=== PATIENT | female | born 1960 | race Caucasian/White ===

== ENCOUNTER 2016-06-02 07:51 | Inpatient (IN) | payer OTHER ==
[2016-06-02] MEDS ORDERED: Albuterol/Ipratropium NEB.SOL* Albuterol 2.5 MG/Ipratropium 0.5 MG 3 ML INH ONE ×3 (08:19→11:50)
[2016-06-02] MEDS ORDERED: methylPREDNISolone SOD SUCC* 125 MG 2 ML VIAL IV ONE (08:19)
[2016-06-02 08:53] LABS: Albumin 3.4 g/dL (3.2-5.2); Calcium 8.8 mg/dL (8.6-10.3); EGFR African American 177.6 (>60); EGFR Non-African American 138.1 (>60); Globulin 3.7 g/dL (2-4); Potassium 4.4 mmol/L (3.5-5.0); Total Bilirubin 0.4 mg/dL (0.2-1.0); Total Protein 7.1 g/dL (6.4-8.9); Troponin I 0.02 ng/mL (<0.04)
--- NOTE | 2016-06-02 09:03 | RAD ---
HISTORY: Shortness of breath COMPARISONS: November 23, 2015 VIEWS:1: Single frontal portable view of the chest at 8:50 AM FINDINGS: LINES AND TUBES: None. CARDIOMEDIASTINAL SILHOUETTE: The cardiomediastinal silhouette is normal for portable technique. PLEURA: The costophrenic angles are sharp. No pleural abnormalities are noted. LUNG PARENCHYMA: There is hyperinflation. ABDOMEN: The upper abdomen is clear. There is no subphrenic gas. BONES AND SOFT TISSUES: The patient is status post anterior cervical fusion. IMPRESSION: COPD. NO ACTIVE CARDIOPULMONARY DISEASE.
[2016-06-02 09:17] LABS: Hematocrit 46 % (35-47); Mean Corpuscular HGB Conc 33 g/dl (31-36); Mean Corpuscular Hemoglobin 32 pg (27-31); Mean Corpuscular Volume 97 fL (80-97); Mean Platelet Volume 9 um3 (7.4-10.4); Red Blood Count 4.75 10^6/ul (4.0-5.4); Red Cell Distribution Width 14 % (10.5-15); White Blood Count 5.9 10^3/ul (3.5-10.8)
[2016-06-02] MEDS ORDERED: Levofloxacin 750 MG IVPREMIX(* 750 MG/150 ML BAG IVPB ONE ×2 (11:55→15:00)
[2016-06-02] MEDS ORDERED: Albuterol HFA INHALER* 8 gm MDI INH PRN (12:49)
[2016-06-02] MEDS ORDERED: Acetaminophen TAB* 325 MG PO PRN (12:49)
[2016-06-02] MEDS ORDERED: oxyCODONE TAB* 5 MG TAB PO PRN (12:49)
[2016-06-02] MEDS: Enoxaparin(*) 40 MG/0.4 ML SYR SUBCUT SCH (14:48)
[2016-06-02] MEDS: Mometasone/Formoter 100/5 MDI INH SCH (19:58)
[2016-06-02] MEDS: methylPREDNISolone SOD SUCC* 40 MG/ML VIAL IV SCH (20:05)
--- NOTE | 2016-06-02 23:51 | HP ---
HISTORY AND PHYSICAL: DATE OF ADMISSION: 06/02/16 TIME OF EVALUATION: 12:30 p.m. PRIMARY CARE PROVIDER: Miladys Aguilar MD CHIEF COMPLAINT: Shortness of breath. HISTORY OF PRESENT ILLNESS: Mrs. High is a 56-year-old lady with a past medical history of allergic rhinitis, COPD, and tobacco abuse that presented to the emergency room with complaints of shortness of breath. She states that over the past couple of weeks she has felt like she was coming down with respiratory symptoms with rhinorrhea, watery eyes, and sore throat. This persisted and this week, she started to have some dry cough. She used her medications at home, her inhalers initially with symptomatic relief, but she states that for the past 2 days, the shortness of breath has gotten progressively worse with productive cough, now associated with wheezing and today it became worse to the point that she needed to come to the emergency room. She was described as being in respiratory distress on arrival with an oxygen saturation of 77% on room air and when she was placed on 4 L, her oxygen saturation went up to 100% after 5 minutes. She received 3 breathing treatments while in the emergency room and although she had some improvement, she was still symptomatic and her oxygen saturation still dropped with exertion, so the hospitalist service was called for evaluation. PAST MEDICAL HISTORY: 1. Allergic rhinitis. 2. COPD. 3. Status post anterior cervical diskectomy C5-6, C6-7. MEDICATION LIST: 1. Acetaminophen 650 mg p.o. q.4 hours p.r.n. pain or fever. 2. Albuterol HFA 1 puff inhaled b.i.d. as needed for shortness of breath. 3. Oxycodone 10 mg p.o. q.12 hours p.r.n. pain. MDD 20 mg. ALLERGIES: No known drug allergies. FAMILY HISTORY: Her mother at age 62 of lung cancer and father of a brain tumor. SOCIAL HISTORY: The patient was a long-time smoker, 1 pack per day, and she quit in January 2015. She denies alcohol or drug use. Surrogate decision maker is her , Jaswinder High, phone # [phone]. 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 REVIEW OF SYSTEMS: A 14-point review of systems was performed and all the pertinent negatives and positives are as in the HPI. PHYSICAL EXAMINATION GENERAL: The patient is a middle-aged lady, sitting up in the ED stretcher, in no acute distress, watching TV. VITAL SIGNS: Temperature 98.7, heart rate is 93, respiratory rate is 22, oxygen saturation 95% 4 L nasal cannula, and blood pressure is 107/63. HEENT: Pupils are equal, reactive to light. Moist mucous membranes. CHEST: Breath sounds present bilaterally with scattered rhonchi. CVS: Normal S1, S2. Regular rate and rhythm. ABDOMEN: Soft. Bowel sounds are present. EXTREMITIES: No edema. NEURO: She is alert, awake, and oriented x3. Able to move all 4 extremities. DIAGNOSTIC STUDIES/LAB DATA: The patient had a CBC that showed WBC of 5.9, hemoglobin of 15, hematocrit of 46, and platelets of 116 with 71% neutrophils. Chemistry showed a sodium of 131, potassium of 4.4, chloride of 90, bicarb of 39 , BUN of 8, creatinine 0.47, glucose of 145, lactic acid is 1.7, and calcium 8.8. LFTs are normal. EKG done June 02 at 8:03 a.m. shows sinus rhythm at 99 beats per minute with no ST-T changes, only PVCs. When compared to her prior EKG from March 2015, there is change in the sense that she had low voltage at that time. Chest x-ray showed COPD, but no active cardiopulmonary disease. ASSESSMENT AND PLAN: Mrs. High is an 56-year-old lady with the past medical history of allergic rhinitis, chronic obstructive pulmonary disease, and prior history of tobacco abuse, who presents to the emergency room with complaints of shortness of breath, found to be hypoxic secondary to chronic obstructive pulmonary disease exacerbation. 1. Acute hypoxemic respiratory failure: Cause is chronic obstructive pulmonary disease. The patient will receive oxygen as needed to keep respirations around 89% to 90%. 2. Chronic obstructive pulmonary disease exacerbation secondary to bronchitis: The patient will be admitted as observation to the medical floor. She will be started empirically on levofloxacin. We are going to continue bronchodilators, IV steroids, and I am going to add inhaled steroid too. She does not appear to have pneumonia at this time. The source appears to be bronchitis. 3. Deep vein thrombosis prophylaxis: The patient has a score of 2 on the DVT Prophylaxis Risk Assessment Guide and she will be started on Lovenox. 4. Mild thrombocytopenia: The patient has no signs of bleeding at this time. This appears to be an incidental finding and may represent only clumping. We are going to monitor her platelet count. 5. Code status: Full. TIME SPENT: Approximately 50 minutes was spent with the patient and family interview, medical records review, physical examination to complete the admission, and more than half this time was spent [id number] with the patient and coordination of care. CC: Miladys Aguilar MD* [id number]/[facility] #: [id number]
[2016-06-03] MEDS: Albuterol 2.5 MG/3 ML NEB.SOL* (0.083%) INH PRN ×2 (03:34→14:26)
[2016-06-03] MEDS: Omeprazole CAP* 20 MG PO SCH (05:37)
[2016-06-03 06:29] LABS: Hematocrit 43 % (35-47); Mean Corpuscular HGB Conc 33 g/dl (31-36); Mean Corpuscular Hemoglobin 32 pg (27-31); Mean Corpuscular Volume 97 fL (80-97); Mean Platelet Volume 9 um3 (7.4-10.4); Red Blood Count 4.39 10^6/ul (4.0-5.4); Red Cell Distribution Width 15 % (10.5-15); White Blood Count 7.8 10^3/ul (3.5-10.8)
[2016-06-03 06:41] LABS: BUN/Creatinine Ratio 18.2 (8-20); Calcium 8.7 mg/dL (8.6-10.3); EGFR African American 148.1 (>60); EGFR Non-African American 115.2 (>60); Potassium 4.5 mmol/L (3.5-5.0)
[2016-06-03] MEDS: Tiotropium CAP.INH* CAP.INH/18 MCG INH SCH ×2 (08:01→10:43)
[2016-06-03] MEDS: Mometasone/Formoter 100/5 MDI INH SCH ×3 (08:01→23:55)
[2016-06-03] MEDS: methylPREDNISolone SOD SUCC* 40 MG/ML VIAL IV SCH ×2 (08:30→20:59)
[2016-06-03] MEDS ORDERED: Spiriva Inhaler DEVICE* 1 EACH DEVICE INH ONE (09:00)
[2016-06-03] MEDS: Enoxaparin(*) 40 MG/0.4 ML SYR SUBCUT SCH (14:40)
[2016-06-03] MEDS ORDERED: Levofloxacin 500 MG IVPREMIX(* 500 MG/100 ML BAG IVPB SCH (15:00)
--- NOTE | 2016-06-03 19:29 | PN ---
Subjective Date of Service: 06/03/16 Interval History: Pt is feeling ok. Still frustrated by the fact that she is getting very SOB with minimal exertion. She has been coughing up some estrada sputum. Objective Active Medications: Acetaminophen (Tylenol Tab*) 650 mg PO Q4H PRN PRN Reason: pain-mild Albuterol (Ventolin Hfa Inhaler*) 2 puff INH Q6H PRN PRN Reason: SHORTNESS OF BREATH Albuterol (Ventolin 2.5 Mg/3 Ml Neb.Anaid*) 2.5 mg INH Q4H PRN PRN Reason: SOB/WHEEZING Last Admin: 06/03/16 14:26 Dose: 2.5 mg Enoxaparin Sodium (Lovenox(*)) 40 mg SUBCUT Q24H [facility] Last Admin: 06/03/16 14:40 Dose: 40 mg Levofloxacin/Dextrose (Levaquin 500 Mg Ivpremix(*)) 500 mg in 100 mls @ 100 mls /hr IVPB Q24H [facility] Last Admin: 06/03/16 14:40 Dose: 100 mls/hr Methylprednisolone Sodium Succinate (Solu-Medrol*) 40 mg IV Q12H [facility] Last Admin: 06/03/16 08:30 Dose: 40 mg Mometasone Furoate/Formoterol Fumar (Dulera 100/5 Mdi*) 2 puff INH BID [facility] Last Admin: 06/03/16 10:42 Dose: 2 puff Omeprazole (Prilosec Cap*) 20 mg PO DAILY@0600 [facility] Last Admin: 06/03/16 05:37 Dose: 20 mg Oxycodone HCl (Roxycodone Tab*) 10 mg PO Q12H PRN PRN Reason: PAIN Tiotropium [place] (Spiriva Cap.Inh*) 1 cap INH DAILY [facility] Last Admin: 06/03/16 10:43 Dose: 1 cap.inh Vital Signs 06/02/16 06/02/16 06/03/16 20:00 23:22 00:00 Temperature 97.6 F Pulse Rate 85 85 Respiratory 16 16 Rate Blood Pressure 105/61 (mmHg) O2 Sat by Pulse 97 97 97 Oximetry 06/03/16 06/03/16 06/03/16 03:34 03:55 07:21 Temperature 98.0 F 97.7 F Pulse Rate 68 80 77 Respiratory 20 16 15 Rate Blood Pressure 102/62 95/60 (mmHg) O2 Sat by Pulse 97 99 90 Oximetry 06/03/16 06/03/16 06/03/16 08:00 10:45 10:48 Temperature Pulse Rate 76 Respiratory 16 17 Rate Blood Pressure (mmHg) O2 Sat by Pulse 98 98 Oximetry 06/03/16 06/03/16 06/03/16 10:49 11:46 14:26 Temperature 97.3 F Pulse Rate 76 73 76 Respiratory 18 16 16 Rate Blood Pressure 104/62 (mmHg) O2 Sat by Pulse 98 94 99 Oximetry 06/03/16 06/03/16 15:32 17:19 Temperature 97.6 F Pulse Rate 97 Respiratory 20 Rate Blood Pressure 101/63 (mmHg) O2 Sat by Pulse 93 93 Oximetry Oxygen Devices in Use Now: None Appearance: Middle aged cachectic female sitting up in bed, NAD Eyes: No Scleral Icterus Ears/Nose/Mouth/Throat: Mucous Membranes Moist Respiratory: Symmetrical Chest Expansion and Respiratory Effort, - - diminshed breath sounds throughout with diffusely scattered wheezes Cardiovascular: NL Sounds; No Murmurs; No JVD, RRR, No Edema Abdominal: NL Sounds; No Tenderness; No Distention Extremities: No Clubbing, Cyanosis Skin: No Rash or Ulcers, No Nodules or Sclerosis Neurological: Alert and Oriented x 3 Result Diagrams: 06/03/16 06:10 06/03/16 06:10 Assess/Plan/Problems-Billing Ms lorenzana is a 56 yo F with a h/o COPD who presented to the ER with c/o progressive SOB. - Patient Problems (1) COPD exacerbation Current Visit: Yes Status: Acute Code(s): J44.1 - CHRONIC OBSTRUCTIVE PULMONARY DISEASE W (ACUTE) EXACERBATION SNOMED Code(s): 776061354 Comment: The patient continues to have diffuse wheezes. Continue spiriva, dulera and change to standing albuterol nebs. Will change from levaquin to azithromycin. She is currently needing supplemental O2. I think she still needs another day or 2 in the hospital. (2) DVT prophylaxis Current Visit: Yes Status: Acute Code(s): PLU4469 - SNOMED Code(s): 806524609 Comment: levaquin (3) Full code status Current Visit: Yes Status: Acute Code(s): Z78.9 - OTHER SPECIFIED HEALTH STATUS SNOMED Code(s): 089696120
[2016-06-03] MEDS ORDERED: Azithromycin TAB* 250 MG PO SCH (19:33)
[2016-06-03] MEDS: Albuterol 2.5 MG/3 ML NEB.SOL* (0.083%) INH SCH (23:54)
[2016-06-04] MEDS: Albuterol 2.5 MG/3 ML NEB.SOL* (0.083%) INH SCH ×4 (03:51→11:19)
[2016-06-04] MEDS: Omeprazole CAP* 20 MG PO SCH (05:50)
[2016-06-04] MEDS: Mometasone/Formoter 100/5 MDI INH SCH (07:57)
[2016-06-04] MEDS: Tiotropium CAP.INH* CAP.INH/18 MCG INH SCH (08:15)
[2016-06-04] MEDS: methylPREDNISolone SOD SUCC* 40 MG/ML VIAL IV SCH (08:58)
[2016-06-04] MEDS ORDERED: Azithromycin TAB* 250 MG PO SCH (09:00)
--- NOTE | 2016-06-04 11:36 | PN ---
Subjective Date of Service: 06/04/16 Interval History: Pt is feeling much better. Her SOB is improved even with exertion. She feels like she will be able to manage at home. She does not have a nebulizer machine. Objective Active Medications: Acetaminophen (Tylenol Tab*) 650 mg PO Q4H PRN PRN Reason: pain-mild Albuterol (Ventolin Hfa Inhaler*) 2 puff INH Q6H PRN PRN Reason: SHORTNESS OF BREATH Albuterol (Ventolin 2.5 Mg/3 Ml Neb.Anaid*) 2.5 mg INH [id number] AWAKE [facility] Last Admin: 06/04/16 11:19 Dose: 2.5 mg Azithromycin (Zithromax Tab*) 500 mg PO DAILY [facility] Last Admin: 06/04/16 08:58 Dose: 500 mg Enoxaparin Sodium (Lovenox(*)) 40 mg SUBCUT Q24H [facility] Last Admin: 06/03/16 14:40 Dose: 40 mg Methylprednisolone Sodium Succinate (Solu-Medrol*) 40 mg IV Q12H [facility] Last Admin: 06/04/16 08:58 Dose: 40 mg Mometasone Furoate/Formoterol Fumar (Dulera 100/5 Mdi*) 2 puff INH BID [facility] Last Admin: 06/04/16 07:57 Dose: 2 puff Omeprazole (Prilosec Cap*) 20 mg PO DAILY@0600 [facility] Last Admin: 06/04/16 05:50 Dose: 20 mg Oxycodone HCl (Roxycodone Tab*) 10 mg PO Q12H PRN PRN Reason: PAIN Tiotropium [place] (Spiriva Cap.Inh*) 1 cap INH DAILY [facility] Last Admin: 06/04/16 08:15 Dose: 1 cap.inh Vital Signs 06/03/16 06/03/16 06/03/16 11:46 14:26 15:32 Temperature 97.3 F 97.6 F Pulse Rate 73 76 97 Respiratory 16 16 20 Rate Blood Pressure 104/62 101/63 (mmHg) O2 Sat by Pulse 94 99 93 Oximetry 06/03/16 06/03/16 06/03/16 17:19 19:35 20:09 Temperature 97.6 F Pulse Rate 93 95 Respiratory 16 Rate Blood Pressure 100/68 (mmHg) O2 Sat by Pulse 93 89 97 Oximetry 06/03/16 06/04/16 06/04/16 23:51 04:17 08:00 Temperature 98.3 F Pulse Rate 75 84 88 Respiratory 18 16 16 Rate Blood Pressure 101/66 (mmHg) O2 Sat by Pulse 94 95 99 Oximetry Oxygen Devices in Use Now: None Appearance: Middle aged female sitting up in bed, getting nebulizer, NAD Eyes: No Scleral Icterus Ears/Nose/Mouth/Throat: Mucous Membranes Moist Respiratory: Symmetrical Chest Expansion and Respiratory Effort, - - still diminshed breath sounds in all lung obrien but much less wheezing today Cardiovascular: NL Sounds; No Murmurs; No JVD, RRR, No Edema Abdominal: NL Sounds; No Tenderness; No Distention Extremities: No Clubbing, Cyanosis Skin: No Rash or Ulcers, No Nodules or Sclerosis Neurological: Alert and Oriented x 3 Result Diagrams: 06/03/16 06:10 06/03/16 06:10 Microbiology and Other Data: Microbiology 06/04/16 05:50 Nasal Screen MRSA (PCR)(LISA) - Final Nasal Mrsa Positive Assess/Plan/Problems-Billing Ms lorenzana is a 56 yo F with a h/o COPD who presented to the ER with c/o progressive SOB. - Patient Problems (1) COPD exacerbation Current Visit: Yes Status: Acute Code(s): J44.1 - CHRONIC OBSTRUCTIVE PULMONARY DISEASE W (ACUTE) EXACERBATION SNOMED Code(s): 117319492 Comment: Improved further today. She has been able to do some walking around without significant SOB. She feels ready for d/c home. Will set her up with a nebulizer so she can continue to have routine nebs for the next few days then use as needed. Complete course of azithromycin and predinsone. (2) DVT prophylaxis Current Visit: Yes Status: Acute Code(s): [id number] - SNOMED Code(s): 693352134 Comment: lovenox (3) Full code status Current Visit: Yes Status: Acute Code(s): Z78.9 - OTHER SPECIFIED HEALTH STATUS SNOMED Code(s): 742263029 Status and Disposition: d/c home
[2016-06-04 11:51] VITALS: BP 99/55
--- NOTE | 2016-06-04 13:55 | ED ---
Arsenio Asher Adam, scribed for Remy Latham MD on 06/02/16 at 0821 . Shortness of Breath - HPI Summary HPI Summary: Pt is a 56 year old female presenting with SOB. She has a Hx of COPD and she states that she has been having SOB intermittently; she states that she has "good days and bad days." She came to the ED because she states that today's SOB is worse than usual. She has an albuterol inhaler which alleviates the SOB. She is not on o2 at home but the o2 administered by EMS alleviated the SOB as well. Pt also c/o a cough which produces yellow sputum. She believes she has had a low-grade fever. Positive tobacco hx; pt quit smoking last year. - History of Current Complaint Chief Complaint: EDShortnessOfBreath Time Seen by Provider: 06/02/16 08:12 Hx Obtained From: Patient Onset/Duration: Gradual Onset, Lasting Weeks, Still Present Timing: Intermittent Episodes Lasting: - Hours Current Severity: Moderate Dyspnea At: Rest Aggrevating Factors: Nothing Alleviating Factors: Bronchodilators - Albuterol inhaler, Oxygen Associated Signs & Symptoms: Cough (Productive), Fever - Self-reported - Allergy/Home Medications Allergies/Adverse Reactions: Allergies Allergy/AdvReac Type Severity Reaction Status Date / Time No Known Allergies Allergy Verified 04/12/15 07:00 PMH/Surg Hx/FS Hx/Imm Hx Endocrine/Hematology History: Denies: Hx Diabetes Cardiovascular History: Denies: Hx Hypertension, Hx Pacemaker/ICD Respiratory History: Reports: Hx Chronic Obstructive Pulmonary Disease (COPD) GI History: Reports: Hx Hiatal Hernia Musculoskeletal History: Reports: Hx Arthritis, Hx Tendonitis - HX OF Denies: Hx Rheumatoid Arthritis Sensory History: Reports: Hx Contacts or Glasses - GLASSES Denies: Hx Hearing Aid Opthamlomology History: Reports: Hx Contacts or Glasses - GLASSES Psychiatric History: Reports: Hx Anxiety Denies: Hx Panic Disorder - Surgical History Surgery Procedure, Year, and Place: 1988 ORIF LEFT PATELLA. TUBAL LIGATION Hx Anesthesia Reactions: No - Immunization History Date of Tetanus Vaccine: pt states unsure Date of Influenza Vaccine: none Infectious Disease History: Denies: Traveled Outside the [place] in Last 30 Days - Family History Known Family History: Positive: Diabetes, Other - Brain CA to father. Lung CA to mother Negative: Hypertension - Social History Occupation: Employed Full-time Lives: With Family - Alcohol Use: Rare Hx Substance Use: No Substance Use Type: Reports: None Hx Tobacco Use: Yes Smoking Status (MU): Current Every Day Smoker Type: Cigarettes Review of Systems Positive: Fever - Self-reported Positive: Shortness Of Breath, Cough All Other Systems Reviewed And Are Negative: Yes Physical Exam Triage Information Reviewed: Yes Vital Signs On Initial Exam: Initial Vitals Temp Pulse Resp BP Pulse Ox 97.4 F 113 20 148/69 66 06/02/16 07:52 06/02/16 07:52 06/02/16 07:52 06/02/16 07:52 06/02/16 07:52 Vital Signs Reviewed: Yes Appearance: Positive: Well-Appearing, No Pain Distress Skin: Positive: Warm, Skin Color Reflects Adequate Perfusion, Dry Head/Face: Positive: Normal Head/Face Inspection Eyes: Positive: Normal ENT: Positive: Normal ENT inspection Neck: Positive: Supple, Nontender Respiratory/Lung Sounds: Positive: Decreased Breath Sounds, Other - Uses accessory muscles. Wet-sounding cough. When she coughs, she wheezes. Increased AP diameter. Cardiovascular: Positive: Tachycardia Abdomen Description: Positive: Nontender, Soft Bowel Sounds: Positive: Present Musculoskeletal: Positive: Normal Neurological: Positive: Normal Psychiatric: Positive: Affect/Mood Appropriate Diagnostics - Vital Signs Vital Signs Temp Pulse Resp BP Pulse Ox 06/02/16 07:52 97.4 F 113 20 148/69 66 - Laboratory Lab Results: Lab Results 06/02/16 06/02/16 06/02/16 Range/Units 08:27 08:27 08:27 WBC 5.9 (3.5-10.8) 10^3/ul RBC 4.75 (4.0-5.4) 10^6/ul Hgb 15.0 (12.0-16.0) g/dl Hct 46 (35-47) % MCV 97 (80-97) fL MCH 32 H (27-31) pg MCHC 33 (31-36) g/dl RDW 14 (10.5-15) % Plt Count 116 L (150-450) 10^3/ul MPV 9 (7.4-10.4) um3 Neut % (Auto) 71.8 (38-83) % Lymph % (Auto) 13.0 L (25-47) % [place] % (Auto) 14.3 H (1-9) % Eos % (Auto) 0.1 (0-6) % Baso % (Auto) 0.8 (0-2) % Absolute Neuts (auto) 4.2 (1.5-7.7) 10^3/ul Absolute Lymphs (auto) 0.8 L (1.0-4.8) 10^3/ul Absolute Monos (auto) 0.8 (0-0.8) 10^3/ul Absolute Eos (auto) 0 (0-0.6) 10^3/ul Absolute Basos (auto) 0 (0-0.2) 10^3/ul Absolute Nucleated RBC 0.01 10^3/ul Nucleated RBC % 0.2 Sodium 131 L (133-145) mmol/L Potassium 4.4 (3.5-5.0) mmol/L Chloride 90 L (101-111) mmol/L Carbon Dioxide 39 H (22-32) mmol/L Anion Gap 2 (2-11) mmol/L BUN 8 (6-24) mg/dL Creatinine 0.47 L (0.51-0.95) mg/dL Est GFR ( Amer) 177.6 (>60) Est GFR (Non-Af Amer) 138.1 (>60) BUN/Creatinine Ratio 17.0 (8-20) Glucose 145 H (70-100) mg/dL Lactic Acid 1.7 (0.5-2.0) mmol/L Calcium 8.8 (8.6-10.3) mg/dL Total Bilirubin 0.40 (0.2-1.0) mg/dL AST 28 (13-39) U/L ALT 21 (7-52) U/L Alkaline Phosphatase 98 (34-104) U/L Troponin I 0.02 (<0.04) ng/mL Total Protein 7.1 (6.4-8.9) g/dL Albumin 3.4 (3.2-5.2) g/dL Globulin 3.7 (2-4) g/dL Albumin/Globulin Ratio 0.9 L (1-3) 06/03/16 06/03/16 Range/Units 06:10 06:10 WBC 7.8 (3.5-10.8) 10^3/ul RBC 4.39 (4.0-5.4) 10^6/ul Hgb 14.0 (12.0-16.0) g/dl Hct 43 (35-47) % MCV 97 (80-97) fL MCH 32 H (27-31) pg MCHC 33 (31-36) g/dl RDW 15 (10.5-15) % Plt Count 137 L (150-450) 10^3/ul MPV 9 (7.4-10.4) um3 Neut % (Auto) 81.6 (38-83) % Lymph % (Auto) 8.3 L (25-47) % [place] % (Auto) 10.0 H (1-9) % Eos % (Auto) 0 (0-6) % Baso % (Auto) 0.1 (0-2) % Absolute Neuts (auto) 6.4 (1.5-7.7) 10^3/ul Absolute Lymphs (auto) 0.6 L (1.0-4.8) 10^3/ul Absolute Monos (auto) 0.8 (0-0.8) 10^3/ul Absolute Eos (auto) 0 (0-0.6) 10^3/ul Absolute Basos (auto) 0 (0-0.2) 10^3/ul Absolute Nucleated RBC 0 10^3/ul Nucleated RBC % 0 Sodium 133 (133-145) mmol/L Potassium 4.5 (3.5-5.0) mmol/L Chloride 92 L (101-111) mmol/L Carbon Dioxide 39 H (22-32) mmol/L Anion Gap 2 (2-11) mmol/L BUN 10 (6-24) mg/dL Creatinine 0.55 (0.51-0.95) mg/dL Est GFR ( Amer) 148.1 (>60) Est GFR (Non-Af Amer) 115.2 (>60) BUN/Creatinine Ratio 18.2 (8-20) Glucose 147 H (70-100) mg/dL Lactic Acid (0.5-2.0) mmol/L Calcium 8.7 (8.6-10.3) mg/dL Total Bilirubin (0.2-1.0) mg/dL AST (13-39) U/L ALT (7-52) U/L Alkaline Phosphatase (34-104) U/L Troponin I (<0.04) ng/mL Total Protein (6.4-8.9) g/dL Albumin (3.2-5.2) g/dL Globulin (2-4) g/dL Albumin/Globulin Ratio (1-3) Result Diagrams: 06/03/16 06:10 06/03/16 06:10 Lab Statement: Any lab studies that have been ordered have been reviewed, and results considered in the medical decision making process. - Radiology CXR Radiology Interpretation Completed By: Radiologist - IMPRESSION: COPD. NO ACTIVE CARDIOPULMONARY DISEASE. - EKG 08:03 Cardiac Rate: Tachycardia - 99 BPM EKG Rhythm: Sinus Tachycardia Ectopy: PVCs - Additional Comments Diagnostic Additional Comments: Troponin I - 0.02 Course/Dx - Course Course Of Treatment: Ms. High improeved some here in the ED sith nebs and steroids but still dropped her SPO2 with ambulation so the hospitalists were called to consult. - Diagnoses Provider Diagnoses: COPD EXACERBATION - Critical Care Time Critical Care Time: 30-74 min Discharge - Discharge Plan Condition: Stable Disposition: ADMITTED TO [facility] documentation as recorded by the Arsenio aleman Adam accurately reflects the service I personally performed and the decisions made by me, Remy Latham MD.
[2016-06-04] MEDS: Enoxaparin(*) 40 MG/0.4 ML SYR SUBCUT SCH (16:20)
--- NOTE | 2016-06-05 02:18 | DS ---
DISCHARGE SUMMARY: DATE OF ADMISSION: 06/02/16 DATE OF DISCHARGE: 06/04/16 PRIMARY CARE PROVIDER: Miladys Aguilar MD PRINCIPAL DIAGNOSIS: Chronic obstructive pulmonary disease exacerbation. DISCHARGE MEDICATIONS: 1. Albuterol 2 puffs inhaled q.4 hours p.r.n. shortness of breath. 2. Tylenol 650 mg p.o. q.4 hours p.r.n. pain. 3. Oxycodone 10 mg p.o. q.12 hours. 4. Prednisone 20 mg p.o. daily x5 days. 5. Spiriva 1 puff inhaled daily (new). 6. Dulera 100/5 mcg 2 puffs inhaled twice daily (new). 7. Azithromycin 500 mg p.o. daily x4 days. 8. Albuterol neb 1 neb inhaled q.4 hours while awake, standing for the next 2 days and every 4 hours as needed for shortness of breath. HOSPITAL COURSE: Ms. High is a 56-year-old female who has a known history of COPD and was admitted in November 2015 with COPD exacerbation, presents to the emergency room with complaints of progressive shortness of breath. The patient was noted to be markedly wheezy with diminished breath sounds in all lung obrien. The patient was admitted, started on initially levofloxacin and Solu-Medrol. The patient felt somewhat improved; however, still very winded with minimal activity. The decision was made to keep the patient again overnight for further treatment with standing nebulizers and IV steroids. The patient on the day of discharge is feeling improved. She has been up and ambulating some without significant shortness of breath. Her O2 saturations are somewhat marginal on room air though this will be confirmed prior to discharge. Her O2 saturations are less than 88% on room air at rest or with ambulation should be set up for oxygen. The patient has also been started on Spiriva and Dulera for maintenance therapy. The patient at this point is wishing to be discharge to home and I feel that she is safe to go home. The patient will be kept out of work until 06/09/16 at which time she can return. FOLLOWUP CONCERNS: The patient is being discharged to home today, 06/04/16. ACTIVITY LEVEL: As tolerated. DIET: Regular. CONDITION ON DISCHARGE: Stable. FOLLOWUP: The patient is to follow up with Dr. Aguilar in the next 4 to 7 days. TIME SPENT: Thirty-five minutes was spent discharging this patient. [id number]/[facility] #: [id number] JOAO
== END 2016-06-04 17:10 | disposition home or self-care (01) | DRG 140 ==
LOC: ED 07:51 → MED 11:56 → OBSVTOIN 06-03 09:30
PROVIDERS: ADMIT Internal Medicine; ATTEND Hospitalist
DX: J44.1 Chronic obstructive pulmonary disease with (acute) exacerbation (principal); J96.01 Acute respiratory failure with hypoxia; K44.9 Diaphragmatic hernia without obstruction or gangrene; M19.90 Unspecified osteoarthritis, unspecified site; F41.9 Anxiety disorder, unspecified; J40 Bronchitis, not specified as acute or chronic; D69.6 Thrombocytopenia, unspecified; Z87.891 Personal history of nicotine dependence; Z98.51 Tubal ligation status; Z83.3 Family history of diabetes mellitus; Z80.8 Family history of malignant neoplasm of other organs or systems; Z80.1 Family history of malignant neoplasm of trachea, bronchus and lung
CPT/HCPCS: 36415; 71010; 80048; 80053; 83605; 84484; 85025; 87641; 93005; 94640; 94760; A9270-GY; G0378; J1650; J1956; J2920; J2930

== ENCOUNTER 2016-07-11 07:11 | Inpatient (IN) | payer OTHER ==
[2016-07-11] MEDS ORDERED: NS 0.9% 1000 ML* 1,000 ML IV ONE (07:23)
[2016-07-11] MEDS ORDERED: methylPREDNISolone 125 MG* 2 ML VIAL IV ONE (07:23)
[2016-07-11 08:26] LABS: Hematocrit 42 % (35-47); Hemoglobin 13.6 g/dl (12.0-16.0); Mean Corpuscular HGB Conc 33 g/dl (31-36); Mean Corpuscular Hemoglobin 31 pg (27-31); Mean Corpuscular Volume 95 fL (80-97); Mean Platelet Volume 9 um3 (7.4-10.4); Red Blood Count 4.38 10^6/ul (4.0-5.4); Red Cell Distribution Width 14 % (10.5-15); White Blood Count 7.4 10^3/ul (3.5-10.8)
[2016-07-11] MEDS: Albuterol/Ipratropium NEB.SOL* Albuterol 2.5 MG/Ipratropium 0.5 MG 3 ML INH SCH (08:31)
--- NOTE | 2016-07-11 08:32 | RAD ---
INDICATION: COPD. COMPARISON: Comparison is made with a prior chest x-ray study from TECHNIQUE: Dual-energy PA and lateral views of the chest were obtained. FINDINGS: The heart is within normal limits in size. Mediastinal and hilar contours appear within normal limits. The lungs are markedly hyperinflated and clear. No pleural effusion is seen. Post surgical changes are partially visualized in the lower cervical spine. IMPRESSION: FINDINGS CONSISTENT WITH COPD, NO EVIDENCE FOR ACUTE FINDING.
[2016-07-11 08:42] LABS: Albumin 3.3 g/dL (3.2-5.2); Calcium 8.6 mg/dL (8.6-10.3); EGFR African American 213.9 (>60); EGFR Non-African American 166.3 (>60); Globulin 3.9 g/dL (2-4); Potassium 3.4 mmol/L (3.5-5.0); Total Bilirubin 0.2 mg/dL (0.2-1.0); Total Protein 7.2 g/dL (6.4-8.9)
[2016-07-11 08:45] LABS: Troponin I 0.01 ng/mL (<0.04)
[2016-07-11] MEDS ORDERED: Potassium Chlor TAB* 20 MEQ TAB.ER PO ONE (08:51)
[2016-07-11] MEDS ORDERED: Albuterol/Ipratropium NEB.SOL* Albuterol 2.5 MG/Ipratropium 0.5 MG 3 ML INH ONE (09:26)
[2016-07-11] MEDS ORDERED: Albuterol/Ipratropium NEB.SOL* Albuterol 2.5 MG/Ipratropium 0.5 MG 3 ML ONE (10:19)
[2016-07-11 10:22] LABS: FIO2 2
[2016-07-11 10:25] LABS: PCO2 Arterial 67 mmHg (35-45)
[2016-07-11 10:39] LABS: C Reactive Protein 4.55 mg/L (< 5.00)
[2016-07-11] MEDS ORDERED: Acetaminophen TAB* 325 MG PO PRN (11:41)
[2016-07-11] MEDS ORDERED: Albuterol HFA INHALER* 8 gm MDI INH PRN (11:41)
[2016-07-11] MEDS ORDERED: Cetirizine* 10 MG TAB PO PRN (11:41)
[2016-07-11] MEDS ORDERED: Benzonatate CAP* 100 MG PO PRN (11:49)
[2016-07-11] MEDS ORDERED: Spiriva Inhaler DEVICE* 1 EACH DEVICE ONE (12:00)
[2016-07-11] MEDS: Heparin VIAL(*) 5000 UNITS/ML VIAL (FIVE THOUSAND) SUBCUT SCH ×2 (13:20→22:41)
[2016-07-11] MEDS: oxyCODONE TAB* 5 MG TAB PO PRN (13:21)
[2016-07-11] MEDS ORDERED: Azithromycin TAB* 250 MG PO ONE (13:29)
[2016-07-11] MEDS: Albuterol 2.5 MG/3 ML NEB.SOL* (0.083%) INH SCH ×3 (15:55→23:48)
--- NOTE | 2016-07-11 16:33 | HP ---
HISTORY AND PHYSICAL: DATE OF ADMISSION: 07/11/16 PRIMARY CARE PROVIDER: Dr. David Moss ATTENDING PHYSICIAN: Alcon Montalvo MD *(dictated by Rosalio Garcia NP) CHIEF COMPLAINT: Shortness of breath. HISTORY OF PRESENT ILLNESS: Ms. High is a 56-year-old female with past medical history significant for chronic obstructive pulmonary disease and seasonal allergies, who presented to the emergency room today with complaints of shortness of breath starting yesterday. The patient related this to being exacerbated by her seasonal allergies. She states that she checked her oxygen saturation on her way to work and noted that it was 60% room air. She has also noted some thick white sputum with her cough. The patient denies any recent fever, chills, and chest pain. She states her shortness of breath is worse with exertion. She denies any nausea, vomiting, or urinary symptoms. The patient has noted intermittent dizziness over the past week. She feels this is associated with the BuSpar that she has recently started taking. The patient reports that she does take Zyrtec for her allergies as needed. The patient also uses 1 to 2 liters of oxygen at night. The patient presented to the emergency room for further evaluation of her symptoms. While in the emergency room the patient had DuoNeb, Solu-Medrol, and felt that her shortness of breath had improved. She also received some normal saline and potassium replacement. She was found to be slightly hypokalemic with a potassium of 3.4. The patient had a troponin of 0.01. She had an influenza swab that was negative for influenza A and B. She also had a sputum sent to the lab that is pending. She had a chest x-ray showing findings consistent with COPD and no acute findings. She had an EKG showing sinus rhythm and a rate of 92 and no acute signs of ischemia. The patient was noted to have an oxygen saturation of 59% upon arrival to the emergency room. This did improve with 2 liters of oxygen. Her saturations increased to 91% to 100%. Hospitalists were asked to evaluate the patient for admission. PAST MEDICAL HISTORY: 1. Chronic obstructive pulmonary disease. 2. Hiatal hernia. 3. Arthritis. 4. Seasonal allergies. 5. Chronic pain. 6. Anxiety. PAST SURGICAL HISTORY: 1. Status post an ORIF of her left patella in 1988. 2. Status post tubal ligation. 3. Status post an anterior cervical diskectomy of C5-C6 and C6-C7 in 2016. HOME MEDICATIONS: Include: 1. Zyrtec 10 mg oral daily as needed for allergy symptoms. 2. Bupropion HCl 7.5 mg oral twice daily. 3. Oxycodone 10 mg oral every 12 hours as needed for pain, the patient takes daily at bedtime. 4. Spiriva Respimat 2 puffs inhalation daily. 5. Dulera 100/5 two puffs inhalation twice daily. 6. Albuterol HFA inhaler 2 puffs inhalation every 4 hours as needed for shortness of breath or wheeze. 7. Albuterol 2.5 mg/3 mL nebulizer, 2.5 mg inhalation every 4 hours as needed for shortness of breath or wheeze. 8. Acetaminophen 650 mg oral every 4 hours as needed for pain. ALLERGIES: No known drug allergies. FAMILY HISTORY: The patient denies any family history of coronary artery disease. The patient's paternal grandmother had a history of diabetes mellitus. The patient's mother passed from lung cancer. The patient's father had history of brain cancer. SOCIAL HISTORY: The patient is a former smoker. She quit smoking 3 months ago. Prior to that, she was 1 to 1-1/2 pack a day smoker for approximately 40 years. The patient denies alcohol or recreational drug use. The patient works part-time. She lives with her , Jaswinder High, who will be her surrogate decision maker in the event she is unable to make decisions for herself. REVIEW OF SYSTEMS: I performed a 14-point review of systems. All the pertinent positive and negatives are mentioned in the history of present illness. The remaining review of systems are negative. PHYSICAL EXAMINATION GENERAL APPEARANCE: The patient is alert, pleasant, and appears to be in no acute distress. VITAL SIGNS: Temperature 97.1, heart rate 87, respiratory rate 19, O2 saturation 100% on 2 liters via nasal cannula, blood pressure 97/67. HEENT: Normocephalic, atraumatic. Pupils are equal and reactive to light. Extraocular movements are intact. NECK: Supple. RESPIRATORY: There is no accessory muscle use and the lungs are clear to auscultation bilateral. CARDIOVASCULAR: Regular rate and rhythm. S1, S2 present. There are no murmurs , rubs, or gallops heard. ABDOMEN: Soft, nontender, nondistended. Bowel sounds positive x4. EXTREMITIES: There is no lower extremity edema. DP and PT pulses are 2+ and symmetric. MUSCULOSKELETAL: There is no clubbing or cyanosis noted. The patient exhibits good strength in all extremities. NEUROLOGICAL: The patient is alert and oriented x4. Cranial nerves II through XII are grossly intact. PSYCHOLOGICAL: The patient is calm and cooperative. SKIN: There are no rashes or abnormalities seen. DIAGNOSTIC STUDIES/LABORATORY DATA: Sodium 140, potassium 3.4, chloride 99, CO2 37, BUN 6, creatinine 0.40, and glucose 129. Troponin 0.01. White blood cell count 7.4, hemoglobin 13.6, hematocrit 42, and platelet count 183. Influenza A and B negative. Sputum culture is pending. EKG shows a sinus rhythm with a rate of 92. There are no acute signs of ischemia in this EKG. This EKG is similar to previous EKG from 06/02/16. Chest x-ray from today. Radiologist's impression - Findings consistent with COPD, no evidence for acute findings. IMPRESSION: Ms. High is a 56-year-old female with past medical history significant for chronic obstructive pulmonary disease, seasonal allergies, and chronic pain, who presents to the emergency room with complaints of shortness of breath. She will be admitted as an inpatient for COPD exacerbation. ASSESSMENT AND PLAN: 1. Chronic obstructive pulmonary disease exacerbation. The patient will be placed on albuterol nebulizers q.4 hours around the clock while awake. She will also be continued on IV Solu-Medrol. We will continue on her home Dulera and Spiriva. We will give her Tessalon Perles as needed for cough. There are no signs of pneumonia on chest x-ray. We will give the patient monotherapy of azithromycin. The patient will have oxygen as needed to maintain oxygen saturations 89% to 90%. 2. Acute hypoxic respiratory failure. I suspect this is caused by the patient' s COPD exacerbation. We will give her oxygen as needed to keep her saturations 89% to 90%. 3. Hypokalemia. The patient received potassium replacement in the emergency room and we will recheck her labs in the morning. 4. Anxiety. The patient will be continued on her home buspirone. 5. Seasonal allergies. The patient will be continued on as needed Zyrtec. 6. Chronic pain. The patient will be continued on her home oxycodone as needed and have acetaminophen as needed. 7. Fluids, electrolytes, and nutrition. The patient will be on a regular diet. 8. Code status: Full code. 9. DVT prophylaxis. The patient is at moderate risk and we will have subcu heparin. 10. Disposition: Inpatient for COPD exacerbation. TIME SPENT: Time for this admission was 60 minutes and greater than half of that was spent with the patient and discussing medications, past medical history, and the events leading up to her arrival today and performing a physical examination. The case has been reviewed with the attending Dr. Montalvo, who agrees with the plan of care. Reviewed by ROSALIO GARCIA, MONICA-C 07/12/16 1707 CC: Dr. David Moss* [id number]/[facility] #: [id number] JOAO
[2016-07-11 19:30] LABS: Urine Bilirubin Negative (Negative); Urine Glucose 3+(>=500 mg/dL) (Negative); Urine Nitrite Negative (Negative)
[2016-07-11] MEDS: busPIRone TAB* 15 MG PO SCH (19:55)
[2016-07-11] MEDS: Mometasone/Formoter 100/5 MDI INH SCH (20:07)
--- NOTE | 2016-07-11 21:14 | ED ---
Jaskaran Asher Billy, scribed for Daryl Mcgarry MD on 07/11/16 at 0722 . Shortness of Breath - HPI Summary HPI Summary: Patient is a 56 year-old female with a history of COPD coming to [facility] for evaluation of shortness of breath since yesterday. She states that the shortness of breath is exacerbated with her seasonal allergies. She was on her way to work this morning when she measured her O2 saturation at work at approximately 60%. Denies chest pain. She has some sputum with cough. Former smoker, last cigarette 3 months ago. - History of Current Complaint Chief Complaint: EDShortnessOfBreath Time Seen by Provider: 07/11/16 07:19 Hx Obtained From: Patient Onset/Duration: Gradual Onset, Lasting Days Timing: Constant Current Severity: Moderate Dyspnea At: Rest Alleviating Factors: Oxygen Associated Signs & Symptoms: Cough (Productive) - Allergy/Home Medications Allergies/Adverse Reactions: Allergies Allergy/AdvReac Type Severity Reaction Status Date / Time No Known Allergies Allergy Verified 04/12/15 07:00 Home Medications: Home Medications Buspirone HCl 7.5 mg PO BID 07/11/16 [History Confirmed 07/11/16] Cetirizine* [ZyrTEC 10 MG TAB*] 10 mg PO DAILY PRN 07/11/16 [History Confirmed 07/11/16] PMH/Surg Hx/FS Hx/Imm Hx Endocrine/Hematology History: Denies: Hx Diabetes Cardiovascular History: Denies: Hx Hypertension, Hx Pacemaker/ICD Respiratory History: Reports: Hx Chronic Obstructive Pulmonary Disease (COPD) GI History: Reports: Hx Hiatal Hernia Musculoskeletal History: Reports: Hx Arthritis, Hx Tendonitis - HX OF Denies: Hx Rheumatoid Arthritis Sensory History: Reports: Hx Contacts or Glasses - GLASSES Denies: Hx Hearing Aid Opthamlomology History: Reports: Hx Contacts or Glasses - GLASSES EENT History: Reports: Hx Seasonal Allergies Psychiatric History: Reports: Hx Anxiety Denies: Hx Panic Disorder - Surgical History Surgery Procedure, Year, and Place: 1988 ORIF LEFT PATELLA. TUBAL LIGATION Hx Anesthesia Reactions: No - Immunization History Date of Tetanus Vaccine: pt states unsure Date of Influenza Vaccine: none Infectious Disease History: No Infectious Disease History: Denies: Traveled Outside the [place] in Last 30 Days - Family History Known Family History: Positive: Diabetes, Other - Brain CA to father. Lung CA to mother Negative: Hypertension - Social History Alcohol Use: Rare Hx Substance Use: No Substance Use Type: Reports: None Hx Tobacco Use: Yes Smoking Status (MU): Current Every Day Smoker Type: Cigarettes Length of Time of Smoking/Using Tobacco: 30 years Have You Smoked in the Last Year: Yes Review of Systems Negative: Chest Pain Positive: Shortness Of Breath, Cough All Other Systems Reviewed And Are Negative: Yes Physical Exam - Summary Physical Exam Summary: VITAL SIGNS: Reviewed. GENERAL: Patient is a thin female with some distress secondary to the shortness of breath. However, --- is able to speak in full sentences. HEAD AND FACE: Normocephalic and atraumatic. EYES: PERRLA, EOMI x 2, No injected conjunctiva. EARS: Hearing grossly intact. Ear canals and tympanic membranes WNL MOUTH: Dry oral mucosa. NECK: Supple, trachea is midline, no adenopathy, no JVD, no carotid bruit. CHEST: Symmetric, No intercostal or abdominal retraction, LUNGS: Diffuse bilateral wheezing and decreased breath sounds.No crackles. CVS: RRR,, S1 and S2 present, no murmurs or gallops appreciated. ABDOMEN: Soft, non-tender. No signs of distention. Positive BS. No rebound, no guarding, and no masses palpated. EXTREMITIES: FROM in all major joints, no edema, no cyanosis or clubbing. NEURO: Alert and oriented x 3. No acute neurological deficits. Speech is normal and follows commands. SKIN: Dry and warm Triage Information Reviewed: Yes Vital Signs On Initial Exam: Initial Vitals Temp Pulse Resp BP Pulse Ox 97.1 F 109 16 136/63 59 07/11/16 07:11 07/11/16 07:11 07/11/16 07:11 07/11/16 07:11 07/11/16 07:11 Vital Signs Reviewed: Yes Diagnostics - Vital Signs Vital Signs Temp Pulse Resp BP Pulse Ox 07/11/16 07:14 97.1 F 96 16 136/63 100 07/11/16 07:11 97.1 F 109 16 136/63 59 - Laboratory Result Diagrams: 07/11/16 08:10 07/11/16 08:10 Lab Statement: Any lab studies that have been ordered have been reviewed, and results considered in the medical decision making process. - Radiology CXR Radiology Interpretation Completed By: Radiologist - FINDINGS CONSISTENT WITH COPD, NO ACUTE FINDINGS. - EKG 1041 EKG Interpretation: NSR 92 bpm, no STEMI Re-Evaluation - Re-Evaluation First Eval Re-Evaluation Time: 09:25 Change: Improved Comment: She is feeling a little better but the lungs are still tight. Second Eval Re-Evaluation Time: 10:58 Change: Improved Comment: Plan for admission discussed, patient agrees. Course/Dx - Course Assessment/Plan: Patient is a 56 year-old female with a history of COPD coming to [facility] for evaluation of shortness of breath since yesterday. She states that the shortness of breath is exacerbated with her seasonal allergies. She was on her way to work this morning when she measured her O2 saturation at work at approximately 60%. Denies chest pain. She has some sputum with cough. Former smoker, last cigarette 3 months ago. Test results WNL except for potassium of 3.5, chloride 99, CO2 of 37, glucose 129. Influenza A and B are negative. ABG pH 7.35, pCO2 67, pO2 59, and O2 sat 94.1%. In the ED course, the patient was given IV fluids, solu-medrol, and multiple duonebs for her COPD exacerbation. The CXR showed no pneumonia, therefore I did not use any antibiotics. On multiple re-examinations of the lungs, she continues to have wheezing and decreased breath sounds. Therefore, I discussed my physical exam findings with Dr. Montalvo who accepted the patient for admission. I do no suspect pulmonary embolus since the patients heart rate is in the 90s and the O2 sat is 95-96% on 2L O2. The patient is hemodynamically stable, A&Ox3. - Diagnoses Differential Diagnosis/HQI/PQRI: Positive: Bronchitis, CHF, COPD Exacerbation, Pneumonia Provider Diagnoses: COPD exacerbation, hypercarbia - Physician Notifications Discussed Care of Patient With: Dr. Montalvo (hospitalist) at 1034: accepts admission. Discharge - Discharge Plan Condition: Stable Disposition: ADMITTED TO [facility] documentation as recorded by the Jaskaran aleman Billy accurately reflects the service I personally performed and the decisions made by me, Daryl Mcgarry MD.
[2016-07-12] MEDS: oxyCODONE TAB* 5 MG TAB PO PRN ×2 (01:56→13:51)
[2016-07-12] MEDS: Albuterol 2.5 MG/3 ML NEB.SOL* (0.083%) INH SCH ×6 (03:21→23:15)
[2016-07-12] MEDS: Heparin VIAL(*) 5000 UNITS/ML VIAL (FIVE THOUSAND) SUBCUT SCH ×3 (05:47→20:53)
[2016-07-12] MEDS: Mometasone/Formoter 100/5 MDI INH SCH ×2 (07:23→19:37)
[2016-07-12] MEDS: Tiotropium CAP.INH* CAP.INH/18 MCG INH SCH ×2 (07:26→15:04)
[2016-07-12 08:24] LABS: Hematocrit 37 % (35-47); Hemoglobin 12.2 g/dl (12.0-16.0); Mean Corpuscular HGB Conc 33 g/dl (31-36); Mean Corpuscular Hemoglobin 31 pg (27-31); Mean Corpuscular Volume 95 fL (80-97); Mean Platelet Volume 8 um3 (7.4-10.4); Red Cell Distribution Width 14 % (10.5-15); White Blood Count 6.4 10^3/ul (3.5-10.8)
[2016-07-12 08:38] LABS: Calcium 8.7 mg/dL (8.6-10.3); EGFR African American 213.9 (>60); EGFR Non-African American 166.3 (>60); Potassium 3.7 mmol/L (3.5-5.0)
[2016-07-12] MEDS: busPIRone TAB* 15 MG PO SCH ×2 (08:54→20:53)
[2016-07-12] MEDS: Azithromycin TAB* 250 MG PO SCH (08:54)
[2016-07-12] MEDS: methylPREDNISolone SOD 40 MG* 1 ML VIAL IV SCH ×2 (08:55→16:28)
--- NOTE | 2016-07-12 14:53 | PN ---
Subjective Date of Service: 07/12/16 Interval History: . Interviewed and examined patient at bedside; Discussed case with MUSIC AGENT Cynthia Garcia; Reviewed previous notes and radiology results; Patient still very SOB and tired. + productive cough. + chest pain - pleuritic + very tired; feels unsafe to go home; still with oxygen requirement that is not normal for her. . Family History: Unchanged from Admission Social History: Unchanged from Admission Past Medical History: Unchanged from Admission Objective Active Medications: . Acetaminophen (Tylenol Tab*) 650 mg PO Q4H PRN PRN Reason: pain-mild Albuterol (Ventolin 2.5 Mg/3 Ml Neb.Anaid*) 2.5 mg INH RT.[id number] AWAKE [facility] Last Admin: 07/12/16 11:10 Dose: 2.5 mg Albuterol (Ventolin Hfa Inhaler*) 2 puff INH Q4HR PRN PRN Reason: SHORTNESS OF BREATH Azithromycin (Zithromax Tab*) 250 mg PO DAILY [facility] Last Admin: 07/12/16 08:54 Dose: 250 mg Benzonatate (Tessalon Cap*) 100 mg PO BID PRN PRN Reason: COUGH Buspirone HCl (Buspar Tab *) 7.5 mg PO BID [facility] Last Admin: 07/12/16 08:54 Dose: 7.5 mg Cetirizine HCl (Zyrtec*) 10 mg PO DAILY PRN; Protocol PRN Reason: Allergy Symptoms Heparin Sodium (Porcine) (Heparin Vial(*)) 5,000 units SUBCUT Q8HR [facility] Last Admin: 07/12/16 13:54 Dose: 5,000 units Methylprednisolone Sodium Succinate (Solu-Medrol 40 Mg) 40 mg IV Q8H [facility] Last Admin: 07/12/16 08:55 Dose: 40 mg Mometasone Furoate/Formoterol Fumar (Dulera 100/5 Mdi*) 2 puff INH BID [facility] Last Admin: 07/12/16 07:23 Dose: 2 puff Oxycodone HCl (Roxycodone Tab*) 10 mg PO Q12HR PRN PRN Reason: PAIN Last Admin: 07/12/16 13:51 Dose: 10 mg Tiotropium [place] (Spiriva Cap.Inh*) 1 cap INH DAILY [facility] Last Admin: 07/12/16 07:26 Dose: Not Given . Vital Signs 07/11/16 07/11/16 07/11/16 15:21 15:57 15:59 Temperature 98.0 F Pulse Rate 88 78 Respiratory 20 20 16 Rate Blood Pressure 96/56 (mmHg) O2 Sat by Pulse 97 97 Oximetry 07/11/16 07/11/16 07/11/16 19:22 20:00 20:09 Temperature 97.5 F Pulse Rate 87 83 Respiratory 20 20 20 Rate Blood Pressure 102/66 (mmHg) O2 Sat by Pulse 100 98 Oximetry Result Diagrams: 07/12/16 07:53 07/12/16 07:53 Microbiology and Other Data: Microbiology 07/11/16 12:30 Nasal Screen MRSA (PCR)(LISA) - Final Nasal Mrsa Positive Assess/Plan/Problems-Billing . Assessment: 56 yo woman with COPD exacerbation secondary to upper respiratory infection with oxygen requirement and extreme lethargy and shortness of breath. Current Medications: - Acetaminophen (Tylenol Tab) 650 mg PO Q4H PRN pain-mild - Albuterol (Ventolin 2.5 Mg/3 Ml Neb.Anaid) 2.5 mg INH [id number] AWAKE MARGO - Albuterol (Ventolin Hfa Inhaler) 2 puff INH Q4HR PRN SHORTNESS OF BREATH - Azithromycin (Zithromax Tab) 250 mg PO DAILY - Benzonatate (Tessalon Cap) 100 mg PO BID PRN COUGH - Buspirone HCl (Buspar Tab) 7.5 mg PO BID - Cetirizine HCl (Zyrtec) 10 mg PO DAILY PRN Allergy Symptoms - Heparin 5,000 units SUBCUT Q8HR - Methylprednisolone 40 mg IV Q8H - Mometasone Furoate/Formoterol Fumar (Dulera 100/5 Mdi) 2 puff INH BID - Oxycodone HCl (Roxycodone Tab) 10 mg PO Q12HR PRN PAIN - Tiotropium [place] (Spiriva Cap.Inh) 1 cap INH DAILY . - Patient Problems (1) COPD exacerbation Current Visit: No Status: Acute Code(s): J44.1 - CHRONIC OBSTRUCTIVE PULMONARY DISEASE W (ACUTE) EXACERBATION Comment: Improved , but still not at baseline. Not able to do some walking around without significant SOB. Denies feeling ready for d/c home. Continue azithromycin and IV steroids; home with prednisone taper (2) DVT prophylaxis Current Visit: No Status: Acute Code(s): QIG1129 - Comment: - SQ Heparin (3) Full code status Current Visit: No Status: Acute Priority: High Code(s): Z78.9 - OTHER SPECIFIED HEALTH STATUS
[2016-07-12] MEDS ORDERED: Potassium Chlor TAB* 10 MEQ TAB.ER PO ONE (14:55)
[2016-07-13] MEDS: oxyCODONE TAB* 5 MG TAB PO PRN ×2 (01:46→13:56)
[2016-07-13] MEDS: methylPREDNISolone SOD 40 MG* 1 ML VIAL IV SCH ×2 (01:47→07:52)
[2016-07-13] MEDS: Albuterol 2.5 MG/3 ML NEB.SOL* (0.083%) INH SCH ×4 (03:12→16:12)
[2016-07-13] MEDS: Heparin VIAL(*) 5000 UNITS/ML VIAL (FIVE THOUSAND) SUBCUT SCH ×2 (05:34→14:07)
[2016-07-13 06:36] LABS: Hematocrit 39 % (35-47); Hemoglobin 12.7 g/dl (12.0-16.0); Mean Corpuscular HGB Conc 32 g/dl (31-36); Mean Corpuscular Hemoglobin 31 pg (27-31); Mean Corpuscular Volume 96 fL (80-97); Mean Platelet Volume 9 um3 (7.4-10.4); Red Blood Count 4.09 10^6/ul (4.0-5.4); Red Cell Distribution Width 14 % (10.5-15)
[2016-07-13 06:55] LABS: BUN/Creatinine Ratio 34.2 (8-20); EGFR Non-African American 176.5 (>60); Potassium 4.4 mmol/L (3.5-5.0)
[2016-07-13] MEDS: Tiotropium CAP.INH* CAP.INH/18 MCG INH SCH (07:39)
[2016-07-13] MEDS: Mometasone/Formoter 100/5 MDI INH SCH (07:40)
[2016-07-13] MEDS: busPIRone TAB* 15 MG PO SCH (07:52)
[2016-07-13] MEDS: Azithromycin TAB* 250 MG PO SCH (07:52)
[2016-07-13 16:10] VITALS: BP 109/62
--- NOTE | 2016-07-13 16:43 | PN ---
Hospitalist Progress Note . HOSPITALIST DISCHARGE NOTE: See dc instructions and summary by me. Patient stable for dc dc instructions reviewed with the patient at the bedside. DC patient home today.
--- NOTE | 2016-07-13 22:13 | DS ---
DISCHARGE SUMMARY: DATE OF ADMISSION: 07/11/16 DATE OF DISCHARGE: 07/13/16 STATUS DURING HOSPITALIZATION: Inpatient. PRIMARY CARE PROVIDER: Dr. David Moss, [facility] Internal Medicine. PRINCIPAL DISCHARGE DIAGNOSIS: Chronic obstructive pulmonary disease exacerbation secondary to acute bronchitis with hypoxia - resolving. SECONDARY DIAGNOSES: 1. Chronic obstructive pulmonary disease - baseline. 2. Hiatal hernia. 3. Arthritis. 4. Seasonal allergies. 5. Chronic pain. 6. Anxiety. DISCHARGE MEDICATIONS: New: 1. Prednisone taper - 30, separate 10 mg tabs starting at 50 mg and decreasing by 10 mg every two days and stopping after ten days. 2. Azithromycin 500 mg by mouth daily x5 days. Represcribed: 1. Spiriva 2.5 mg strength, two inhalations once daily. 2. Dulera 100/5 strength, two puffs inhaled twice daily. Continue: 1. Oxycodone 10 mg by mouth every 12 hours as needed for pain - daily at bedtime. 2. Bupropion 7.5 mg by mouth twice daily. 3. Albuterol HFA inhaler 2 puffs every 4 hours as needed for shortness of breath or wheezing. 4. Albuterol 2.5 mg nebulizer, 1 nebulizer every 4 hours as needed for shortness of breath or wheezing. 5. Acetaminophen 650 mg by mouth every 4 hours as needed for pain/fever. HISTORY OF PRESENT ILLNESS AND HOSPITAL COURSE: Please see the H and P on 07/11, by Dr. Alcon Montalvo and Cynthia Mixon NP. In brief, Ms. High is a 56-year-old female with known COPD and seasonal allergies, who came to the emergency room with shortness of breath that began to accelerate the day before admission. The patient has been suffering from allergies with thick white sputum and coughing. There has been no fever. She started experiencing intermittent dizziness. She recently started BuSpar and was also trying Zyrtec. The patient was using 1 to 2 L of oxygen at night and she could not catch her breath and came to the emergency room for further evaluation of her symptoms. She was found to be wheezing. She was hypokalemic. Her troponin was unremarkable. She was negative for influenza A and B, and EKG showed no acute ischemia. The patient was admitted with a diagnosis of COPD exacerbation secondary to acute bronchitis. The patient was given steroids for wheezing and poor air movement. She was continued on her Dulera and Spiriva, and Tessalon Perles were added for cough. She was also started on azithromycin and her oxygen saturations were consistently above 90% on 2 to 3 L of oxygen. The patient's potassium was repleted, she was feeling poorly on 07/12/16 - hospital day 1. She was admitted to the hospital at that time, as she was initially placed on observation status. She did not feel safe to go home at that point. She had ongoing higher than normal oxygen requirement and very rhonchorous breath sounds and I evaluated her and she had poor air movement bilaterally. On 07/13/16, she felt better. She was ambulating in the hallway. Her accompanied her and they felt she was safe to go home and she is being discharged now with prednisone taper as well as 5-day course of azithromycin and instructions to see Dr. Moss sometime this week - week of 07/14/16. TIME SPENT: Total time taken to discharge Ms. High was 40 minutes, greater than half that time spent going over the discharge instructions, explaining the prednisone taper to the patient, the role of antibiotics in this situation. I wrote an [id number] until 07/20/16 - this was at the request of the patient. Prescriptions were called into [facility]. Return to ED instructions were given for worsening shortness of breath, lightheadedness, loss of consciousness, chest pain or any other worrisome symptoms and the patient said she will comply. CONDITION ON DISCHARGE: Stable. CC: Dr. David Moss, [facility] Internal Medicine* [id number]/[facility] #: [id number] [facility]
== END 2016-07-13 17:28 | disposition home or self-care (01) | DRG 140 ==
LOC: ED 07:11 → MED 10:39
PROVIDERS: ADMIT Hospitalist; ATTEND Internal Medicine
DX: J44.1 Chronic obstructive pulmonary disease with (acute) exacerbation (principal); J96.01 Acute respiratory failure with hypoxia; J20.8 Acute bronchitis due to other specified organisms; J44.0 Chronic obstructive pulmonary disease with (acute) lower respiratory infection; K44.9 Diaphragmatic hernia without obstruction or gangrene; M19.90 Unspecified osteoarthritis, unspecified site; J30.2 Other seasonal allergic rhinitis; G89.29 Other chronic pain; F41.9 Anxiety disorder, unspecified; E87.6 Hypokalemia; Z79.1 Long term (current) use of non-steroidal anti-inflammatories (NSAID); Z79.891 Long term (current) use of opiate analgesic; Z79.899 Other long term (current) drug therapy; Z83.3 Family history of diabetes mellitus; Z80.1 Family history of malignant neoplasm of trachea, bronchus and lung; Z80.8 Family history of malignant neoplasm of other organs or systems; Z87.891 Personal history of nicotine dependence
CPT/HCPCS: 36415; 36600; 71020; 80048; 80053; 81003; 82553; 82803; 83605; 83880; 84484; 85025; 86140; 87040; 87070; 87077; 87186; 87205; 87502; 87641; 93005; 94640; 94760; 99406; A9270-GY; J1644; J2920; J2930

== ENCOUNTER 2018-06-16 14:55 | Inpatient (IN) | payer OTHER ==
[2018-06-16] MEDS ORDERED: Albuterol/Ipratropium NEB.SOL* Albuterol 2.5 MG/Ipratropium 0.5 MG 3 ML INH ONE (15:05)
--- NOTE | 2018-06-16 15:06 | ED ---
Shortness of Breath - HPI Summary HPI Summary: A 58 y/o female brought in by ambulance presents to [facility] with a chief complaint of SOB over the last few days. Bilateral edema is noted. Per EMS, the patient was given a breathing treatment and Decadron en route. The patient is a former smoker with a Hx of COPD. She denies drug or EtOH use. 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, EMS Onset/Duration: Sudden Onset, Lasting Days, Still Present Timing: Constant Current Severity: Severe Dyspnea At: Rest Aggrevating Factors: Nothing Alleviating Factors: Nothing Associated Signs & Symptoms: Negative - fever - Allergy/Home Medications Allergies/Adverse Reactions: Allergies Allergy/AdvReac Type Severity Reaction Status Date / Time No Known Allergies Allergy Verified 04/12/15 07:00 Home Medications: Home Medications ALPRAZolam TAB* [Xanax TAB*] 0.125 mg PO BID PRN 06/16/18 [History Confirmed ] Acetaminop/Codeine 30 MG TAB* [Tylenol/Codeine 30 MG TAB*] 1 tab PO BEDTIME PRN MDD 1 tab 06/16/18 [History Confirmed 06/16/18] Cholecalciferol (Vitamin D3) [Vitamin D3] 5,000 unit PO DAILY 06/16/18 [History Confirmed 06/16/18] Sertraline* [Zoloft*] 25 mg PO DAILY 06/16/18 [History Confirmed 06/16/18] Umeclidin/Vilant 62.5 MDI(NF) [ANORO 62.5/25 Ellipta DEVICE (NF)] 1 puff INH DAILY 06/16/18 [History Confirmed 06/16/18] predniSONE TAB* [Deltasone 10 MG TAB*] 15 mg PO DAILY 06/16/18 [History Confirmed 06/16/18] PMH/Surg Hx/FS Hx/Imm Hx Endocrine/Hematology History: Denies: Hx Diabetes Cardiovascular History: Denies: Hx Hypertension, Hx Pacemaker/ICD Respiratory History: Reports: Hx Chronic Obstructive Pulmonary Disease (COPD) GI History: Reports: Hx Hiatal Hernia History: Denies: Hx Renal Disease Musculoskeletal History: Reports: Hx Arthritis, Hx Tendonitis - HX OF Denies: Hx Rheumatoid Arthritis Sensory History: Reports: Hx Contacts or Glasses - GLASSES Denies: Hx Hearing Aid Opthamlomology History: Reports: Hx Contacts or Glasses - GLASSES Psychiatric History: Reports: Hx Anxiety Denies: Hx Panic Disorder - Cancer History Hx Chemotherapy: No Hx Radiation Therapy: No - Surgical History Surgery Procedure, Year, and Place: 1988 ORIF LEFT PATELLA. TUBAL LIGATION. CERVICAL FUSION Hx Anesthesia Reactions: No - Immunization History Date of Tetanus Vaccine: pt states unsure Date of Influenza Vaccine: none Infectious Disease History: No Infectious Disease History: Denies: Traveled Outside the [place] in Last 30 Days - Family History Known Family History: Positive: Diabetes, Other - Brain CA to father. Lung CA to mother Negative: Hypertension - Social History Alcohol Use: Rare Hx Substance Use: No Substance Use Type: Reports: None Hx Tobacco Use: Yes Smoking Status (MU): Current Every Day Smoker Type: Cigarettes Length of Time of Smoking/Using Tobacco: 30 years Have You Smoked in the Last Year: Yes Review of Systems Negative: Fever Positive: Shortness Of Breath Positive: Edema All Other Systems Reviewed And Are Negative: Yes Physical Exam - Summary Physical Exam Summary: Appearance: lethargic and distress Skin: warm, dry, reflects adequate perfusion Head/face: normal Eyes: EOMI, IHSAN ENT: normal Neck: supple, non-tender Respiratory: Bilateral wheezing, poor air entry, Cardiovascular: tachycardic, pulses symmetrical Abdomen: non-tender, soft Musculoskeletal: bilateral pitting edema, strength/ROM intact Neuro: lethargic/confused Triage Information Reviewed: Yes Vital Signs On Initial Exam: Initial Vitals Temp Pulse Resp BP Pulse Ox 97.7 F 107 18 168/105 99 06/16/18 15:01 06/16/18 15:01 06/16/18 15:01 06/16/18 15:01 06/16/18 15:01 Vital Signs Reviewed: Yes Procedures - Intubation Time of Intubation: 15:40 Intubation Method: orotracheal Tube Size (cm): 7.5 Medications: Succinylcholine Breath Sounds after Intubation: equal Intubation Complications: no complications Post Intubation Xray: Yes Diagnostics - Vital Signs Vital Signs Temp Pulse Resp BP Pulse Ox 06/16/18 15:01 97.7 F 107 18 168/105 99 - Laboratory Result Diagrams: 06/16/18 15:15 06/16/18 15:15 Lab Statement: Any lab studies that have been ordered have been reviewed, and results considered in the medical decision making process. - Radiology CXR Radiology Interpretation Completed By: Radiologist Summary of Radiographic Findings: Stigmata of advanced obstructive lung disease and bronchiectasis. No acute pulmonary or. cardiac process evident. ED physician has reviewed this imaging report. - EKG 15:15 Cardiac Rate: Tachycardia - 106 bpm EKG Rhythm: Sinus Tachycardia Summary of EKG Findings: Sinus tachycardia at 106 bpm, no acute changes. Re-Evaluation - Re-Evaluation First Eval Re-Evaluation Time: 15:39 Change: Unchanged Comment: intubation procedure Course/Dx - Course Course Of Treatment: A 58 y/o female brought in by ambulance presents to [facility] with a chief complaint of SOB over the last few days. The physical exam revealed bilateral wheezing, poor air entry, tachycardia, and bilateral pitting edema. EKG showed Sinus tachycardia at 106 bpm, no acute changes. In the ED course the patient was given Duoneb and Propofol. An intubation procedure was done with no complications. Bloodwork and chemistries obtained. CXR impression: Stigmata of advanced obstructive lung disease and bronchiectasis. No acute pulmonary or. cardiac process evident. Case discussed with Dr. Trejo, chro, who accpeted the patient for admission. - Diagnoses Differential Diagnosis/HQI/PQRI: Positive: Asthma, Bronchitis, CHF, COPD Exacerbation, Pneumonia, Pulmonary Edema, Other - resp failure Provider Diagnoses: Respiratory failure, COPD exacerbation, Hypoxia - Physician Notifications Discussed Care of Patient With: Surinder Trejo Time Discussed With Above Provider: 16:08 Instructed by Provider To: Admit As Inpatient - Critical Care Time Critical Care Time: 75-104 min Discharge - Sign-Out/Discharge Documenting (check all that apply): Patient Departure - admit Patient Received Moderate/Deep Sedation with Procedure: No - Discharge Plan Condition: Fair Disposition: ADMITTED TO [facility] - Billing Disposition and Condition Condition: FAIR Disposition: Admitted to [facility] - Attestation Statements Document Initiated by Scribe: Yes Documenting Scribe: Surinder Centeno Provider For Whom Diane is Documenting (Include Credential): Seb Silverio MD Scribe Attestation: Surinder Asher scribed for Seb Silverio MD on 06/16/18 at 1745. Scribe Documentation Reviewed: Yes Provider Attestation: The documentation as recorded by the Surinder aleman accurately reflects the service I personally performed and the decisions made by me, Seb Silverio MD Status of Scribe Document: Viewed
[2018-06-16] MEDS ORDERED: Propofol* 0 ML ONE (15:37)
[2018-06-16 15:38] LABS: ABS Basophils 0.1 10^3/ul (0-0.2); ABS Eosinophils 0.3 10^3/ul (0-0.6); ABS Lymphocytes 2.6 10^3/ul (1.0-4.8); ABS Neutrophils 7.3 10^3/ul (1.5-7.7); ABS Nucleated RBC 0 10^3/ul; Eosinophil % 2.9 %; Hematocrit 45 % (33-41); Hemoglobin 14.4 g/dL (12.0-16.0); Mean Corpuscular HGB Conc 32 g/dL (31-36); Mean Corpuscular Hemoglobin 32 pg (27-31); Mean Corpuscular Volume 102 fL (80-97); Mean Platelet Volume 7.9 fL (7.4-10.4); Nucleated Red Blood Cells % 0; Platelet Count 249 10^3/uL (150-450); Red Blood Count 4.46 10^6 /uL (3.70-4.87); Red Cell Distribution Width 14 % (10.5-15); White Blood Count 11.4 10^3/uL (3.5-10.8)
[2018-06-16] MEDS ORDERED: Etomidate* 2 MG/ML 20 ML VIAL (40 MG) ONE (15:43)
[2018-06-16] MEDS ORDERED: Succinylcholine* 20 MG/ML 10 ML VIAL ONE (15:44)
[2018-06-16 15:47] LABS: Activated Partial Thrombo Time 31.2 seconds (26.0-36.3); INR 1.16 (0.82-1.09)
[2018-06-16] MEDS ORDERED: Midazolam* 1 MG/ML 5 ML VIAL (5 MG) ONE (15:52)
[2018-06-16 15:53] LABS: Troponin I 0.03 ng/mL (<0.04)
[2018-06-16] MEDS ORDERED: Rocuronium* 10 MG/ML VIAL ONE (15:57)
[2018-06-16] MEDS ORDERED: Midazolam* 1 MG/ML 2 ML VIAL (2 MG) IV SLOW PU ONE ×2 (16:01→16:53)
[2018-06-16] MEDS ORDERED: Albuterol 2.5 MG/3 ML NEB.SOL* (0.083%) INH ONE (16:11)
[2018-06-16 16:15] LABS: ALT 25 U/L (7-52); AST 32 U/L (13-39); Albumin 3.4 g/dL (3.2-5.2); Alkaline Phosphatase 85 U/L (34-104); BUN/Creatinine Ratio 19.1 (8-20); Blood Urea Nitrogen 9 mg/dL (6-24); Calcium 8.6 mg/dL (8.6-10.3); Chloride 91 mmol/L (101-111); EGFR African American 165.9 (>60); EGFR Non-African American 137.1 (>60); Globulin 3.3 g/dL (2-4); Glucose 181 mg/dL (70-100); Potassium 4.1 mmol/L (3.5-5.0); Sodium 141 mmol/L (135-145); Total Protein 6.7 g/dL (6.4-8.9)
[2018-06-16 16:43] LABS: CO2 Carbon Dioxide 46 mmol/L (22-32)
[2018-06-16] MEDS: Propofol* 100 ML IV SCH ×2 (17:10→18:03)
[2018-06-16] MEDS ORDERED: Levofloxacin 500 MG IVPREMIX(* 500 MG/100 ML BAG IVPB SCH (18:00)
[2018-06-16] MEDS: Lactated Ringers 1000 ML Bag* 1,000 ML IV SCH ×2 (18:03→23:47)
[2018-06-16] MEDS: methylPREDNISolone SOD 40 MG* 1 ML VIAL IV SCH (19:04)
[2018-06-16] MEDS: Chlorhexidine MOUTHWASH 0.12%* 15 ML UDC TOPICAL SCH ×2 (19:53→23:09)
--- NOTE | 2018-06-16 20:48 | HP ---
ADMISSION HISTORY AND PHYSICAL: DATE OF ADMISSION: 06/16/18 REASON FOR ADMISSION: Acute respiratory failure secondary to end-stage obstructive lung disease. HISTORY OF PRESENT ILLNESS: The patient is a 56-year-old white female with a history of COPD and admissions here in the past for exacerbations and hypoxemic respiratory failure. The patient is on home oxygen and was brought in to the emergency room today by her because of increasing shortness of breath and a largely nonproductive cough. In the emergency department, the patient was noted to be in extremis with pCO2 greater than 125 and was intubated. PCO2 decreased from greater than 125 to 74 after the intubation. Chest x-ray revealed no pulmonary infiltrates. The patient was subsequently brought to the intensive care unit for further management. OUTPATIENT MEDICATIONS: 1. Xanax 0.125 b.i.d. 2. Prednisone 15 mg daily. 3. Zoloft 25 mg daily. 4. Umeclidinium/vilanterol 1 puff daily. 5. Zyrtec 10 mg p.o. daily p.r.n. ALLERGIES: No known drug allergies. SOCIAL HISTORY: The patient lives with her of 40 something years and quit smoking apparently 6 months ago. There is no known history of illicit drug abuse or alcohol abuse. REVIEW OF SYSTEMS: Unobtainable. PHYSICAL EXAMINATION GENERAL: The patient was on mechanical ventilation and sedated with propofol. VITAL SIGNS: Temp was 97.9, heart rate 85, respiratory rate 20 on the ventilator, O2 sat 95% on 35% FiO2, blood pressure was 128/67. HEENT: Pupils were mid position and reactive. There was no facial asymmetry and endotracheal tube was in place. NECK: Supple. LUNGS: Breath sounds were distant. There were no crackles or wheezes. CARDIAC: Sounds were also distant, but there were no murmurs or rubs. ABDOMEN: Soft and nontender. EXTREMITIES: Cool, but not edematous and not cyanotic. DIAGNOSTIC STUDIES/LAB DATA: Admission Laboratory Data: Hemoglobin 14, hematocrit 45, white count 11.4, platelets 249. Sodium 141, potassium 4.1, chloride 91, carbon dioxide 46, BUN 9, creatinine 0.47, glucose 181, bilirubin and liver enzymes were normal. BNP was 977 and troponin was 0.03. Blood gases showed a pO2 of 167 on 100% oxygen, pCO2 greater than 125, pH 7.13. Repeat blood gas on the ventilator showed a pO2 of 242 on 100%, a pCO2 of 74, pH 7.43. Chest x-ray showed marked hyperinflation of both lungs, but no infiltrates and EKG showed sinus tachycardia with LVH by voltage criteria. IMPRESSION: This patient has end-stage lung disease with severe hypercapnic respiratory failure. The problem is that there does not appear to be anything that is reversible at this point. MANAGEMENT PLAN: 1. Mechanical ventilation. 2. Bronchodilators. 3. Steroids. 4. Empiric antibiotic therapy with levofloxacin. is present at the time of admission and is aware of the patient's serious condition and poor prognosis. CRITICAL CARE TIME: Sixty minutes. [id number]/CPS #: [id number]
[2018-06-16] MEDS ORDERED: Lactated Ringers 1000 ML Bag* 1,000 ML IV ONE (22:00)
[2018-06-17] MEDS: methylPREDNISolone SOD 40 MG* 1 ML VIAL IV SCH ×3 (00:44→18:34)
[2018-06-17] MEDS ORDERED: Lactated Ringers 1000 ML Bag* 1,000 ML IV SCH (01:08)
[2018-06-17] MEDS: Propofol* 100 ML IV SCH ×2 (02:25→07:51)
[2018-06-17] MEDS: Chlorhexidine MOUTHWASH 0.12%* 15 ML UDC TOPICAL SCH ×3 (02:25→12:14)
[2018-06-17 05:18] LABS: Urine Appearance Clear; Urine Bilirubin Negative (Negative); Urine Blood Negative (Negative); Urine Color Yellow; Urine Glucose Negative (Negative); Urine Ketones Negative (Negative); Urine Nitrite Negative (Negative); Urine Protein Negative (Negative); Urine Specific Gravity 1.018 (1.010-1.030); Urine Urobilinogen Negative (Negative)
[2018-06-17] MEDS: Famotidine IV* 10 MG/ML 2 ML (20 mg) IV SLOW PU SCH (07:51)
[2018-06-17] MEDS ORDERED: Famotidine IV * 20 MG in NS 0.9% 100 ML* 100 ML IVPB SCH (09:00)
[2018-06-17] MEDS ORDERED: Vancomycin per Pharmacy* NOTE FOLLOW UP PRN (09:44)
[2018-06-17] MEDS ORDERED: Vancomycin(*) 1,000 MG in NS 0.9% 250 ML* 250 ML IVPB ONE (10:00)
[2018-06-17] MEDS: Enoxaparin(*) 40 MG/0.4 ML SYR SUBCUT SCH (13:22)
[2018-06-17] MEDS ORDERED: Albuterol/Ipratropium NEB.SOL* Albuterol 2.5 MG/Ipratropium 0.5 MG 3 ML INH SCH (14:00)
[2018-06-17] MEDS: Albuterol/Ipratropium NEB.SOL* Albuterol 2.5 MG/Ipratropium 0.5 MG 3 ML INH SCH ×3 (15:36→23:50)
--- NOTE | 2018-06-17 16:36 | PN ---
Date of Service: 06/17/17 Critical Care Services: Weaned and extubated this AM and has done well since. Presently on nasal O2 at 2 L/min Vital Signs: Temp Pulse Resp BP SpO2 FiO2 99.7 F 109 17 103/67 94 30 Physical Exam: Gen:Awake and oriented. Lungs:BS distant. No adventitious sounds. Extremities:Trace edema. Fluid Balance (Past 24 Hours): 06/17/18 06:59 Intake Total 1654 Output Total 978 Balance 676 Weight 109 lb 10.13 oz Intake: IV Fluids 1427 LR 1407 NS (0.9%) 20 IVPB 107 ABX - LEVOFLOXACIN 107 Medicated IV 120 CC - Propofol/Diprivan 120 Oral Output: NG Tube Drainage Amount 150 [place] 828 Labs: Laboratory Results - last 24 hr 06/16/18 06/16/18 06/17/18 15:15 16:00 05:00 Patient Temperature Not Reportable ABG pH 7.43 ABG pCO2 74 H* ABG pO2 242 H ABG HCO3 40.7 H* ABG O2 Saturation 100.0 H ABG Base Excess 20.3 H Respiration Rate 20 O2 Delivery Device Vent Ventilator Type 350 Vent Mode Cmv FiO2 60 Inspiratory Time 0.65 PEEP 5 Pressure Support Not Reportable Pressure Control Not Reportable EPAP Not Reportable IPAP Not Reportable BiPAP Not Reportable Carbon Dioxide 46 H* Anion Gap Not Reportable Urine Color Yellow Urine Appearance Clear Urine pH 6.0 Ur Specific [place] 1.018 Urine Protein Negative Urine Ketones Negative Urine Blood Negative Urine Nitrate Negative Urine Bilirubin Negative Urine Urobilinogen Negative Ur Leukocyte Esterase Negative Urine Glucose Negative Studies: One blood culture growing Staph species. Sputum culture growing Entrobacter and E coli, but they are probable contaminants (based on sputum gram stain) Nutrition: Unrestricted diet Impression: Exacerbation of COPD with rapid improvement. Plan: 1. Brief trial of vancomycin to cover the blood culture. 2. Transfer out of ICU for continued management. Critical Care Time: 50 minutes (including time to wean and extubate the patient) .
[2018-06-17] MEDS: ALPRAZolam TAB* 0.25 MG PO PRN (18:34)
[2018-06-17] MEDS: Acetaminophen TAB* 325 MG PO PRN (18:34)
[2018-06-17] MEDS: Vancomycin(*) 750 MG in NS 0.9% 250 ML* 250 ML IVPB SCH (23:05)
[2018-06-18] MEDS: methylPREDNISolone SOD 40 MG* 1 ML VIAL IV SCH ×3 (01:01→17:19)
[2018-06-18] MEDS: Albuterol/Ipratropium NEB.SOL* Albuterol 2.5 MG/Ipratropium 0.5 MG 3 ML INH SCH ×4 (03:45→15:08)
[2018-06-18] MEDS: Acetaminophen TAB* 325 MG PO PRN ×2 (06:23→17:18)
[2018-06-18] MEDS: ALPRAZolam TAB* 0.25 MG PO PRN ×2 (06:24→17:18)
[2018-06-18] MEDS: Famotidine IV* 10 MG/ML 2 ML (20 mg) IV SLOW PU SCH (07:45)
[2018-06-18] MEDS: Enoxaparin(*) 40 MG/0.4 ML SYR SUBCUT SCH (11:06)
[2018-06-18] MEDS: Vancomycin(*) 750 MG in NS 0.9% 250 ML* 250 ML IVPB SCH (11:06)
--- NOTE | 2018-06-18 17:31 | PN ---
Subjective Date of Service: 06/18/18 Interval History: Feel anxious Breathing feels better Minimal cough No N/V, LH or CP Objective Active Medications: Acetaminophen (Tylenol Tab*) 650 mg PO Q6H PRN PRN Reason: FEVER/PAIN Last Admin: 06/18/18 17:18 Dose: 650 mg Albuterol/Ipratropium (Duoneb (Albuterol 2.5 Mg/Ipratropium 0.5 Mg)) 1 neb INH [id number] AWAKE [facility] Last Admin: 06/18/18 15:08 Dose: 1 neb Alprazolam (Xanax Tab*) 0.125 mg PO BID PRN PRN Reason: ANXIETY Last Admin: 06/18/18 17:18 Dose: 0.125 mg Enoxaparin Sodium (Lovenox(*)) 40 mg SUBCUT Q24H [facility] Last Admin: 06/18/18 11:06 Dose: 40 mg Famotidine (Pepcid Iv*) 20 mg IV SLOW PU DAILY [facility] Last Admin: 06/18/18 07:45 Dose: 20 mg Oxacillin Sodium 2 gm/ Sodium (Chloride) 100 mls @ 200 mls/hr IVPB Q4HR [facility] Methylprednisolone Sodium Succinate (Solu-Medrol 40 Mg) 40 mg IV Q8H [facility] Last Admin: 06/18/18 17:19 Dose: 40 mg Vital Signs - 8 hr 06/18/18 06/18/18 06/18/18 11:16 11:35 15:09 Temperature 98.1 F Pulse Rate 101 98 101 Respiratory 20 18 20 Rate Blood Pressure 95/53 (mmHg) O2 Sat by Pulse 98 100 99 Oximetry 06/18/18 17:18 Temperature Pulse Rate Respiratory 20 Rate Blood Pressure (mmHg) O2 Sat by Pulse Oximetry Oxygen Devices in Use Now: Nasal Cannula Appearance: older than stated age, sitting up in bed, NAD Eyes: No Scleral Icterus, PERRLA Ears/Nose/Mouth/Throat: NL Teeth, Lips, Gums, Clear Oropharnyx Neck: NL Appearance and Movements; NL JVP, Trachea Midline Respiratory: Symmetrical Chest Expansion and Respiratory Effort, - - end expiratory wheeze Cardiovascular: NL Sounds; No Murmurs; No JVD, RRR Abdominal: NL Sounds; No Tenderness; No Distention Lymphatic: No Cervical Adenopathy Skin: No Rash or Ulcers Neurological: Alert and Oriented x 3 Result Diagrams: 06/16/18 15:15 06/16/18 15:15 Microbiology and Other Data: Microbiology 06/16/18 15:15 Aerobic Blood Culture - Final Blood Venous Staphylococcus Aureus Anaerobic Blood Culture - Preliminary No Growth Day 2 Blood MRSA/MSSA (PCR) - Final Mrsa Negative S.aureus Positive 06/16/18 18:04 Gram Stain - Final Sputum Sputum Culture - Preliminary Enterobacter Cloacae Complex Escherichia Coli Strep Agalactiae - (Group B) Haemophilus Influenzae 06/17/18 05:03 Aerobic Blood Culture - Preliminary Blood Venous No Growth Day 1 Anaerobic Blood Culture - Preliminary No Growth Day 1 06/16/18 19:06 Nasal Screen MRSA (PCR) - Final Nasal Mrsa Detected Assess/Plan/Problems-Billing Assessment: 58 yo F severe COPD pw hypercarbox/hypoxic resp arrest s/p intubation found with MSSA bactermia - Patient Problems (1) Respiratory failure Comment: suspect COPD exacerbation. Was not feeling well x 4 weeks extubated 06/17 start dulera and spiriva c/w nebs prn (2) MSSA bacteremia Comment: start oxacillin 2nd blood culture cleared in 24 hrs check TTE but unclear she will need MALIA without other risk factors and rapid clearance of cultures (3) SHIRA (obstructive sleep apnea) Comment: Has not been compliant with CPAP at home but is amenable to using here (4) DVT prophylaxis Comment: lovenox
[2018-06-18] MEDS ORDERED: Spiriva Inhaler DEVICE* 1 EACH DEVICE INH ONE (18:00)
[2018-06-18] MEDS ORDERED: Spiriva Inhaler DEVICE* 1 EACH DEVICE INH SCH (18:00)
[2018-06-18] MEDS ORDERED: Albuterol/Ipratropium NEB.SOL* Albuterol 2.5 MG/Ipratropium 0.5 MG 3 ML INH PRN (18:08)
[2018-06-18] MEDS: Oxacillin(*) 2 GM in NS 0.9% 100 ML* 100 ML IVPB SCH ×2 (18:30→21:49)
[2018-06-18] MEDS: Mometasone/Formoter 200/5 MDI INH SCH (19:24)
[2018-06-19] MEDS: methylPREDNISolone SOD 40 MG* 1 ML VIAL IV SCH ×3 (01:12→18:14)
[2018-06-19] MEDS: Oxacillin(*) 2 GM in NS 0.9% 100 ML* 100 ML IVPB SCH ×6 (01:53→21:35)
[2018-06-19] MEDS: Acetaminophen TAB* 325 MG PO PRN ×2 (04:16→13:27)
[2018-06-19] MEDS: ALPRAZolam TAB* 0.25 MG PO PRN ×3 (04:17→21:35)
[2018-06-19] MEDS: Tiotropium CAP.INH* CAP.INH/18 MCG (USE ORDER SET !) INH SCH ×2 (06:39→07:36)
[2018-06-19] MEDS: Mometasone/Formoter 200/5 MDI INH SCH ×2 (07:37→19:33)
[2018-06-19] MEDS: Famotidine IV* 10 MG/ML 2 ML (20 mg) IV SLOW PU SCH (09:02)
[2018-06-19] MEDS: Sertraline* 25 MG TAB PO SCH (09:02)
[2018-06-19] MEDS ORDERED: Vancomycin Trough Check NOTE FOLLOW UP ONE (10:30)
[2018-06-19] MEDS: Enoxaparin(*) 40 MG/0.4 ML SYR SUBCUT SCH (12:17)
--- NOTE | 2018-06-19 15:16 | PN ---
Subjective Date of Service: 06/19/18 Interval History: Sleeping but easy to arouse Breathing feels about the same Objective Active Medications: Acetaminophen (Tylenol Tab*) 650 mg PO Q6H PRN PRN Reason: FEVER/PAIN Last Admin: 06/19/18 13:27 Dose: 650 mg Albuterol/Ipratropium (Duoneb (Albuterol 2.5 Mg/Ipratropium 0.5 Mg)) 1 neb INH Q4H PRN PRN Reason: SOB/WHEEZING Alprazolam (Xanax Tab*) 0.125 mg PO BID PRN PRN Reason: ANXIETY Last Admin: 06/19/18 13:26 Dose: 0.125 mg Enoxaparin Sodium (Lovenox(*)) 40 mg SUBCUT Q24H [facility] Last Admin: 06/19/18 12:17 Dose: 40 mg Famotidine (Pepcid Iv*) 20 mg IV SLOW PU DAILY [facility] Last Admin: 06/19/18 09:02 Dose: 20 mg Oxacillin Sodium 2 gm/ Sodium (Chloride) 100 mls @ 200 mls/hr IVPB Q4H [facility] Last Admin: 06/19/18 14:00 Dose: 200 mls/hr Methylprednisolone Sodium Succinate (Solu-Medrol 40 Mg) 40 mg IV Q8H [facility] Last Admin: 06/19/18 09:02 Dose: 40 mg Mometasone Furoate/Formoterol Fumar (Dulera 200/5 Mdi*) 2 puff INH BID [facility] Last Admin: 06/19/18 07:37 Dose: 2 puff Sertraline HCl (Zoloft*) 25 mg PO DAILY [facility] Last Admin: 06/19/18 09:02 Dose: 25 mg Tiotropium [place] (Spiriva Cap.Inh*) 1 cap INH DAILY [facility] Last Admin: 06/19/18 07:36 Dose: 1 cap Vital Signs - 8 hr 06/19/18 06/19/18 06/19/18 07:41 07:55 08:00 Temperature 98.2 F Pulse Rate 85 89 Respiratory 16 18 18 Rate Blood Pressure 112/54 (mmHg) O2 Sat by Pulse 98 96 Oximetry 06/19/18 06/19/18 12:07 13:26 Temperature 97.6 F Pulse Rate 53 Respiratory 16 16 Rate Blood Pressure 110/62 (mmHg) O2 Sat by Pulse 87 Oximetry Oxygen Devices in Use Now: Nasal Cannula Appearance: older than stated age, NAD Eyes: No Scleral Icterus, PERRLA Ears/Nose/Mouth/Throat: NL Teeth, Lips, Gums, Clear Oropharnyx Neck: NL Appearance and Movements; NL JVP, Trachea Midline Respiratory: Symmetrical Chest Expansion and Respiratory Effort, - - faint wheeze throughout Cardiovascular: RRR Abdominal: NL Sounds; No Tenderness; No Distention, No Hepatosplenomegaly Lymphatic: No Cervical Adenopathy Extremities: No Edema Neurological: Alert and Oriented x 3 Result Diagrams: 06/16/18 15:15 06/16/18 15:15 Microbiology and Other Data: Microbiology 06/16/18 15:15 Aerobic Blood Culture - Final Blood Venous Staphylococcus Aureus Anaerobic Blood Culture - Preliminary No Growth Day 2 Blood MRSA/MSSA (PCR) - Final Mrsa Negative S.aureus Positive 06/16/18 18:04 Gram Stain - Final Sputum Sputum Culture - Preliminary Enterobacter Cloacae Complex Escherichia Coli Strep Agalactiae - (Group B) Haemophilus Influenzae 06/17/18 05:03 Aerobic Blood Culture - Preliminary Blood Venous No Growth Day 1 Anaerobic Blood Culture - Preliminary No Growth Day 1 06/16/18 19:06 Nasal Screen MRSA (PCR) - Final Nasal Mrsa Detected Assess/Plan/Problems-Billing Assessment: 58 yo F severe COPD pw hypercarbox/hypoxic resp arrest s/p intubation found with MSSA bactermia - Patient Problems (1) Respiratory failure Comment: suspect COPD exacerbation. Was not feeling well x 4 weeks extubated 06/17 c/w IV steroids x 1 more day then start taper start dulera and spiriva c/w nebs prn (2) MSSA bacteremia Comment: start oxacillin Only 1 of 2 bllod cx positive and 2nd blood culture cleared <24 hrs check TTE but unclear she will need MALIA without other risk factors and rapid clearance of cultures (3) SHIRA (obstructive sleep apnea) Comment: Has not been compliant with CPAP at home but is amenable to using here (4) DVT prophylaxis Comment: lovenox
[2018-06-19] MEDS: traZODone TAB* 50 MG TAB PO PRN (21:36)
[2018-06-20] MEDS: methylPREDNISolone SOD 40 MG* 1 ML VIAL IV SCH ×3 (01:26→20:55)
[2018-06-20] MEDS: Oxacillin(*) 2 GM in NS 0.9% 100 ML* 100 ML IVPB SCH ×6 (01:26→21:53)
[2018-06-20] MEDS: Acetaminophen TAB* 325 MG PO PRN ×3 (03:23→20:41)
[2018-06-20] MEDS: ALPRAZolam TAB* 0.25 MG PO SCH ×4 (04:10→20:40)
[2018-06-20] MEDS: Tiotropium CAP.INH* CAP.INH/18 MCG (USE ORDER SET !) INH SCH (09:41)
[2018-06-20] MEDS: Mometasone/Formoter 200/5 MDI INH SCH ×2 (09:42→20:12)
[2018-06-20] MEDS: Sertraline* 25 MG TAB PO SCH (09:49)
[2018-06-20] MEDS: Famotidine IV* 10 MG/ML 2 ML (20 mg) IV SLOW PU SCH (09:49)
[2018-06-20 10:53] LABS: ABS Basophils 0 10^3/ul (0-0.2); ABS Eosinophils 0 10^3/ul (0-0.6); ABS Lymphocytes 0.6 10^3/ul (1.0-4.8); ABS Monocytes 0.6 10^3/ul (0-0.8); ABS Neutrophils 7.5 10^3/ul (1.5-7.7); ABS Nucleated RBC 0 10^3/ul; Eosinophil % 0 %; Hematocrit 43 % (33-41); Hemoglobin 13.2 g/dL (12.0-16.0); Lymphocyte % 7.3 %; Mean Corpuscular HGB Conc 31 g/dL (31-36); Mean Corpuscular Hemoglobin 32 pg (27-31); Mean Corpuscular Volume 103 fL (80-97); Mean Platelet Volume 7.6 fL (7.4-10.4); Nucleated Red Blood Cells % 0; Platelet Count 114 10^3/uL (150-450); Red Blood Count 4.16 10^6 /uL (3.70-4.87); Red Cell Distribution Width 14 % (10.5-15); White Blood Count 8.8 10^3/uL (3.5-10.8)
[2018-06-20 11:09] LABS: BUN/Creatinine Ratio 45.9 (8-20); Blood Urea Nitrogen 17 mg/dL (6-24); Chloride 87 mmol/L (101-111); EGFR African American 218.6 (>60); EGFR Non-African American 180.7 (>60); Glucose 167 mg/dL (70-100); Potassium 4.3 mmol/L (3.5-5.0); Sodium 142 mmol/L (135-145)
[2018-06-20 12:09] LABS: CO2 Carbon Dioxide 53 mmol/L (22-32)
[2018-06-20] MEDS: Enoxaparin(*) 40 MG/0.4 ML SYR SUBCUT SCH (13:03)
--- NOTE | 2018-06-20 13:07 | PN ---
Subjective Date of Service: 06/20/18 Interval History: Fall walking to bathroom without injury Was helped to the floor but knees felt "like they gave out" She mostly ambulates unassisted at home Denies SOB but +cough that is non productive and not much changed from her baseline at home. Objective Active Medications: Acetaminophen (Tylenol Tab*) 650 mg PO Q6H PRN PRN Reason: FEVER/PAIN Last Admin: 06/20/18 03:23 Dose: 650 mg Albuterol/Ipratropium (Duoneb (Albuterol 2.5 Mg/Ipratropium 0.5 Mg)) 1 neb INH Q4H PRN PRN Reason: SOB/WHEEZING Alprazolam (Xanax Tab*) 0.125 mg PO TID [facility] Last Admin: 06/20/18 09:48 Dose: 0.125 mg Enoxaparin Sodium (Lovenox(*)) 40 mg SUBCUT Q24H [facility] Last Admin: 06/19/18 12:17 Dose: 40 mg Famotidine (Pepcid Iv*) 20 mg IV SLOW PU DAILY [facility] Last Admin: 06/20/18 09:49 Dose: 20 mg Oxacillin Sodium 2 gm/ Sodium (Chloride) 100 mls @ 200 mls/hr IVPB Q4H [facility] Last Admin: 06/20/18 05:57 Dose: 200 mls/hr Methylprednisolone Sodium Succinate (Solu-Medrol 40 Mg) 40 mg IV Q8H [facility] Last Admin: 06/20/18 09:49 Dose: 40 mg Mometasone Furoate/Formoterol Fumar (Dulera 200/5 Mdi*) 2 puff INH BID [facility] Last Admin: 06/20/18 09:42 Dose: 2 puff Sertraline HCl (Zoloft*) 25 mg PO DAILY [facility] Last Admin: 06/20/18 09:49 Dose: 25 mg Tiotropium [place] (Spiriva Cap.Inh*) 1 cap INH DAILY [facility] Last Admin: 06/20/18 09:41 Dose: 1 cap Trazodone HCl (Desyrel Tab*) 50 mg PO BEDTIME PRN PRN Reason: INSOMNIA Last Admin: 06/19/18 21:36 Dose: 50 mg Vital Signs - 8 hr 06/20/18 06/20/18 06/20/18 07:42 08:56 09:00 Temperature 97.7 F 97.6 F Pulse Rate 86 91 Respiratory 24 22 22 Rate Blood Pressure 97/40 120/78 (mmHg) O2 Sat by Pulse 100 97 Oximetry 06/20/18 06/20/18 06/20/18 09:42 09:48 09:51 Temperature 97.8 F Pulse Rate 96 87 Respiratory 20 22 22 Rate Blood Pressure 111/60 (mmHg) O2 Sat by Pulse 96 97 Oximetry 06/20/18 06/20/18 10:08 10:15 Temperature 98.3 F Pulse Rate 103 Respiratory 22 Rate Blood Pressure 100/51 (mmHg) O2 Sat by Pulse 87 93 Oximetry Oxygen Devices in Use Now: Nasal Cannula Appearance: older than stated age, NAD, eating breakfast Eyes: No Scleral Icterus, PERRLA Ears/Nose/Mouth/Throat: NL Teeth, Lips, Gums, Clear Oropharnyx Neck: NL Appearance and Movements; NL JVP, Trachea Midline Respiratory: Symmetrical Chest Expansion and Respiratory Effort, - - decreased throughout, faint rales b/l bases, trace wheeze Cardiovascular: RRR Abdominal: NL Sounds; No Tenderness; No Distention, No Hepatosplenomegaly Lymphatic: No Cervical Adenopathy Extremities: - - 2+ edema b/l LE Neurological: Alert and Oriented x 3 Result Diagrams: 06/20/18 10:40 06/20/18 10:40 Microbiology and Other Data: Microbiology 06/16/18 15:15 Aerobic Blood Culture - Final Blood Venous Staphylococcus Aureus Anaerobic Blood Culture - Preliminary No Growth Day 2 Blood MRSA/MSSA (PCR) - Final Mrsa Negative S.aureus Positive 06/16/18 18:04 Gram Stain - Final Sputum Sputum Culture - Preliminary Enterobacter Cloacae Complex Escherichia Coli Strep Agalactiae - (Group B) Haemophilus Influenzae 06/17/18 05:03 Aerobic Blood Culture - Preliminary Blood Venous No Growth Day 1 Anaerobic Blood Culture - Preliminary No Growth Day 1 06/16/18 19:06 Nasal Screen MRSA (PCR) - Final Nasal Mrsa Detected Assess/Plan/Problems-Billing Assessment: 58 yo F severe COPD pw hypercarbox/hypoxic resp arrest s/p intubation found with MSSA bactermia - Patient Problems (1) Respiratory failure Comment: suspect COPD exacerbation. Was not feeling well x 4 weeks extubated 06/17 c/w IV steroids TID titrated to BID starting 06/20 started dulera and spiriva c/w nebs prn Bicarb elevated, last check 4 days prior, follow again tomorrow (2) MSSA bacteremia Comment: start oxacillin Only 1 of 2 blood cx positive and 2nd blood culture cleared <24 hrs check TTE but unclear she will need MALIA without other risk factors and rapid clearance of cultures Would complete 7 days abx - day 05/30 (3) SHIRA (obstructive sleep apnea) Comment: Has not been compliant with CPAP at home but is amenable to using here (4) Edema Comment: TTE today consider lasix based on results elevated legs (5) DVT prophylaxis Comment: lovenox
--- NOTE | 2018-06-20 13:12 | ECHO ---
*[facility], [place]* [place] [address] Fax #: [phone] Transthoracic Echocardiogram Patient: Anila, Height: 65 in / Shahla Elder 165.1 cm : 1960 Weight: 108.8 lb / Study Date: 06/20/2018 49.4 kg Age: 58 BP: 111 / 53 Gender: F BMI/BSA: 18.1 HR: 92 bpm kg/m^2 / 1.53 m^2 *Registered Nurse Nursery: * Kiesha Eaton *Referring Physician: * Timbo Esocbar *Reading Physician: * Riaz Skaggs Indications: Bacteremia. History: Chronic obstructive pulmonary disease. The patient uses continuous supplemental oxygen. Risk factors: Former tobacco use. Conclusions Summary: 1. Left ventricle: The cavity size is normal. Systolic function is normal. The estimated ejection fraction is 55-60%. Wall motion is normal; there are no regional wall motion abnormalities. 2. Right ventricle: The cavity size is mildly dilated. Systolic function is mildly reduced. 3. Functionally benign heart valves including no clear valvular vegetation seen on this transthoracic echocardiogram. 4. Impressions: No previous study was available for comparison. 5. Impressions: If clinical concern remains for intra-cardiac source of bacteremia, consider transesophageal echocardiogram. Study data: Transthoracic echocardiogram. Procedure: Transthoracic echocardiography was performed. Image quality was fair. Complete 2D, spectral Doppler, and color flow Doppler. Location: Bedside. Patient status: Inpatient. Patient room number: 421. Findings Left ventricle: The cavity size is normal. Systolic function is normal. The estimated ejection fraction is 55-60%. Wall motion is normal; there are no regional wall motion abnormalities. There is no consistent Doppler evidence of clinically significant diastolic dysfunction. Right ventricle: The cavity size is mildly dilated. Systolic function is mildly reduced. Left atrium: The atrium is normal in size. Right atrium: The atrium is normal in size. Mitral valve: The leaflets are mildly thickened. There is no evidence of a vegetation. There is trivial regurgitation. The peak diastolic gradient is 2.3 mm Hg. Aortic valve: Mobility is not restricted. There is no evidence of a vegetation. There is no evidence of stenosis. There is no regurgitation. The ratio of LVOT to aortic valve peak velocity is 0.84. The ratio of LVOT to aortic valve mean velocity is 0.75. The mean systolic gradient is 4.0 mm Hg. The peak systolic gradient is 8.0 mm Hg. Tricuspid valve: The leaflets are normal thickness. There is no evidence of a vegetation. There is trivial regurgitation. Unable to estimate the pulmonary artery systolic pressure. Pulmonic valve: The leaflets are normal thickness. There is no evidence of a vegetation. There is no evidence of stenosis. There is trivial regurgitation. The peak systolic gradient is 3.0 mm Hg. Aorta: Aortic arch: The aortic arch is appears normal. The aortic root is not dilated. Pericardium: There is no significant pericardial effusion. Pulmonary arteries: Not well visualized. Systemic veins: Inferior vena cava: The vessel is dilated. Respirophasic changes in dimension are absent. Measurements Left ventricle Value Ref Aortic valve Value Ref NIRAJ, LAX 4.4 cm 3.8 - 5.2 Edelmria diam, ED 2.1 cm ---- ESD, LAX 3.5 cm 2.2 - 3.5 Peak v, S 1.39 m/sec ---- FS, LAX (L) 20 % 27 - 45 Mean v, S 0.98 m/sec ---- PW, ED, LAX 0.9 cm 0.6 - 0.9 VTI, S 21.2 cm ---- EF (L) 42 % 54 - 74 Mean grad, S 4.0 mm Hg ---- E', lat edelmira, TDI (L) 9.9 cm/sec >=10.0 Peak grad, S 8.0 mm Hg ---- E/e', lat edelmira, 8 TDI Mitral valve Value Ref E', med edelmira, TDI 9.0 cm/sec >=7.0 Peak E 0.76 m/sec ---- E/e', med edelmira, 8 Peak A 1.04 m/sec ---- TDI Decel time 155 ms ---- E', avg, TDI 9.5 cm/sec Peak grad, D 2.3 mm Hg ---- E/e', avg, TDI 8 <=14 Peak E/A ratio 0.7 ---- LVOT Value Ref Pulmonic valve Value Ref Peak papito, S 1.17 m/sec Peak v, S 0.89 m/sec ---- Peak grad, S 5 mm Hg Peak grad, S 3.0 mm Hg ---- Mean grad, S 3 mm Hg Aortic root Value Ref Ventricular septum Value Ref Root diam 2.9 cm <3.8 IVS, ED, LAX 0.8 cm 0.6 - 0.9 Ascending aorta Value Ref Left atrium Value Ref AAo AP diam, S 2.4 cm ---- AP dim, ES 3.50 cm 2.70 - 3.80 Aortic arch Value Ref ML dim, A4C 3.1 cm Arch diam 2.2 cm ---- SI dim, A4C 4.1 cm Vol/bsa, ES, A/L 25 ml/m^2 16 - 34 Decending aorta Value Ref Pedro peak papito 0.72 m/sec ---- Right atrium Value Ref SI dim, ES 4.1 cm 3.4 - 5.3 Inferior vena cava Value Ref ML dim, ES, A4C 3.8 cm 2.6 - 4.4 Diam 2.4 cm ---- Estimated RAP 8 mm Hg Legend: (L) and (H) dominga values outside specified reference range. Prepared and electronically signed by Riaz Skaggs 06/20/2018 13:10
[2018-06-20] MEDS: traZODone TAB* 50 MG TAB PO PRN (20:55)
[2018-06-21] MEDS: Oxacillin(*) 2 GM in NS 0.9% 100 ML* 100 ML IVPB SCH ×6 (01:56→22:17)
[2018-06-21 06:59] LABS: BUN/Creatinine Ratio 40.9 (8-20); Blood Urea Nitrogen 18 mg/dL (6-24); Calcium 9.1 mg/dL (8.6-10.3); Chloride 88 mmol/L (101-111); EGFR Non-African American 147.9 (>60); Glucose 173 mg/dL (70-100); Potassium 4.2 mmol/L (3.5-5.0); Sodium 144 mmol/L (135-145)
[2018-06-21 07:17] LABS: CO2 Carbon Dioxide 55 mmol/L (22-32)
[2018-06-21 07:25] LABS: ABS Basophils 0 10^3/ul (0-0.2); ABS Eosinophils 0 10^3/ul (0-0.6); ABS Lymphocytes 0.4 10^3/ul (1.0-4.8); ABS Monocytes 0.5 10^3/ul (0-0.8); ABS Neutrophils 6.1 10^3/ul (1.5-7.7); ABS Nucleated RBC 0 10^3/ul; Eosinophil % 0 %; Hematocrit 42 % (33-41); Hemoglobin 12.8 g/dL (12.0-16.0); Lymphocyte % 6.3 %; Mean Corpuscular HGB Conc 31 g/dL (31-36); Mean Corpuscular Hemoglobin 32 pg (27-31); Mean Corpuscular Volume 103 fL (80-97); Mean Platelet Volume 7.9 fL (7.4-10.4); Nucleated Red Blood Cells % 0; Platelet Count 98 10^3/uL (150-450); Red Blood Count 4.01 10^6 /uL (3.70-4.87); Red Cell Distribution Width 14 % (10.5-15); White Blood Count 7.1 10^3/uL (3.5-10.8)
[2018-06-21] MEDS: Mometasone/Formoter 200/5 MDI INH SCH ×2 (08:11→19:34)
[2018-06-21] MEDS: Tiotropium CAP.INH* CAP.INH/18 MCG (USE ORDER SET !) INH SCH (08:11)
[2018-06-21] MEDS: ALPRAZolam TAB* 0.25 MG PO SCH ×3 (09:01→21:12)
[2018-06-21] MEDS: methylPREDNISolone SOD 40 MG* 1 ML VIAL IV SCH ×2 (09:37→21:12)
[2018-06-21] MEDS: Sertraline* 25 MG TAB PO SCH (09:38)
[2018-06-21] MEDS: Famotidine IV* 10 MG/ML 2 ML (20 mg) IV SLOW PU SCH (09:38)
--- NOTE | 2018-06-21 12:07 | PN ---
Subjective Date of Service: 06/21/18 Interval History: Patient has CPAP at home but is not using it, does not like the big mask. She used BiPAP here overnight for about 1 hour, the smaller mask seemed better. She still has dry cough. She is weak with any exertion. Family History: Unchanged from Admission Social History: Unchanged from Admission Past Medical History: Unchanged from Admission Objective Active Medications: Acetaminophen (Tylenol Tab*) 650 mg PO Q6H PRN PRN Reason: FEVER/PAIN Last Admin: 06/20/18 20:41 Dose: 650 mg Albuterol/Ipratropium (Duoneb (Albuterol 2.5 Mg/Ipratropium 0.5 Mg)) 1 neb INH Q4H PRN PRN Reason: SOB/WHEEZING Alprazolam (Xanax Tab*) 0.125 mg PO TID [facility] Last Admin: 06/21/18 09:01 Dose: 0.125 mg Enoxaparin Sodium (Lovenox(*)) 40 mg SUBCUT Q24H [facility] Last Admin: 06/20/18 13:03 Dose: 40 mg Famotidine (Pepcid Iv*) 20 mg IV SLOW PU DAILY [facility] Last Admin: 06/21/18 09:38 Dose: 20 mg Oxacillin Sodium 2 gm/ Sodium (Chloride) 100 mls @ 200 mls/hr IVPB Q4H [facility] Last Admin: 06/21/18 09:38 Dose: 200 mls/hr Methylprednisolone Sodium Succinate (Solu-Medrol 40 Mg) 40 mg IV BID [facility] Last Admin: 06/21/18 09:37 Dose: 40 mg Mometasone Furoate/Formoterol Fumar (Dulera 200/5 Mdi*) 2 puff INH BID [facility] Last Admin: 06/21/18 08:11 Dose: 2 puff Sertraline HCl (Zoloft*) 25 mg PO DAILY [facility] Last Admin: 06/21/18 09:38 Dose: 25 mg Tiotropium [place] (Spiriva Cap.Inh*) 1 cap INH DAILY [facility] Last Admin: 06/21/18 08:11 Dose: 1 cap Trazodone HCl (Desyrel Tab*) 50 mg PO BEDTIME PRN PRN Reason: INSOMNIA Last Admin: 06/20/18 20:55 Dose: 50 mg Vital Signs - 8 hr 06/21/18 06/21/1806/21/19 07:57 08:11 09:01 Temperature 36.8 C Pulse Rate 94 86 Respiratory 20 85 20 Rate Blood Pressure 90/64 (mmHg) O2 Sat by Pulse 98 97 Oximetry 06/21/18 06/21/18 10:30 11:15 Temperature 35.7 C Pulse Rate 89 104 Respiratory 18 22 Rate Blood Pressure 119/74 (mmHg) O2 Sat by Pulse 97 94 Oximetry Oxygen Devices in Use Now: Nasal Cannula Appearance: somnolent, slow to answer Ears/Nose/Mouth/Throat: Clear Oropharnyx Neck: Trachea Midline Respiratory: - - diminished throughout Cardiovascular: RRR Abdominal: NL Sounds; No Tenderness; No Distention Lines/Tubes/Other Access: Clean, Dry and Intact Peripheral IV Result Diagrams: 06/21/18 06:24 06/21/18 06:24 Microbiology and Other Data: Microbiology 06/16/18 19:06 Nasal Nasal Screen MRSA (PCR) - Final Mrsa Detected 06/16/18 18:04 Sputum Gram Stain - Final 06/16/18 18:04 Sputum Sputum Culture - Final Enterobacter Cloacae Complex Escherichia Coli Strep Agalactiae - (Group B) Haemophilus Influenzae Normal Ana 06/16/18 15:15 Blood Venous Aerobic Blood Culture - Final 06/16/18 15:15 Blood Venous Blood MRSA/MSSA (PCR) - Final Staphylococcus Aureus Mrsa Negative S.aureus Positive 06/17/18 05:03 Blood Venous Aerobic Blood Culture - Preliminary 06/17/18 05:03 Blood Venous Anaerobic Blood Culture - Preliminary No Growth Day 4 No Growth Day 4 06/16/18 15:15 Blood Venous Anaerobic Blood Culture - Preliminary No Growth Day 4 Assess/Plan/Problems-Billing Assessment: 58 yo F severe COPD pw hypercarbox/hypoxic resp arrest s/p intubation found with MSSA bactermia - Patient Problems (1) Respiratory failure Current Visit: Yes Status: Acute Priority: High Code(s): J96.90 - RESPIRATORY FAILURE, UNSP, UNSP W HYPOXIA OR HYPERCAPNIA SNOMED Code(s): 515432677 Comment: -continue treatment COPD exacerbation -Has hypoxic and hypercarbic resp failure -extubated 06/17, now needs BiPAP when napping or sleeping overnight -on IV steroids now BID -started dulera and spiriva -c/w nebs prn (2) MSSA bacteremia Current Visit: Yes Status: Acute Priority: High Code(s): R78.81 - BACTEREMIA SNOMED Code(s): 480406603 Comment: -Continue oxacillin -No clear source, TTE looks normal, no endocarditis -Would complete 7 days abx - day 5/ (3) DVT prophylaxis Current Visit: Yes Status: Acute Priority: Medium Code(s): LIA4037 - SNOMED Code(s): 825554909 Comment: lovenox Status and Disposition: inpatient
[2018-06-21] MEDS: Enoxaparin(*) 40 MG/0.4 ML SYR SUBCUT SCH (13:11)
[2018-06-22] MEDS: Oxacillin(*) 2 GM in NS 0.9% 100 ML* 100 ML IVPB SCH ×6 (02:08→22:09)
[2018-06-22] MEDS: Tiotropium CAP.INH* CAP.INH/18 MCG (USE ORDER SET !) INH SCH (09:24)
[2018-06-22] MEDS: Mometasone/Formoter 200/5 MDI INH SCH (09:24)
[2018-06-22] MEDS: ALPRAZolam TAB* 0.25 MG PO SCH ×3 (09:45→22:08)
[2018-06-22] MEDS: methylPREDNISolone SOD 40 MG* 1 ML VIAL IV SCH (09:46)
[2018-06-22] MEDS: Sertraline* 25 MG TAB PO SCH (09:46)
[2018-06-22] MEDS: Famotidine IV* 10 MG/ML 2 ML (20 mg) IV SLOW PU SCH (09:46)
[2018-06-22 10:03] LABS: ABS Basophils 0 10^3/ul (0-0.2); ABS Eosinophils 0 10^3/ul (0-0.6); ABS Lymphocytes 1.3 10^3/ul (1.0-4.8); ABS Neutrophils 6.2 10^3/ul (1.5-7.7); ABS Nucleated RBC 0 10^3/ul; Eosinophil % 0.5 %; Hematocrit 41 % (33-41); Hemoglobin 12.8 g/dL (12.0-16.0); Lymphocyte % 15.6 %; Mean Corpuscular HGB Conc 31 g/dL (31-36); Mean Corpuscular Hemoglobin 32 pg (27-31); Mean Corpuscular Volume 103 fL (80-97); Mean Platelet Volume 7.7 fL (7.4-10.4); Nucleated Red Blood Cells % 0; Platelet Count 102 10^3/uL (150-450); Red Cell Distribution Width 14 % (10.5-15); White Blood Count 8.5 10^3/uL (3.5-10.8)
[2018-06-22 10:17] LABS: BUN/Creatinine Ratio 58.8 (8-20); Blood Urea Nitrogen 20 mg/dL (6-24); Calcium 8.7 mg/dL (8.6-10.3); Chloride 87 mmol/L (101-111); EGFR Non-African American 199.2 (>60); Glucose 160 mg/dL (70-100); Potassium 4.1 mmol/L (3.5-5.0); Sodium 142 mmol/L (135-145)
[2018-06-22 10:55] LABS: CO2 Carbon Dioxide 53 mmol/L (22-32)
[2018-06-22] MEDS: Enoxaparin(*) 40 MG/0.4 ML SYR SUBCUT SCH (13:00)
--- NOTE | 2018-06-22 14:43 | CONSULT ---
Palliative / Hospice Consult Ordering Provider: Farooq Kessler - PCP-Daniela Martinez Referal Reason: Goals of care - Subjective Code Status: Full Code Advance Directives Location: No Advance Directives - History or Present Illness History or Present Illness: 58 yo female with COPD presented to ER with SOB and non productive cough. PMH is significant for COPD follows with Dr. Mckeon on 2-3 liters O2 and has CPAP but doesn't use because worried about cleaning it, chronic pain, hiatal hernia, arthritis, anxiety and seasonal allergy. She is a long time smoker but has quit several times in the past, no etoh/ no drugs for 40 years and has 3 children. Labs ECHO EF 55-60%, ekg sinus tach, CXR adv COPD, H/H 12.8/42, BUN/ Cr 18/.44 egfr 147.9, alb 3.4, tprot 6.7 & BNP 977. Admitted for acute on chronic COPD exacerbation was intubated then extubated and transferred to the floor then ended up back in ICU with BiPAP. Lab Values: Abnormal Lab Results 06/21/18 06/22/18 06/22/18 17:40 09:52 09:52 WBC 8.5 RBC 4.00 Hgb 12.8 Hct 41 MCV 103 H MCH 32 H MCHC 31 RDW 14 Plt Count 102 L MPV 7.7 Neut % (Auto) 72.5 Lymph % (Auto) 15.6 Jones % (Auto) 11.3 Eos % (Auto) 0.5 Baso % (Auto) 0.1 Absolute Neuts (auto) 6.2 Absolute Lymphs (auto) 1.3 Absolute Monos (auto) 1.0 H Absolute Eos (auto) 0 Absolute Basos (auto) 0 Absolute Nucleated RBC 0 Nucleated RBC % 0 Patient Temperature Not Reportable ABG pH 7.32 L ABG pH (Temp Correct) Not Reportable ABG pCO2 116 H* ABG pCO2 (Temp Corrct Not Reportable ABG pO2 109 H ABG pO2 (Temp Correct Not Reportable ABG HCO3 45.7 H* ABG O2 Saturation 99.7 H ABG Base Excess 26.6 H Respiration Rate Not Reportable Ventilator Type Not Reportable Vent Mode Not Reportable FiO2 4 Inspiratory Time Not Reportable PEEP Not Reportable Pressure Support Not Reportable Pressure Control Not Reportable EPAP Not Reportable IPAP Not Reportable BiPAP Not Reportable Sodium 142 Potassium 4.1 Chloride 87 L Carbon Dioxide 53 H* Anion Gap Not Reportable BUN 20 Creatinine 0.34 L Est GFR ( Amer) 241.0 Est GFR (Non-Af Amer) 199.2 BUN/Creatinine Ratio 58.8 H Glucose 160 H Calcium 8.7 Laboratory Last Values WBC 8.5 10^3/uL (3.5-10.8) 06/22/18 09:52 RBC 4.00 10^6 /uL (3.70-4.87) 06/22/18 09:52 Hgb 12.8 g/dL (12.0-16.0) 06/22/18 09:52 Hct 41 % (33-41) 06/22/18 09:52 MCV 103 fL (80-97) H 06/22/18 09:52 MCH 32 pg (27-31) H 06/22/18 09:52 MCHC 31 g/dL (31-36) 06/22/18 09:52 RDW 14 % (10.5-15) 06/22/18 09:52 Plt Count 102 10^3/uL (150-450) L 06/22/18 09:52 MPV 7.7 fL (7.4-10.4) 06/22/18 09:52 Neut % (Auto) 72.5 % 06/22/18 09:52 Lymph % (Auto) 15.6 % 06/22/18 09:52 Jones % (Auto) 11.3 % 06/22/18 09:52 Eos % (Auto) 0.5 % 06/22/18 09:52 Baso % (Auto) 0.1 % 06/22/18 09:52 Absolute Neuts (auto) 6.2 10^3/ul (1.5-7.7) 06/22/18 09:52 Absolute Lymphs (auto) 1.3 10^3/ul (1.0-4.8) 06/22/18 09:52 Absolute Monos (auto) 1.0 10^3/ul (0-0.8) H 06/22/18 09:52 Absolute Eos (auto) 0 10^3/ul (0-0.6) 06/22/18 09:52 Absolute Basos (auto) 0 10^3/ul (0-0.2) 06/22/18 09:52 Absolute Nucleated RBC 0 10^3/ul 06/22/18 09:52 Nucleated RBC % 0 06/22/18 09:52 Hem Pathologist Commnt 06/21/18 06:24 INR (Anticoag Therapy) 1.16 (0.82-1.09) H 06/16/18 15:15 APTT 31.2 seconds (26.0-36.3) 06/16/18 15:15 Patient Temperature Not Reportable 06/21/18 17:40 ABG pH 7.32 (7.35-7.45) L 06/21/18 17:40 ABG pH (Temp Correct) Not Reportable 06/21/18 17:40 ABG pCO2 116 mmHg (35-45) H* 06/21/18 17:40 ABG pCO2 (Temp Corrct Not Reportable 06/21/18 17:40 ABG pO2 109 mmHg (80-100) H 06/21/18 17:40 ABG pO2 (Temp Correct Not Reportable 06/21/18 17:40 ABG HCO3 45.7 mmol/L (19-31) H* 06/21/18 17:40 ABG O2 Saturation 99.7 % (94.0-98.0) H 06/21/18 17:40 ABG Base Excess 26.6 mmol/L (-2.0-2.0) H 06/21/18 17:40 Respiration Rate Not Reportable 06/21/18 17:40 O2 Delivery Device Vent 06/16/18 16:00 Ventilator Type Not Reportable 06/21/18 17:40 Vent Mode Not Reportable 06/21/18 17:40 FiO2 4 06/21/18 17:40 Inspiratory Time Not Reportable 06/21/18 17:40 PEEP Not Reportable 06/21/18 17:40 Pressure Support Not Reportable 06/21/18 17:40 Pressure Control Not Reportable 06/21/18 17:40 EPAP Not Reportable 06/21/18 17:40 IPAP Not Reportable 06/21/18 17:40 BiPAP Not Reportable 06/21/18 17:40 Sodium 142 mmol/L (135-145) 06/22/18 09:52 Potassium 4.1 mmol/L (3.5-5.0) 06/22/18 09:52 Chloride 87 mmol/L (101-111) L 06/22/18 09:52 Carbon Dioxide 53 mmol/L (22-32) H* 06/22/18 09:52 Anion Gap Not Reportable 06/22/18 09:52 BUN 20 mg/dL (6-24) 06/22/18 09:52 Creatinine 0.34 mg/dL (0.51-0.95) L 06/22/18 09:52 Est GFR ( Amer) 241.0 (>60) 06/22/18 09:52 Est GFR (Non-Af Amer) 199.2 (>60) 06/22/18 09:52 BUN/Creatinine Ratio 58.8 (8-20) H 06/22/18 09:52 Glucose 160 mg/dL (70-100) H 06/22/18 09:52 Lactic Acid 1.3 mmol/L (0.5-2.0) 06/16/18 15:15 Calcium 8.7 mg/dL (8.6-10.3) 06/22/18 09:52 Total Bilirubin 0.30 mg/dL (0.2-1.0) 06/16/18 15:15 AST 32 U/L (13-39) 06/16/18 15:15 ALT 25 U/L (7-52) 06/16/18 15:15 Alkaline Phosphatase 85 U/L (34-104) 06/16/18 15:15 Troponin I 0.03 ng/mL (<0.04) 06/16/18 15:15 B-Natriuretic Peptide 977 pg/mL (<=100) H 06/16/18 15:15 Total Protein 6.7 g/dL (6.4-8.9) 06/16/18 15:15 Albumin 3.4 g/dL (3.2-5.2) 06/16/18 15:15 Globulin 3.3 g/dL (2-4) 06/16/18 15:15 Albumin/Globulin Ratio 1.0 (1-3) 06/16/18 15:15 Urine Color Yellow 06/17/18 05:00 Urine Appearance Clear 06/17/18 05:00 Urine pH 6.0 (5-9) 06/17/18 05:00 Ur Specific Jacob 1.018 (1.010-1.030) 06/17/18 05:00 Urine Protein Negative (Negative) 06/17/18 05:00 Urine Ketones Negative (Negative) 06/17/18 05:00 Urine Blood Negative (Negative) 06/17/18 05:00 Urine Nitrate Negative (Negative) 06/17/18 05:00 Urine Bilirubin Negative (Negative) 06/17/18 05:00 Urine Urobilinogen Negative (Negative) 06/17/18 05:00 Ur Leukocyte Esterase Negative (Negative) 06/17/18 05:00 Urine Glucose Negative (Negative) 06/17/18 05:00 Vancomycin Trough 3.8 mcg/mL 06/19/18 10:29 - Objective Active Medications: Acetaminophen (Tylenol Tab*) 650 mg PO Q6H PRN PRN Reason: FEVER/PAIN Last Admin: 06/20/18 20:41 Dose: 650 mg Albuterol/Ipratropium (Duoneb (Albuterol 2.5 Mg/Ipratropium 0.5 Mg)) 1 neb INH Q4H PRN PRN Reason: SOB/WHEEZING Alprazolam (Xanax Tab*) 0.125 mg PO TID [facility] Last Admin: 06/22/18 09:45 Dose: 0.125 mg Enoxaparin Sodium (Lovenox(*)) 40 mg SUBCUT Q24H [facility] Last Admin: 06/22/18 13:00 Dose: 40 mg Famotidine (Pepcid Iv*) 20 mg IV SLOW PU DAILY [facility] Last Admin: 06/22/18 09:46 Dose: 20 mg Oxacillin Sodium 2 gm/ Sodium (Chloride) 100 mls @ 200 mls/hr IVPB Q4H [facility] Last Admin: 06/22/18 09:49 Dose: 200 mls/hr Methylprednisolone Sodium Succinate (Solu-Medrol 40 Mg) 40 mg IV BID [facility] Last Admin: 06/22/18 09:46 Dose: 40 mg Mometasone Furoate/Formoterol Fumar (Dulera 200/5 Mdi*) 2 puff INH BID [facility] Last Admin: 06/22/18 09:24 Dose: 2 puff Sertraline HCl (Zoloft*) 25 mg PO DAILY [facility] Last Admin: 06/22/18 09:46 Dose: 25 mg Tiotropium [place] (Spiriva Cap.Inh*) 1 cap INH DAILY [facility] Last Admin: 06/22/18 09:24 Dose: 1 cap Trazodone HCl (Desyrel Tab*) 50 mg PO BEDTIME PRN PRN Reason: INSOMNIA Last Admin: 06/20/18 20:55 Dose: 50 mg Vital Signs: Vital Signs: Temp Pulse Resp BP Pulse Ox 98.1 F 89 18 114/65 94 06/22/18 11:12 06/22/18 14:00 06/22/18 14:00 06/22/18 14:00 06/22/18 14:00 Patient Weight: Weight 54.5 kg Intake and Output: Intake & Output 06/20/18 06/21/18 06/22/18 06/23/18 06:59 06:59 06:59 06:59 Intake Total 1450 1560 775 240 Output Total 4759 818 2812 Balance 425 1085 -225 240 Weight 54.5 kg Intake: IV Fluids 550 223 NS (0.9%) 15 oxacillin 550 208 IVPB 300 127 oxacillin 300 127 Oral 600 1560 425 240 Output: Urine 042 556 9057 Granados 175 Other: Estimated Void Small # Bowel Movements 2 1 Estimated Stool Amount Medium Large Medium # Voids 0 1 ADLs: Meal Record Start: 06/16/18 17: 46 Freq: 09,13,18 Status: Complete Protocol: Created 06/16/18 17:46 System (Rec: 06/16/18 17:46 System ICU-C25) Document 06/16/18 18:00 [id number] (Rec: 06/16/18 18:02 [id number] [facility]-M03 ) Document 06/17/18 09:00 [id number] (Rec: 06/17/18 09:41 [id number] ICU-C15) Document 06/17/18 13:00 [id number] (Rec: 06/17/18 13:23 [id number] [facility]-M03 ) Document 06/17/18 18:00 JTZ2630 (Rec: 06/17/18 20:04 [id number] MED-C09) Document 06/18/18 09:00 WGO2013 (Rec: 06/18/18 09:31 [id number] MED-C15) Document 06/18/18 13:00 MPL6050 (Rec: 06/18/18 14:11 BUM8554 MED-C16) Document 06/18/18 18:00 HHM2938 (Rec: 06/18/18 18:35 UIT0149 MED-C11) Document 06/19/18 13:00 RJO5793 (Rec: 06/19/18 14:41 PRV7912 MED-C13) Document 06/19/18 18:00 BEJ1165 (Rec: 06/19/18 18:08 ETQ2356 MED-C13) Document 06/20/18 09:00 WZP7719 (Rec: 06/20/18 09:40 KOB1523 MED-C11) Document 06/20/18 13:00 PEX0632 (Rec: 06/20/18 14:29 PQU3929 MED-C11) Document 06/20/18 18:00 YRS3305 (Rec: 06/20/18 18:40 SMB1824 MED-C02) Document 06/21/18 08:48 ZIP0017 (Rec: 06/21/18 08:49 YSB4967 MED-C09) Document 06/21/18 13:00 APN5762 (Rec: 06/21/18 13:33 LTV1164 MED-C09) ADLs: Meal Record Start: 06/21/18 17: 38 Freq: 09,13,18 Status: Active Protocol: Created 06/21/18 17:38 [id number] (Rec: 06/21/18 17:38 JDM7169 ICU-M23) Document 06/21/18 18:09 DZC3829 (Rec: 06/21/18 18:09 FKG6706 ICU-M23) Document 06/22/18 09:00 NDV7306 (Rec: 06/22/18 09:57 ICE0164 ICU-C12) Document 06/22/18 13:00 XPV0810 (Rec: 06/22/18 13:59 UFI4744 ICU-C12) Intake and Output Start: 06/16/18 15: 04 Freq: 06,14,2200 Status: Complete Protocol: Created 06/16/18 15:04 System (Rec: 06/16/18 15:04 System EDRM-C06) Document 06/17/18 17:27 URA5543 (Rec: 06/17/18 17:27 ZQL0827 ICU-C15) Document 06/18/18 14:13 OZY9802 (Rec: 06/18/18 14:14 GPA6826 MED-C16) Document 06/19/18 06:00 GGW8134 (Rec: 06/19/18 06:04 ROF6585 MED-C15) Document 06/19/18 14:00 HPX9589 (Rec: 06/19/18 15:56 MIE4401 MED-C15) Document 06/19/18 22:00 JYE9535 (Rec: 06/19/18 22:23 DWB7005 MED-C09) Document 06/20/18 05:30 FZQ9827 (Rec: 06/20/18 05:43 ISB1421 MED-C09) Document 06/20/18 14:00 KRX8417 (Rec: 06/20/18 14:29 UXE9557 MED-C11) Document 06/20/18 21:59 TTT2240 (Rec: 06/20/18 22:02 VXQ1852 MED-C02) Document 06/21/18 05:56 PLC4103 (Rec: 06/21/18 05:57 HIV1501 MED-C09) Intake and Output Start: 06/16/18 17: 46 Freq: Q1HR Status: Inactive Protocol: Created 06/16/18 17:46 System (Rec: 06/16/18 17:46 System ICU-C25) Document 06/16/18 18:00 TND7674 (Rec: 06/16/18 18:17 LQL2170 ICU-C14) Document 06/16/18 19:54 FEF5785 (Rec: 06/16/18 19:54 JKI0423 [facility]-M03 ) Document 06/16/18 21:00 OUX9340 (Rec: 06/16/18 21:17 RBF7655 ICU-C12) Document 06/16/18 22:00 GNA7434 (Rec: 06/16/18 22:36 DND3734 [facility]-M03 ) Document 06/16/18 23:00 MNV6183 (Rec: 06/16/18 23:08 DHX2666 [facility]-M03 ) Document 06/17/18 00:00 FOG8513 (Rec: 06/17/18 00:06 GZC8197 ICU-C12) Document 06/17/18 01:00 GDL6938 (Rec: 06/17/18 01:09 TTY3888 ICU-C12) Document 06/17/18 02:00 BMK4030 (Rec: 06/17/18 02:24 ZBI6243 [facility]-M03 ) Document 06/17/18 03:00 NXY3168 (Rec: 06/17/18 03:24 VIS6125 ICU-C12) Document 06/17/18 03:59 FYB1187 (Rec: 06/17/18 03:59 PGM3616 ICU-C12) Document 06/17/18 05:00 BZU1463 (Rec: 06/17/18 05:19 YZP4978 ICU-C12) Document 06/17/18 06:00 IOC9498 (Rec: 06/17/18 06:08 EON7636 [facility]-M03 ) Document 06/17/18 07:00 JQW1326 (Rec: 06/17/18 07:48 MEW7422 ICU-C15) Document 06/17/18 08:00 NRJ2738 (Rec: 06/17/18 09:07 RID1405 ICU-C15) Document 06/17/18 09:00 HZM8304 (Rec: 06/17/18 09:41 ENY9058 ICU-C15) Document 06/17/18 10:00 TFL1039 (Rec: 06/17/18 11:46 KLE2394 ICU-C15) Document 06/17/18 11:00 VUR5492 (Rec: 06/17/18 11:54 UCQ3464 ICU-C15) Document 06/17/18 12:00 HWL9970 (Rec: 06/17/18 12:29 PAX7025 ICU-C15) Document 06/17/18 13:00 XDY8206 (Rec: 06/17/18 13:23 IYQ2813 [facility]-M03 ) Document 06/17/18 14:00 DWH4664 (Rec: 06/17/18 14:21 EVY8608 ICU-C15) Document 06/17/18 15:00 QLB2587 (Rec: 06/17/18 15:05 CZN3386 ICU-C15) Document 06/17/18 15:09 OOK2313 (Rec: 06/17/18 15:09 YDN6558 ICU-C15) Document 06/17/18 16:00 [id number] (Rec: 06/17/18 16:35 BHF2676 ICU-C15) Intake and Output Start: 06/21/18 17: 38 Freq: 06,14,2200 Status: Active Protocol: Created 06/21/18 17:38 XNH1351 (Rec: 06/21/18 17:38 ZYC8699 ICU-M23) Document 06/21/18 22:00 BRT5065 (Rec: 06/21/18 22:13 QDJ6102 ICU-L03) Document 06/22/18 00:04 OWT8006 (Rec: 06/22/18 00:04 QNL9702 ICU-C12) Document 06/22/18 04:46 [id number] (Rec: 06/22/18 04:46 KWW5719 ICU-L03) Eyes: No Scleral Icterus, PERRLA Ears/Nose/Mouth/Throat: Clear Oropharnyx Neck: Trachea Midline Cardiovascular: RRR Abdominal: NL Sounds; No Tenderness; No Distention Extremities: - - 2+ edema b/l LE Neurological: Alert and Oriented x 3 - Assessment Assessment: 58yo female with advanced COPD acute on chronic exacerbation - Plan Consult Plan (MU): Palliative Plan: Long discussion with pt about her illness and her plans for the future. She does realize the severity of her disease and at this point does want to be re- intubated if her breathing gets worse. She does not want to be on a vent permanently. Family member(cousin) interrupted us so will continue the discussion later. She is afraid her will if she dies, which is very upsetting to her. They have been for 40 years. She is able to do some activities at home but is short of breath and needs to rest frequently. We discussed having outpatient palliative care follow up with the pt when she is discharged either [facility] with [facility] or [facility] program. I left a brochure for her. She has been hospitalized once a year but going forward I think she will need to be hospitalized more frequently pt is aware and does feel her breathing is getting worse. I would encourage pt to use her CPAP at home and give instructions on washing the unit. KPS 70% PPS60% - Time On Unit Date of Evaluation: 06/22/18 Hospice Consult Time in: 02:00 Hospice Consult Time Out: 03:30 Hospice Consult Time Total: 90 > 50% of Time Spend In Counseling or Coordinating Care: Yes
--- NOTE | 2018-06-22 17:12 | PN ---
Subjective Date of Service: 06/22/18 Interval History: Patient feels she is breathing better. She walked w/ less unsteadiness today. She tolerated BiPAP most of night, some of this morning. She now is on O2 2.5L NC. She notes some edema in legs. Family History: Unchanged from Admission Social History: Unchanged from Admission Past Medical History: Unchanged from Admission Objective Active Medications: Acetaminophen (Tylenol Tab*) 650 mg PO Q6H PRN PRN Reason: FEVER/PAIN Last Admin: 06/20/18 20:41 Dose: 650 mg Albuterol/Ipratropium (Duoneb (Albuterol 2.5 Mg/Ipratropium 0.5 Mg)) 1 neb INH Q4H PRN PRN Reason: SOB/WHEEZING Alprazolam (Xanax Tab*) 0.125 mg PO TID [facility] Last Admin: 06/22/18 14:32 Dose: 0.125 mg Enoxaparin Sodium (Lovenox(*)) 40 mg SUBCUT Q24H [facility] Last Admin: 06/22/18 13:00 Dose: 40 mg Famotidine (Pepcid Iv*) 20 mg IV SLOW PU DAILY [facility] Last Admin: 06/22/18 09:46 Dose: 20 mg Oxacillin Sodium 2 gm/ Sodium (Chloride) 100 mls @ 200 mls/hr IVPB Q4H [facility] Last Admin: 06/22/18 14:43 Dose: 200 mls/hr Methylprednisolone Sodium Succinate (Solu-Medrol 40 Mg) 40 mg IV BID [facility] Last Admin: 06/22/18 09:46 Dose: 40 mg Mometasone Furoate/Formoterol Fumar (Dulera 200/5 Mdi*) 2 puff INH BID [facility] Last Admin: 06/22/18 09:24 Dose: 2 puff Sertraline HCl (Zoloft*) 25 mg PO DAILY [facility] Last Admin: 06/22/18 09:46 Dose: 25 mg Tiotropium [place] (Spiriva Cap.Inh*) 1 cap INH DAILY [facility] Last Admin: 06/22/18 09:24 Dose: 1 cap Trazodone HCl (Desyrel Tab*) 50 mg PO BEDTIME PRN PRN Reason: INSOMNIA Last Admin: 06/20/18 20:55 Dose: 50 mg Vital Signs - 8 hr 06/22/18 06/22/18 06/22/18 12:30 12:45 13:00 Temperature Pulse Rate 86 84 Respiratory 19 20 18 Rate Blood Pressure 96/62 95/59 (mmHg) O2 Sat by Pulse 100 99 Oximetry 06/22/18 06/22/18 06/22/18 13:01 13:15 14:00 Temperature Pulse Rate 85 95 89 Respiratory 22 20 21 Rate Blood Pressure 122/64 127/75 114/65 (mmHg) O2 Sat by Pulse 99 93 94 Oximetry 06/22/18 06/22/18 06/22/18 14:32 15:00 16:00 Temperature Pulse Rate 96 95 Respiratory 17 19 19 Rate Blood Pressure 106/52 108/53 (mmHg) O2 Sat by Pulse 93 97 Oximetry Oxygen Devices in Use Now: Nasal Cannula Appearance: frail, more alert Neck: Trachea Midline Respiratory: Symmetrical Chest Expansion and Respiratory Effort, - - diminished throughout Cardiovascular: NL Sounds; No Murmurs; No JVD, - - tachy, 1+ edema bilat LE Neurological: Alert and Oriented x 3 Lines/Tubes/Other Access: Clean, Dry and Intact Peripheral IV Nutrition: Taking PO's Result Diagrams: 06/22/18 09:52 06/22/18 09:52 Microbiology and Other Data: Microbiology 06/17/18 05:03 Blood Venous Aerobic Blood Culture - Final 06/17/18 05:03 Blood Venous Anaerobic Blood Culture - Final No Growth Day 5 No Growth Day 5 06/16/18 19:06 Nasal Nasal Screen MRSA (PCR) - Final Mrsa Detected 06/16/18 18:04 Sputum Gram Stain - Final 06/16/18 18:04 Sputum Sputum Culture - Final Enterobacter Cloacae Complex Escherichia Coli Strep Agalactiae - (Group B) Haemophilus Influenzae Normal Ana 06/16/18 15:15 Blood Venous Aerobic Blood Culture - Final 06/16/18 15:15 Blood Venous Blood MRSA/MSSA (PCR) - Final Staphylococcus Aureus Mrsa Negative S.aureus Positive No Growth Day 5 Assess/Plan/Problems-Billing Assessment: 58 yo F w/ severe COPD here with hypercarbox/hypoxic resp arrest s/p intubation found with MSSA bacteremia - Patient Problems (1) Respiratory failure Current Visit: Yes Status: Acute Priority: High Code(s): J96.90 - RESPIRATORY FAILURE, UNSP, UNSP W HYPOXIA OR HYPERCAPNIA SNOMED Code(s): 413485220 Comment: -continue treatment COPD exacerbation -Has hypoxic and hypercarbic resp failure -returned to ICU for rescue BiPAP, now needs BiPAP when napping or sleeping overnight -on IV steroids now BID, switched to PO -started dulera and spiriva -Will discuss with Dr. Mckeon (2) MSSA bacteremia Current Visit: Yes Status: Acute Priority: High Code(s): R78.81 - BACTEREMIA SNOMED Code(s): 673573059 Comment: -Continue oxacillin -No clear source, TTE looks normal, no endocarditis -Would complete 7 days abx - day 6/ (3) DVT prophylaxis Current Visit: Yes Status: Acute Priority: Medium Code(s): JKC8330 - SNOMED Code(s): 762587859 Comment: krystle (4) Full code status Current Visit: No Status: Acute Priority: Medium Code(s): Z78.9 - OTHER SPECIFIED HEALTH STATUS SNOMED Code(s): 774770405 Comment: -Met with Dr. Mansfield today, due to end-stage COPD/resp failure -Appreciate consult, patient wishes to remain full code as of today. Status and Disposition: inpatient, can move back to floor
[2018-06-22] MEDS: traZODone TAB* 50 MG TAB PO PRN (22:09)
[2018-06-23] MEDS: Oxacillin(*) 2 GM in NS 0.9% 100 ML* 100 ML IVPB SCH ×6 (02:03→22:15)
[2018-06-23 06:38] LABS: BUN/Creatinine Ratio 62.5 (8-20); Blood Urea Nitrogen 20 mg/dL (6-24); Calcium 8.8 mg/dL (8.6-10.3); Chloride 85 mmol/L (101-111); EGFR African American 258.5 (>60); EGFR Non-African American 213.6 (>60); Glucose 124 mg/dL (70-100); Potassium 3.7 mmol/L (3.5-5.0); Sodium 144 mmol/L (135-145)
[2018-06-23] MEDS: Mometasone/Formoter 200/5 MDI INH SCH ×3 (06:54→20:36)
[2018-06-23] MEDS: Tiotropium CAP.INH* CAP.INH/18 MCG (USE ORDER SET !) INH SCH (07:31)
[2018-06-23 08:13] LABS: CO2 Carbon Dioxide 57 mmol/L (22-32)
[2018-06-23] MEDS: Sertraline* 25 MG TAB PO SCH (10:00)
[2018-06-23] MEDS: ALPRAZolam TAB* 0.25 MG PO SCH ×3 (10:00→20:48)
[2018-06-23] MEDS: Famotidine IV* 10 MG/ML 2 ML (20 mg) IV SLOW PU SCH (10:01)
[2018-06-23] MEDS: predniSONE TAB* 20 MG PO SCH (10:01)
--- NOTE | 2018-06-23 13:01 | PN ---
Subjective Date of Service: 06/23/18 Interval History: HOSPITALIST PROGRESS NOTE Patient seen and examined at bedside. Care reviewed and d/w Natividad Benitez RN. She feels a little tired today, but breathing is improving day by day. As per , she was feeling ill for a couple of weeks and "waited too long to come ". Was not using her CPAP at home. Family History: Unchanged from Admission Social History: Unchanged from Admission Past Medical History: Unchanged from Admission Objective Active Medications: Acetaminophen (Tylenol Tab*) 650 mg PO Q6H PRN PRN Reason: FEVER/PAIN Last Admin: 06/20/18 20:41 Dose: 650 mg Albuterol/Ipratropium (Duoneb (Albuterol 2.5 Mg/Ipratropium 0.5 Mg)) 1 neb INH Q4H PRN PRN Reason: SOB/WHEEZING Alprazolam (Xanax Tab*) 0.125 mg PO TID [facility] Last Admin: 06/23/18 10:00 Dose: 0.125 mg Enoxaparin Sodium (Lovenox(*)) 40 mg SUBCUT Q24H [facility] Last Admin: 06/22/18 13:00 Dose: 40 mg Famotidine (Pepcid Iv*) 20 mg IV SLOW PU DAILY [facility] Last Admin: 06/23/18 10:01 Dose: 20 mg Oxacillin Sodium 2 gm/ Sodium (Chloride) 100 mls @ 200 mls/hr IVPB Q4H [facility] Last Admin: 06/23/18 10:01 Dose: 200 mls/hr Mometasone Furoate/Formoterol Fumar (Dulera 200/5 Mdi*) 2 puff INH BID [facility] Last Admin: 06/23/18 07:32 Dose: 2 puff Prednisone (Deltasone Tab*) 60 mg PO DAILY [facility] Last Admin: 06/23/18 10:01 Dose: 60 mg Sertraline HCl (Zoloft*) 25 mg PO DAILY [facility] Last Admin: 06/23/18 10:00 Dose: 25 mg Tiotropium [place] (Spiriva Cap.Inh*) 1 cap INH DAILY [facility] Last Admin: 06/23/18 07:31 Dose: 1 cap Trazodone HCl (Desyrel Tab*) 50 mg PO BEDTIME PRN PRN Reason: INSOMNIA Last Admin: 06/22/18 22:09 Dose: 50 mg Vital Signs - 8 hr 06/23/18 06/23/18 06/23/18 08:00 08:18 10:00 Temperature 97.7 F Pulse Rate 91 Respiratory 18 18 18 Rate Blood Pressure 89/42 (mmHg) O2 Sat by Pulse 97 Oximetry 06/23/18 11:30 Temperature 97.2 F Pulse Rate 94 Respiratory 18 Rate Blood Pressure 114/45 (mmHg) O2 Sat by Pulse 94 Oximetry Oxygen Devices in Use Now: BiPAP Appearance: Middle aged lady, appears older than stated age, lying in bed with BiPAP on, in NAD. Eyes: No Scleral Icterus Ears/Nose/Mouth/Throat: Mucous Membranes Moist Neck: Trachea Midline Respiratory: Symmetrical Chest Expansion and Respiratory Effort, - - BS+ bilaterally diminished with no added sounds Cardiovascular: RRR - Normal S1 and S2 Extremities: - - Bilateral LE moderate pitting edema Neurological: Alert and Oriented x 3, NL Muscle Strength and Tone Result Diagrams: 06/22/18 09:52 06/23/18 05:36 Microbiology and Other Data: Microbiology 06/17/18 05:03 Blood Venous Aerobic Blood Culture - Final 06/17/18 05:03 Blood Venous Anaerobic Blood Culture - Final No Growth Day 5 No Growth Day 5 06/16/18 19:06 Nasal Nasal Screen MRSA (PCR) - Final Mrsa Detected 06/16/18 18:04 Sputum Gram Stain - Final 06/16/18 18:04 Sputum Sputum Culture - Final Enterobacter Cloacae Complex Escherichia Coli Strep Agalactiae - (Group B) Haemophilus Influenzae Normal Ana 06/16/18 15:15 Blood Venous Aerobic Blood Culture - Final 06/16/18 15:15 Blood Venous Blood MRSA/MSSA (PCR) - Final Staphylococcus Aureus Mrsa Negative S.aureus Positive No Growth Day 5 Assess/Plan/Problems-Billing Assessment: Mrs High is a 58 yo F with PMH of severe COPD who presented to ED with c/ o dyspnea and cough, found to have hypercarpnic/hypoxemic respiratory arrest s/ p intubation, found to have MSSA bacteremia. - Patient Problems (1) Respiratory failure Comment: - Acute on chronic hypercapnic and hypoxemic respiratory failure. - Continue supplemental O2 and BiPAP for naps and overnight. - Pulm consult requested - will ask about using acetazolamide to buffer CO2. (2) COPD exacerbation Comment: - Secondary to bronchitis. - Continue steroids (PO and IV), bronchodilators, supplemental O2 and BiPAP. - Feels improved, but still has significant dyspnea with minimal exertion. - Pulm consult requested. - May do better with Trilogy at home. (3) MSSA bacteremia Comment: - Continue oxacillin. - Transthoracic echo showed no vegetations. [place] test would be transesophageal echo, but risk is too high on this patient with tenuous respiratory status. Would probably require intubation for procedure and unclear if it would add meaningful information, as she does not have signs of sepsis at this time or any other objective signs of endocarditis, so at this point risks outweigh benefits. - Repeat blood cultures. (4) Physical deconditioning Comment: - PT/OT evaluation - may need rehab. (5) DVT prophylaxis Comment: - Lovenox. (6) Full code status Comment: - Met with Dr. Mansfield today, due to end-stage COPD/resp failure - Appreciate consult, patient wishes to remain full code and is agreeable with intubation. Status and Disposition: Inpatient. May need SAR. Casillas updated at bedside.
--- NOTE | 2018-06-23 14:18 | PN ---
Progress Note - Progress Note Date of Service: 06/23/18 Note: Spoke with pt today and discussed disease trajectory. Pt wants to stay at home as long as possible. I gave her information about hospice and what it offers. I also discussed the [facility]OLST form and gave her a copy so she can discuss it with her who also has a serious illness. I explained that if they both make their end of life care decisions known to each other it is easier to make HCP decisions later. I gave her instructions on how to clean her CPAP machine and stressed that she should use it at home. Pt would like to go to [facility] to get her stronger before going home.
[2018-06-23] MEDS: Enoxaparin(*) 40 MG/0.4 ML SYR SUBCUT SCH (14:44)
[2018-06-23] MEDS: Acetaminophen TAB* 325 MG PO PRN (17:47)
--- NOTE | 2018-06-23 18:45 | CONS ---
PULMONARY CONSULTATION REPORT: DATE OF CONSULT: 06/23/18 CONSULTATION REQUESTED BY: Dr. Farooq Kessler and Dr. Merrill. REASON FOR CONSULT: Evaluation of COPD. HISTORY OF PRESENT ILLNESS: The patient is a 58-year-old female known to me from prior outpatient evaluation. The patient with significant smoking history , quit few months back. The patient with history of severe COPD and multiple admissions in the past for COPD exacerbations and hypoxemic and hypercapnic respiratory failure. The patient presents for evaluation of worsening shortness of breath. The patient was found to be in acute COPD exacerbation with significant hypercapnic hypoxemic respiratory failure requiring intubation. She was also found to have MSSA bacteremia. The patient was successfully extubated, was being monitored on the floor. Her symptoms worsened again and she was transferred to the ICU for rescue BiPAP. The patient was transferred to the floor. Has been doing better. The patient was seen and examined at bedside. The patient reports slight improvement in shortness of breath. The patient, however, is still significantly dyspneic even with minimal exertion. The patient reports that she was able to tolerate BiPAP. She has noninvasive ventilator at home. She has not been compliant with it at all. The patient reports being able to tolerate BiPAP better and is inclined to use it at home. PAST MEDICAL HISTORY: 1. COPD. 2. Hiatal hernia. 3. Arthritis. 4. Seasonal allergies. 5. Chronic pain. 6. Anxiety. PAST SURGICAL HISTORY: 1. ORIF of the left patella in 1988. 2. Tubal ligation. 3. Anterior cervical diskectomy. HOME MEDICATIONS: 1. Prednisone. 2. Anoro. 3. Zoloft. 4. Cholecalciferol. 5. Cetirizine. 6. Acetaminophen/codeine. 7. Xanax. ALLERGIES: No known drug allergies. FAMILY HISTORY: Denies history of coronary artery disease. The patient's mother with lung cancer. Father has history of brain cancer. SOCIAL HISTORY: Former smoker, quit 3 months ago. She was smoking 2 packs per day for 40 years. No alcohol or drug abuse. REVIEW OF SYSTEMS: Fourteen systems reviewed and as per HPI. PHYSICAL EXAM: The patient is in bed, in no apparent distress. Vital Signs: Temperature 97.2, pulse 94 beats per minute, respiratory rate 18 per minute, O2 sat 99% on 3 L, blood pressure 114/45. HEENT: Pupils equal, reactive to light. Mucous membranes moist. Lungs: Diminished air entry, scattered wheeze. Cardiovascular: S1, S2 present, regular. No murmurs, gallops, or rubs. Abdomen: Soft, nontender, nondistended. Bowel sounds present. Extremities: Normal range of motion. Skin: No rash or bruises. DIAGNOSTIC STUDIES/LAB DATA: PFTs in April of 2017 showed evidence of severe COPD with FEV1 of 20% predicted, diffusion capacity severely decreased. She has hypoxemia on exertion and has required 2 L at baseline. She was initiated on Trilogy also. Laboratory exam showed WBC count 8.5, hemoglobin 12.8, hematocrit 41, platelet count of 102. Blood gas showed evidence of severe hypercapnic respiratory failure with pCO2 in 116. Sodium 144, potassium 3.7, chloride 85, bicarb 57, BUN 20, creatinine 0.32. Influenza A and B negative. Chest x-ray on admission was personally reviewed by me - no acute airspace opacities. IMPRESSION AND RECOMMENDATIONS: 58-year-old female with significant smoking history, evidence of severe chronic obstructive pulmonary disease from prior PFTs, admitted with hypercapnic hypoxemic respiratory failure requiring intubation, also found to have methicillin-susceptible Staphylococcus aureus bacteremia, possibly has methicillin-susceptible Staphylococcus aureus bronchitis or pneumonia. The patient is slightly improved, able to tolerate BiPAP. She has Trilogy at home that she is not using and not compliant. Will adjust the settings on Trilogy. I encouraged the patient to be compliant and use it regularly. She does have significant hypercapnia, also bicarb is significantly elevated. Would add acetazolamide for 3 days. She is on oxacillin for methicillin-susceptible Staphylococcus aureus bacteremia. Echo did not show any evidence of vegetations. The patient was seen by Palliative Care given end-stage chronic obstructive pulmonary disease. The patient wishes to remain full code and would like to have intubation done if she deteriorates. Her plan is for subacute rehab when stable. Thank you for allowing me to participate in the care of your patient. Will follow up with you. [id number]/CPS #: [id number] JOAO
[2018-06-23] MEDS: traZODone TAB* 50 MG TAB PO PRN (20:48)
[2018-06-24] MEDS: Acetaminophen TAB* 325 MG PO PRN ×2 (00:26→20:55)
[2018-06-24] MEDS: Oxacillin(*) 2 GM in NS 0.9% 100 ML* 100 ML IVPB SCH ×6 (02:56→21:29)
[2018-06-24 07:18] LABS: BUN/Creatinine Ratio 42.9 (8-20); Blood Urea Nitrogen 15 mg/dL (6-24); Chloride 86 mmol/L (101-111); EGFR African American 233.1 (>60); EGFR Non-African American 192.6 (>60); Glucose 111 mg/dL (70-100); Potassium 3.7 mmol/L (3.5-5.0); Sodium 142 mmol/L (135-145)
[2018-06-24 07:34] LABS: CO2 Carbon Dioxide 56 mmol/L (22-32)
[2018-06-24] MEDS: Tiotropium CAP.INH* CAP.INH/18 MCG (USE ORDER SET !) INH SCH (08:50)
[2018-06-24] MEDS: Mometasone/Formoter 200/5 MDI INH SCH ×2 (08:50→19:29)
[2018-06-24] MEDS: Famotidine IV* 10 MG/ML 2 ML (20 mg) IV SLOW PU SCH (10:23)
[2018-06-24] MEDS: ALPRAZolam TAB* 0.25 MG PO SCH ×3 (10:30→20:51)
[2018-06-24] MEDS: acetaZOLAMIDE TAB* 250 MG PO SCH ×2 (10:30→20:51)
[2018-06-24] MEDS: Sertraline* 25 MG TAB PO SCH (10:30)
[2018-06-24] MEDS: predniSONE TAB* 20 MG PO SCH (10:31)
[2018-06-24] MEDS: Enoxaparin(*) 40 MG/0.4 ML SYR SUBCUT SCH (11:43)
--- NOTE | 2018-06-24 17:36 | PN ---
Subjective Date of Service: 06/24/18 Interval History: HOSPITALIST PROGRESS NOTE Patient seen and examined at bedside. Care reviewed and d/w Alisa Albarado RN. She offers no new complaints today. In good spirits, off BiPAP. Dyspnea with minimal exertion, not able to work with PT yesterday. Family History: Unchanged from Admission Social History: Unchanged from Admission Past Medical History: Unchanged from Admission Objective Active Medications: Acetaminophen (Tylenol Tab*) 650 mg PO Q6H PRN PRN Reason: FEVER/PAIN Last Admin: 06/24/18 00:26 Dose: 650 mg Acetazolamide (Diamox Tab*) 250 mg PO BID [facility] Stop: 06/26/18 21:01 Last Admin: 06/24/18 10:30 Dose: 250 mg Albuterol/Ipratropium (Duoneb (Albuterol 2.5 Mg/Ipratropium 0.5 Mg)) 1 neb INH Q4H PRN PRN Reason: SOB/WHEEZING Alprazolam (Xanax Tab*) 0.125 mg PO TID [facility] Last Admin: 06/24/18 15:35 Dose: 0.125 mg Enoxaparin Sodium (Lovenox(*)) 40 mg SUBCUT Q24H [facility] Last Admin: 06/24/18 11:43 Dose: 40 mg Famotidine (Pepcid Iv*) 20 mg IV SLOW PU DAILY [facility] Last Admin: 06/24/18 10:23 Dose: 20 mg Oxacillin Sodium 2 gm/ Sodium (Chloride) 100 mls @ 200 mls/hr IVPB Q4H [facility] Last Admin: 06/24/18 15:42 Dose: 200 mls/hr Mometasone Furoate/Formoterol Fumar (Dulera 200/5 Mdi*) 2 puff INH BID [facility] Last Admin: 06/24/18 08:50 Dose: 2 puff Prednisone (Deltasone Tab*) 60 mg PO DAILY [facility] Last Admin: 06/24/18 10:31 Dose: 60 mg Sertraline HCl (Zoloft*) 25 mg PO DAILY [facility] Last Admin: 06/24/18 10:30 Dose: 25 mg Tiotropium [place] (Spiriva Cap.Inh*) 1 cap INH DAILY [facility] Last Admin: 06/24/18 08:50 Dose: 1 cap Trazodone HCl (Desyrel Tab*) 50 mg PO BEDTIME PRN PRN Reason: INSOMNIA Last Admin: 06/23/18 20:48 Dose: 50 mg Vital Signs - 8 hr 06/24/18 06/24/18 06/24/18 10:30 11:33 15:03 Temperature 97.2 F 97.6 F Pulse Rate 89 90 Respiratory 12 12 Rate Blood Pressure 109/47 93/40 (mmHg) O2 Sat by Pulse 100 99 Oximetry 06/24/18 15:35 Temperature Pulse Rate Respiratory 18 Rate Blood Pressure (mmHg) O2 Sat by Pulse Oximetry Oxygen Devices in Use Now: Nasal Cannula Appearance: Pleasant lady sitting up in a chair in NAD. Eyes: No Scleral Icterus Ears/Nose/Mouth/Throat: Mucous Membranes Moist Neck: Trachea Midline Respiratory: Symmetrical Chest Expansion and Respiratory Effort, - - BS+ bilaterally diminished Cardiovascular: RRR - Normal S1 and S2 Neurological: Alert and Oriented x 3, NL Muscle Strength and Tone Result Diagrams: 06/22/18 09:52 06/24/18 06:51 Microbiology and Other Data: Microbiology 06/17/18 05:03 Blood Venous Aerobic Blood Culture - Final 06/17/18 05:03 Blood Venous Anaerobic Blood Culture - Final No Growth Day 5 No Growth Day 5 06/16/18 19:06 Nasal Nasal Screen MRSA (PCR) - Final Mrsa Detected 06/16/18 18:04 Sputum Gram Stain - Final 06/16/18 18:04 Sputum Sputum Culture - Final Enterobacter Cloacae Complex Escherichia Coli Strep Agalactiae - (Group B) Haemophilus Influenzae Normal Ana 06/16/18 15:15 Blood Venous Aerobic Blood Culture - Final 06/16/18 15:15 Blood Venous Blood MRSA/MSSA (PCR) - Final Staphylococcus Aureus Mrsa Negative S.aureus Positive No Growth Day 5 Assess/Plan/Problems-Billing Assessment: Mrs High is a 58 yo F with PMH of severe COPD who presented to ED with c/ o dyspnea and cough, found to have hypercarpnic/hypoxemic respiratory arrest s/ p intubation, found to have MSSA bacteremia. - Patient Problems (1) Respiratory failure Comment: - Acute on chronic hypercapnic and hypoxemic respiratory failure. - Continue supplemental O2 and BiPAP for naps and overnight. CM will explore Trilogy option. - Pulm consult appreciated - will start acetazolamide for 3 days and monitor CO2. (2) COPD exacerbation Comment: - Secondary to bronchitis. - Continue steroids (PO and inhaled), bronchodilators, supplemental O2 and BiPAP. - Feels improved, but still has significant dyspnea with minimal exertion. - Pulm consult appreciated. (3) MSSA bacteremia Comment: - Continue oxacillin. - Transthoracic echo showed no vegetations. [place] test would be transesophageal echo, but risk is too high on this patient with tenuous respiratory status. Would probably require intubation for procedure and unclear if it would add meaningful information, as she does not have signs of sepsis at this time or any other objective signs of endocarditis, so at this point risks outweigh benefits. - F/u repeat blood cultures. (4) Physical deconditioning Comment: - PT/OT evaluation - may need rehab. (5) DVT prophylaxis Comment: - Lovenox. (6) Full code status Comment: - Met with Dr. Mansfield due to end-stage COPD/resp failure - Appreciate consult, patient wishes to remain full code and is agreeable with intubation. Status and Disposition: Inpatient. May need SAR. Casillas updated at bedside.
[2018-06-24] MEDS: traZODone TAB* 50 MG TAB PO PRN (20:55)
[2018-06-25] MEDS: Oxacillin(*) 2 GM in NS 0.9% 100 ML* 100 ML IVPB SCH ×6 (02:08→22:10)
[2018-06-25] MEDS: Mometasone/Formoter 200/5 MDI INH SCH ×2 (07:42→19:30)
[2018-06-25] MEDS: Tiotropium CAP.INH* CAP.INH/18 MCG (USE ORDER SET !) INH SCH (07:42)
[2018-06-25 08:53] LABS: BUN/Creatinine Ratio 35.7 (8-20); Calcium 9.1 mg/dL (8.6-10.3); EGFR African American 188.8 (>60); EGFR Non-African American 156.1 (>60); Potassium 3.9 mmol/L (3.5-5.0)
[2018-06-25] MEDS: predniSONE TAB* 20 MG PO SCH (09:45)
[2018-06-25] MEDS: Sertraline* 25 MG TAB PO SCH (09:45)
[2018-06-25] MEDS: acetaZOLAMIDE TAB* 250 MG PO SCH ×2 (09:45→20:34)
[2018-06-25] MEDS: ALPRAZolam TAB* 0.25 MG PO SCH ×3 (09:45→20:34)
[2018-06-25] MEDS: Famotidine IV* 10 MG/ML 2 ML (20 mg) IV SLOW PU SCH (09:47)
[2018-06-25] MEDS: Enoxaparin(*) 40 MG/0.4 ML SYR SUBCUT SCH (13:12)
--- NOTE | 2018-06-25 16:56 | PN ---
Subjective Date of Service: 06/25/18 Interval History: HOSPITALIST PROGRESS NOTE Patient seen and examined at bedside. Care reviewed and d/w Alisa Albarado RN. She feels a little stronger everyday. Still has dyspnea with minimal exertion, but this is probably close to her baseline. Family History: Unchanged from Admission Social History: Unchanged from Admission Past Medical History: Unchanged from Admission Objective Active Medications: Acetaminophen (Tylenol Tab*) 650 mg PO Q6H PRN PRN Reason: FEVER/PAIN Last Admin: 06/24/18 20:55 Dose: 650 mg Acetazolamide (Diamox Tab*) 250 mg PO BID [facility] Stop: 06/26/18 21:01 Last Admin: 06/25/18 09:45 Dose: 250 mg Albuterol/Ipratropium (Duoneb (Albuterol 2.5 Mg/Ipratropium 0.5 Mg)) 1 neb INH Q4H PRN PRN Reason: SOB/WHEEZING Alprazolam (Xanax Tab*) 0.125 mg PO TID [facility] Last Admin: 06/25/18 13:12 Dose: 0.125 mg Enoxaparin Sodium (Lovenox(*)) 40 mg SUBCUT Q24H [facility] Last Admin: 06/25/18 13:12 Dose: 40 mg Famotidine (Pepcid Iv*) 20 mg IV SLOW PU DAILY [facility] Last Admin: 06/25/18 09:47 Dose: 20 mg Oxacillin Sodium 2 gm/ Sodium (Chloride) 100 mls @ 200 mls/hr IVPB Q4H [facility] Last Admin: 06/25/18 13:12 Dose: 200 mls/hr Mometasone Furoate/Formoterol Fumar (Dulera 200/5 Mdi*) 2 puff INH BID [facility] Last Admin: 06/25/18 07:42 Dose: 2 puff Prednisone (Deltasone Tab*) 60 mg PO DAILY [facility] Last Admin: 06/25/18 09:45 Dose: 60 mg Sertraline HCl (Zoloft*) 25 mg PO DAILY [facility] Last Admin: 06/25/18 09:45 Dose: 25 mg Tiotropium [place] (Spiriva Cap.Inh*) 1 cap INH DAILY [facility] Last Admin: 06/25/18 07:42 Dose: 1 cap Trazodone HCl (Desyrel Tab*) 50 mg PO BEDTIME PRN PRN Reason: INSOMNIA Last Admin: 06/24/18 20:55 Dose: 50 mg Vital Signs - 8 hr 06/25/18 06/25/18 06/25/18 09:45 11:25 13:12 Temperature 97.1 F Pulse Rate 83 Respiratory 20 20 18 Rate Blood Pressure 94/53 (mmHg) O2 Sat by Pulse 100 Oximetry Oxygen Devices in Use Now: BiPAP Appearance: Pleasant lady, appears older than stated age, sitting up in bed in NAD. Eyes: No Scleral Icterus Ears/Nose/Mouth/Throat: Mucous Membranes Moist Neck: Trachea Midline Respiratory: Symmetrical Chest Expansion and Respiratory Effort, - - BS+ bilaterally diminished, no added sounds Cardiovascular: RRR - Normal S1 and S2 Extremities: - - Bilateral LE mild edema Neurological: Alert and Oriented x 3, NL Muscle Strength and Tone Result Diagrams: 06/22/18 09:52 06/25/18 08:08 Assess/Plan/Problems-Billing Assessment: Mrs High is a 58 yo F with PMH of severe COPD who presented to ED with c/ o dyspnea and cough, found to have hypercarpnic/hypoxemic respiratory arrest s/ p intubation, found to have MSSA bacteremia. - Patient Problems (1) Respiratory failure Comment: - Acute on chronic hypercapnic and hypoxemic respiratory failure. - Continue supplemental O2 and BiPAP for naps and overnight. As per , patient has a Trilogy at home, but never wore it. Will need teaching. - Pulm consult appreciated - will start acetazolamide for 3 days and monitor CO2. (2) COPD exacerbation Comment: - Secondary to bronchitis. - Continue steroids (PO and inhaled), bronchodilators, supplemental O2 and BiPAP. - Feels improved, but still has significant dyspnea with minimal exertion. - Pulm consult appreciated. (3) MSSA bacteremia Comment: - Continue oxacillin. - Transthoracic echo showed no vegetations. [place] test would be transesophageal echo, but risk is too high on this patient with tenuous respiratory status. Would probably require intubation for procedure and unclear if it would add meaningful information, as she does not have signs of sepsis at this time or any other objective signs of endocarditis and continues to improve; at this point risks outweigh benefits. - Repeat blood cultures showed no growth so far. (4) Physical deconditioning Comment: - PT/OT evaluation - may benefit of rehab. (5) DVT prophylaxis Comment: - Lovenox. (6) Full code status Comment: - Met with Dr. Mansfield due to end-stage COPD/resp failure - Appreciate consult, patient wishes to remain full code and is agreeable with intubation. Status and Disposition: Inpatient. May need SAR. Casillas updated at bedside.
[2018-06-25] MEDS: Acetaminophen TAB* 325 MG PO PRN (20:34)
[2018-06-26] MEDS: Oxacillin(*) 2 GM in NS 0.9% 100 ML* 100 ML IVPB SCH ×6 (01:44→22:05)
[2018-06-26] MEDS: traZODone TAB* 50 MG TAB PO PRN ×2 (01:44→22:16)
[2018-06-26] MEDS: Mometasone/Formoter 200/5 MDI INH SCH ×2 (08:16→19:53)
[2018-06-26] MEDS: Tiotropium CAP.INH* CAP.INH/18 MCG (USE ORDER SET !) INH SCH (08:18)
[2018-06-26 09:22] LABS: ABS Lymphocytes 0.7 10^3/ul (1.0-4.8); ABS Monocytes 0.9 10^3/ul (0-0.8); ABS Neutrophils 5.1 10^3/ul (1.5-7.7); Eosinophil % 0.1 %; Hematocrit 39 % (35-47); Lymphocyte % 10.4 %; Mean Corpuscular HGB Conc 31 g/dL (31-36); Mean Corpuscular Hemoglobin 32 pg (27-31); Mean Corpuscular Volume 103 fL (80-97); Mean Platelet Volume 7.8 fL (7.4-10.4); Platelet Count 151 10^3/uL (150-450); Red Blood Count 3.78 10^6 /uL (3.70-4.87); Red Cell Distribution Width 14 % (10.5-15); White Blood Count 6.8 10^3/uL (3.5-10.8)
--- NOTE | 2018-06-26 09:32 | PN ---
Subjective Date of Service: 06/26/18 Interval History: HD # 10 on 06/26 58 yo F with PMH severe COPD with hypercarpnic/hypoxemic respiratory arrest s/p intubation, found to have MSSA bacteremia. Overnight, no acute events, VSS, pt sleeping with BiPAP Labs: Bicarb down at 41, from 56 This morning: Seen at lunch, she is sitting up eating in bed, talks in full sentences, reports she is feeling much better, still weak but much more like herself, scant wheezing and feels clear as well. No chest pain, no worsening or acute SOB, mild c/o indigestion but otherwise well Family History: Unchanged from Admission Social History: Unchanged from Admission Past Medical History: Unchanged from Admission Objective Active Medications: Acetaminophen (Tylenol Tab*) 650 mg PO Q6H PRN PRN Reason: FEVER/PAIN Last Admin: 06/25/18 20:34 Dose: 650 mg Acetazolamide (Diamox Tab*) 250 mg PO BID [facility] Stop: 06/26/18 21:01 Last Admin: 06/25/18 20:34 Dose: 250 mg Albuterol/Ipratropium (Duoneb (Albuterol 2.5 Mg/Ipratropium 0.5 Mg)) 1 neb INH Q4H PRN PRN Reason: SOB/WHEEZING Alprazolam (Xanax Tab*) 0.125 mg PO TID [facility] Last Admin: 06/25/18 20:34 Dose: 0.125 mg Enoxaparin Sodium (Lovenox(*)) 40 mg SUBCUT Q24H [facility] Last Admin: 06/25/18 13:12 Dose: 40 mg Famotidine (Pepcid Iv*) 20 mg IV SLOW PU DAILY [facility] Last Admin: 06/25/18 09:47 Dose: 20 mg Oxacillin Sodium 2 gm/ Sodium (Chloride) 100 mls @ 200 mls/hr IVPB Q4H [facility] Last Admin: 06/26/18 06:21 Dose: 200 mls/hr Mometasone Furoate/Formoterol Fumar (Dulera 200/5 Mdi*) 2 puff INH BID [facility] Last Admin: 06/26/18 08:16 Dose: 2 puff Prednisone (Deltasone Tab*) 60 mg PO DAILY [facility] Last Admin: 06/25/18 09:45 Dose: 60 mg Sertraline HCl (Zoloft*) 25 mg PO DAILY [facility] Last Admin: 06/25/18 09:45 Dose: 25 mg Tiotropium [place] (Spiriva Cap.Inh*) 1 cap INH DAILY [facility] Last Admin: 06/26/18 08:18 Dose: 1 cap Trazodone HCl (Desyrel Tab*) 50 mg PO BEDTIME PRN PRN Reason: INSOMNIA Last Admin: 06/26/18 01:44 Dose: 50 mg Vital Signs - 8 hr 06/26/18 06/26/18 06/26/18 04:00 08:02 08:16 Temperature 98.2 F 98.2 F Pulse Rate 77 89 88 Respiratory 24 18 Rate Blood Pressure 107/58 103/57 (mmHg) O2 Sat by Pulse 100 100 Oximetry Oxygen Devices in Use Now: Nasal Cannula Appearance: Pleasant woman sitting up in bed in no distress Ears/Nose/Mouth/Throat: Mucous Membranes Moist Neck: NL Appearance and Movements; NL JVP Respiratory: Symmetrical Chest Expansion and Respiratory Effort, - - Distant but clear no wheeze Cardiovascular: NL Sounds; No Murmurs; No JVD, RRR Abdominal: NL Sounds; No Tenderness; No Distention, No Hepatosplenomegaly Lymphatic: No Cervical Adenopathy Extremities: - - 1+ edema Skin: No Rash or Ulcers Neurological: Alert and Oriented x 3 Result Diagrams: 06/26/18 09:06 06/26/18 09:06 Microbiology and Other Data: Microbiology 06/17/18 05:03 Blood Venous Aerobic Blood Culture - Final 06/17/18 05:03 Blood Venous Anaerobic Blood Culture - Final No Growth Day 5 No Growth Day 5 06/16/18 19:06 Nasal Nasal Screen MRSA (PCR) - Final Mrsa Detected 06/16/18 18:04 Sputum Gram Stain - Final 06/16/18 18:04 Sputum Sputum Culture - Final Enterobacter Cloacae Complex Escherichia Coli Strep Agalactiae - (Group B) Haemophilus Influenzae Normal Ana 06/16/18 15:15 Blood Venous Aerobic Blood Culture - Final 06/16/18 15:15 Blood Venous Blood MRSA/MSSA (PCR) - Final Staphylococcus Aureus Mrsa Negative S.aureus Positive No Growth Day 5 Assess/Plan/Problems-Billing Assessment: 58 yo F with PMH of severe COPD who presented to ED with c/o dyspnea and cough, found to have hypercarpnic/hypoxemic respiratory arrest s/p intubation, found to have MSSA bacteremia. - Patient Problems (1) Respiratory failure Current Visit: Yes Status: Acute Priority: High Code(s): J96.90 - RESPIRATORY FAILURE, UNSP, UNSP W HYPOXIA OR HYPERCAPNIA SNOMED Code(s): 561896745 Comment: - Acute on chronic hypercapnic and hypoxemic respiratory failure. - Continue supplemental O2 and BiPAP for naps and overnight. As per , patient has a Trilogy at home, but never wore it. Will need teaching. - Pulm consult appreciated - acetazolomide x 3 days, completing 06/26, improvement in Bicarb (2) COPD exacerbation Current Visit: Yes Status: Acute Code(s): J44.1 - CHRONIC OBSTRUCTIVE PULMONARY DISEASE W (ACUTE) EXACERBATION SNOMED Code(s): 974679526 Comment: - Secondary to bronchitis. - Continue steroids (PO and inhaled), bronchodilators, supplemental O2 and BiPAP. - Feels improved, but still has significant dyspnea with minimal exertion. - Pulm consult appreciated. (3) SHIRA (obstructive sleep apnea) Current Visit: Yes Status: Acute Code(s): G47.33 - OBSTRUCTIVE SLEEP APNEA ( ADULT) (PEDIATRIC) SNOMED Code(s): 23116848 Comment: -Has not been compliant with BiPAP at home but is amenable to using here (4) MSSA bacteremia Current Visit: Yes Status: Acute Priority: High Code(s): R78.81 - BACTEREMIA SNOMED Code(s): 851693826 Comment: - Continue oxacillin currently on Day 10/__, initially for 7 days, would just plan to complete course until last cultures neg x 72 hours - Transthoracic echo showed no vegetations. [place] test would be transesophageal echo, but risk is too high on this patient with tenuous respiratory status. Would probably require intubation for procedure and unclear if it would add meaningful information, as she does not have signs of sepsis at this time or any other objective signs of endocarditis and continues to improve; at this point risks outweigh benefits. - Repeat blood cultures showed no growth so far. (5) DVT prophylaxis Current Visit: Yes Status: Acute Priority: Medium Code(s): GGG2399 - SNOMED Code(s): 510303473 Comment: - Lovenox. (6) Full code status Current Visit: Yes Status: Acute Priority: Medium Code(s): Z78.9 - OTHER SPECIFIED HEALTH STATUS SNOMED Code(s): 268338249 Comment: - Met with Dr. Mansfield due to end-stage COPD/resp failure - Appreciate consult, patient wishes to remain full code and is agreeable with intubation. Status and Disposition: Inpatient. may be amenable to d/c to home vs [facility] in 24-48 hours
[2018-06-26 09:39] LABS: BUN/Creatinine Ratio 34.5 (8-20); Calcium 9.7 mg/dL (8.6-10.3); EGFR African American 130.1 (>60); EGFR Non-African American 107.5 (>60); Potassium 3.6 mmol/L (3.5-5.0)
[2018-06-26] MEDS: Sertraline* 25 MG TAB PO SCH (09:45)
[2018-06-26] MEDS: ALPRAZolam TAB* 0.25 MG PO SCH ×3 (09:45→20:21)
[2018-06-26] MEDS: acetaZOLAMIDE TAB* 250 MG PO SCH ×2 (09:45→20:21)
[2018-06-26] MEDS: predniSONE TAB* 20 MG PO SCH (09:45)
[2018-06-26] MEDS: Famotidine IV* 10 MG/ML 2 ML (20 mg) IV SLOW PU SCH (09:48)
[2018-06-26] MEDS: Acetaminophen TAB* 325 MG PO PRN (11:34)
[2018-06-26] MEDS: Enoxaparin(*) 40 MG/0.4 ML SYR SUBCUT SCH (11:34)
--- NOTE | 2018-06-26 13:24 | PN ---
Progress Note - Progress Note Date of Service: 06/26/18 - Pulm f/u note Note: Pt seen and examined at bedside. Pt reports feeling better. Is able to tolerate BiPAP. Cough is improved Active Medications Generic Name Dose Route Start Last Admin Trade Name Freq PRN Reason Stop Dose Admin Acetaminophen 650 mg 06/17/18 18:13 06/26/18 11:34 Tylenol Tab* PO 650 mg Q6H PRN Administration FEVER/PAIN Acetazolamide 250 mg 06/24/18 09:00 06/26/18 09:45 Diamox Tab* PO 06/26/18 21:01 250 mg BID [facility] Administration Albuterol/Ipratropium 1 neb 06/18/18 18:08 Duoneb (Albuterol 2.5 Mg/Ipratropium 0.5 Mg) INH Q4H PRN SOB/WHEEZING Alprazolam 0.125 mg 06/20/18 04:00 06/26/18 14:03 Xanax Tab* PO 0.125 mg TID [facility] Administration Enoxaparin Sodium 40 mg 06/17/18 12:00 06/26/18 11:34 Lovenox(*) SUBCUT 40 mg Q24H [facility] Administration Famotidine 20 mg 06/17/18 09:00 06/26/18 09:48 Pepcid Iv* IV SLOW PU 20 mg DAILY [facility] Administration Oxacillin Sodium 2 gm/ Sodium 100 mls @ 200 mls/hr 06/18/18 18:00 06/26/18 13 :56 Chloride IVPB 200 mls/hr Q4H [facility] Administration Mometasone Furoate/Formoterol Fumar 2 puff 06/18/18 21:00 06/26/18 08:16 Dulera 200/5 Mdi* INH 2 puff BID [facility] Administration Prednisone 60 mg 06/23/18 09:00 06/26/18 09:45 Deltasone Tab* PO 60 mg DAILY [facility] Administration Sertraline HCl 25 mg 06/19/18 09:00 06/26/18 09:45 Zoloft* PO 25 mg DAILY [facility] Administration Tiotropium [place] 1 cap 06/18/18 18:00 06/26/18 08:18 Spiriva Cap.Inh* INH 1 cap DAILY [facility] Administration Trazodone HCl 50 mg 06/19/18 21:04 06/26/18 01:44 Desyrel Tab* PO 50 mg BEDTIME PRN Administration INSOMNIA Vital Signs Temp Pulse Resp BP Pulse Ox 97.6 F 84 18 110/60 100 06/26/18 11:52 06/26/18 11:52 06/26/18 14:03 06/26/18 12:28 06/26/18 11:52 O/E: Pt in NAD HEENT: PERRLA, no JVD Lungs: Diminished air entry b/l CVS: S1, S2+, regular Abd: Soft, BS+ Ext: No edema Neuro: No focal deficits Skin: No rash Laboratory Results - last 24 hr 06/26/18 06/26/18 09:06 09:06 WBC 6.8 RBC 3.78 Hgb 12.0 Hct 39 MCV 103 H MCH 32 H MCHC 31 RDW 14 Plt Count 151 MPV 7.8 Neut % (Auto) 76.0 Lymph % (Auto) 10.4 [place] % (Auto) 13.3 Eos % (Auto) 0.1 Baso % (Auto) 0.2 Absolute Neuts (auto) 5.1 Absolute Lymphs (auto) 0.7 L Absolute Monos (auto) 0.9 H Absolute Eos (auto) 0.0 Absolute Basos (auto) 0.0 Absolute Nucleated RBC 0.0 Nucleated RBC % 0.0 Sodium 140 Potassium 3.6 Chloride 96 L Carbon Dioxide 41 H* Anion Gap 3 BUN 20 Creatinine 0.58 Est GFR ( Amer) 130.1 Est GFR (Non-Af Amer) 107.5 BUN/Creatinine Ratio 34.5 H Glucose 154 H Calcium 9.7 I/R: 58 y o f with significant smoking history, quit recently with severe COPD, hypercapnic resp failure, a/w worsening SOB sec to acute COPD exacerbation requiring intubation, currently doing well on NIPPV at night Pt reports improvement in SOB, still cant tolerate exertion On prednisone 60mg, will continue to taper, 50 mg tomorrow and to 40mg in 2 days if pt stable Discussed importance of NIPPV Pt has Trilogy at home c/w bronchodilators OOB to chair as tolerated D/c planning with 10 day prednisone taper D/w Dr Wagner
[2018-06-27] MEDS: Oxacillin(*) 2 GM in NS 0.9% 100 ML* 100 ML IVPB SCH ×4 (01:33→12:58)
[2018-06-27] MEDS: Acetaminophen TAB* 325 MG PO PRN ×2 (03:56→13:00)
[2018-06-27 06:50] LABS: ABS Lymphocytes 0.7 10^3/ul (1.0-4.8); ABS Monocytes 0.9 10^3/ul (0-0.8); ABS Neutrophils 5.1 10^3/ul (1.5-7.7); Eosinophil % 0.2 %; Hematocrit 38 % (35-47); Lymphocyte % 10.9 %; Mean Corpuscular HGB Conc 32 g/dL (31-36); Mean Corpuscular Hemoglobin 32 pg (27-31); Mean Corpuscular Volume 101 fL (80-97); Mean Platelet Volume 7.8 fL (7.4-10.4); Nucleated Red Blood Cells % 0.1; Platelet Count 155 10^3/uL (150-450); Red Blood Count 3.72 10^6 /uL (3.70-4.87); Red Cell Distribution Width 14 % (10.5-15); White Blood Count 6.7 10^3/uL (3.5-10.8)
[2018-06-27 07:06] LABS: BUN/Creatinine Ratio 37.7 (8-20); Calcium 9.6 mg/dL (8.6-10.3); EGFR African American 144.4 (>60); EGFR Non-African American 119.3 (>60); Potassium 3.8 mmol/L (3.5-5.0)
[2018-06-27] MEDS: predniSONE TAB* 20 MG PO SCH (08:03)
[2018-06-27] MEDS: Sertraline* 25 MG TAB PO SCH (08:03)
[2018-06-27] MEDS: Famotidine IV* 10 MG/ML 2 ML (20 mg) IV SLOW PU SCH (08:04)
[2018-06-27] MEDS: ALPRAZolam TAB* 0.25 MG PO SCH ×2 (08:04→12:55)
[2018-06-27] MEDS: Tiotropium CAP.INH* CAP.INH/18 MCG (USE ORDER SET !) INH SCH (08:27)
[2018-06-27] MEDS: Mometasone/Formoter 200/5 MDI INH SCH (08:28)
[2018-06-27 08:39] VITALS: BP 113/56
--- NOTE | 2018-06-27 09:13 | PN ---
Subjective Date of Service: 06/27/18 Interval History: HD # 11 on 06/27 58 yo F with PMH severe COPD with hypercarpnic/hypoxemic respiratory arrest s/p intubation, found to have MSSA bacteremia. Overnight, no acute events, VSS, pt sleeping with BiPAP Labs: Bicarb at 43 This morning seen with , reports breathing much better, cough better, she feels close to baseline, at her baseline O2 needs, has triology machine at bedside, did teaching and she showed me how to put it on, educated as well. She has mild swelling in legs but otherwise feels quite well, eager to go today Family History: Unchanged from Admission Social History: Unchanged from Admission Past Medical History: Unchanged from Admission Objective Active Medications: Acetaminophen (Tylenol Tab*) 650 mg PO Q6H PRN PRN Reason: FEVER/PAIN Last Admin: 06/27/18 03:56 Dose: 650 mg Albuterol/Ipratropium (Duoneb (Albuterol 2.5 Mg/Ipratropium 0.5 Mg)) 1 neb INH Q4H PRN PRN Reason: SOB/WHEEZING Alprazolam (Xanax Tab*) 0.125 mg PO TID [facility] Last Admin: 06/27/18 08:04 Dose: 0.125 mg Enoxaparin Sodium (Lovenox(*)) 40 mg SUBCUT Q24H [facility] Last Admin: 06/26/18 11:34 Dose: 40 mg Famotidine (Pepcid Iv*) 20 mg IV SLOW PU DAILY [facility] Last Admin: 06/27/18 08:04 Dose: 20 mg Oxacillin Sodium 2 gm/ Sodium (Chloride) 100 mls @ 200 mls/hr IVPB Q4H [facility] Last Admin: 06/27/18 09:10 Dose: 200 mls/hr Mometasone Furoate/Formoterol Fumar (Dulera 200/5 Mdi*) 2 puff INH BID [facility] Last Admin: 06/27/18 08:28 Dose: 2 puff Prednisone (Deltasone Tab*) 60 mg PO DAILY [facility] Last Admin: 06/27/18 08:03 Dose: 60 mg Sertraline HCl (Zoloft*) 25 mg PO DAILY [facility] Last Admin: 06/27/18 08:03 Dose: 25 mg Tiotropium [place] (Spiriva Cap.Inh*) 1 cap INH DAILY [facility] Last Admin: 06/27/18 08:27 Dose: 1 cap Trazodone HCl (Desyrel Tab*) 50 mg PO BEDTIME PRN PRN Reason: INSOMNIA Last Admin: 06/26/18 22:16 Dose: 50 mg Vital Signs - 8 hr 06/27/18 06/27/18 06/27/18 03:00 07:31 08:04 Temperature 97.4 F Pulse Rate 90 Respiratory 20 20 18 Rate Blood Pressure 119/51 (mmHg) O2 Sat by Pulse 96 Oximetry 06/27/18 06/27/18 08:29 08:39 Temperature 96.8 F Pulse Rate 87 84 Respiratory 18 20 Rate Blood Pressure 113/56 (mmHg) O2 Sat by Pulse 97 98 Oximetry Oxygen Devices in Use Now: Nasal Cannula Appearance: chronically ill appearing woman in NAD, coughing but no wheeze, not SOB, pleasant, eating. Eyes: No Scleral Icterus Ears/Nose/Mouth/Throat: NL Teeth, Lips, Gums Neck: NL Appearance and Movements; NL JVP Respiratory: Symmetrical Chest Expansion and Respiratory Effort, - - Rhonchourus but no I or E wheeze Abdominal: No Hepatosplenomegaly Lymphatic: No Cervical Adenopathy Extremities: - - 1+ pityting edema Skin: No Rash or Ulcers Neurological: Alert and Oriented x 3 Result Diagrams: 06/27/18 06:32 06/27/18 06:32 Microbiology and Other Data: Microbiology 06/17/18 05:03 Blood Venous Aerobic Blood Culture - Final 06/17/18 05:03 Blood Venous Anaerobic Blood Culture - Final No Growth Day 5 No Growth Day 5 06/16/18 19:06 Nasal Nasal Screen MRSA (PCR) - Final Mrsa Detected 06/16/18 18:04 Sputum Gram Stain - Final 06/16/18 18:04 Sputum Sputum Culture - Final Enterobacter Cloacae Complex Escherichia Coli Strep Agalactiae - (Group B) Haemophilus Influenzae Normal Ana 06/16/18 15:15 Blood Venous Aerobic Blood Culture - Final 06/16/18 15:15 Blood Venous Blood MRSA/MSSA (PCR) - Final Staphylococcus Aureus Mrsa Negative S.aureus Positive No Growth Day 5 Assess/Plan/Problems-Billing Assessment: 58 yo F with PMH of severe COPD on home O2 who presented to ED with c/o dyspnea and cough, found to have hypercarpnic/hypoxemic respiratory arrest s/p intubation, found to have MSSA bacteremia. - Patient Problems (1) Respiratory failure Current Visit: Yes Status: Acute Priority: High Code(s): J96.90 - RESPIRATORY FAILURE, UNSP, UNSP W HYPOXIA OR HYPERCAPNIA SNOMED Code(s): 997309384 Comment: - Acute on chronic hypercapnic and hypoxemic respiratory failure. - Continue supplemental O2 and BiPAP for naps and overnight. As per , patient has a Trilogy at home, but never wore it. Will need teaching. - Pulm consult appreciated - acetazolomide x 3 days, completing 06/26, improvement in Bicarb (2) COPD exacerbation Current Visit: Yes Status: Acute Code(s): J44.1 - CHRONIC OBSTRUCTIVE PULMONARY DISEASE W (ACUTE) EXACERBATION SNOMED Code(s): 248671048 Comment: - Secondary to bronchitis. - Continue steroids (PO and inhaled), bronchodilators, supplemental O2 and BiPAP. - Feels improved, but still has significant dyspnea with minimal exertion. - Pulm consult appreciated. -Pred to 50mg on d/c x2 days, then 40mg x 5 days, 30mg x 5 days, 20mg x 5 days 10mg x 5 days then stop (3) SHIRA (obstructive sleep apnea) Current Visit: Yes Status: Acute Code(s): G47.33 - OBSTRUCTIVE SLEEP APNEA ( ADULT) (PEDIATRIC) SNOMED Code(s): 96671078 Comment: -Has not been compliant with BiPAP at home but is amenable to using here (4) MSSA bacteremia Current Visit: Yes Status: Acute Priority: High Code(s): R78.81 - BACTEREMIA SNOMED Code(s): 091961323 Comment: - Continue oxacillin currently on Day 01/03, initially for 7 days, would just plan to complete course until last cultures neg x 72 hours-done - Transthoracic echo showed no vegetations. [place] test would be transesophageal echo, but risk is too high on this patient with tenuous respiratory status. (5) DVT prophylaxis Current Visit: Yes Status: Acute Priority: Medium Code(s): GOW0605 - SNOMED Code(s): 720301372 Comment: - Lovenox. (6) Full code status Current Visit: Yes Status: Acute Priority: Medium Code(s): Z78.9 - OTHER SPECIFIED HEALTH STATUS SNOMED Code(s): 152738534 Comment: - Met with Dr. Mansfield due to end-stage COPD/resp failure - Appreciate consult, patient wishes to remain full code and is agreeable with intubation. Status and Disposition: may be amenable to d/c to home
[2018-06-27] MEDS: Enoxaparin(*) 40 MG/0.4 ML SYR SUBCUT SCH (11:07)
[2018-06-27] MEDS ORDERED: Furosemide IV* 10 MG/ML VIAL (40 MG) IV ONE (13:43)
--- NOTE | 2018-06-27 23:58 | DS ---
CC: Dr. Farooq Kessler; Dr. Treva Mckeon * DISCHARGE SUMMARY: DATE OF ADMISSION: 06/16/18 DATE OF DISCHARGE: 06/27/18 PRIMARY CARE PROVIDER: Dr. Farooq Kessler or replacement. PROFESSOR OF MATHEMATICS: Dr. Treva Mckeon. PRIMARY DIAGNOSES: Chronic obstructive pulmonary disease exacerbation, hypercapnic respiratory failure and Methicillin-susceptible Staphylococcus aureus bacteremia. SECONDARY DIAGNOSES: 1. End-stage GOLD 4 chronic obstructive pulmonary disease, on chronic home oxygen. 2. Chronic CO2 retention. 3. Anxiety benzodiazepine dependent. 4. Obstructive sleep apnea, formerly noncompliant on noninvasive pressure treatment at night. 5. Pedal edema. MEDICATIONS ON DISCHARGE: 1. Alprazolam 0.125 mg p.o. b.i.d. 2. Prednisone 50 mg p.o. daily x2 days starting on 06/28/18, followed by 40 mg p.o. daily x5 days, followed by 30 mg p.o. daily x5 days, followed by 20 mg p.o. daily x5 days, followed by 10 mg p.o. daily x5 days and then stop unless otherwise instructed. 3. Cetirizine 10 mg p.o. daily. 4. Acetaminophen-codeine 1 tab p.o. q.h.s. p.r.n. for pain. 5. Albuterol ipratropium nebs 1 neb inhaled q.4 hours p.r.n. for shortness of breath. 6. Anoro Ellipta 1 puff inhaled daily. 7. Furosemide 20 mg p.o. daily p.r.n. for pedal edema. 8. Vitamin D3 5000 units p.o. daily. 9. Sertraline 25 mg p.o. daily. Medications changes on this admission include the addition of a prednisone taper starting at 50 mg x2 days, followed by 40 mg x5 days, and decreasing by 10 mg installments every 5 days until 10 mg x5 days and then discontinuing.. The addition of p.r.n. Lasix for pedal edema. HISTORY OF PRESENT ILLNESS AND HOSPITAL COURSE: This is a 58-year-old female with the above past medical history who presented to the emergency room on 06/16 in acute respiratory distress. She had had increasing shortness of breath and largely nonproductive cough in the days prior to her admission and while in the ER, she was noted to be in extremis with the pCO2 greater than 125 and was immediately intubated and placed on ventilatory support. Chest x-ray revealed no pulmonary infiltrates, but the patient was then subsequently brought to the intensive care unit for further management in her early hospital course. Her hospital problems and management are as follows. 1. Hypercapnic respiratory failure. This is presumed secondary to a COPD exacerbation that was likely multifactorial. The patient was supposed to be using Trilogy machine at home, although they have never received education to how to use it and so she was not wearing it. She was intubated and on ventilatory support until 06/17/18, extubated successfully and placed back on control inhalers Spiriva, Dulera and nebulizers. The patient at home is managed on Anoro and p.r.n. nebulizers while on oxygen therapy with 3 to 4 L at baseline. The patient was started on prednisone, bronchodilators and the patient continued to improve steadily and by 06/27/18, her respiratory status is back at baseline. She received extensive education about the importance of wearing BiPAP while sleeping or noninvasive pressure ventilation and tolerated it very well. Furthermore, her on the day of discharge brought their home machine and she was educated by Respiratory Therapy including her as to appropriately use it and she felt comfortable on discharge. Her pCO2 on BMP was at a max of 57 and had decreased to 43 after gentle acetazolamide diuresis the last 3 days of her hospitalization and she had normalized and had normal mental status thus appearing compensated for a chronic hypercapnic retention picture. The patient will also be discharged on p.r.n. furosemide for a minor pedal edema likely secondary to fluid retention in the setting of IV fluids given here in the hospital. 2. MSSA bacteremia. The patient had blood cultures done while in the emergency room, which ultimately grew MSSA in 1 out of 4 aerobic bottles that was pansensitive. Unclear if this was a contaminant, though the patient was treated for a full 11 days while she was here in the hospital and persistent blood cultures drawn after hospitalization including the last set drawn were no growth to date for 72 hours prior to discharge. She did have a transthoracic echocardiogram, which did not show vegetations. Transesophageal echocardiogram was not completed secondary to the patient's respiratory status and the likelihood that it would require intubation and because the thought is that it was possibly contaminant, the TTE was substituted and the TTE was done on 06/18/18, and it showed a 55% to 60% ejection fraction with no valvular disease and no regional wall motion abnormalities. The right ventricle was mildly dilated with systolic function mildly reduced. 3. Anxiety. The patient was continued on home sertraline and alprazolam. It was well controlled during the hospital stay. 4. Obstructive sleep apnea. Again, has not being compliant with noninvasive pressure ventilation at home, but it is amenable to using here and also amenable to teaching and using Trilogy machine at home. Overall, the patient was admitted with a dramatic respiratory failure secondary to hypercarbia in the setting of likely non-adherence and poor control at baseline of her severe end-stage chronic obstructive pulmonary disease, was intubated for 1 day, extubated safely and the patient improved steadily and returned to her baseline by the day of discharge, which is 06/27/18, hospital day 11. She was treated for possible spurious MSSA bacteremia and her last cultures from 06/24/18 showed no growth to date. Of note, Palliative Care did meet with this patient considering her end-stage chronic obstructive pulmonary disease and first intubation and the patient and her are thoroughly educated about poor prognosis and the patient is aware and would warrant intubation again in the future if code status remains full. She is aware of palliative care services and knows she can be avail with them in the future if needed. Followup appointments with her primary care provider as well as Dr. Mckeon should be arranged for her in the next 1 to 2 weeks while on prednisone taper. DATA OBTAINED DURING THIS HOSPITALIZATION: Labs on the day of discharge: White blood cell count 6.7, hemoglobin of 12, hematocrit of 38 and platelets of 155. Chemistry done showed sodium of 142, potassium 3.8, chloride 97, carbon dioxide 43, anion gap 2, BUN 20, creatinine 0.53, and glucose 119. IMAGING DONE DURING THIS HOSPITALIZATION: Includes a chest x-ray done on showing just stigmata of advanced obstructive lung disease and bronchiectasis. No acute pulmonary or cardiac process. Transthoracic echocardiogram done on 06/18/18 showing the preserved ejection fraction of 55% to 60%. No regional wall motion abnormalities and right ventricle enlarged with mildly decreased systolic function. EKGs performed on 06/16/18 show sinus tachycardia with no evidence of acute ischemia. CONSULTATIONS OBTAINED DURING THIS HOSPITALIZATION: Palliative Care, Conchita Mansfield MD. The patient reviewed goals of care and code status and is aware of poor prognosis with end-stage COPD and oxygen dependence and Dr. Treva Mckeon , the patient's home yard jockey, who recommended prednisone taper as followed and resumption of Trilogy at home with extensive teaching done by Respiratory on discharge. ITEMS TO FOLLOW UP ON AFTER DISCHARGE: 1. Chronic obstructive pulmonary disease exacerbation. Discharged on an extensive prednisone taper. Prednisone taper may be adjusted according to the patient's symptoms. She has no signs of acute infection or bacterial process in terms of pneumonia on discharge and will need to be treated with prednisone from an inflammatory setting. The patient may even be a candidate for daily prednisone at baseline. She is on her home oxygen 3 to 4 L and will be participating in Trilogy care nightly for noninvasive pressure ventilation, the absence of which likely led to her exacerbation. 2. Pedal edema. She has mild pedal edema on the day of discharge responsive to Lasix and likely secondary to fluids she received during the ICU and during this hospitalization. She was sent home with Lasix p.r.n. not to exceed for 10 days and to follow up with primary care to determine if further fluid management is needed. TIME SPENT: Forty five minutes was spent on the planning of this discharge with over half of that spent directly at the bedside of the patient providing direct patient care. and the patient are educated on the importance of resuming noninvasive pressure ventilation while sleeping to avoid COPD exacerbations in the future and went so far as to bring the machine from home and do in house teaching with Respiratory prior to discharge. The patient and feel comfortable with plan of discharge and are stable for discharge to the home, as she is ambulating safely, tolerating her home oxygen requirements and has home oxygen, Trilogy and nebulizer machines available to her. The patient is going to a smoke-free home. She and both quit over 1 year ago. DISPOSITION AT THE TIME OF DISCHARGE: Stable for home for above reasons. [id number]/[facility] #: [id number] JOAO
== END 2018-06-27 15:13 | disposition home or self-care (01) | DRG 133 ==
LOC: ED 14:55 → ICU 16:19 → MED 06-17 16:28 → ICU 06-21 17:36 → MEDTELE 06-22 19:56 → UNDODISIN 06-25 13:55
PROVIDERS: ADMIT Internal Medicine Critical Care Medicine; ATTEND Internal Medicine
PROC: 5A1935Z Respiratory Ventilation, Less than 24 Consecutive Hours (ICD-10-PCS; principal; 2018-06-16)
PROC: 0BH17EZ Insertion of Endotracheal Airway into Trachea, Via Natural or Artificial Opening (ICD-10-PCS; 2018-06-16)
PROC: 0BP1XDZ Removal of Intraluminal Device from Trachea, External Approach (ICD-10-PCS; 2018-06-17)
PROC: 5A09457 Assistance with Respiratory Ventilation, 24-96 Consecutive Hours, Continuous Positive Airway Pressure (ICD-10-PCS; 2018-06-20)
DX: J96.22 Acute and chronic respiratory failure with hypercapnia (principal); J44.1 Chronic obstructive pulmonary disease with (acute) exacerbation; R78.81 Bacteremia; F13.20 Sedative, hypnotic or anxiolytic dependence, uncomplicated; J96.21 Acute and chronic respiratory failure with hypoxia; M19.90 Unspecified osteoarthritis, unspecified site; F41.9 Anxiety disorder, unspecified; F17.210 Nicotine dependence, cigarettes, uncomplicated; B95.61 Methicillin susceptible Staphylococcus aureus infection as the cause of diseases classified elsewhere; G89.29 Other chronic pain; K44.9 Diaphragmatic hernia without obstruction or gangrene; G47.33 Obstructive sleep apnea (adult) (pediatric); T50.995A Adverse effect of other drugs, medicaments and biological substances, initial encounter; Y92.239 Unspecified place in hospital as the place of occurrence of the external cause; R60.0 Localized edema; Z98.1 Arthrodesis status; Z98.51 Tubal ligation status; Z83.3 Family history of diabetes mellitus; Z80.1 Family history of malignant neoplasm of trachea, bronchus and lung; Z80.8 Family history of malignant neoplasm of other organs or systems; Z91.19 Patient's noncompliance with other medical treatment and regimen; Z99.81 Dependence on supplemental oxygen
CPT/HCPCS: 36415; 36600; 71045; 80048; 80053; 80202; 81003; 82803; 83605; 83880; 84484; 85025; 85060; 85610; 85730; 87040; 87070; 87077; 87150; 87186; 87205; 87641; 93005; 93306; 94640; 94660; 99285; A9270-GY; G8978-GP-CK; G8979-GP-CI; J0330; J1650; J1940; J1956; J2250; J2700; J2704; J2920; J3370; J7512

== ENCOUNTER 2018-09-21 09:44 | Inpatient (IN) | payer OTHER ==
[2018-09-21] MEDS ORDERED: Etomidate* 2 MG/ML 20 ML VIAL (40 MG) ONE (09:57)
[2018-09-21] MEDS ORDERED: Succinylcholine* 20 MG/ML 10 ML VIAL ONE (09:58)
[2018-09-21] MEDS ORDERED: methylPREDNISolone 125 MG* 2 ML VIAL IV ONE (10:03)
[2018-09-21] MEDS ORDERED: Albuterol/Ipratropium NEB.SOL* Albuterol 2.5 MG/Ipratropium 0.5 MG 3 ML INH ONE (10:03)
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
[2018-09-21] MEDS ORDERED: Midazolam* 1 MG/ML 5 ML VIAL (5 MG) ONE (10:15)
[2018-09-21] MEDS ORDERED: Midazolam* 1 MG/ML 5 ML VIAL (5 MG) IV SLOW PU ONE (10:15)
[2018-09-21] MEDS ORDERED: fentaNYL* 50 MCG/ML 2 ML VIAL (100 MCG VIAL) IV SLOW PU ONE (10:15)
[2018-09-21] MEDS ORDERED: fentaNYL* 50 MCG/ML 2 ML VIAL (100 MCG VIAL) ONE (10:16)
[2018-09-21] MEDS ORDERED: NS 0.9% 1000 ML** 1,000 ML IV ONE ×3 (10:28→15:36)
[2018-09-21] MEDS ORDERED: Propofol* 100 ML ONE (10:44)
[2018-09-21] MEDS ORDERED: Vancomycin(*) 1,000 MG in NS 0.9% 250 ML* 250 ML IVPB ONE (10:57)
[2018-09-21] MEDS ORDERED: Piperacillin/Tazobac ADVAN(*) 3.375 GM in NS 0.9% 100 ML* 100 ML IVPB ONE (10:57)
[2018-09-21] MEDS ORDERED: Zosyn per Pharmacy* NOTE FOLLOW UP SCH (11:00)
[2018-09-21] MEDS ORDERED: Midazolam IV for DRIP* 100 MG in NS 0.9% 100 ML* 80 ML IV SCH ×2 (11:00→13:29)
[2018-09-21] MEDS ORDERED: Propofol* 100 ML IV SCH (11:00)
[2018-09-21] MEDS ORDERED: fentaNYL INFUSION 50 MCG/ML* 2,500 MCG/50 ML BAG IV SCH (11:00)
[2018-09-21 11:21] LABS: Troponin I 0.03 ng/mL (<0.04)
[2018-09-21 11:28] LABS: Albumin 3.8 g/dL (3.2-5.2); CO2 Carbon Dioxide 37 mmol/L (22-32); Calcium 8.8 mg/dL (8.6-10.3); Chloride 87 mmol/L (101-111); Sodium 135 mmol/L (135-145)
[2018-09-21 11:30] LABS: Urine Appearance Cloudy; Urine Bilirubin Negative (Negative); Urine Blood Negative (Negative); Urine Color Yellow; Urine Glucose 1+(50 mg/dL) (Negative); Urine Ketones Negative (Negative); Urine Nitrite Negative (Negative); Urine Protein Negative (Negative); Urine Specific Gravity 1.013 (1.010-1.030); Urine Urobilinogen Negative (Negative)
[2018-09-21 11:34] LABS: ALT 28 U/L (7-52); Albumin/Globulin Ratio 1.1 (1-3); Alkaline Phosphatase 94 U/L (34-104); BUN/Creatinine Ratio 12.8 (8-20); Blood Urea Nitrogen 6 mg/dL (6-24); EGFR African American 165.9 (>60); EGFR Non-African American 137.1 (>60); Globulin 3.6 g/dL (2-4); Glucose 193 mg/dL (70-100); Total Protein 7.4 g/dL (6.4-8.9)
[2018-09-21 11:42] LABS: Anion Gap 11 mmol/L (2-11)
[2018-09-21] MEDS: Albuterol 2.5 MG/3 ML NEB.SOL* (0.083%) INH SCH ×4 (11:51→22:50)
[2018-09-21] MEDS ORDERED: Vancomycin per Pharmacy* NOTE FOLLOW UP PRN (12:27)
--- NOTE | 2018-09-21 12:29 | HP ---
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 He stated she is always short of breath. Todya sudden increasing shortness of breath, change in mental status today. She was more blue and he called EMS. No recent fever/chills, change in cough/sputum, no sick contacts. Taking inhalers and PO steroids. In ER, she was cyanotic appearing, poor respiratory effort and so was intubated for poor mental status also. Evidence of peripheral mottling on exam noted. BP and HR stabilized. afebrile, tmax 99. Started on IV sedation, I ordered IV abx, givne steroids and nebulizers for poor air movement on exam. Given IVF also. Admitted to ICU; eventually hypotensive, givne more IVF bolus of NS, placed central and arterial lines and started on levophed infusions. continued on propofol and versed for sedation. Labs from ER not found by lab after being sent , so repeat labs are done but 2 hours later after vascular access achieved. 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 PSHx: ORIF of left patella 1989, tibal ligation, ACDF Family History: mother of Lung Ca, father of brain Ca Social History: Alcohol-none, Smoking-active smoker as per 2ppd x40yrs, Drug use-none Allergies: NKDA Home Medications: ALPRAZolam TAB* [Xanax TAB*] 0.125 mg PO BID PRN MDD 0.25mg 09/21/18 [istory Confirmed 09/21/18] Acetaminop/Codeine 30 MG TAB* [Tylenol/Codeine 30 MG TAB*] 1 tab PO BEDTIME PRN 09/21/18 [History Confirmed 09/21/18] Albuterol 2.5MG/3ML (0.083%)* [Ventolin 2.5 MG/3 ML NEB.VASILIY*] 2.5 mg INH Q4H [History Confirmed 09/21/18] Albuterol HFA INHALER* [Ventolin HFA Inhaler*] 2 puff INH Q6H PRN 09/21/18 [ History Confirmed 09/21/18] Cholecalciferol TAB* [Vitamin D TAB*] 5,000 unit PO DAILY 09/21/18 [History Confirmed 09/21/18] Furosemide 20 mg PO MOFR 09/21/18 [History Confirmed 09/21/18] Sertraline* [Zoloft*] 25 mg PO DAILY 09/21/18 [History Confirmed 09/21/18] Sodium Chloride(INHALANT) 3%* [Sodium Chloride] 3 % INH BID 09/21/18 [History Confirmed 09/21/18] Umeclidin/Vilant 62.5 MDI(NF) [ANORO 62.5/25 Ellipta DEVICE (NF)] 1 puff INH DAILY 09/21/18 [History Confirmed 09/21/18] predniSONE TAB* [Deltasone 10 MG TAB*] 10 mg PO DAILY 09/21/18 [History Confirmed 09/21/18] Tele: NSR Vitals: Vital Signs Temp 98.3 F 09/21/18 11:48 Pulse 89 09/21/18 14:45 Resp 14 09/21/18 14:45 BP 97/70 09/21/18 11:48 Pulse Ox 98 09/21/18 14:45 Intake & Output 09/20/18 09/21/18 09/21/18 18:59 06:59 18:59 Intake Total 1007.5 Balance 1007.5 Weight 40.823 kg Intake: IV Fluids 1007.5 O2/Vent: AC 14/450/+5/40% Infusions: propofol, versed, levophed, NS boluses Current Medications: Albuterol (Ventolin 2.5 Mg/3 Ml Neb.Vasiliy*) 2.5 mg INH Q4H [facility] Last Admin: 09/21/18 14:45 Dose: 2.5 mg Chlorhexidine Gluconate (Peridex Mouth Wash 0.12%*) 15 ml TOPICAL Q4H [facility] Famotidine (Pepcid Iv*) 20 mg IV SLOW PU BID [facility] Heparin Sodium (Porcine) (Heparin Flush Picc/Ml/Cvc(*)) 0 ml FLUSH 0600,1800 [facility]; Protocol Piperacillin Sod/Tazobactam (Sod 3.375 gm/ Sodium Chloride) 100 mls @ 25 mls/ hr IVPB Q8H [facility] Doxycycline Hyclate 100 mg/ (Sodium Chloride) 250 mls @ 250 mls/hr IVPB Q12H [facility] Last Admin: 09/21/18 15:43 Dose: 250 mls/hr Norepinephrine Bitartrate (Levophed 16 Mcg/Ml Premix*) 4,000 mcg in 250 mls @ 37.5 mls/hr IV .INITIAL RATE [facility] Last Admin: 09/21/18 13:35 Dose: 37.5 mls/hr Midazolam HCl 100 mg/ Sodium (Chloride) 100 mls @ 2 mls/hr IV Q24H [facility]; Protocol Propofol (Diprivan*) 100 mls @ 4.899 mls/hr IV .(Initial Rate) [facility]; Protocol Vancomycin HCl 750 mg/ Sodium (Chloride) 250 mls @ 166.667 mls/hr IVPB Q12H [facility] Sodium Chloride (Ns 0.9% 1000 Ml) 1,000 mls @ 500 mls/hr IV .BOLUS ONE Stop: 09/21/18 17:35 Methylprednisolone Sodium Succinate (Solu-Medrol 40 Mg) 40 mg IV Q8H [facility] Pharmacy Consult (Zosyn Per Pharmacy*) 1 note FOLLOW UP .ZOSYN PER PHARMACY [facility] Pharmacy Consult (Vancomycin Per Pharmacy*) 1 note FOLLOW UP . PRN PRN Reason: PER PROTOCOL Pharmacy Profile Note (Vancomycin Trough Check) 1 note FOLLOW UP 1330 ONE Stop: 09/23/18 13:31 Physical Exam: Constitutional: intubated, sedated, no distress, no diaphoresis; episodes of tonic like movements initially but resolved after sedation given Head: normocephalic, atraumatic Eyes: no pallor, no icterus ENT: moist mucous membranes Neck: soft, supple, no jvd CVS: normal rate, regular, no murmur Resp: bilateral air entry but distant breath sounds, no rhales, no wheeze, no rhonchi, no acc muscle use Abdomen/GI: soft, nondistended, BS+ Ext/Msk: warm, pulses+, no edema Skin: intact, warm Neuro: intubated, sedated, pupils reactive bilaterally, moving spontaneously when doing procedure; limited exam Labs: Laboratory Results - last 24 hr 09/21/18 09/21/18 09/21/18 10:42 11:01 12:55 WBC 12.3 H RBC 3.61 L Hgb 11.6 L Hct 37 MCV 101 H MCH 32 H MCHC 32 RDW 15 Plt Count 145 L MPV 7.4 Neut % (Auto) 96.2 Lymph % (Auto) 1.5 [place] % (Auto) 2.1 Eos % (Auto) 0.1 Baso % (Auto) 0.1 Absolute Neuts (auto) 11.8 H Absolute Lymphs (auto) 0.2 L Absolute Monos (auto) 0.3 Absolute Eos (auto) 0.0 Absolute Basos (auto) 0.0 Absolute Nucleated RBC 0.0 Nucleated RBC % 0.1 Patient Temperature ABG pH ABG pH (Temp Correct) ABG pCO2 ABG pCO2 (Temp Corrct ABG pO2 ABG pO2 (Temp Correct ABG HCO3 ABG O2 Saturation ABG Base Excess Respiration Rate O2 Delivery Device Ventilator Type Vent Mode FiO2 Inspiratory Time PEEP Pressure Support Pressure Control EPAP IPAP BiPAP Sodium 135 Potassium TNP Chloride 87 L Carbon Dioxide 37 H Anion Gap 11 BUN 6 Creatinine 0.47 L Est GFR ( Amer) 165.9 Est GFR (Non-Af Amer) 137.1 BUN/Creatinine Ratio 12.8 Glucose 193 H Lactic Acid Calcium 8.8 Total Bilirubin 0.40 Direct Bilirubin Indirect Bilirubin AST TNP ALT 28 Alkaline Phosphatase 94 Troponin I 0.03 B-Natriuretic Peptide Total Protein 7.4 Albumin 3.8 Globulin 3.6 Albumin/Globulin Ratio 1.1 TSH Cancelled Cortisol Cancelled Urine Color Yellow Urine Appearance Cloudy Urine pH 6.0 Ur Specific [place] 1.013 Urine Protein Negative Urine Ketones Negative Urine Blood Negative Urine Nitrate Negative Urine Bilirubin Negative Urine Urobilinogen Negative Ur Leukocyte Esterase Negative Urine Glucose 1+(50 mg/dl) A Urine Ascorbic Acid * A 09/21/18 09/21/18 09/21/18 12:55 12:55 12:55 WBC RBC Hgb Hct MCV MCH MCHC RDW Plt Count MPV Neut % (Auto) Lymph % (Auto) [place] % (Auto) Eos % (Auto) Baso % (Auto) Absolute Neuts (auto) Absolute Lymphs (auto) Absolute Monos (auto) Absolute Eos (auto) Absolute Basos (auto) Absolute Nucleated RBC Nucleated RBC % Patient Temperature ABG pH ABG pH (Temp Correct) ABG pCO2 ABG pCO2 (Temp Corrct ABG pO2 ABG pO2 (Temp Correct ABG HCO3 ABG O2 Saturation ABG Base Excess Respiration Rate O2 Delivery Device Ventilator Type Vent Mode FiO2 Inspiratory Time PEEP Pressure Support Pressure Control EPAP IPAP BiPAP Sodium Potassium Chloride Carbon Dioxide Anion Gap BUN Creatinine Est GFR ( Amer) Est GFR (Non-Af Amer) BUN/Creatinine Ratio Glucose Lactic Acid 2.5 H* Calcium Total Bilirubin Direct Bilirubin Indirect Bilirubin AST ALT Alkaline Phosphatase Troponin I B-Natriuretic Peptide 524 H Total Protein Albumin Globulin Albumin/Globulin Ratio TSH 0.11 L Cortisol Urine Color Urine Appearance Urine pH Ur Specific [place] Urine Protein Urine Ketones Urine Blood Urine Nitrate Urine Bilirubin Urine Urobilinogen Ur Leukocyte Esterase Urine Glucose Urine Ascorbic Acid 09/21/18 09/21/18 12:55 13:30 WBC RBC Hgb Hct MCV MCH MCHC RDW Plt Count MPV Neut % (Auto) Lymph % (Auto) [place] % (Auto) Eos % (Auto) Baso % (Auto) Absolute Neuts (auto) Absolute Lymphs (auto) Absolute Monos (auto) Absolute Eos (auto) Absolute Basos (auto) Absolute Nucleated RBC Nucleated RBC % Patient Temperature Not Reportable ABG pH 7.52 H ABG pH (Temp Correct) Not Reportable ABG pCO2 52 H ABG pCO2 (Temp Corrct Not Reportable ABG pO2 144 H ABG pO2 (Temp Correct Not Reportable ABG HCO3 38.1 H ABG O2 Saturation 99.7 H ABG Base Excess 17.0 H Respiration Rate 18 O2 Delivery Device vent Ventilator Type 450 Vent Mode cmv FiO2 40 Inspiratory Time Not Reportable PEEP 5 Pressure Support Not Reportable Pressure Control Not Reportable EPAP Not Reportable IPAP Not Reportable BiPAP Not Reportable Sodium 140 Potassium 3.5 Chloride 96 L Carbon Dioxide 42 H* Anion Gap 2 BUN 6 Creatinine 0.36 L Est GFR ( Amer) 225.6 Est GFR (Non-Af Amer) 186.5 BUN/Creatinine Ratio 16.7 Glucose 134 H Lactic Acid Calcium 7.2 L Total Bilirubin 0.70 Direct Bilirubin 0.20 H Indirect Bilirubin 0.5 AST 21 ALT 22 Alkaline Phosphatase 64 Troponin I B-Natriuretic Peptide Total Protein 5.1 L Albumin 2.7 L Globulin 2.4 Albumin/Globulin Ratio 1.1 TSH Cortisol 10.80 Urine Color Urine Appearance Urine pH Ur Specific [place] Urine Protein Urine Ketones Urine Blood Urine Nitrate Urine Bilirubin Urine Urobilinogen Ur Leukocyte Esterase Urine Glucose Urine Ascorbic Acid Imaging: cxr 09/21 - ett above [place], left IJ TLC in place, no PTX; no focla infiltrates noted or congestion; hyperinflated lung obrien Assessment: 58y F w/pmhx of 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 He stated she is always short of breath. Todya sudden increasing shortness of breath, change in mental status today. She was more blue and he called EMS. 09/21 In ER, she was cyanotic appearing, poor respiratory effort and so was intubated for poor mental status. 09/21 - intubated, pressors/IVF/IV abx -Acute on chronic hypercapneic and hypoxic respiratory failure -Acute COPD exaccerbation suspected -Severe Sepsis with Shock -suspected pneumonia vs bronchitis Plan: Neuro- -sedated; keep on propofol for sedation; will start to wean down versed to off -maintain RAAS -4 today, change to -3 later -assess neuro status on propofol weaning for any hypoxic injury -daily sedation weaning and neuro checks -Delirium prec; CVS- -Hypotensive may be from sepsis vs sedation/distributive -IVF bolus 3 L given so far -levophed started now -Blood cultures, IV abx; trend LA -check cortisol and tsh -maintain NS infusion 75cc/hr -Titrate Pressors to Maintain MAP>65 Resp- -intubated on 40% now -CXR 09/21 hyperinflated, no clear focla process -check CXR tomorrow -sputum culture send; gram stain already with gram neg and pos identified -IV abx -wheezing in ER but improved; solumedrol 40mg iv q12h -Wean Fio2 to keep sat>92% -Bronchodilators PRN, Aspiration prec, Pulmonary Toilet -VAP bundle ID- tmax 99, wbc 12. LA 2.5 -CXR 09/21 no focal process -Sputum with gram neg and pos on smear; pending culture -given severe COPD, steroid use, recent admission <3 months, will cover for HCAP -IV zosyn (day#1), Vanco (day#1), Doxy (day#1); reassess tomorrow GI- -OGT; NPO -GI prophylaxis Renal- -Cr okay; follow urine output -replete KCL IV 40meq -strict I/O, replete to keep K>4, Mg>2 -brower as indicated Heme- anemia; hg stable -plt okay Endo- Maintain BG<200, insulin protocol as needed Musculsk- pressure ulcer prophylaxis. Bedrest. Wounds- none Nutrition- NPO DVT prophylaxis: SCD and heparin sq GI prophylaxis: h2b bid Central Line: Left IJ TLC 09/21 Arterial Line: Right fem 09/21 Brower Cathetor: yes Disposition: Admit to ICU; expected LOS>2 midnights; Patient requires Critical Care/ICU for Respiratory failure, intubated, shock on pressors Patient Clinical Status: guarded, critical Code Status: full code Given overall poor respiratory status, recurrent admissions, would benefit from palliative care eval once she has improved to address GOC in her state Total Critical Care time is 60 minutes, excluding procedures/teaching Frank Clifton MD Environmental Construction Engineer (Electronically Signed)
--- NOTE | 2018-09-21 13:28 | OP ---
Operative Report - Blank - Operative Report Date of Operation: 09/21/18 Note: Arterial Line Procedure Note Indication: frequent arterial blood gases , invasive hemodynamic monitoring Diagnosis: acute on chronic hypoxic respiratory failure, hypotension Performed by: Frank Clifton MD Consent: Informed; placed in bedside chart Risk/Benefits of procedure explained. [place] Protocol: Time-out was performed and the correct patient and site were verified - Prior labs/history was reviewed prior to procedure - Full sterile precautions with chlorhexidine/full drapes/gowns/gloves utilized - Right femoral artery visualized with US ; bilateral radial arteries were small - Vessel accessed with return of pulsatile blood. One attempt was made to access vessel. A cathetor was threaded over wire into vessel. Good arterial waveform was observed on monitor. - Arterial Catheter was sutured to site; dressing applied to site. EBL <5 cc No immediate complications noted, patient tolerated procedure well. Frank Clifton MD Segment Assembler (Electronically Signed)
--- NOTE | 2018-09-21 13:28 | OP ---
Operative Report - Blank - Operative Report Date of Operation: 09/21/18 Note: Central Line Procedure Note Indication: venous access Diagnosis: acute on chronic hypoxic respiratory failure, hypotension Performed by: Frank Clifton MD Consent: Informed ; placed in bedside chart Risks of procedure were explained if possible, all risks of pain/discomfort, bleeding, infection, PTX, Hemotx, need for chest tube, air/wire embolism, vessel injury, , and failed procedure disclosed and understanding verbalized [place] Protocol: Time-out was performed and the correct patient and site were verified - Prior labs/history was reviewed prior to procedure - Full sterile precautions with chlorhexidine/full drapes/gowns/gloves utilized - Left Internal Jugular Vein visualized with ultrasound - Vessel accessed under ultrasound guidance with return of nonpulsatile blood. A guidewire was passed into vessel and confirmed in vessel with ultrasound. 1 attempt was made to access vessel. Vessel was dilated and cathetor was passed over wire into vessel. All ports demonstrated good blood return and flushed. Catheter was sutured to site and dressing applied. Adequate hemostasis was achieved EBL <5 cc No immediate complications noted, patient tolerated procedure well. Post Procedure CXR: Pending Frank Clifton MD Microbiology Lab Assistant (Electronically Signed)
[2018-09-21 13:29] LABS: ABS Lymphocytes 0.2 10^3/ul (1.0-4.8); ABS Monocytes 0.3 10^3/ul (0-0.8); ABS Neutrophils 11.8 10^3/ul (1.5-7.7); Eosinophil % 0.1 %; Hematocrit 37 % (35-47); Hemoglobin 11.6 g/dL (12.0-16.0); Lymphocyte % 1.5 %; Mean Corpuscular HGB Conc 32 g/dL (31-36); Mean Corpuscular Hemoglobin 32 pg (27-31); Mean Corpuscular Volume 101 fL (80-97); Mean Platelet Volume 7.4 fL (7.4-10.4); Nucleated Red Blood Cells % 0.1; Platelet Count 145 10^3/uL (150-450); Red Blood Count 3.61 10^6 /uL (3.70-4.87); Red Cell Distribution Width 15 % (10-15); White Blood Count 12.3 10^3/uL (3.5-10.8)
[2018-09-21] MEDS ORDERED: Norepinephrine 16MCG/ML IVPRE* 4,000 MCG/250 ML BAG IV ONE (13:34)
[2018-09-21] MEDS: Norepinephrine 16MCG/ML IVPRE* 4,000 MCG/250 ML BAG IV SCH (13:35)
[2018-09-21 13:59] LABS: Albumin 2.7 g/dL (3.2-5.2); Albumin/Globulin Ratio 1.1 (1-3); BUN/Creatinine Ratio 16.7 (8-20); Calcium 7.2 mg/dL (8.6-10.3); EGFR African American 225.6 (>60); EGFR Non-African American 186.5 (>60); Globulin 2.4 g/dL (2-4); Indirect Bilirubin 0.5 mg/dL (0.3-1.0); Potassium 3.5 mmol/L (3.5-5.0); Total Bilirubin 0.7 mg/dL (0.2-1.0); Total Protein 5.1 g/dL (6.4-8.9)
--- NOTE | 2018-09-21 14:16 | PN ---
Sepsis Event Evaluation Date of Evaluation: 09/21/18 Time of Evaluation: 14:15 Current Stage of Sepsis: Septic Shock Vital Signs - Last 12 Hours: Vital Signs - 12 hr Temp Pulse Resp BP Pulse Ox 09/21/18 11:51 93 50 99 09/21/18 11:48 98.3 F 88 18 97/70 93 09/21/18 11:23 99.1 F 80 18 91/60 99 09/21/18 10:17 14 09/21/18 09:53 99.2 F 110 35 160/85 95 Lactic Acid: 09/21/18 12:55 Lactic Acid 2.5 H* - Cardiopulmonary Exam Capillary Refill: Delayed Respiratory: Symmetrical Chest Expansion and Respiratory Effort, - - rhonchi+, distant breath sounds but present bialterally Cardiovascular: NL Sounds; No Murmurs; No JVD, No Edema - Peripheral Pulse Exam Radial Pulses: Bilateral Normal Pedal Pulses: Bilateral Normal Femoral Pulses: Bilateral Normal Popliteal Pulses: Bilateral Normal - Skin Exam Skin Exam: Normal Turgor, Mottling - [place] Coma Scale Best Eye Response: 1 - None Best Motor Response: 1 - None Best Verbal Response: 1 - Intubated Coma Scale Total: 3.0 Assess/Plan/Problems-Billing Assessment:
[2018-09-21] MEDS: DOXYcycline IV* 100 MG in NS 0.9% 250 ML* 250 ML IVPB SCH (15:43)
--- NOTE | 2018-09-21 17:10 | CONSULT ---
Subjective Date of Service: 09/21/18 Interval History: Ms. High is a 58 yo female with PMH significant for COPD, chronic hypercapnea, anxiety, who presented to the emergency room for shortness of breath. She developed poor respiratory effort and was intubated in the emergency room. Presented to the hospital with a pressure injury to her left elbow. Her states that she is always leaning on her elbows at home to help her breathing. She has been treating the wound with ABX ointment at home. Patient seen and examined at bedside. Family History: Unchanged from Admission Social History: Unchanged from Admission Past Medical History: Unchanged from Admission Review of Systems - Measurements Intake and Output: Intake and Output Last 24 Hours 09/19/18 09/20/18 09/21/18 09/22/18 06:59 06:59 06:59 06:59 Intake Total 1007.5 Output Total 244 Balance 763.5 Weight 98 lb 12.273 oz Intake: IV Fluids 1007.5 Output: [place] 244 - Review of Systems General Comments: Unable to perform a ROS as the patient is intubated and sedated. Objective Active Medications: Albuterol (Ventolin 2.5 Mg/3 Ml Neb.Anaid*) 2.5 mg INH Q4H [facility] Chlorhexidine Gluconate (Peridex Mouth Wash 0.12%*) 15 ml TOPICAL Q4H [facility] Famotidine (Pepcid Iv*) 20 mg IV SLOW PU BID [facility] Heparin Sodium (Porcine) (Heparin Vial(*)) 5,000 units SUBCUT Q8HR [facility] Piperacillin Sod/Tazobactam (Sod 3.375 gm/ Sodium Chloride) 100 mls @ 25 mls/ hr IVPB Q8H [facility] Doxycycline Hyclate 100 mg/ (Sodium Chloride) 250 mls @ 250 mls/hr IVPB Q12H [facility] Norepinephrine Bitartrate (Levophed 16 Mcg/Ml Premix*) 4,000 mcg in 250 mls @ 37.5 mls/hr IV .INITIAL RATE [facility] Midazolam HCl 100 mg/ Sodium (Chloride) 100 mls @ 2 mls/hr IV Q24H [facility]; Protocol Propofol (Diprivan*) 100 mls @ 4.899 mls/hr IV .(Initial Rate) [facility]; Protocol Vancomycin HCl 750 mg/ Sodium (Chloride) 250 mls @ 166.667 mls/hr IVPB Q12H [facility] Sodium Chloride (Ns 0.9% 1000 Ml) 1,000 mls @ 500 mls/hr IV .BOLUS ONE Stop: 09/21/18 17:35 Potassium Chloride (Potassium Chloride 20 Meq/100 Ml Ivpremix*) 20 meq in 100 mls @ 50 mls/hr IV Q2H [facility] Stop: 09/21/18 19:59 Methylprednisolone Sodium Succinate (Solu-Medrol 40 Mg) 40 mg IV Q12H [facility] Pharmacy Consult (Zosyn Per Pharmacy*) 1 note FOLLOW UP .ZOSYN PER PHARMACY [facility] Pharmacy Consult (Vancomycin Per Pharmacy*) 1 note FOLLOW UP . PRN Pharmacy Profile Note (Vancomycin Trough Check) 1 note FOLLOW UP 1330 ONE Stop: 09/23/18 13:31 Vital Signs 09/21/18 09/21/18 09/21/18 14:20 14:30 14:45 Temperature Pulse Rate 94 84 89 Respiratory 14 Rate Blood Pressure 141/93 133/73 (mmHg) O2 Sat by Pulse 100 100 98 Oximetry Oxygen Devices in Use Now: Mechanical Ventilator Appearance: NAD, laying in bed Ears/Nose/Mouth/Throat: Mucous Membranes Moist Respiratory: Symmetrical Chest Expansion and Respiratory Effort Skin: - - See skin note below Neurological: - - Sedated Result Diagrams: 09/27/18 05:45 09/27/18 05:45 Additional Lab and Data: Above labs pulled into the note when the note was edited prior to signing. See labs from day of consultation below. Laboratory Tests 09/21/18 09/21/18 12:55 12:55 WBC 12.3 H Hgb 11.6 L Hct 37 Plt Count 145 L Sodium 140 Potassium 3.5 Chloride 96 L Carbon Dioxide 42 H* BUN 6 Creatinine 0.36 L Glucose 134 H Total Protein 5.1 L Albumin 2.7 L Skin Deviation Note - Skin Deviation Findings Left lateral elbow - There is a small wound, measures 1 cm x 1 cm x 0.2 cm. The wound base is pink granulation tissue. The surrounding skin with mild erythema. There is no drainage. Assessment/Plan: Ms. High is a 58 yo female with PMH significant for COPDm chronic hypercapnea, anxiety, who presented to the emergency room for shortness of breath. She developed poor respiratory effort and was intubated in the emergency room. Presented to the hospital with a pressure injury to her left elbow. 1. Left elbow stage 2 pressure injury. Recommend placing a optifoam border foam gauze to provide protection for pressure. Use caution to make sure that there is not further pressure on the arm when repositioning. Consider checking a prealbumin level to assess nutrition status. 2. Diet. NPO. 3. Code Status. Full Code Status. 4. Disposition. Inpatient, disposition per primary medicine team. TIME SPENT: Time for this wound consultation was 20 minutes and 10 minutes was spent with the patient's discussing past medical history; assessing, measuring, and photographing the wound; and applying a dressing. Wound Problem/Plan Is Patient a Wound Clinic Patient: No Attending: Anitra Sharp
[2018-09-21] MEDS ORDERED: methylPREDNISolone SOD 40 MG* 1 ML VIAL IV SCH (18:00)
[2018-09-21] MEDS: Propofol* 100 ML IV SCH (18:05)
[2018-09-21] MEDS: KCL 20 MEQ/100 ML IVPREMIX* 20 MEQ/100 ML BAG IV SCH ×2 (18:27→20:50)
[2018-09-21] MEDS: Piperacillin/Tazobac ADVAN(*) 3.375 GM in NS 0.9% 100 ML* 100 ML IVPB SCH (18:27)
[2018-09-21] MEDS: methylPREDNISolone SOD 40 MG* 1 ML VIAL IV SCH (18:27)
[2018-09-21] MEDS: Famotidine IV* 10 MG/ML 2 ML (20 mg) IV SLOW PU SCH ×2 (18:27→20:54)
[2018-09-21] MEDS: NS 0.9% 1000 ML** 1,000 ML IV SCH (19:00)
[2018-09-21] MEDS: Chlorhexidine MOUTHWASH 0.12%* 15 ML UDC TOPICAL SCH (20:55)
[2018-09-21] MEDS: Heparin VIAL(*) 5000 UNITS/ML VIAL (FIVE THOUSAND) SUBCUT SCH (22:23)
[2018-09-22] MEDS ORDERED: NS 0.9% 500 ML* 500 ML IV ONE (00:03)
[2018-09-22] MEDS: Chlorhexidine MOUTHWASH 0.12%* 15 ML UDC TOPICAL SCH ×4 (00:23→13:30)
[2018-09-22] MEDS: DOXYcycline IV* 100 MG in NS 0.9% 250 ML* 250 ML IVPB SCH ×2 (00:58→14:22)
[2018-09-22] MEDS: Piperacillin/Tazobac ADVAN(*) 3.375 GM in NS 0.9% 100 ML* 100 ML IVPB SCH ×3 (01:34→17:32)
[2018-09-22] MEDS: Propofol* 100 ML IV SCH ×2 (02:06→08:55)
[2018-09-22] MEDS: Vancomycin(*) 750 MG in NS 0.9% 250 ML* 250 ML IVPB SCH ×2 (02:06→14:35)
[2018-09-22] MEDS: Albuterol 2.5 MG/3 ML NEB.SOL* (0.083%) INH SCH ×6 (03:02→23:01)
[2018-09-22] MEDS: methylPREDNISolone SOD 40 MG* 1 ML VIAL IV SCH ×2 (04:17→17:32)
[2018-09-22 05:40] LABS: INR 1.21 (0.82-1.09)
[2018-09-22 05:46] LABS: Magnesium 1.2 mg/dL (1.9-2.7)
[2018-09-22] MEDS: Heparin VIAL(*) 5000 UNITS/ML VIAL (FIVE THOUSAND) SUBCUT SCH ×3 (06:42→20:43)
[2018-09-22] MEDS: NS 0.9% 1000 ML** 1,000 ML IV SCH (07:39)
[2018-09-22 08:01] LABS: Albumin 2.8 g/dL (3.2-5.2); Albumin/Globulin Ratio 1.1 (1-3); BUN/Creatinine Ratio 21.4 (8-20); Calcium 7.5 mg/dL (8.6-10.3); EGFR African American 188.8 (>60); EGFR Non-African American 156.1 (>60); Globulin 2.5 g/dL (2-4); Indirect Bilirubin 0.3 mg/dL (0.3-1.0); Potassium 4.2 mmol/L (3.5-5.0); Total Bilirubin 0.4 mg/dL (0.2-1.0); Total Protein 5.3 g/dL (6.4-8.9)
[2018-09-22] MEDS: Famotidine IV* 10 MG/ML 2 ML (20 mg) IV SLOW PU SCH ×2 (08:55→20:43)
[2018-09-22] MEDS ORDERED: Magnesium Sulf 4 GM/100 ML IV* 4,000 MG/100 ML BAG IVPB ONE (09:21)
[2018-09-22] MEDS ORDERED: NS 0.9% 1000 ML** 1,000 ML IV SCH (09:24)
--- NOTE | 2018-09-22 11:02 | PN ---
Progress Note - Progress Note Date of Service: 09/22/18 Note: Progress Note -- Critical Care 24 hour events -remains intubated -afebrile, off levophed this morning -on propofol; off versed -no sig events noted overnight; urine output+ but slow - at bedside Tele: NSR Vitals: Vital Signs Temp 97.4 F 09/22/18 09:12 Pulse 97 09/22/18 10:00 Resp 14 09/22/18 08:48 BP 126/76 09/22/18 06:10 Pulse Ox 90 09/22/18 10:00 Intake & Output 09/21/18 09/22/18 09/22/18 18:59 06:59 18:59 Intake Total 3748.5 2399.5 Output Total 326 208 39 Balance 3422.5 2191.5 -39 Weight 44.8 kg Intake: IV Fluids 3609.5 1274 abx 530 ns 2072 1274 IVPB 951 KCL 206 abx 745 Medicated IV 139 174.5 levophed 63 43.9 propofol 76 130.6 Output: Brower 326 208 39 O2/Vent: AC 14/400/+5/35% Infusions: propofol, levophed held, NS 50cc/hr Current Medications: Albuterol (Ventolin 2.5 Mg/3 Ml Neb.Anaid*) 2.5 mg INH Q4H [facility] Last Admin: 09/22/18 07:43 Dose: 2.5 mg Chlorhexidine Gluconate (Peridex Mouth Wash 0.12%*) 15 ml TOPICAL Q4H [facility] Last Admin: 09/22/18 08:55 Dose: 15 ml Famotidine (Pepcid Iv*) 20 mg IV SLOW PU BID [facility] Last Admin: 09/22/18 08:55 Dose: 20 mg Heparin Sodium (Porcine) (Heparin Vial(*)) 5,000 units SUBCUT Q8HR [facility] Last Admin: 09/22/18 06:42 Dose: 5,000 units Piperacillin Sod/Tazobactam (Sod 3.375 gm/ Sodium Chloride) 100 mls @ 25 mls/ hr IVPB Q8H [facility] Last Admin: 09/22/18 01:34 Dose: 25 mls/hr Doxycycline Hyclate 100 mg/ (Sodium Chloride) 250 mls @ 250 mls/hr IVPB Q12H [facility] Last Admin: 09/22/18 00:58 Dose: 250 mls/hr Norepinephrine Bitartrate (Levophed 16 Mcg/Ml Premix*) 4,000 mcg in 250 mls @ 37.5 mls/hr IV .INITIAL RATE [facility] Last Admin: 09/21/18 13:35 Dose: 37.5 mls/hr Propofol (Diprivan*) 100 mls @ 4.899 mls/hr IV .(Initial Rate) [facility]; Protocol Last Admin: 09/22/18 08:55 Dose: 9.5 mls/hr Vancomycin HCl 750 mg/ Sodium (Chloride) 250 mls @ 166.667 mls/hr IVPB Q12H [facility] Last Admin: 09/22/18 02:06 Dose: 166.667 mls/hr Magnesium Sulfate (Magnesium Sulf 4 Gm/100 Ml Iv*) 4,000 mg in 100 mls @ 33.333 mls/hr IVPB ONCE ONE Stop: 09/22/18 12:20 Last Admin: 09/22/18 10:24 Dose: 33.333 mls/hr Sodium Chloride (Ns 0.9% 1000 Ml) 1,000 mls @ 50 mls/hr IV PER RATE [facility] Methylprednisolone Sodium Succinate (Solu-Medrol 40 Mg) 40 mg IV Q12H [facility] Last Admin: 09/22/18 04:17 Dose: 40 mg Pharmacy Consult (Zosyn Per Pharmacy*) 1 note FOLLOW UP .ZOSYN PER PHARMACY [facility] Pharmacy Consult (Vancomycin Per Pharmacy*) 1 note FOLLOW UP . PRN PRN Reason: PER PROTOCOL Pharmacy Profile Note (Vancomycin Trough Check) 1 note FOLLOW UP 1330 ONE Stop: 09/23/18 13:31 Physical Exam: Constitutional: intubated, sedated, no distress, no diaphoresis Head: normocephalic, atraumatic Eyes: no pallor, no icterus ENT: moist mucous membranes Neck: soft, supple, no jvd CVS: normal rate, regular, no murmur Resp: bilateral air entry but distant breath sounds, no rhales, no wheeze, no rhonchi, no acc muscle use Abdomen/GI: soft, nondistended, BS+ Ext/Msk: warm, pulses+, no edema Skin: intact, warm Neuro: intubated, sedated, pupils reactive bilaterally, moving spontaneously ; limited exam Labs: Laboratory Results - last 24 hr 09/21/18 09/21/18 09/21/18 10:42 11:01 12:55 WBC 12.3 H RBC 3.61 L Hgb 11.6 L Hct 37 MCV 101 H MCH 32 H MCHC 32 RDW 15 Plt Count 145 L MPV 7.4 Neut % (Auto) 96.2 Lymph % (Auto) 1.5 [place] % (Auto) 2.1 Eos % (Auto) 0.1 Baso % (Auto) 0.1 Absolute Neuts (auto) 11.8 H Absolute Lymphs (auto) 0.2 L Absolute Monos (auto) 0.3 Absolute Eos (auto) 0.0 Absolute Basos (auto) 0.0 Absolute Nucleated RBC 0.0 Nucleated RBC % 0.1 INR (Anticoag Therapy) Patient Temperature ABG pH ABG pH (Temp Correct) ABG pCO2 ABG pCO2 (Temp Corrct ABG pO2 ABG pO2 (Temp Correct ABG HCO3 ABG O2 Saturation ABG Base Excess Respiration Rate O2 Delivery Device Ventilator Type Vent Mode FiO2 Inspiratory Time PEEP Pressure Support Pressure Control EPAP IPAP BiPAP Sodium 135 Potassium TNP Chloride 87 L Carbon Dioxide 37 H Anion Gap 11 BUN 6 Creatinine 0.47 L Est GFR ( Amer) 165.9 Est GFR (Non-Af Amer) 137.1 BUN/Creatinine Ratio 12.8 Glucose 193 H POC Glucose (mg/dL) Lactic Acid Calcium 8.8 Magnesium Total Bilirubin 0.40 Direct Bilirubin Indirect Bilirubin AST TNP ALT 28 Alkaline Phosphatase 94 Total Creatine Kinase Troponin I 0.03 B-Natriuretic Peptide Total Protein 7.4 Albumin 3.8 Globulin 3.6 Albumin/Globulin Ratio 1.1 TSH Cancelled Cortisol Cancelled Urine Color Yellow Urine Appearance Cloudy Urine pH 6.0 Ur Specific Cassandra 1.013 Urine Protein Negative Urine Ketones Negative Urine Blood Negative Urine Nitrate Negative Urine Bilirubin Negative Urine Urobilinogen Negative Ur Leukocyte Esterase Negative Urine Glucose 1+(50 mg/dl) A Urine Ascorbic Acid * A 09/21/18 09/21/18 09/21/18 12:55 12:55 12:55 WBC RBC Hgb Hct MCV MCH MCHC RDW Plt Count MPV Neut % (Auto) Lymph % (Auto) [place] % (Auto) Eos % (Auto) Baso % (Auto) Absolute Neuts (auto) Absolute Lymphs (auto) Absolute Monos (auto) Absolute Eos (auto) Absolute Basos (auto) Absolute Nucleated RBC Nucleated RBC % INR (Anticoag Therapy) Patient Temperature ABG pH ABG pH (Temp Correct) ABG pCO2 ABG pCO2 (Temp Corrct ABG pO2 ABG pO2 (Temp Correct ABG HCO3 ABG O2 Saturation ABG Base Excess Respiration Rate O2 Delivery Device Ventilator Type Vent Mode FiO2 Inspiratory Time PEEP Pressure Support Pressure Control EPAP IPAP BiPAP Sodium Potassium Chloride Carbon Dioxide Anion Gap BUN Creatinine Est GFR ( Amer) Est GFR (Non-Af Amer) BUN/Creatinine Ratio Glucose POC Glucose (mg/dL) Lactic Acid 2.5 H* Calcium Magnesium Total Bilirubin Direct Bilirubin Indirect Bilirubin AST ALT Alkaline Phosphatase Total Creatine Kinase Troponin I B-Natriuretic Peptide 524 H Total Protein Albumin Globulin Albumin/Globulin Ratio TSH 0.11 L Cortisol Urine Color Urine Appearance Urine pH Ur Specific Cassandra Urine Protein Urine Ketones Urine Blood Urine Nitrate Urine Bilirubin Urine Urobilinogen Ur Leukocyte Esterase Urine Glucose Urine Ascorbic Acid 09/21/18 09/21/18 09/21/18 12:55 13:30 17:50 WBC RBC Hgb Hct MCV MCH MCHC RDW Plt Count MPV Neut % (Auto) Lymph % (Auto) [place] % (Auto) Eos % (Auto) Baso % (Auto) Absolute Neuts (auto) Absolute Lymphs (auto) Absolute Monos (auto) Absolute Eos (auto) Absolute Basos (auto) Absolute Nucleated RBC Nucleated RBC % INR (Anticoag Therapy) Patient Temperature Not Reportable Not Reportable ABG pH 7.52 H 7.48 H ABG pH (Temp Correct) Not Reportable Not Reportable ABG pCO2 52 H 51 H ABG pCO2 (Temp Corrct Not Reportable Not Reportable ABG pO2 144 H 144 H ABG pO2 (Temp Correct Not Reportable Not Reportable ABG HCO3 38.1 H 34.6 H ABG O2 Saturation 99.7 H 99.3 H ABG Base Excess 17.0 H 12.4 H Respiration Rate 18 14 O2 Delivery Device vent vent Ventilator Type 450 450 Vent Mode cmv cmv FiO2 40 40 Inspiratory Time Not Reportable Not Reportable PEEP 5 5 Pressure Support Not Reportable Not Reportable Pressure Control Not Reportable Not Reportable EPAP Not Reportable Not Reportable IPAP Not Reportable Not Reportable BiPAP Not Reportable Not Reportable Sodium 140 Potassium 3.5 Chloride 96 L Carbon Dioxide 42 H* Anion Gap 2 BUN 6 Creatinine 0.36 L Est GFR ( Amer) 225.6 Est GFR (Non-Af Amer) 186.5 BUN/Creatinine Ratio 16.7 Glucose 134 H POC Glucose (mg/dL) Lactic Acid Calcium 7.2 L Magnesium Total Bilirubin 0.70 Direct Bilirubin 0.20 H Indirect Bilirubin 0.5 AST 21 ALT 22 Alkaline Phosphatase 64 Total Creatine Kinase Troponin I B-Natriuretic Peptide Total Protein 5.1 L Albumin 2.7 L Globulin 2.4 Albumin/Globulin Ratio 1.1 TSH Cortisol 10.80 Urine Color Urine Appearance Urine pH Ur Specific Cassandra Urine Protein Urine Ketones Urine Blood Urine Nitrate Urine Bilirubin Urine Urobilinogen Ur Leukocyte Esterase Urine Glucose Urine Ascorbic Acid 09/21/18 09/21/18 09/21/18 18:04 19:00 22:50 WBC RBC Hgb Hct MCV MCH MCHC RDW Plt Count MPV Neut % (Auto) Lymph % (Auto) [place] % (Auto) Eos % (Auto) Baso % (Auto) Absolute Neuts (auto) Absolute Lymphs (auto) Absolute Monos (auto) Absolute Eos (auto) Absolute Basos (auto) Absolute Nucleated RBC Nucleated RBC % INR (Anticoag Therapy) Patient Temperature ABG pH ABG pH (Temp Correct) ABG pCO2 ABG pCO2 (Temp Corrct ABG pO2 ABG pO2 (Temp Correct ABG HCO3 ABG O2 Saturation ABG Base Excess Respiration Rate O2 Delivery Device Ventilator Type Vent Mode FiO2 Inspiratory Time PEEP Pressure Support Pressure Control EPAP IPAP BiPAP Sodium Potassium Chloride Carbon Dioxide Anion Gap BUN Creatinine Est GFR ( Amer) Est GFR (Non-Af Amer) BUN/Creatinine Ratio Glucose POC Glucose (mg/dL) 189 H Lactic Acid 4.4 H* 4.7 H* Calcium Magnesium Total Bilirubin Direct Bilirubin Indirect Bilirubin AST ALT Alkaline Phosphatase Total Creatine Kinase Troponin I B-Natriuretic Peptide Total Protein Albumin Globulin Albumin/Globulin Ratio TSH Cortisol Urine Color Urine Appearance Urine pH Ur Specific Cassandra Urine Protein Urine Ketones Urine Blood Urine Nitrate Urine Bilirubin Urine Urobilinogen Ur Leukocyte Esterase Urine Glucose Urine Ascorbic Acid 09/22/18 09/22/18 09/22/18 05:00 05:00 05:00 WBC RBC Hgb Hct MCV MCH MCHC RDW Plt Count MPV Neut % (Auto) Lymph % (Auto) [place] % (Auto) Eos % (Auto) Baso % (Auto) Absolute Neuts (auto) Absolute Lymphs (auto) Absolute Monos (auto) Absolute Eos (auto) Absolute Basos (auto) Absolute Nucleated RBC Nucleated RBC % INR (Anticoag Therapy) 1.21 H Patient Temperature ABG pH 7.35 ABG pH (Temp Correct) ABG pCO2 58 H ABG pCO2 (Temp Corrct ABG pO2 129 H ABG pO2 (Temp Correct ABG HCO3 28.6 ABG O2 Saturation 100.0 H ABG Base Excess 4.7 H Respiration Rate O2 Delivery Device Ventilator Type Vent Mode FiO2 Inspiratory Time PEEP Pressure Support Pressure Control EPAP IPAP BiPAP Sodium 139 Potassium 4.2 Chloride 101 Carbon Dioxide 31 Anion Gap 7 BUN 9 Creatinine 0.42 L Est GFR ( Amer) 188.8 Est GFR (Non-Af Amer) 156.1 BUN/Creatinine Ratio 21.4 H Glucose 148 H POC Glucose (mg/dL) Lactic Acid Calcium 7.5 L Magnesium 1.2 L Total Bilirubin 0.40 Direct Bilirubin 0.10 Indirect Bilirubin 0.3 AST 19 ALT 18 Alkaline Phosphatase 64 Total Creatine Kinase 37 Troponin I B-Natriuretic Peptide Total Protein 5.3 L Albumin 2.8 L Globulin 2.5 Albumin/Globulin Ratio 1.1 TSH Cortisol Urine Color Urine Appearance Urine pH Ur Specific Cassandra Urine Protein Urine Ketones Urine Blood Urine Nitrate Urine Bilirubin Urine Urobilinogen Ur Leukocyte Esterase Urine Glucose Urine Ascorbic Acid 09/22/18 05:00 WBC RBC Hgb Hct MCV MCH MCHC RDW Plt Count MPV Neut % (Auto) Lymph % (Auto) [place] % (Auto) Eos % (Auto) Baso % (Auto) Absolute Neuts (auto) Absolute Lymphs (auto) Absolute Monos (auto) Absolute Eos (auto) Absolute Basos (auto) Absolute Nucleated RBC Nucleated RBC % INR (Anticoag Therapy) Patient Temperature ABG pH ABG pH (Temp Correct) ABG pCO2 ABG pCO2 (Temp Corrct ABG pO2 ABG pO2 (Temp Correct ABG HCO3 ABG O2 Saturation ABG Base Excess Respiration Rate O2 Delivery Device Ventilator Type Vent Mode FiO2 Inspiratory Time PEEP Pressure Support Pressure Control EPAP IPAP BiPAP Sodium Potassium Chloride Carbon Dioxide Anion Gap BUN Creatinine Est GFR ( Amer) Est GFR (Non-Af Amer) BUN/Creatinine Ratio Glucose POC Glucose (mg/dL) Lactic Acid 3.4 H* Calcium Magnesium Total Bilirubin Direct Bilirubin Indirect Bilirubin AST ALT Alkaline Phosphatase Total Creatine Kinase Troponin I B-Natriuretic Peptide Total Protein Albumin Globulin Albumin/Globulin Ratio TSH Cortisol Urine Color Urine Appearance Urine pH Ur Specific Cassandra Urine Protein Urine Ketones Urine Blood Urine Nitrate Urine Bilirubin Urine Urobilinogen Ur Leukocyte Esterase Urine Glucose Urine Ascorbic Acid Imaging: cxr 09/21 - ett above [place] car[place], left IJ TLC in place, no PTX; no focla infiltrates noted or congestion; hyperinflated lung obrien cxr 09/22 - ett above [place] car[place]; left IJ+, minimal congestion if at all noted, hyperinflated, no sig infitlrates; reviewed offical report also Assessment: 58y F w/pmhx of 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 He stated she is always short of breath. Todya sudden increasing shortness of breath, change in mental status today. She was more blue and he called EMS. 09/21 In ER, she was cyanotic appearing, poor respiratory effort and so was intubated for poor mental status. 09/21 - intubated, pressors/IVF/IV abx -Acute on chronic hypercapneic and hypoxic respiratory failure -Acute COPD exaccerbation suspected -Severe Sepsis with Shock -suspected pneumonia vs bronchitis -lactic acidosis, unclear etiology Plan: Neuro- -sedated on propofol; plan to wean down -off versed -daily sedation weaning for neuro checks -maintain RAAS -3 -Delirium prec CVS- -shock, suspected from sepsis; on and off low dose levophed -appears euvolemic now; +5 L since yesterday -cont NS 50cc/hr for now -no further boluses of IVF -IV abx -LA downtrending now; unclear source , sepsis? abd? -will observe trend -still has distal extremity mottling; suspect she had significant respiratory arrest/failure to cause shock or even hypoxic injury give her history and how she arrived -Titrate Pressors to Maintain MAP>65 Resp- -remains intubated; on AC mode; can decrease fio2 to 35%; on 14/400/+5/35% -noted previous relatively alkalotic ABGs from her baseline CO2 -CXR 09/22 - no sig new change; ?mild congestion vs infiltrate on right -sputum gram stain with gram neg and pos identified; pending culture -IV abx -wheezing improved; solumedrol 40mg iv q12h; taper tomorrow, slow long taper given degree of her COPD -Wean Fio2 to keep sat>92% -Bronchodilators PRN, Aspiration prec, Pulmonary Toilet -VAP bundle ID- tmax 99, LA 2.5-4.4-4.7-3.4 -CXR 09/22 not much new change -Sputum with gram neg and pos on smear; pending culture -given severe COPD, steroid use, recent admission <3 months, will cover for HCAP -Cont IV zosyn (day#2), Vanco (day#2), Doxy (day#2); reassess GI- -OGT; NPO; start TF if not weaning later today on Vital -GI prophylaxis - h2b Renal- -Cr okay; follow urine output -replete MgSulfate 4gm x1 -strict I/O, replete to keep K>4, Mg>2 -brower as indicated Heme- anemia; hg stable -plt okay Endo- Maintain BG<200, insulin protocol as needed Musculsk- pressure ulcer prophylaxis. Bedrest. Wounds- none Nutrition- NPO DVT prophylaxis: SCD and heparin sq GI prophylaxis: h2b bid Central Line: Left IJ TLC 09/21 Arterial Line: Right fem 09/21 Brower Cathetor: yes Disposition: Patient requires Critical Care/ICU for Respiratory failure, intubated, shock on pressors Patient Clinical Status: guarded, critical Code Status: full code Given overall poor respiratory status, recurrent admissions, would benefit from palliative care eval once she has improved to address GOC in her state Total Critical Care time is 40 minutes, excluding procedures/teaching Frank Clifotn MD Physician Practice Consultant (Electronically Signed)
[2018-09-22 18:04] LABS: Hematocrit 36 % (35-47); Hemoglobin 11.7 g/dL (12.0-16.0); Mean Corpuscular HGB Conc 33 g/dL (31-36); Mean Corpuscular Hemoglobin 33 pg (27-31); Mean Corpuscular Volume 102 fL (80-97); Mean Platelet Volume 8.2 fL (7.4-10.4); Platelet Count 144 10^3/uL (150-450); Red Blood Count 3.54 10^6 /uL (3.70-4.87); Red Cell Distribution Width 15 % (10-15)
[2018-09-22] MEDS ORDERED: Acetaminophen TAB* 325 MG ONE (19:43)
[2018-09-22] MEDS ORDERED: ALPRAZolam TAB* 0.25 MG PO PRN (21:00)
[2018-09-23] MEDS: Piperacillin/Tazobac ADVAN(*) 3.375 GM in NS 0.9% 100 ML* 100 ML IVPB SCH ×2 (00:05→09:08)
[2018-09-23] MEDS: Norepinephrine 16MCG/ML IVPRE* 4,000 MCG/250 ML BAG IV SCH (00:05)
[2018-09-23] MEDS: DOXYcycline IV* 100 MG in NS 0.9% 250 ML* 250 ML IVPB SCH ×2 (00:05→14:34)
[2018-09-23] MEDS: Vancomycin(*) 750 MG in NS 0.9% 250 ML* 250 ML IVPB SCH (01:27)
[2018-09-23] MEDS: Albuterol 2.5 MG/3 ML NEB.SOL* (0.083%) INH SCH ×2 (03:06→07:18)
[2018-09-23] MEDS: methylPREDNISolone SOD 40 MG* 1 ML VIAL IV SCH (03:24)
[2018-09-23 03:47] LABS: Hematocrit 39 % (35-47); Hemoglobin 11.9 g/dL (12.0-16.0); Mean Corpuscular HGB Conc 31 g/dL (31-36); Mean Corpuscular Hemoglobin 32 pg (27-31); Mean Corpuscular Volume 104 fL (80-97); Mean Platelet Volume 7.2 fL (7.4-10.4); Platelet Count 125 10^3/uL (150-450); Red Blood Count 3.72 10^6 /uL (3.70-4.87); Red Cell Distribution Width 16 % (10-15); White Blood Count 19.5 10^3/uL (3.5-10.8)
[2018-09-23 04:02] LABS: ALT 21 U/L (7-52); AST 21 U/L (13-39); Albumin 3.1 g/dL (3.2-5.2); Albumin/Globulin Ratio 1.1 (1-3); Alkaline Phosphatase 66 U/L (34-104); BUN/Creatinine Ratio 26.3 (8-20); Blood Urea Nitrogen 10 mg/dL (6-24); CO2 Carbon Dioxide 38 mmol/L (22-32); Calcium 8.1 mg/dL (8.6-10.3); Chloride 104 mmol/L (101-111); EGFR Non-African American 175.2 (>60); Globulin 2.8 g/dL (2-4); Glucose 169 mg/dL (70-100); Indirect Bilirubin 0.2 mg/dL (0.3-1.0); Magnesium 1.9 mg/dL (1.9-2.7); Potassium 4.6 mmol/L (3.5-5.0); Sodium 141 mmol/L (135-145); Total Protein 5.9 g/dL (6.4-8.9)
[2018-09-23] MEDS: Heparin VIAL(*) 5000 UNITS/ML VIAL (FIVE THOUSAND) SUBCUT SCH (05:35)
[2018-09-23] MEDS: Acetaminophen TAB* 325 MG PO PRN ×2 (07:59→20:36)
[2018-09-23] MEDS: Sertraline* 25 MG TAB PO SCH (08:01)
[2018-09-23] MEDS: Cholecalciferol TAB* 1000 UNITS PO SCH (08:01)
[2018-09-23] MEDS: Famotidine IV* 10 MG/ML 2 ML (20 mg) IV SLOW PU SCH (08:02)
[2018-09-23] MEDS ORDERED: Magnesium Sulfate 2 GM IV* 2 GM/50 ML BAG IVPB ONE (08:51)
[2018-09-23] MEDS ORDERED: Furosemide IV* 10 MG/ML 2 ML VIAL (20 MG) IV ONE (12:05)
--- NOTE | 2018-09-23 12:29 | PN ---
Progress Note - Progress Note Date of Service: 09/23/18 Note: Progress Note -- Critical Care 24 hour events -awake, alert; more confused after xanax this morning -afebrile, tmax 99 -BP stable, HR stable -art line out -now in chair; no sig resp distress -on NC 3L Tele: NSR Vitals: Vital Signs Temp 99.2 F 09/23/18 12:00 Pulse 96 09/23/18 12:00 Resp 21 09/23/18 12:00 BP 106/53 09/23/18 12:00 Pulse Ox 98 09/23/18 12:00 Intake & Output 09/22/18 09/23/18 09/23/18 18:59 06:59 18:59 Intake Total 876 1307 Output Total 699 690 210 Balance 177 617 -210 Weight 45.882 kg Intake: IV Fluids 805 1187 abx 105 148 ns 700 1039 Medicated IV 71 propofol 71 Oral 120 Output: Brower 699 690 210 Other: Date of Last Bowel 09/22/2018 09/23/18 Movement # Bowel Movements 1 1 Estimated Stool Amount Medium Large O2/Vent: NC 3 L Infusions: heplock Current Medications: Acetaminophen (Tylenol Tab*) 650 mg PO Q4H PRN PRN Reason: PAIN Last Admin: 09/23/18 07:59 Dose: 650 mg Albuterol (Ventolin 2.5 Mg/3 Ml Neb.Anaid*) 2.5 mg INH [id number] AWAKE [facility] Cholecalciferol (Vitamin D Tab*) 5,000 units PO DAILY [facility] Last Admin: 09/23/18 08:01 Dose: 5,000 units Famotidine (Pepcid Tab*) 20 mg PO BID [facility] Doxycycline Hyclate 100 mg/ (Sodium Chloride) 250 mls @ 250 mls/hr IVPB Q12H [facility] Stop: 10/05/18 13:29 Last Admin: 09/23/18 00:05 Dose: 250 mls/hr Methylprednisolone Sodium Succinate (Solu-Medrol 40 Mg) 40 mg IV DAILY [facility] Sertraline HCl (Zoloft*) 25 mg PO DAILY [facility] Last Admin: 09/23/18 08:01 Dose: 25 mg Physical Exam: Constitutional: awake, alert, slightly confused, no distress, no diaphoresis Head: normocephalic, atraumatic Eyes: no pallor, no icterus ENT: moist mucous membranes Neck: soft, supple, no jvd CVS: normal rate, regular, no murmur Resp: bilateral air entry but distant breath sounds, no rhales, no wheeze, no rhonchi, no acc muscle use Abdomen/GI: soft, nondistended, BS+ Ext/Msk: warm, pulses+, no edema Skin: intact, warm Neuro: awake, alert, oriented x1-2, no distress, follows all commands, in chair , no focal findings Labs: Laboratory Results - last 24 hr 09/22/18 09/22/18 09/22/18 00:22 05:00 07:06 WBC 11.0 H RBC 3.54 L Hgb 11.7 L Hct 36 MCV 102 H MCH 33 H MCHC 33 RDW 15 Plt Count 144 L MPV 8.2 Sodium Potassium Chloride Carbon Dioxide BUN Creatinine Est GFR ( Amer) Est GFR (Non-Af Amer) BUN/Creatinine Ratio Glucose POC Glucose (mg/dL) 196 H 149 H Lactic Acid Calcium Magnesium Total Bilirubin Direct Bilirubin Indirect Bilirubin AST ALT Alkaline Phosphatase B-Natriuretic Peptide Total Protein Albumin Globulin Albumin/Globulin Ratio 09/22/18 09/22/18 09/23/18 13:50 13:55 03:35 WBC RBC Hgb Hct MCV MCH MCHC RDW Plt Count MPV Sodium 141 Potassium 4.6 Chloride 104 Carbon Dioxide 38 H BUN 10 Creatinine 0.38 L Est GFR ( Amer) 212.0 Est GFR (Non-Af Amer) 175.2 BUN/Creatinine Ratio 26.3 H Glucose 169 H POC Glucose (mg/dL) 142 H Lactic Acid Calcium 8.1 L Magnesium 1.9 Total Bilirubin 0.30 Direct Bilirubin 0.10 Indirect Bilirubin 0.2 L AST 21 ALT 21 Alkaline Phosphatase 66 B-Natriuretic Peptide 328 H Total Protein 5.9 L Albumin 3.1 L Globulin 2.8 Albumin/Globulin Ratio 1.1 09/23/18 09/23/18 03:35 09:11 WBC 19.5 H RBC 3.72 Hgb 11.9 L Hct 39 MCV 104 H MCH 32 H MCHC 31 RDW 16 H Plt Count 125 L MPV 7.2 L Sodium Potassium Chloride Carbon Dioxide BUN Creatinine Est GFR ( Amer) Est GFR (Non-Af Amer) BUN/Creatinine Ratio Glucose POC Glucose (mg/dL) Lactic Acid 0.3 L Calcium Magnesium Total Bilirubin Direct Bilirubin Indirect Bilirubin AST ALT Alkaline Phosphatase B-Natriuretic Peptide Total Protein Albumin Globulin Albumin/Globulin Ratio Imaging: cxr 09/21 - ett above [place], left IJ TLC in place, no PTX; no focla infiltrates noted or congestion; hyperinflated lung obrien cxr 09/22 - ett above [place]; left IJ+, minimal congestion if at all noted, hyperinflated, no sig infitlrates; reviewed offical report also cxr 09/23 - pulmonary congestion/edema++ Assessment: 58y F w/pmhx of 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 He stated she is always short of breath. Todya sudden increasing shortness of breath, change in mental status today. She was more blue and he called EMS. 09/21 In ER, she was cyanotic appearing, poor respiratory effort and so was intubated for poor mental status. 09/21 - intubated, pressors/IVF/IV abx 09/22 - extubated; off pressors -Acute on chronic hypercapneic and hypoxic respiratory failure -Acute COPD exaccerbation suspected -Severe Sepsis with Shock; resolved -Pasturela Multocida bronchitis/pneumonia -lactic acidosis, unclear etiology Plan: Neuro- -awake; alert; some confusion now; confirmed confusion at home after xanax she takes -d/c xanax; will need another choice for anxiety disorder, which may be more so for respiratory distress too given the severe nature -Delirium prec; avoid bdz CVS- -BP stable, HR stable -off pressors -making urine; off IVF -lasix 40mg IV x1 -IV abx -Maintain MAP>65 Resp- -extubated 09/22 ; NC 3 L , no distress, cough+, sputum mild -CXR 09/23 with congestion -IV diuretics -IV abx for pasturella bronchitis/pneumonia -wheezing improved; dec solumedrol 40mg iv qdaily; long taper on discharge given severe COPD and home prednisone taper -NIV/Trilegy at night or PRN; refused last night; keep for PRN/night use -Wean Fio2 to keep sat>92% -Bronchodilators PRN, Aspiration prec ID- tmax 99, wbc 12-11-19 -on steroids IV -CXR 09/23 - pulm congestion+ -Sputum growth pasturella multocida++ -given severe COPD, steroid use not suprised she developed this infection. -d/c zosyn/vanco; cont doxy 100mg IV bid for 7 days total (started 09/21)(day#3) GI- -puree diet started; repeat swallow formal -GI prophylaxis - h2b Renal- -Cr okay; follow urine output -replete MgSulfate 2gm x1 -lasix 20mg IV x1 for pulmonary congestion -strict I/O, replete to keep K>4, Mg>2 -brower as indicated -d/c brower later today Heme- anemia; hg stable -plt okay Endo- Maintain BG<200, insulin protocol as needed Musculsk- pressure ulcer prophylaxis. oob to chair, ambulate as tolerated Wounds- none Nutrition- puree unrestricted diet DVT prophylaxis: SCD GI prophylaxis: h2b bid Central Line: Left IJ TLC 09/21 Arterial Line: Right fem 09/21; d/c 09/23 Brower Cathetor: yes Disposition: Patient requires Critical Care/ICU for Respiratory failure, improved; reassess in evening for downgrade to medical floor Patient Clinical Status: guarded Code Status: full code Frank Clifton MD Visual Education Director (Electronically Signed)
[2018-09-23] MEDS ORDERED: Albuterol 2.5 MG/3 ML NEB.SOL* (0.083%) INH SCH (13:00)
[2018-09-23] MEDS ORDERED: Albuterol 2.5 MG/3 ML NEB.SOL* (0.083%) INH PRN (13:17)
[2018-09-23] MEDS ORDERED: Vancomycin Trough Check NOTE FOLLOW UP ONE (13:30)
[2018-09-23 13:34] LABS: Mycoplasma pneumoniae IgG Ab Positive (Negative); Mycoplasma pneumoniae IgM Ab Reactive (Negative)
[2018-09-23] MEDS: cefTRIAXone(*) 1 GM in NS 0.9% 50 ML* 50 ML IVPB SCH (14:34)
[2018-09-23] MEDS: Famotidine TAB* 20 MG PO SCH (20:36)
[2018-09-24 04:38] LABS: Hematocrit 40 % (35-47); Hemoglobin 12.4 g/dL (12.0-16.0); Mean Corpuscular HGB Conc 31 g/dL (31-36); Mean Corpuscular Hemoglobin 33 pg (27-31); Mean Corpuscular Volume 104 fL (80-97); Mean Platelet Volume 8.1 fL (7.4-10.4); Platelet Count 99 10^3/uL (150-450); Red Blood Count 3.82 10^6 /uL (3.70-4.87); Red Cell Distribution Width 15 % (10-15); White Blood Count 14.7 10^3/uL (3.5-10.8)
[2018-09-24 04:52] LABS: ALT 21 U/L (7-52); AST 20 U/L (13-39); Albumin 3.4 g/dL (3.2-5.2); Albumin/Globulin Ratio 1.1 (1-3); Alkaline Phosphatase 68 U/L (34-104); BUN/Creatinine Ratio 35.5 (8-20); Blood Urea Nitrogen 11 mg/dL (6-24); Calcium 8.8 mg/dL (8.6-10.3); Chloride 97 mmol/L (101-111); EGFR African American 268.1 (>60); EGFR Non-African American 221.6 (>60); Globulin 3.1 g/dL (2-4); Glucose 127 mg/dL (70-100); Magnesium 1.8 mg/dL (1.9-2.7); Potassium 4.8 mmol/L (3.5-5.0); Sodium 142 mmol/L (135-145); Total Protein 6.5 g/dL (6.4-8.9)
[2018-09-24 05:08] LABS: CO2 Carbon Dioxide 47 mmol/L (22-32)
[2018-09-24] MEDS ORDERED: methylPREDNISolone SOD 40 MG* 1 ML VIAL IV SCH (09:00)
[2018-09-24] MEDS: Famotidine TAB* 20 MG PO SCH ×2 (10:55→21:51)
[2018-09-24] MEDS: Sertraline* 25 MG TAB PO SCH (10:55)
[2018-09-24] MEDS: Cholecalciferol TAB* 1000 UNITS PO SCH (10:55)
[2018-09-24] MEDS ORDERED: Furosemide IV* 10 MG/ML 2 ML VIAL (20 MG) IV ONE (15:07)
--- NOTE | 2018-09-24 15:15 | PN ---
Subjective Date of Service: 09/24/18 Interval History: seen on the floor room 407, on nasal canula 2.5 liters. still complains of generalized weakness and poor appetite. she did require IV lasix last night Past Medical History: Unchanged from Admission Objective Active Medications: Acetaminophen (Tylenol Tab*) 650 mg PO Q4H PRN PRN Reason: PAIN Last Admin: 09/23/18 20:36 Dose: 650 mg Albuterol (Ventolin 2.5 Mg/3 Ml Neb.Anaid*) 2.5 mg INH Q4H PRN PRN Reason: SOB/WHEEZING Cholecalciferol (Vitamin D Tab*) 5,000 units PO DAILY [facility] Last Admin: 09/24/18 10:55 Dose: 5,000 units Famotidine (Pepcid Tab*) 20 mg PO BID [facility] Last Admin: 09/24/18 10:55 Dose: 20 mg Furosemide (Lasix Iv*) 20 mg IV ONCE ONE Stop: 09/24/18 15:08 Furosemide (Lasix Iv*) 20 mg IV BID [facility] Heparin Sodium (Porcine) (Heparin Flush Picc/Ml/Cvc(*)) 1 - 3 ml FLUSH 0600, 1800 [facility]; Protocol Last Admin: 09/24/18 04:13 Dose: 3 ml Ceftriaxone Sodium 1 gm/ (Sodium Chloride) 50 mls @ 200 mls/hr IVPB Q24H [facility] Stop: 09/28/18 13:59 Last Admin: 09/23/18 14:34 Dose: 200 mls/hr Methylprednisolone Sodium Succinate (Solu-Medrol 40 Mg) 40 mg IV BID [facility] Sertraline HCl (Zoloft*) 25 mg PO DAILY [facility] Last Admin: 09/24/18 10:55 Dose: 25 mg Vital Signs - 8 hr 09/24/18 09/24/18 09/24/18 07:15 08:00 11:15 Temperature 97.7 F 97.9 F Pulse Rate 96 89 Respiratory 18 18 16 Rate Blood Pressure 94/51 101/43 (mmHg) O2 Sat by Pulse 91 100 Oximetry Oxygen Devices in Use Now: Nasal Cannula Appearance: awake, alert, no distress. pale Eyes: No Scleral Icterus, - - EOMI Ears/Nose/Mouth/Throat: Mucous Membranes Moist Neck: NL Appearance and Movements; NL JVP, Trachea Midline Respiratory: - - coarse rhonchi, expiratory wheezing Cardiovascular: NL Sounds; No Murmurs; No JVD, - - + edema Abdominal: NL Sounds; No Tenderness; No Distention Extremities: - - edmea generalized Result Diagrams: 09/24/18 04:20 09/24/18 04:20 Microbiology and Other Data: Microbiology 09/21/18 11:42 Nasal Screen MRSA (PCR) - Final Nasal Mrsa Detected 09/21/18 11:00 Legionella Urinary Antigen - Final Urine Negative Legionella Antigen Streptococcus pneumoniae Ag Screen - Final Negative S. pneumo Antigen 09/21/18 10:20 Gram Stain - Final Sputum Assess/Plan/Problems-Billing Assessment: 58 y/o female admitted for acute respiratory failure intubated on 09/21 and extubated 09/22 diagnosed for COPD exacerbation and pasturella multicoda pneumonaie - Patient Problems (1) COPD exacerbation Current Visit: Yes Status: Acute Code(s): J44.1 - CHRONIC OBSTRUCTIVE PULMONARY DISEASE W (ACUTE) EXACERBATION SNOMED Code(s): 551858103 Comment: - Secondary to bronchitis and pneumonaie. - Continue steroids but will increase to 40 mg IV !2 hrs due to ongoing rhonchi and wheezing. Supplemental O2 and BiPAP prn (2) Pneumonia Current Visit: Yes Status: Acute Code(s): J18.9 - PNEUMONIA, UNSPECIFIED ORGANISM SNOMED Code(s): 536570437 Comment: - Pasturella multocida - Continue rocephin (3) DVT prophylaxis Current Visit: No Status: Acute Priority: Medium Code(s): JPR9301 - SNOMED Code(s): 094176775 Comment: - Lovenox.
[2018-09-24] MEDS: cefTRIAXone(*) 1 GM in NS 0.9% 50 ML* 50 ML IVPB SCH (15:32)
[2018-09-24] MEDS: Enoxaparin(*) 40 MG/0.4 ML SYR SUBCUT SCH (17:18)
[2018-09-24] MEDS: Acetaminophen TAB* 325 MG PO PRN (21:50)
[2018-09-24] MEDS: methylPREDNISolone SOD 40 MG* 1 ML VIAL IV SCH (21:51)
[2018-09-25 06:57] LABS: ABS Lymphocytes 0.4 10^3/ul (1.0-4.8); ABS Monocytes 0.5 10^3/ul (0-0.8); ABS Neutrophils 6.9 10^3/ul (1.5-7.7); Hematocrit 36 % (35-47); Hemoglobin 11.5 g/dL (12.0-16.0); Lymphocyte % 5.6 %; Mean Corpuscular HGB Conc 32 g/dL (31-36); Mean Corpuscular Hemoglobin 33 pg (27-31); Mean Corpuscular Volume 102 fL (80-97); Mean Platelet Volume 7.8 fL (7.4-10.4); Platelet Count 73 10^3/uL (150-450); Red Blood Count 3.51 10^6 /uL (3.70-4.87); Red Cell Distribution Width 15 % (10-15); White Blood Count 7.9 10^3/uL (3.5-10.8)
[2018-09-25 07:20] LABS: ALT 16 U/L (7-52); AST 14 U/L (13-39); Albumin 2.9 g/dL (3.2-5.2); Albumin/Globulin Ratio 1.1 (1-3); Alkaline Phosphatase 68 U/L (34-104); Blood Urea Nitrogen 11 mg/dL (6-24); Chloride 89 mmol/L (101-111); EGFR African American 278.5 (>60); EGFR Non-African American 230.1 (>60); Globulin 2.7 g/dL (2-4); Glucose 172 mg/dL (70-100); Indirect Bilirubin 0.2 mg/dL (0.3-1.0); Magnesium 1.5 mg/dL (1.9-2.7); Phosphorus 2.2 mg/dL (2.5-5.0); Potassium 4.5 mmol/L (3.5-5.0); Sodium 143 mmol/L (135-145); Total Protein 5.6 g/dL (6.4-8.9)
[2018-09-25 07:43] LABS: CO2 Carbon Dioxide 57 mmol/L (22-32)
[2018-09-25] MEDS: methylPREDNISolone SOD 40 MG* 1 ML VIAL IV SCH ×2 (09:33→20:41)
[2018-09-25] MEDS: Sertraline* 25 MG TAB PO SCH (09:33)
[2018-09-25] MEDS: Famotidine TAB* 20 MG PO SCH ×2 (09:33→20:41)
[2018-09-25] MEDS: Cholecalciferol TAB* 1000 UNITS PO SCH (09:33)
[2018-09-25] MEDS: cefTRIAXone(*) 1 GM in NS 0.9% 50 ML* 50 ML IVPB SCH (13:35)
[2018-09-25] MEDS: Furosemide IV* 10 MG/ML 2 ML VIAL (20 MG) IV SCH (13:35)
[2018-09-25] MEDS: Enoxaparin(*) 40 MG/0.4 ML SYR SUBCUT SCH (16:11)
--- NOTE | 2018-09-25 16:23 | PN ---
Subjective Date of Service: 09/25/18 Interval History: Reports improvement in breathing Family History: Unchanged from Admission Social History: Unchanged from Admission Past Medical History: Unchanged from Admission Objective Active Medications: Acetaminophen (Tylenol Tab*) 650 mg PO Q4H PRN PRN Reason: PAIN Last Admin: 09/24/18 21:50 Dose: 650 mg Albuterol (Ventolin 2.5 Mg/3 Ml Neb.Anaid*) 2.5 mg INH Q4H PRN PRN Reason: SOB/WHEEZING Cholecalciferol (Vitamin D Tab*) 5,000 units PO DAILY [facility] Last Admin: 09/25/18 09:33 Dose: 5,000 units Enoxaparin Sodium (Lovenox(*)) 40 mg SUBCUT Q24H [facility] Last Admin: 09/25/18 16:11 Dose: 40 mg Famotidine (Pepcid Tab*) 20 mg PO BID [facility] Last Admin: 09/25/18 09:33 Dose: 20 mg Furosemide (Lasix Iv*) 20 mg IV BID [facility] Last Admin: 09/25/18 13:35 Dose: 20 mg Heparin Sodium (Porcine) (Heparin Flush Picc/Ml/Cvc(*)) 1 - 3 ml FLUSH 0600, 1800 [facility]; Protocol Last Admin: 09/25/18 16:11 Dose: 3 ml Ceftriaxone Sodium 1 gm/ (Sodium Chloride) 50 mls @ 200 mls/hr IVPB Q24H [facility] Stop: 09/28/18 13:59 Last Admin: 09/25/18 13:35 Dose: 200 mls/hr Methylprednisolone Sodium Succinate (Solu-Medrol 40 Mg) 40 mg IV BID [facility] Last Admin: 09/25/18 09:33 Dose: 40 mg Sertraline HCl (Zoloft*) 25 mg PO DAILY [facility] Last Admin: 09/25/18 09:33 Dose: 25 mg Vital Signs - 8 hr 09/25/18 09/25/18 11:00 11:39 Temperature 98.1 F Pulse Rate 92 Respiratory 18 16 Rate Blood Pressure 100/45 (mmHg) O2 Sat by Pulse 99 Oximetry Oxygen Devices in Use Now: Nasal Cannula Eyes: No Scleral Icterus Neck: NL Appearance and Movements; NL JVP Respiratory: - - bilateral rhonchi Cardiovascular: NL Sounds; No Murmurs; No JVD Abdominal: NL Sounds; No Tenderness; No Distention Extremities: No Edema Neurological: Alert and Oriented x 3 Result Diagrams: 09/25/18 06:25 09/25/18 06:25 Microbiology and Other Data: Microbiology 09/21/18 11:42 Nasal Screen MRSA (PCR) - Final Nasal Mrsa Detected 09/21/18 11:00 Legionella Urinary Antigen - Final Urine Negative Legionella Antigen Streptococcus pneumoniae Ag Screen - Final Negative S. pneumo Antigen 09/21/18 10:20 Gram Stain - Final Sputum Assess/Plan/Problems-Billing Assessment: 58 y/o female admitted for acute respiratory failure intubated on 09/21 and extubated 09/22 diagnosed for COPD exacerbation and pasturella multicoda pneumonaie - Patient Problems (1) COPD exacerbation Current Visit: Yes Status: Acute Code(s): J44.1 - CHRONIC OBSTRUCTIVE PULMONARY DISEASE W (ACUTE) EXACERBATION SNOMED Code(s): 390106321 Comment: - Secondary to bronchitis and pneumonaie. - Continue steroids but will increase to 40 mg IV !2 hrs due to ongoing rhonchi and wheezing. 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
[2018-09-25] MEDS: Acetaminophen TAB* 325 MG PO PRN (20:40)
[2018-09-26] MEDS: Furosemide IV* 10 MG/ML 2 ML VIAL (20 MG) IV SCH ×3 (02:10→20:18)
[2018-09-26 05:45] LABS: ABS Lymphocytes 0.6 10^3/ul (1.0-4.8); ABS Monocytes 0.5 10^3/ul (0-0.8); ABS Neutrophils 7.6 10^3/ul (1.5-7.7); Hematocrit 37 % (35-47); Hemoglobin 11.8 g/dL (12.0-16.0); Mean Corpuscular HGB Conc 32 g/dL (31-36); Mean Corpuscular Hemoglobin 33 pg (27-31); Mean Corpuscular Volume 102 fL (80-97); Mean Platelet Volume 8.2 fL (7.4-10.4); Nucleated Red Blood Cells % 0.1; Platelet Count 88 10^3/uL (150-450); Red Blood Count 3.62 10^6 /uL (3.70-4.87); Red Cell Distribution Width 15 % (10-15); White Blood Count 8.7 10^3/uL (3.5-10.8)
[2018-09-26 06:01] LABS: Blood Urea Nitrogen 12 mg/dL (6-24); Calcium 8.9 mg/dL (8.6-10.3); Chloride 85 mmol/L (101-111); EGFR African American 278.5 (>60); EGFR Non-African American 230.1 (>60); Glucose 176 mg/dL (70-100); Potassium 4.3 mmol/L (3.5-5.0); Sodium 143 mmol/L (135-145)
[2018-09-26 06:31] LABS: CO2 Carbon Dioxide 57 mmol/L (22-32)
[2018-09-26] MEDS: methylPREDNISolone SOD 40 MG* 1 ML VIAL IV SCH ×2 (08:31→20:18)
[2018-09-26] MEDS: Famotidine TAB* 20 MG PO SCH ×2 (08:32→20:18)
[2018-09-26] MEDS: Cholecalciferol TAB* 1000 UNITS PO SCH (08:32)
[2018-09-26] MEDS: Sertraline* 25 MG TAB PO SCH (08:32)
[2018-09-26 12:06] LABS: ALT 14 U/L (7-52); AST 15 U/L (13-39); Albumin/Globulin Ratio 1.1 (1-3); Alkaline Phosphatase 63 U/L (34-104); Globulin 2.7 g/dL (2-4); Indirect Bilirubin 0.2 mg/dL (0.3-1.0); Magnesium 1.5 mg/dL (1.9-2.7); Total Protein 5.7 g/dL (6.4-8.9)
[2018-09-26] MEDS ORDERED: Albuterol/Ipratropium NEB.SOL* Albuterol 2.5 MG/Ipratropium 0.5 MG 3 ML INH PRN (13:54)
--- NOTE | 2018-09-26 14:05 | PN ---
Subjective Date of Service: 09/26/18 Interval History: Reports improvement in breathing.Chronically on high 02 at home and nippv at home as needed Family History: Unchanged from Admission Social History: Unchanged from Admission Past Medical History: Unchanged from Admission Objective Active Medications: Acetaminophen (Tylenol Tab*) 650 mg PO Q4H PRN PRN Reason: PAIN Last Admin: 09/25/18 20:40 Dose: 650 mg Albuterol (Ventolin 2.5 Mg/3 Ml Neb.Anaid*) 2.5 mg INH Q4H PRN PRN Reason: SOB/WHEEZING Albuterol/Ipratropium (Duoneb (Albuterol 2.5 Mg/Ipratropium 0.5 Mg)) 1 neb INH Q4H PRN PRN Reason: SOB/WHEEZING Cholecalciferol (Vitamin D Tab*) 5,000 units PO DAILY [facility] Last Admin: 09/26/18 08:32 Dose: 5,000 units Enoxaparin Sodium (Lovenox(*)) 40 mg SUBCUT Q24H [facility] Last Admin: 09/25/18 16:11 Dose: 40 mg Famotidine (Pepcid Tab*) 20 mg PO BID [facility] Last Admin: 09/26/18 08:32 Dose: 20 mg Furosemide (Lasix Iv*) 20 mg IV BID [facility] Last Admin: 09/26/18 08:31 Dose: 20 mg Heparin Sodium (Porcine) (Heparin Flush Picc/Ml/Cvc(*)) 1 - 3 ml FLUSH 0600, 1800 [facility]; Protocol Last Admin: 09/26/18 05:31 Dose: 3 ml Methylprednisolone Sodium Succinate (Solu-Medrol 40 Mg) 40 mg IV BID [facility] Last Admin: 09/26/18 08:31 Dose: 40 mg Sertraline HCl (Zoloft*) 25 mg PO DAILY [facility] Last Admin: 09/26/18 08:32 Dose: 25 mg Vital Signs - 8 hr 09/26/18 09/26/18 09/26/18 08:25 09:00 11:36 Temperature 98.4 F Pulse Rate 88 95 Respiratory 16 16 17 Rate Blood Pressure 101/46 113/59 (mmHg) O2 Sat by Pulse 100 98 Oximetry Oxygen Devices in Use Now: Nasal Cannula Eyes: No Scleral Icterus Ears/Nose/Mouth/Throat: NL Teeth, Lips, Gums Neck: NL Appearance and Movements; NL JVP Respiratory: Symmetrical Chest Expansion and Respiratory Effort Cardiovascular: NL Sounds; No Murmurs; No JVD Abdominal: NL Sounds; No Tenderness; No Distention Skin: No Rash or Ulcers Neurological: Alert and Oriented x 3 Result Diagrams: 09/26/18 05:23 09/26/18 05:23 Microbiology and Other Data: Microbiology 09/21/18 11:42 Nasal Screen MRSA (PCR) - Final Nasal Mrsa Detected 09/21/18 11:00 Legionella Urinary Antigen - Final Urine Negative Legionella Antigen Streptococcus pneumoniae Ag Screen - Final Negative S. 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 - Continue steroids but will increase to 40 mg IV !2 hrs due to ongoing rhonchi and wheezing. Supplemental O2 and BiPAP prn (4) Pneumonia Current Visit: Yes Status: Acute Code(s): J18.9 - PNEUMONIA, UNSPECIFIED ORGANISM SNOMED Code(s): 196367129 Comment: - Pasturella multocida - Continue rocephin as pt improving -Can d/c on Augmentin or Keflex -Has multiple cats at home and reports that she has a street cat that nibbles her.Discussed this with the patient (5) DVT prophylaxis Current Visit: No Status: Acute Priority: Medium Code(s): [id number] - SNOMED Code(s): 747256355 Comment: - Lovenox. (6) Sepsis Current Visit: Yes Status: Acute Comment: In icu sec pneumonia Off pressors resolved Status and Disposition: pt/ot.discharge planning.likely home in 24-48h
[2018-09-26] MEDS: Enoxaparin(*) 40 MG/0.4 ML SYR SUBCUT SCH (16:17)
[2018-09-26] MEDS: Acetaminophen TAB* 325 MG PO PRN (18:34)
[2018-09-27 06:09] LABS: Hematocrit 37 % (35-47); Hemoglobin 11.9 g/dL (12.0-16.0); Mean Corpuscular HGB Conc 32 g/dL (31-36); Mean Corpuscular Hemoglobin 33 pg (27-31); Mean Corpuscular Volume 101 fL (80-97); Platelet Count 102 10^3/uL (150-450); Red Blood Count 3.66 10^6 /uL (3.70-4.87); Red Cell Distribution Width 14 % (10-15); White Blood Count 8.6 10^3/uL (3.5-10.8)
[2018-09-27 06:22] LABS: BUN/Creatinine Ratio 51.6 (8-20); Blood Urea Nitrogen 16 mg/dL (6-24); Calcium 9.3 mg/dL (8.6-10.3); Chloride 83 mmol/L (101-111); EGFR African American 268.1 (>60); EGFR Non-African American 221.6 (>60); Glucose 132 mg/dL (70-100); Potassium 4.1 mmol/L (3.5-5.0); Sodium 144 mmol/L (135-145)
[2018-09-27 07:40] LABS: CO2 Carbon Dioxide 64 mmol/L (22-32)
[2018-09-27] MEDS: Sertraline* 25 MG TAB PO SCH (09:28)
[2018-09-27] MEDS: Famotidine TAB* 20 MG PO SCH ×2 (09:28→20:57)
[2018-09-27] MEDS: methylPREDNISolone SOD 40 MG* 1 ML VIAL IV SCH (09:28)
[2018-09-27] MEDS: Cholecalciferol TAB* 1000 UNITS PO SCH (09:28)
[2018-09-27] MEDS: Furosemide IV* 10 MG/ML 2 ML VIAL (20 MG) IV SCH (09:41)
--- NOTE | 2018-09-27 12:17 | PN ---
Subjective Date of Service: 09/27/18 Interval History: No acute issues overnight On oxygen at 3 Liters, feeling okay, no SOB, no chest pain, no palpitations. Family History: Unchanged from Admission Social History: Unchanged from Admission Past Medical History: Unchanged from Admission Objective Active Medications: Acetaminophen (Tylenol Tab*) 650 mg PO Q4H PRN PRN Reason: PAIN Last Admin: 09/26/18 18:34 Dose: 650 mg Albuterol (Ventolin 2.5 Mg/3 Ml Neb.Anaid*) 2.5 mg INH Q4H PRN PRN Reason: SOB/WHEEZING Albuterol/Ipratropium (Duoneb (Albuterol 2.5 Mg/Ipratropium 0.5 Mg)) 1 neb INH Q4H PRN PRN Reason: SOB/WHEEZING Cholecalciferol (Vitamin D Tab*) 5,000 units PO DAILY [facility] Last Admin: 09/27/18 09:28 Dose: 5,000 units Enoxaparin Sodium (Lovenox(*)) 40 mg SUBCUT Q24H [facility] Last Admin: 09/26/18 16:17 Dose: 40 mg Famotidine (Pepcid Tab*) 20 mg PO BID [facility] Last Admin: 09/27/18 09:28 Dose: 20 mg Furosemide (Lasix Tab*) 20 mg PO 0800,1700 [facility] Heparin Sodium (Porcine) (Heparin Flush Picc/Ml/Cvc(*)) 1 - 3 ml FLUSH 0600, 1800 [facility]; Protocol Last Admin: 09/27/18 05:36 Dose: 3 ml Prednisone (Deltasone Tab*) 40 mg PO DAILY [facility] Sertraline HCl (Zoloft*) 25 mg PO DAILY [facility] Last Admin: 09/27/18 09:28 Dose: 25 mg Vital Signs - 8 hr 09/27/18 09/27/18 08:00 09:00 Temperature 97.3 F Pulse Rate 90 Respiratory 20 16 Rate Blood Pressure 95/50 (mmHg) O2 Sat by Pulse 100 Oximetry Oxygen Devices in Use Now: Nasal Cannula Appearance: Sitting on wheelchair with oxygen at 3 liters, no in distress, thin female. Eyes: PERRLA Respiratory: - - no tachypnea, mild expiratory wheezing. Cardiovascular: RRR, No Edema Extremities: No Edema Neurological: Alert and Oriented x 3 Result Diagrams: 09/27/18 05:45 09/27/18 05:45 Microbiology and Other Data: Microbiology 09/21/18 11:42 Nasal Screen MRSA (PCR) - Final Nasal Mrsa Detected 09/21/18 11:00 Legionella Urinary Antigen - Final Urine Negative Legionella Antigen Streptococcus pneumoniae Ag Screen - Final Negative S. pneumo Antigen 09/21/18 10:20 Gram Stain - Final Sputum Assess/Plan/Problems-Billing Assessment: 58 y/o female admitted for acute respiratory failure intubated on 09/21 and extubated 09/22 diagnosed for COPD exacerbation and pasturella multicoda pneumonaie - Patient Problems (1) Acute respiratory failure Current Visit: Yes Status: Acute Code(s): J96.00 - ACUTE RESPIRATORY FAILURE , UNSP W HYPOXIA OR HYPERCAPNIA SNOMED Code(s): 97178808 Comment: Due to pneumonia. Intubatd 09/21 Extubated 09/22 Improved- on baseline oxygen at 3 liters. at home also has trilogy- but does not use on a regular basis per significant other at bedside. (2) COPD exacerbation Current Visit: Yes Status: Acute Code(s): J44.1 - CHRONIC OBSTRUCTIVE PULMONARY DISEASE W (ACUTE) EXACERBATION SNOMED Code(s): 242142605 Comment: - Secondary to bronchitis and pneumonia -change solumedrol to prednisone. 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 Status and Disposition: pt/ot.discharge planning.likely home in 24-48h
[2018-09-27] MEDS: Enoxaparin(*) 40 MG/0.4 ML SYR SUBCUT SCH (15:57)
[2018-09-27] MEDS: Acetaminophen TAB* 325 MG PO PRN (16:03)
[2018-09-27] MEDS ORDERED: Furosemide TAB* 20 MG PO SCH (17:00)
[2018-09-28 07:56] LABS: Hematocrit 38 % (35-47); Mean Corpuscular HGB Conc 32 g/dL (31-36); Mean Corpuscular Hemoglobin 33 pg (27-31); Mean Corpuscular Volume 102 fL (80-97); Mean Platelet Volume 8.1 fL (7.4-10.4); Platelet Count 107 10^3/uL (150-450); Red Blood Count 3.69 10^6 /uL (3.70-4.87); Red Cell Distribution Width 14 % (10-15); White Blood Count 9.1 10^3/uL (3.5-10.8)
[2018-09-28 08:04] LABS: Blood Urea Nitrogen 18 mg/dL (6-24); Calcium 9.5 mg/dL (8.6-10.3); Chloride 86 mmol/L (101-111); EGFR African American 278.5 (>60); EGFR Non-African American 230.1 (>60); Glucose 98 mg/dL (70-100); Magnesium 1.7 mg/dL (1.9-2.7); Potassium 4.3 mmol/L (3.5-5.0); Sodium 143 mmol/L (135-145)
[2018-09-28 08:23] LABS: CO2 Carbon Dioxide 55 mmol/L (22-32)
[2018-09-28] MEDS ORDERED: predniSONE TAB* 20 MG PO SCH (09:00)
[2018-09-28] MEDS: Cholecalciferol TAB* 1000 UNITS PO SCH (09:44)
[2018-09-28] MEDS: Sertraline* 25 MG TAB PO SCH (09:44)
[2018-09-28] MEDS: Famotidine TAB* 20 MG PO SCH (09:44)
[2018-09-28] MEDS: Furosemide TAB* 20 MG PO SCH ×2 (09:44→09:55)
[2018-09-28] MEDS ORDERED: Magnesium Sulfate 2 GM IV* 2 GM/50 ML BAG IVPB ONE (12:21)
--- NOTE | 2018-09-28 12:35 | PN ---
Subjective Date of Service: 09/28/18 Interval History: No acute issues overnight participated with physical therapy. No shortness of breath, BP this morning was low, however no lightheaded, no chest pain, no acute shortness of breath. Family History: Unchanged from Admission Social History: Unchanged from Admission Past Medical History: Unchanged from Admission Objective Active Medications: Acetaminophen (Tylenol Tab*) 650 mg PO Q4H PRN PRN Reason: PAIN Last Admin: 09/27/18 16:03 Dose: 650 mg Albuterol (Ventolin 2.5 Mg/3 Ml Neb.Anaid*) 2.5 mg INH Q4H PRN PRN Reason: SOB/WHEEZING Albuterol/Ipratropium (Duoneb (Albuterol 2.5 Mg/Ipratropium 0.5 Mg)) 1 neb INH Q4H PRN PRN Reason: SOB/WHEEZING Cholecalciferol (Vitamin D Tab*) 5,000 units PO DAILY [facility] Last Admin: 09/28/18 09:44 Dose: 5,000 units Enoxaparin Sodium (Lovenox(*)) 40 mg SUBCUT Q24H [facility] Last Admin: 09/27/18 15:57 Dose: 40 mg Famotidine (Pepcid Tab*) 20 mg PO BID [facility] Last Admin: 09/28/18 09:44 Dose: 20 mg Furosemide (Lasix Tab*) 20 mg PO DAILY [facility] Last Admin: 09/28/18 09:55 Dose: Not Given Heparin Sodium (Porcine) (Heparin Flush Picc/Ml/Cvc(*)) 1 - 3 ml FLUSH 0600, 1800 [facility]; Protocol Last Admin: 09/28/18 06:34 Dose: 3 ml Magnesium Sulfate (Magnesium Sulfate 2 Gm Iv*) 2 gm in 50 mls @ 50 mls/hr IVPB ONCE ONE Stop: 09/28/18 13:20 Prednisone (Deltasone Tab*) 40 mg PO DAILY [facility] Last Admin: 09/28/18 09:44 Dose: 40 mg Sertraline HCl (Zoloft*) 25 mg PO DAILY [facility] Last Admin: 09/28/18 09:44 Dose: 25 mg Vital Signs - 8 hr 09/28/18 09/28/18 07:00 08:00 Temperature 97.7 F Pulse Rate 95 99 Respiratory 20 18 Rate Blood Pressure 94/40 (mmHg) O2 Sat by Pulse 100 96 Oximetry Oxygen Devices in Use Now: Nasal Cannula Appearance: Thin female sitting on bed, not in distress Ears/Nose/Mouth/Throat: Mucous Membranes Moist Respiratory: - - coarse breath sounds with scattered crackles Cardiovascular: NL Sounds; No Murmurs; No JVD, RRR Extremities: No Edema Neurological: Alert and Oriented x 3 Result Diagrams: 09/28/18 06:30 09/28/18 06:30 Additional Lab and Data: Above labs pulled into the note when the note was edited prior to signing. See labs from day of consultation below. Laboratory Tests 09/21/18 09/21/18 12:55 12:55 WBC 12.3 H Hgb 11.6 L Hct 37 Plt Count 145 L Sodium 140 Potassium 3.5 Chloride 96 L Carbon Dioxide 42 H* BUN 6 Creatinine 0.36 L Glucose 134 H Total Protein 5.1 L Albumin 2.7 L Microbiology and Other Data: Microbiology 09/21/18 11:42 Nasal Screen MRSA (PCR) - Final Nasal Mrsa Detected 09/21/18 11:00 Legionella Urinary Antigen - Final Urine Negative Legionella Antigen Streptococcus pneumoniae Ag Screen - Final Negative S. pneumo Antigen 09/21/18 10:20 Gram Stain - Final Sputum Assess/Plan/Problems-Billing Assessment: 58 y/o female admitted for acute respiratory failure intubated on 09/21 and extubated 09/22 diagnosed for COPD exacerbation and pasturella multicoda pneumonaie - Patient Problems (1) Acute respiratory failure Current Visit: Yes Status: Acute Code(s): J96.00 - ACUTE RESPIRATORY FAILURE , UNSP W HYPOXIA OR HYPERCAPNIA SNOMED Code(s): 03556356 Comment: Due to pneumonia. Intubatd 09/21 Extubated 09/22 Improved- on baseline oxygen at 3 liters. at home also has trilogy- but does not use on a regular basis per significant other at bedside. (2) COPD exacerbation Current Visit: Yes Status: Acute Code(s): J44.1 - CHRONIC OBSTRUCTIVE PULMONARY DISEASE W (ACUTE) EXACERBATION SNOMED Code(s): 934613359 Comment: - Secondary to bronchitis and pneumonia -change solumedrol to prednisone. 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 Status and Disposition: PT today if tolerates walking around without desating, then possible discharge
[2018-09-28 13:43] VITALS: BP 95/55
[2018-09-28] MEDS ORDERED: Amoxicillin/Clavulanate TAB* 875 MG PO ONE (14:47)
[2018-09-28] MEDS: Enoxaparin(*) 40 MG/0.4 ML SYR SUBCUT SCH (16:06)
--- NOTE | 2018-09-28 17:31 | DS ---
Amended report to enter date of discharge. CC: LEXA Ford; Dr. Treva Mckeon * DISCHARGE SUMMARY: DATE OF ADMISSION: 09/21/18 DATE OF DISCHARGE: 09/28/18 PRIMARY CARE PROVIDER: LEXA Ford PRIMARY FILTERATION OPERATOR: Dr. Treva Mckeon. REASON FOR THE ADMISSION: Respiratory distress. HOSPITAL COURSE: This is a 58-year-old female with end-stage COPD, on home oxygen and BiPAP/Trilogy; chronic hypercapnia; anxiety disorder who presented to the emergency room in a critical condition. She was found to be in respiratory distress, she was also hypotensive for which she received IV fluids and had a central line placed. She was also started on Levophed infusion. The patient was intubated and started on sedation with propofol. The patient was admitted to the intensive care unit and started on broad-spectrum antibiotics, started on vancomycin, Zosyn, and doxycycline. She was started on Levophed as well as IV hydration. Subsequently, the patient was extubated and subsequently also developed pulmonary edema for which we resumed her Lasix. She was eventually extubated and transferred to a regular floor. Her sputum culture had revealed a Pasteurella multocida. Diagnosis was made for Pasteurella multocida pneumonia. Her blood cultures remained negative. She has remained afebrile since 09/22/18, she had a fever of 100.1 and low-grade fever on 09/22/18. Her leukocytosis has resolved. This morning, the patient was able to ambulate without any shortness of breath, she does use oxygen and she was maintained on oxygen throughout the hospital course. She uses Trilogy at home at nighttime. She uses oxygen at 3 L nasal cannula. DISCHARGE MEDICATIONS: Include: 1. Amoxicillin/clavulanate 875 mg/125 for the next 4 days. 2. Anoro Ellipta 1 puff daily 62.5 mg. 3. Sodium chloride inhaled 3% b.i.d. 4. Prednisone 10 mg to take 2 tablets for the next 2 days and then resume 10 mg daily. 5. Furosemide 20 mg daily. 6. Alprazolam 0.125 mg b.i.d. as needed for anxiety. 7. Albuterol inhaler 2 puffs inhaled every 6 hours as needed for shortness of breath. 8. Albuterol nebulizer 2.5/3 mL every 4 hours. 9. Acetaminophen/codeine 1 tablet at bedtime as needed for pain. 10. Sertraline 25 mg daily. 11. Cholecalciferol 5000 units daily. DISCHARGE CONDITION: Improved. DISCHARGE DISPOSITION: The patient to go home with significant other. FOLLOWUP: The patient to follow up with Dr. Treva Mckeon on 10/01/18 at 10: 30 a.m. as well as primary care provider, LEXA Ford. For my physical exam from today, please review my progress note. DISCHARGE DIAGNOSES: Include: 1. Acute on chronic respiratory failure, requiring intubation, on chronic home oxygen. 2. Chronic obstructive pulmonary disease exacerbation. 3. Congestive heart failure. 4. Pasteurella pneumonia. [id number]/CPS #: [id number] MTDD
== END 2018-09-28 17:05 | disposition home or self-care (01) | DRG 710 ==
LOC: ED 09:44 → ICU 10:53 → MED 09-23 18:54
PROVIDERS: ADMIT Internal Medicine Critical Care Medicine; ATTEND Internal Medicine
PROC: 04HY32Z Insertion of Monitoring Device into Lower Artery, Percutaneous Approach (ICD-10-PCS; principal; 2018-09-21)
PROC: 0BH17EZ Insertion of Endotracheal Airway into Trachea, Via Natural or Artificial Opening (ICD-10-PCS; 2018-09-21)
PROC: 5A1945Z Respiratory Ventilation, 24-96 Consecutive Hours (ICD-10-PCS; 2018-09-21)
PROC: 05HN33Z Insertion of Infusion Device into Left Internal Jugular Vein, Percutaneous Approach (ICD-10-PCS; 2018-09-21)
PROC: B544ZZA Ultrasonography of Left Jugular Veins, Guidance (ICD-10-PCS; 2018-09-21)
DX: A41.9 Sepsis, unspecified organism (principal); J96.22 Acute and chronic respiratory failure with hypercapnia; J96.21 Acute and chronic respiratory failure with hypoxia; R65.21 Severe sepsis with septic shock; J16.8 Pneumonia due to other specified infectious organisms; J44.1 Chronic obstructive pulmonary disease with (acute) exacerbation; A28.0 Pasteurellosis; Z99.81 Dependence on supplemental oxygen; I95.9 Hypotension, unspecified; I50.9 Heart failure, unspecified; L89.022 Pressure ulcer of left elbow, stage 2; G47.33 Obstructive sleep apnea (adult) (pediatric); R40.2430 Glasgow coma scale score 3-8, unspecified time; F17.210 Nicotine dependence, cigarettes, uncomplicated; F41.9 Anxiety disorder, unspecified; Z80.1 Family history of malignant neoplasm of trachea, bronchus and lung; Z80.8 Family history of malignant neoplasm of other organs or systems; Z79.1 Long term (current) use of non-steroidal anti-inflammatories (NSAID); Z79.51 Long term (current) use of inhaled steroids; Z79.52 Long term (current) use of systemic steroids; Z79.899 Other long term (current) drug therapy
CPT/HCPCS: 36415; 36600; 71045; 80048; 80053; 80076; 81003; 82533; 82550; 82803; 83605; 83735; 83880; 84100; 84443; 84484; 85025; 85027; 85610; 86738; 87040; 87070; 87077; 87186; 87205; 87641; 87899; 93005; 94002; 94003; 94640; 94660; 99285; A9270-GY; G8978-GP-CL; G8979-GP-CI; J0330; J0696; J1644; J1650; J1940; J2250; J2543; J2704; J2920; J2930; J3010; J3370; J3475; J3480; J7512

== ENCOUNTER 2018-11-21 21:09 | Inpatient (IN) | payer OTHER ==
[2018-11-21] MEDS ORDERED: Albuterol 2.5 MG/3 ML NEB.SOL* (0.083%) INH ONE (21:35)
[2018-11-21] MEDS ORDERED: methylPREDNISolone 125 MG* 2 ML VIAL IV ONE (21:36)
[2018-11-21] MEDS ORDERED: Magnesium Sulfate 2 GM IV* 2 GM/50 ML BAG IVPB ONE (21:36)
[2018-11-21 22:08] LABS: ABS Basophils 0.1 10^3/ul (0-0.2); ABS Eosinophils 0.3 10^3/ul (0-0.6); ABS Monocytes 0.8 10^3/ul (0-0.8); ABS Neutrophils 10.3 10^3/ul (1.5-7.7); Eosinophil % 2.7 %; Hematocrit 43 % (35-47); Hemoglobin 13.4 g/dL (12.0-16.0); Lymphocyte % 8.2 %; Mean Corpuscular HGB Conc 31 g/dL (31-36); Mean Corpuscular Hemoglobin 31 pg (27-31); Mean Corpuscular Volume 100 fL (80-97); Mean Platelet Volume 7.5 fL (7.4-10.4); Platelet Count 167 10^3/uL (150-450); Red Blood Count 4.29 10^6 /uL (3.70-4.87); Red Cell Distribution Width 14 % (10-15); White Blood Count 12.5 10^3/uL (3.5-10.8)
--- OUTSIDE RECORDS SUMMARY | 2018-11-21 22:08 | XMS REPORT | Continuity of Care Document ---
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 Onset: 05/11/2014 Cervical spondylosis without myelopathy Ronni Key M.D. Onset: 05/29/2014 Fracture of coccyx Timbo Escobar M.D. Onset: 02/08/2016 Note: 01/2016 Anxiety Timbo Escobar M.D. Onset: 02/08/2016 Chronic obstructive lung disease MONICA Ford Onset: 11/19/2016 Note: O2-dependent Social History Type Date Description Comments Sex Unknown Tobacco Use End: 05/24/18 Current Cigarette Smoker 1 40 years Pack Daily Smoking Status Reviewed: 11/10/18 Current Cigarette Smoker 1 40 years Pack Daily ETOH Use Denies alcohol use Recreational Drug Use Denies Drug Use Tobacco Use Start: Unknown End: Patient is a former smoker Unknown Exercise Type/Frequency Exercises sporadically Allergies, Adverse Reactions, Alerts Description No Known Drug Allergies Medications Active Medications SIG Qnty Indications Ordering Date Provider Swapna Allergy 1 by mouth every 30tabs J30.9 Daniela Martinez, 11/10/2018 60mg day SWITCHBOARD INSTALLER Tablets Hydroxyzine HCL take 1 tab by 30tabs Daniela Martinez, 10/08/2018 10mg mouth twice a day SWITCHBOARD INSTALLER Tablets as needed for anxiety Mouthpiece For Use To use prn with J44.9 Aliya 10/01/2018 With Trilogy Trilogy Anabell, MEND WORKER Noninvaisive Ventilator Cholecalciferol 5000 1 by mouth every 30units Daniela Martinez, 09/29/2018 Units day SWITCHBOARD INSTALLER Amoxicillin/Clavulanat take one tablet q 20tabs [facility] Juan, 09/29/2018 e Potassium 12 hours for 4 SWITCHBOARD INSTALLER 875-125mg days Tablets Prednisone take 2 tabs by 90tabs J44.9 [facility], 08/11/2018 10mg Tablets mouth daily for 2 SWITCHBOARD INSTALLER days,then 10 mg daily Wheelchair wheelchair 1units J44.9 Josee 07/09/2018 [facility] Linda Chavez J96.22 Furosemide 1 by mouth mondays and 30tabs R60.0 [facility] Juan, [facility] 2018 20mg fridays Tablets Acetaminophen-Codein 1 tab by mouth at 30tabs [facility] Juan, [facility] 2018 e #3 bedtime as needed for 300-30mg Tablets pain Sertraline HCL take one tablet by 30tabs F43.23 [facility] Juan, [facility] 2018 25mg mouth every day Tablets Oxygen please use o2 at 1units J96.10 Treva Mckeon MD 08/11/2017 [facility] 2l/min during exertion, pls provide pt with portable o2 concentrator Nebusal 1 unit twice daily 240ml Ki44.Taylor Mckeon MD 04/30/2017 3% Nebulizer Acapella Use as directed Ki44.Taylor Mcekon MD 04/30/2017 [facility] Pulse Oximeter use as instructed [facility] Ki44.Taylor Mckeon MD 2016 [facility] Ventolin HFA 2 puffs by mouth four 8gm J44.1 Aliya 06/13/2016 times a day as needed MARIAMA Hung 108(90Base) mcg/Act Aerosol Albuterol Sulfate inhale the contents of 270ml J44.1 [place] Kohli, one vial via nebulizer MEND WORKER (2.5mg/3ML) 0.083% every 4 hours while Nebulizer awak Anoro Ellipta 1 inhalation daily 1units Treva Mckeon MD 62.5-25mcg/Inh Aerosol Immunizations CPT Code Status Date Vaccine Reaction Lot # [id number] Given 04/14/2018 Pneumonia Vaccine shot tolerated well, no [id number] immediate reaction. 72664 Given 03/10/2018 Influenza Virus Vaccine, [id number] Quadrivalent, Split, Preservative Free 07285 Given 12/24/2016 Pneumococcal Conjugate no immediate reaction, [id number] Vaccine 13 Valent For pt tolerated well Intramuscular Use 95940 Given 11/19/2016 Influenza Virus Vaccine, no immediate reaction, [id number] Quadrivalent, Split, pt tolerated well Preservative Free Vital Signs Date Vital Result Comment 11/10/2018 11:57am Height 64 inches 5'4" Weight 96.00 lb Heart Rate 103 /min BP Systolic 90 mmHg BP Diastolic 60 mmHg Body Temperature 98.1 F O2 % BldC Oximetry 74 % pt on 3 liters BMI (Body Mass Index) 16.5 kg/m2 10/01/2018 1:27pm Height 64 inches 5'4" Weight 89.25 lb Heart Rate 92 /min BP Systolic Sitting 86 mmHg Rue reg cuff BP Diastolic Sitting 62 mmHg Rue reg cuff Respiratory Rate 16 /min O2 % BldC Oximetry 89 % On O2 set to 3, pulse, Poc via nasal canula BMI (Body Mass Index) 15.3 kg/m2 Results Test Date Facility Test Result H/L Range Note Basic Metabolic 07/09/2018 [facility] Sodium 140 mmol/L Normal 135-145 Panel [address] [place] [address] [phone] Potassium 4.7 mmol/L Normal 3.5-5.0 Chloride 90 mmol/L Low 101-111 Glucose 137 mg/dL High 70-100 Blood Urea Nitrogen 9 mg/dL Normal 6-24 Creatinine 0.46 mg/dL Low 0.51-0.95 BUN/Creatinine Ratio 19.6 Normal 8-20 Calcium 9.4 mg/dL Normal 8.6-10.3 Egfr Non- 140.5 >60 Egfr 170.0 >60 1 Co2 Carbon Dioxide 47 mmol/L Critical high 22-32 2 Arterial Blood Gas 06/16/2018 [facility] O2 Device Vent [address] [place] [address] [phone] Fio2 60 Vent Mode CMV Ventilator Volume 350 Resp Rate 20 Peep 5 Inspiratory Time 0.65 PH Arterial 7.43 Normal 7.35-7.45 Pco2 Arterial 74 mmHg Critical high 35-45 3 Po2 Arterial 242 mmHg High 80-100 O2 Saturation Arterial 100.0 % High 94.0-98.0 Base Excess Arterial 20.3 mmol/L High -2.0-2.0 4 Hco3 Arterial 40.7 mmol/L Critical high 19-31 5 CBC Auto 06/16/2018 [facility] White Blood 11.4 10^3/uL High 3.5-10.[address] [place] [address] [phone] Red Blood Count 4.46 10^6/uL Normal 3.70-4.87 Hemoglobin 14.4 g/dL Normal 12.0-16.0 Hematocrit 45 % High 33-41 Mean Corpuscular Volume 102 fL High 80-97 Mean Corpuscular Hemoglobin 32 pg High 27-31 Mean Corpuscular HGB Conc 32 g/dL Normal 31-36 Red Cell Distribution Width 14 % Normal 10.5-15 Platelet Count 249 10^3/uL Normal 150-450 Mean Platelet Volume 7.9 fL Normal 7.4-10.4 Abs Neutrophils 7.3 10^3/uL Normal 1.5-7.7 Abs Lymphocytes 2.6 10^3/uL Normal 1.0-4.8 Abs Monocytes 1.0 10^3/uL High 0-0.8 Abs Eosinophils 0.3 10^3/uL Normal 0-0.6 Abs Basophils 0.1 10^3/uL Normal 0-0.2 Abs Nucleated RBC 0 10^3/uL Granulocyte % 64.1 % Lymphocyte % 23.0 % Monocyte % 8.9 % Eosinophil % 2.9 % Basophil % 1.1 % Nucleated Red Blood Cells % 0 Laboratory test 06/16/2018 [facility] Lactic Acid 1.3 mmol/L Normal 0.5-2.0 [address] [place] [address] [phone] B-Type Natriuretic Peptide BNP 977 pg/mL High <=100 Inr/Protime 06/16/2018 [facility] Inr 1.16 High 0.82-1.[address] [place] [address] [phone] Laboratory test 06/16/2018 [facility] Partial 31.2 Normal 26.0 -36.[address] [place] [address] Time PTT [phone] Troponin-I (TnI) 0.03 ng/mL <0.04 8 Comp Metabolic 06/16/2018 [facility] Sodium 141 mmol/L Normal 135-145 Panel [address] [place] [address] [phone] Potassium 4.1 mmol/L Normal 3.5-5.0 Chloride 91 mmol/L Low 101-111 Glucose 181 mg/dL High 70-100 Blood Urea Nitrogen 9 mg/dL Normal 6-24 Creatinine 0.47 mg/dL Low 0.51-0.95 BUN/Creatinine Ratio 19.1 Normal 8-20 Calcium 8.6 mg/dL Normal 8.6-10.3 Total Protein 6.7 g/dL Normal 6.4-8.9 Albumin 3.4 g/dL Normal 3.2-5.2 Globulin 3.3 g/dL Normal 2-4 Albumin/Globulin Ratio 1.0 Normal 1-3 Total Bilirubin 0.30 mg/dL Normal 0.2-1.0 Alkaline Phosphatase 85 U/L Normal 34-104 Alt 25 U/L Normal 7-52 Ast 32 U/L Normal 13-39 Egfr Non- 137.1 >60 Egfr 165.9 >60 9 Co2 Carbon Dioxide 46 mmol/L Critical high 22-32 10 Urinalysis Profile 06/16/2018 [facility] Urine Color Yellow [address] [place] [address] [phone] Urine Appearance Clear Urine Specific [place] 1.018 Normal 1.010-1.030 Urine pH 6.0 Normal 5-9 Urine Urobilinogen Negative Negative Urine Ketones Negative Negative Urine Protein Negative Negative Urine Leukocytes Negative Negative Urine Blood Negative Negative Urine Nitrite Negative Negative Urine Bilirubin Negative Negative Urine Glucose Negative Negative Laboratory test 06/16/2018 [facility] Blood Culture SEE RESULT [address] [place] [address] [phone] Arterial Blood 06/16/2018 [facility] O2 Device 7 lpm Nebulizer Gas [address] [place] [address] [phone] PH Arterial 7.13 Critical low 7.35-7.45 12 Pco2 Arterial > 125 mmHg Critical high 35-45 13 Po2 Arterial 167 mmHg High 80-100 O2 Saturation Arterial 100.0 % High 94.0-98.0 Base Excess Arterial TNP mmol/L -2.0-2.0 14 Hco3 Arterial TNP mmol/L 19-31 15 1 Because ethnic data is not always readily available, this report includes an eGFR for both -Americans and non- Americans. The National Kidney Disease Education Program (NKDEP) does not endorse the use of the MDRD equation for patients that are not between the ages of 18 and 70, are , have extremes of body size, muscle mass, or nutritional status, or are non- or non-. According to the National Kidney Foundation, irrespective of diagnosis, the stage of the disease is based on the level of kidney function: Stage Description GFR(mL/min/1.73 m(2)) 1 Kidney damage with normal or decreased GFR 90 2 Kidney damage with mild decrease in GFR 60-89 3 Moderate decrease in GFR 30-59 4 Severe decrease in GFR 15-29 5 Kidney failure <15 (or dialysis) 2 Consistent with Previous Results Reported on 06/27/18 Critical Result CO2:[address] RICHARD at: 19:36:20 by:[email or web address] Read back by :DR RICHARD 3 Verbal to [id number] by [id number] at 1740 on 06/16/18. Results read back accurately. 4 Reference ranges based on room air. 5 Verbal to [id number] by [id number] at 1740 on 06/16/18. Results read back accurately. 6 [facility] Severe Sepsis and Septic Shock Management Bundle Measure requires all lactic acids initially measuring >2.0 mmol/L be repeated. 7 Standard intensity warfarin therapeutic range: 2.0-3.0 High intensity warfarin therapeutic range: 2.5-3.5 8 Troponin-I testing on Plasma Separator Tubes (PST) has a known false positive rate of 0.20-0.40%. All positive troponins reflex immediately to secondary confirmatory testing. Using the AppTapI 800 Access Immunoassay systems, the 99th percentile upper reference limit was demonstrated to be < 0.03 ng/mL. 9 Because ethnic data is not always readily available, this report includes an eGFR for both -Americans and non- Americans. The National Kidney Disease Education Program (NKDEP) does not endorse the use of the MDRD equation for patients that are not between the ages of 18 and 70, are , have extremes of body size, muscle mass, or nutritional status, or are non- or non-. According to the National Kidney Foundation, irrespective of diagnosis, the stage of the disease is based on the level of kidney function: Stage Description GFR(mL/min/1.73 m(2)) 1 Kidney damage with normal or decreased GFR 90 2 Kidney damage with mild decrease in GFR 60-89 3 Moderate decrease in GFR 30-59 4 Severe decrease in GFR 15-29 5 Kidney failure <15 (or dialysis) 10 Critical Result CO2:46 Called to [id number] at: 16:43:09 by:[id number] Read back by:[email or web address] 11 SEE RESULT BELOW Name: NAVDEEPMEGAYO : [address]: Surinder Trejo MD Acct: [id number] Unit: [id number] AGE: 58 Location: ICU [id number] Re06/16/18 SEX: F Status: ADM IN SPEC: [id number] LORI: 06/16/18-[address]: Seb Silverio MD REQ: [id number] RECD: 06/16/18 STATUS: RES OTHR DR: Farooq Kessler MD _ SOURCE: BLOOD,VENO SPDESC: ORDERED: Blood Cult, MRSA/SA BC PCR COMMENTS: Patient is On Antibiotics? NO Verbal to [id number] by [id number] at 0857 on 06/17/18. Results read back accurately. Procedure Result Reported Site Aerobic Culture Bottle Preliminary 06/17/18- 1418 ML Aerobic Bottle Gram Stain Gram Positive Cocci resembling Stap Anaerobic Culture Bottle PENDING MRSA/S. aureus Blood Cult PCR Final 06/17/18- 1228 ML Organism 1 MRSA NEGATIVE Organism 2 S.AUREUS POSITIVE * ML - Main Lab . END OF REPORT DEPARTMENT OF PATHOLOGY, [address] [place] [address] Jj Boudreaux M.D. Director [facility] # [id number] 12 Verbal to [id number] by [id number] at 1530 on 06/16/18. Results read back accurately. 13 Verbal to [id number] by [id number] at 1530 on 06/16/18. Results read back accurately. 14 Analyzer was unable to calculate results due to insufficant data. 15 Analyzer was unable to calculate results due to insufficant data. Procedures Date Code Description Status 09/21/2018 06407 Arterial Line Completed 09/21/2018 49254 Insert Non-Tunneled Venous Catether Completed 06/20/2018 34766 ECHO Transthorasic Realtime 2D W Doppler & Color Flow Completed Hosp 12/16/2016 [id number] Mammogram Completed Medical Devices Description No Information Available Encounters Type Date Location Provider Dx Diagnosis Office Visit 10/01/2018 [facility] Aliya J44.9 Chronic 1:30p [facility] Hung obstructive Hog Scraper pulmonary disease, unspecified J96.92 Respiratory failure, unspecified with hypercapnia J96.91 Respiratory failure, unspecified with hypoxia F17.210 Nicotine dependence, cigarettes, uncomplicated Office Visit 09/28/[address] [facility] J96.20 Acute and chr 9:13a salvador Mckeon MD resp failure, Hospitalists unsp w hypoxia or hypercapnia J44.1 Chronic obstructive pulmonary disease w (acute) exacerbation I50.9 Heart failure, unspecified J15.211 Pneumonia due to methicillin suscep staph Office Visit 09/27/[address] [facility] J96.00 Acute respiratory 9:13a salvador Mckeon MD failure, unsp w Hospitalists hypoxia or hypercapnia J44.1 Chronic obstructive pulmonary disease w (acute) exacerbation A28.0 Pasteurellosis J18.9 Pneumonia, unspecified organism Office Visit 09/26/2018 [facility] J96.00 Acute 9:12a salvador Mckeon MD respiratory Hospitalists failure, unsp w hypoxia or hypercapnia A28.0 Pasteurellosis J44.1 Chronic obstructive pulmonary disease w (acute) exacerbation J18.9 Pneumonia, unspecified organism Office Visit 09/25/2018 [facility] J44.1 Chronic 9:12a salvador Mckeon MD obstructive Hospitalists pulmonary disease w (acute) exacerbation A28.0 Pasteurellosis J18.9 Pneumonia, unspecified organism Office Visit 09/24/2018 [facility] J44.1 Chronic 9:12a salvador Mckeon M.D. obstructive Hospitalists pulmonary disease w (acute) exacerbation J18.9 Pneumonia, unspecified organism Office Visit 09/23/2018 9:10a [facility]ens[facility] Ki Lucero96.21 Acute and chronic MD respiratory failure with hypoxia J96.22 Acute and chronic respiratory failure with hypercapnia J44.1 Chronic obstructive pulmonary disease w (acute) exacerbation A28.0 Pasteurellosis E87.2 Acidosis Office Visit 09/22/2018 9:10a [facility] Shelley Lucero.21 Acute and chronic MD respiratory failure with hypoxia J96.22 Acute and chronic respiratory failure with hypercapnia J44.1 Chronic obstructive pulmonary disease w (acute) exacerbation A41.9 Sepsis, unspecified organism R65.21 Severe sepsis with septic shock E87.2 Acidosis Office Visit 09/21/2018 9:09a [facility] Shelley Lucero.21 Acute and chronic MD respiratory failure with hypoxia I95.9 Hypotension, unspecified J96.22 Acute and chronic respiratory failure with hypercapnia J44.1 Chronic obstructive pulmonary disease w (acute) exacerbation A41.9 Sepsis, unspecified organism R65.21 Severe sepsis with septic shock Office Visit 09/21/2018 [facility] Theodore L89.022 Pressure ulcer of 8:15a Center AT [facility] Jose, MEND WORKER left elbow, stage 2 Office Visit 08/11/2018 [facility] Internal Daniela Martinez J44.9 Chronic 11:40a Medicine - SWITCHBOARD INSTALLER obstructive Ccmob pulmonary disease, unspecified R60.0 Localized edema Office Visit 07/09/2018 2:00p [facility] Internal Josee J44.9 Chronic Medicine - Linda Chavez obstructive Ccmob pulmonary disease, unspecified R60.0 Localized edema Office Visit 07/01/2018 10:45a [facility] And Treva J44.9 Chronic [facility] MD Mike obstructive Hog Scraper pulmonary disease, unspecified J96.92 Respiratory failure, unspecified with hypercapnia J96.91 Respiratory failure, unspecified with hypoxia Office Visit 06/27/2018 9:34a [facility] Nena Wagner J96.22 Acute and chronic Assoc,pc MD respiratory Hospitalists failure with hypercapnia J96.21 Acute and chronic respiratory failure with hypoxia J20.8 Acute bronchitis due to other specified organisms J44.1 Chronic obstructive pulmonary disease w (acute) exacerbation G47.33 Obstructive sleep apnea (adult) (pediatric) B95.61 Methicillin suscep staph infct causing dis classd elswhr Office Visit 06/26/2018 2:55p [facility] Treva J44.1 Chronic [facility] MD Mike obstructive Hog Scraper pulmonary disease w (acute) exacerbation J96.92 Respiratory failure, unspecified with hypercapnia Z87.891 Personal history of nicotine dependence Office Visit 06/26/2018 9:33a [facility] Nena Wagner, J96.22 Acute and chronic Assoc,salvador PICKETT respiratory Hospitalists failure with hypercapnia J96.21 Acute and chronic respiratory failure with hypoxia J20.8 Acute bronchitis due to other specified organisms J44.1 Chronic obstructive pulmonary disease w (acute) exacerbation G47.33 Obstructive sleep apnea (adult) (pediatric) B95.61 Methicillin suscep staph infct causing dis classd elswhr Office Visit 06/25/2018 9:30a [facility] Jennifer J96.22 Acute and chronic Assoc,salvador Lobato M.D. respiratory Hospitalists failure with hypercapnia J96.21 Acute and chronic respiratory failure with hypoxia J20.8 Acute bronchitis due to other specified organisms J44.1 Chronic obstructive pulmonary disease w (acute) exacerbation B95.61 Methicillin suscep staph infct causing dis classd elswhr M62.81 Muscle weakness (generalized) Office Visit 06/24/2018 9:30a [facility] Jennifer J96.22 Acute and chronic Assoc,salvador Lobato M.D. respiratory Hospitalists failure with hypercapnia J96.21 Acute and chronic respiratory failure with hypoxia J20.8 Acute bronchitis due to other specified organisms J44.1 Chronic obstructive pulmonary disease w (acute) exacerbation B95.61 Methicillin suscep staph infct causing dis classd elswhr M62.81 Muscle weakness (generalized) Office Visit 06/23/2018 9:29a [facility] Jennifer J96.22 Acute and chronic Assoc,salvador Lobato M.D. respiratory Hospitalists failure with hypercapnia J96.21 Acute and chronic respiratory failure with hypoxia J20.8 Acute bronchitis due to other specified organisms J44.1 Chronic obstructive pulmonary disease w (acute) exacerbation B95.61 Methicillin suscep staph infct causing dis classd elswhr M62.81 Muscle weakness (generalized) Office Visit 06/23/2018 9:09a Pul[facility]ology [facility] Treva J44.1 Chronic [facility] MD Mike obstructive Hog Scraper pulmonary disease w (acute) exacerbation Z87.891 Personal history of nicotine dependence J96.92 Respiratory failure, unspecified with hypercapnia J96.91 Respiratory failure, unspecified with hypoxia A49.01 Methicillin suscep staph infection, unsp site Office Visit 06/22/2018 9:27a [facility] Conchita J44.1 Chronic Services Of Tiago Mansfield MD obstructive pulmonary disease w (acute) exacerbation R06.02 Shortness of breath G89.29 Other chronic pain Office Visit 06/22/2018 [facility] Farooq Marroquin J44.1 Chronic 9:25a Assocsalvador M.D.,FACP obstructive Hospitalists pulmonary disease w (acute) exacerbation J96.91 Respiratory failure, unspecified with hypoxia J96.92 Respiratory failure, unspecified with hypercapnia B95.61 Methicillin suscep staph infct causing dis classd elswhr Office Visit 06/21/2018 [facility] Farooq Marroquin J96.91 Respiratory 9:22a Assocsalvador M.D.,FACP failure, Hospitalists unspecified with hypoxia J96.92 Respiratory failure, unspecified with hypercapnia B95.61 Methicillin suscep staph infct causing dis classd elswhr Office Visit 06/20/2018 9:20a Mauricio Emerson96.Sandrine Respiratory Assocsalvador M.D. failure, Hospitalists unspecified with hypercapnia J96.91 Respiratory failure, unspecified with hypoxia B95.61 Methicillin suscep staph infct causing dis classd elswhr G47.33 Obstructive sleep apnea (adult) (pediatric) Office Visit 06/19/2018 9:19a Mauricio Rosa.Sandrine Respiratory Assocsalvador M.D. failure, Hospitalists unspecified with hypercapnia J96.91 Respiratory failure, unspecified with hypoxia B95.61 Methicillin suscep staph infct causing dis classd elswhr G47.33 Obstructive sleep apnea (adult) (pediatric) Office Visit 06/18/2018 9:18a Mauricio Emerson96.92 Respiratory Assocsalvador M.D. failure, Hospitalists unspecified with hypercapnia J96.91 Respiratory failure, unspecified with hypoxia B95.61 Methicillin suscep staph infct causing dis classd elswhr G47.33 Obstructive sleep apnea (adult) (pediatric) Office Visit 06/17/2018 9:17a Intensivists Surinder Trejo J44.1 Chronic obstructive M.D. pulmonary disease w (acute) exacerbation Office Visit 06/16/2018 9:16a [facility] Surinder Trejo, J44.9 Chronic obstructive M.D. pulmonary disease, unspecified J96.02 Acute respiratory failure with hypercapnia Assessments Date Code Description Provider 11/10/2018 J44.9 Chronic obstructive pulmonary Zsofia Juan, SWITCH[employer]ARD INSTALLER disease, unspecified 11/10/2018 J30.9 Allergic rhinitis, unspecified Zsofia Juan, SWITCHBOARD INSTALLER 11/10/2018 I95.89 Other hypotension Zsofia Juan, SWITCHBOARD INSTALLER 11/10/2018 L89.029 Pressure ulcer of left elbow, Zsofia Juan, SWITCHBOARD INSTALLER unspecified stage 10/01/2018 J44.9 Chronic obstructive pulmonary Aliya Hung NP disease, unspecified 10/01/2018 J96.92 Respiratory failure, unspecified Aliya Hung NP with hypercapnia 10/01/2018 J96.91 Respiratory failure, unspecified Aliya Hung MEND WORKER with hypoxia 10/01/2018 F17.210 Nicotine dependence, cigarettes, Aliya Hung NP uncomplicated 09/28/2018 J96.20 Acute and chronic respiratory Wendy Lam MD failure, unspecified whether with hypoxia or hypercapnia 09/28/2018 J44.1 Chronic obstructive pulmonary Wendy Lam MD disease with (acute) exacerbation 09/28/2018 I50.9 Heart failure, unspecified Wendy Lam MD 09/28/2018 J15.211 Pneumonia due to Methicillin Wendy Lam MD susceptible Staphylococcus aureus 09/27/2018 J96.00 Acute respiratory failure, Wendy Lam MD unspecified whether with hypoxia or hypercapnia 09/27/2018 J44.1 Chronic obstructive pulmonary Wendy Lam MD disease with (acute) exacerbation 09/27/2018 A28.0 Pasteurellosis Wendy Lam MD 09/27/2018 J18.9 Pneumonia, unspecified organism Wendy Lam MD 09/26/2018 J96.00 Acute respiratory failure, Daphne Hurtado MD unspecified whether with hypoxia or hypercapnia 09/26/2018 A28.0 Lenyellosis Daphne Hurtado MD 09/26/2018 J44.1 Chronic obstructive pulmonary Daphne Hurtado MD disease with (acute) exacerbation 09/26/2018 J18.9 Pneumonia, unspecified organism Daphne Hurtado MD 09/25/2018 J44.1 Chronic obstructive pulmonary Daphne Hurtado MD disease with (acute) exacerbation 09/25/2018 A28.0 Selene Hurtado MD 09/25/2018 J18.9 Pneumonia, unspecified organism Daphne Hurtado MD 09/24/2018 J44.1 Chronic obstructive pulmonary Ankit Billings M.D. disease with (acute) exacerbation 09/24/2018 J18.9 Pneumonia, unspecified organism Ankit Billings M.D. 09/23/2018 J96.21 Acute and chronic respiratory Frank Clifton MD failure with hypoxia 09/23/2018 J96.22 Acute and chronic respiratory Frank Clifton MD failure with hypercapnia 09/23/2018 J44.1 Chronic obstructive pulmonary Frank Clifton MD disease with (acute) exacerbation 09/23/2018 A28.0 Selene Clifton MD 09/23/2018 E87.2 Acidosis Frank Clifton MD 09/22/2018 J96.21 Acute and chronic respiratory Frank Clifton MD failure with hypoxia 09/22/2018 J96.22 Acute and chronic respiratory Frank Clifton MD failure with hypercapnia 09/22/2018 J44.1 Chronic obstructive pulmonary Frank Clifton MD disease with (acute) exacerbation 09/22/2018 A41.9 Sepsis, unspecified organism Frank Clifton MD 09/22/2018 R65.21 Severe sepsis with septic shock Frakn Clifton MD 09/22/2018 E87.2 Acidosis Frank Clifton MD 09/21/2018 J96.21 Acute and chronic respiratory Frank Clifton MD failure with hypoxia 09/21/2018 I95.9 Hypotension, unspecified Frank Clifton MD 09/21/2018 L89.022 Pressure ulcer of left elbow, stage Cynthia Arben Garcia, [employer] 2 09/21/2018 J96.22 Acute and chronic respiratory Frank Clifton MD failure with hypercapnia 09/21/2018 J44.1 Chronic obstructive pulmonary Frank Clifton MD disease with (acute) exacerbation 09/21/2018 A41.9 Sepsis, unspecified organism Frank lCifton MD 09/21/2018 R65.21 Severe sepsis with septic shock Frank Clifton MD 08/11/2018 J44.9 Chronic obstructive pulmonary Daniela Martinez [employer] disease, unspecified 08/11/2018 R60.0 Localized edema MONICA Ford 07/09/2018 J44.9 Chronic obstructive pulmonary Josee Chavez M.D. disease, unspecified 07/09/2018 R60.0 Localized edema Josee Chavez M.D. 07/01/2018 J44.9 Chronic obstructive pulmonary Treva Mckeon MD disease, unspecified 07/01/2018 J96.92 Respiratory failure, unspecified Treva Mckeon MD with hypercapnia 07/01/2018 J96.91 Respiratory failure, unspecified Treva Mckeon MD with hypoxia 06/27/2018 J96.22 Acute and chronic respiratory La Nena Wagner MD failure with hypercapnia 06/27/2018 J96.21 Acute and chronic respiratory La Nena Wagner MD failure with hypoxia 06/27/2018 J20.8 Acute bronchitis due to other La Nena Wagner MD specified organisms 06/27/2018 J44.1 Chronic obstructive pulmonary La Nena Wagner MD disease w (acute) exacerbation 06/27/2018 G47.33 Obstructive sleep apnea (adult) La Nena Wagner MD (pediatric) 06/27/2018 B95.61 Methicillin suscep staph infct La Nena Wagner MD causing dis classd elswhr 06/26/2018 J44.1 Chronic obstructive pulmonary Treva Mckeon MD disease with (acute) exacerbat 06/26/2018 J96.92 Respiratory failure, unspecified Treva Mckeon MD with hypercapnia 06/26/2018 Z87.891 Personal history of nicotine Treva Mckeon MD dependence 06/26/2018 J96.22 Acute and chronic respiratory La Nena Wagner MD failure with hypercapnia 06/26/2018 J96.21 Acute and chronic respiratory La Nena Wagner MD failure with hypoxia 06/26/2018 J20.8 Acute bronchitis due to other La Nena Wagner MD specified organisms 06/26/2018 J44.1 Chronic obstructive pulmonary La Nena Wagner MD disease w (acute) exacerbation 06/26/2018 G47.33 Obstructive sleep apnea (adult) La Nena Wagner MD (pediatric) 06/26/2018 B95.61 Methicillin suscep staph infct La Nena Wagner MD causing dis classd elswhr 06/25/2018 J96.22 Acute and chronic respiratory Jennifer Lobato M.D. failure with hypercapnia 06/25/2018 J96.21 Acute and chronic respiratory Jennifer Lobato M.D. failure with hypoxia 06/25/2018 J20.8 Acute bronchitis due to other Jennifer Lobato M.D. specified organisms 06/25/2018 J44.1 Chronic obstructive pulmonary Jennifer Lobato M.D. disease w (acute) exacerbation 06/25/2018 B95.61 Methicillin suscep staph infct Jennifer Lobato M.D. causing dis classd elswhr 06/25/2018 M62.81 Muscle weakness (generalized) Jennifer Lobato M.D. 06/24/2018 J96.22 Acute and chronic respiratory Jennifer Lobato M.D. failure with hypercapnia 06/24/2018 J96.21 Acute and chronic respiratory Jennifer Lobato M.D. failure with hypoxia 06/24/2018 J20.8 Acute bronchitis due to other Jennifer Lobato M.D. specified organisms 06/24/2018 J44.1 Chronic obstructive pulmonary Jennifer Lobato M.D. disease w (acute) exacerbation 06/24/2018 B95.61 Methicillin suscep staph infct Jennifer Lobato M.D. causing dis classd elswhr 06/24/2018 M62.81 Muscle weakness (generalized) Jennifer Lobato M.D. 06/23/2018 J44.1 Chronic obstructive pulmonary Treva Mckeon MD disease with (acute) exacerbat 06/23/2018 Z87.891 Personal history of nicotine Treva Mckeon MD dependence 06/23/2018 J96.92 Respiratory failure, unspecified Treva Mckeon MD with hypercapnia 06/23/2018 J96.91 Respiratory failure, unspecified Treva Mckeon MD with hypoxia 06/23/2018 A49.01 Methicillin suscep staph infection, Treva Mckeon MD [facility] 06/23/2018 J96.22 Acute and chronic respiratory Jennifer Lobato M.D. failure with hypercapnia 06/23/2018 J96.21 Acute and chronic respiratory Jennifer Lobato M.D. failure with hypoxia 06/23/2018 J20.8 Acute bronchitis due to other Jennifer Lobato M.D. specified organisms 06/23/2018 J44.1 Chronic obstructive pulmonary Jennifer Lobato M.D. disease w (acute) exacerbation 06/23/2018 B95.61 Methicillin suscep staph infct Jennifer Lobato M.D. causing dis classd elswhr 06/23/2018 M62.81 Muscle weakness (generalized) Jennifer Lobato M.D. 06/22/2018 J44.1 Chronic obstructive pulmonary Conchita Mansfield MD disease w (acute) exacerbation 06/22/2018 R06.02 Shortness of breath Conchita Mansfield MD 06/22/2018 J44.1 Chronic obstructive pulmonary Farooq Kessler M.D.,FACP disease w (acute) exacerbation 06/22/2018 G89.29 Other chronic pain Conchita Mansfield MD 06/22/2018 J96.91 Respiratory failure, unspecified Farooq Kessler M.D., FACP with hypoxia 06/22/2018 J96.92 Respiratory failure, unspecified Farooq Kessler M.D., FACP with hypercapnia 06/22/2018 B95.61 Methicillin suscep staph infct Farooq Kessler M.D., FACP causing dis classd elswhr 06/21/2018 J96.91 Respiratory failure, unspecified Farooq Kessler M.D., FACP with hypoxia 06/21/2018 J96.92 Respiratory failure, unspecified Farooq Kessler M.D., FACP with hypercapnia 06/21/2018 B95.61 Methicillin suscep staph infct Farooq Kessler M.D., [facility] causing dis classd elswhr 06/20/2018 J96.92 Respiratory failure, unspecified Timbo Escobar M.D. with hypercapnia 06/20/2018 R78.81 Bacteremia Riaz Skaggs M.D., [facility], [facility] 06/20/2018 J96.91 Respiratory failure, unspecified Timbo Escobar M.D. with hypoxia 06/20/2018 B95.61 Methicillin suscep staph infct Timbo Escobar M.D. causing dis classd elswhr 06/20/2018 G47.33 Obstructive sleep apnea (adult) Timbo Escobar M.D. (pediatric) 06/19/2018 J96.92 Respiratory failure, unspecified Timbo Escobar M.D. with hypercapnia 06/19/2018 J96.91 Respiratory failure, unspecified Timbo Escobar M.D. with hypoxia 06/19/2018 B95.61 Methicillin suscep staph infct Timbo Escobar M.D. causing dis classd elswhr 06/19/2018 G47.33 Obstructive sleep apnea (adult) Timbo Escobar M.D. (pediatric) 06/18/2018 J96.92 Respiratory failure, unspecified Timbo Escobar M.D. with hypercapnia 06/18/2018 J96.91 Respiratory failure, unspecified Timbo Escobar M.D. with hypoxia 06/18/2018 B95.61 Methicillin suscep staph infct Timbo Escobar M.D. causing dis classd elswhr 06/18/2018 G47.33 Obstructive sleep apnea (adult) Timbo Escobar M.D. (pediatric) 06/17/2018 J44.1 Chronic obstructive pulmonary Surinder Trejo M.D. disease w (acute) exacerbation 06/16/2018 J44.9 Chronic obstructive pulmonary Surinder Trejo M.D. disease, unspecified 06/16/2018 J96.02 Acute respiratory failure with Surinder Trejo M.D. hypercapnia Plan of Treatment Future Appointment(s):12/22/2018 10:30 am - Aliya Hung NP at [facility]11/10/2018 - Daniela Martinez, FNPJ44.9 Chronic obstructive pulmonary disease, unspecifiedComments:I will discuss with pulmonology if we can increase your prednisone.For now continue on the same medicationsUse the mouth piece as much as possible.J30.9 Allergic rhinitis, unspecifiedNew Medication:Swapna Allergy 60 mg - 1 by mouth every dayComments: Please start taking Swapna wrdwkT46.89 Other sopgjymqlfqY58.029 Pressure ulcer of left elbow, unspecified stageReferral:Wound Clinic, Clinic/Center Functional Status Description No Information Available Mental Status Description No Information Available Referrals Refer to Reason for Referral Status Appt Date Wound Clinic Created [address] [place] [id number] [phone]
--- OUTSIDE RECORDS SUMMARY | 2018-11-21 22:08 | XMS REPORT | Continuity of Care Document ---
:1960 External Reference #:[id number] Author Name Aliya Hung NP (transmitted by agent of provider April Choudhury) Address [address], [address] [place] [address] Care Team Providers Name Role Phone Josee Chavez MD - Internal Care Team Information Roof Truss Machine Tender [phone] Medicine Problems Active Problems Provider Date Neck [...] 40 years Pack Daily Smoking Status Reviewed: 10/01/18 Current Cigarette Smoker 1 40 years Pack Daily ETOH Use Denies alcohol use Recreational Drug Use Denies Drug Use Tobacco Use Start: Unknown End: Patient is a former smoker Unknown Exercise Type/Frequency Exercises sporadically Allergies, Adverse Reactions, Alerts Description No Known Drug Allergies Medications Active Medications SIG Qnty Indications Ordering Date Provider Cholecalciferol 5000 1 po qd 30units Daniela Martinez, 09/29/2018 Units AGENCY CASHIER Amoxicillin/Clavulanat take one tablet q 20tabs Daniela Martinez, 09/29/2018 e Potassium 12 hours for 4 AGENCY CASHIER 875-125mg days Tablets Prednisone take 2 tabs by 90tabs J44.9 Daniela Martinez, 08/11/2018 10mg Tablets mouth daily for 2 AGENCY CASHIER days,then 10 mg daily Wheelchair wheelchair 1units J44.9 Josee 07/09/2018 [facility] Linda Chavez J96.22 Furosemide 1 by mouth mondays and 30tabs R60.0 Daniela Martinez, [facility] 2018 20mg fridays Tablets Acetaminophen-Codein 1 tab by mouth at 30tabs Daniela Martinez, [facility] 2018 e #3 bedtime as needed for 300-30mg Tablets pain Sertraline HCL take 1 by mouth every 30tabs F43.23 Daniela Martinez, [facility] 25mg day Tablets Oxygen please use o2 at 1units J96.10 Treva Mckeon MD 08/11/2017 Mis 2l/min during exertion, pls provide pt with portable o2 concentrator Nebusal 1 unit twice daily 240ml J44.9 Treva Mckeon MD 04/30/2017 3% Nebulizer Acapella Use as directed Ki44.9 Treva Mckeon MD 04/30/2017 [facility] Pulse Oximeter use as instructed 1units J44.9 Treva Mckeon MD 2016 [facility] Ventolin HFA 2 puffs by mouth four 8gm J44.1 Aliya 06/13/2016 times a day as needed MARIAMA Hung 108(90Base) mcg/Act Aerosol Albuterol Sulfate inhale the contents of 270ml J44.1 Bell Kohli, one vial via nebulizer FIELD SERVICES ANALYST (2.5mg/3ML) 0.083% every 4 hours while Nebulizer awak Anoro Ellipta 1 inhalation daily 1units Treva Mckeon MD 62.5-25mcg/Inh Aerosol History Medications Naproxen take one tablet 60tabs R07.82 Daniela Martinez, 04/14/2018 - 500mg by mouth twice a AGENCY CASHIER 06/30/2018 Tablets day with food as needed Immunizations CPT Code Status Date Vaccine Reaction Lot # 43576 Given 04/14/2018 Pneumonia Vaccine shot tolerated well, no [id number] immediate reaction. 90328 Given 03/10/2018 Influenza Virus Vaccine, [id number] Quadrivalent, Split, Preservative Free 17648 Given 12/24/2016 Pneumococcal Conjugate no immediate reaction, [id number] Vaccine 13 Valent For pt tolerated well Intramuscular Use 60805 Given 11/19/2016 Influenza Virus Vaccine, no immediate reaction, [id number] Quadrivalent, Split, pt tolerated well Preservative Free Vital Signs Date Vital Result Comment 10/01/2018 1:27pm Height 64 inches 5'4" Weight 89.25 lb Heart Rate 92 /min BP Systolic Sitting 86 mmHg Rue reg cuff BP Diastolic Sitting 62 mmHg Rue reg cuff Respiratory Rate 16 /min O2 % BldC Oximetry 89 % On O2 set to 3, pulse, Poc via nasal canula BMI (Body Mass Index) 15.3 kg/m2 08/11/2018 11:36am Height 64 inches 5'4" Weight 94.38 lb Heart Rate 106 /min BP Systolic 124 mmHg BP Diastolic 68 mmHg Body Temperature 98.4 F O2 % BldC Oximetry 92 % when pt first came in O2 was @ 77 on 3L via n/c BMI (Body Mass Index) 16.2 kg/m2 Results Test Date Facility Test Result H/L Range Note Basic Metabolic 07/09/2018 [facility] Sodium 140 mmol/L Normal 135-145 Panel [address] [employer] [place] [address] [phone] Potassium 4.7 mmol/L Normal 3.5-5.0 Chloride 90 mmol/L Low 101-111 Glucose 137 mg/dL High 70-100 Blood Urea Nitrogen 9 mg/dL Normal 6-24 Creatinine 0.46 mg/dL Low 0.51-0.95 BUN/Creatinine Ratio 19.6 Normal 8-20 Calcium 9.4 mg/dL Normal 8.6-10.3 Egfr Non- 140.5 >60 Egfr 170.0 >60 1 Co2 Carbon Dioxide 47 mmol/L Critical high 22-32 2 Arterial Blood Gas 06/16/2018 [facility] O2 Device Vent [address] [place] [address] [phone] Fio2 60 Vent Mode CMV Ventilator Volume 350 Resp Rate 20 Peep 5 Inspiratory Time 0.65 PH Arterial 7.43 Normal 7.35-7.45 Pco2 Arterial 74 mmHg Critical high 35-45 3 Po2 Arterial 242 mmHg High 80-100 O2 Saturation Arterial 100.0 % High 94.0-98.0 Base Excess Arterial 20.3 mmol/L High -2.0-2.0 4 Hco3 Arterial 40.7 mmol/L Critical high 19-31 5 CBC Auto 06/16/2018 [facility] White Blood 11.4 10^3/uL High 3.5-10.8 Diff [address] [place] [address] [phone] Red Blood Count 4.46 10^6/uL Normal 3.70-4.87 [...] Blood Cells % 0 Laboratory test 06/16/2018 [facility] Lactic Acid 1.3 mmol/L Normal 0.5-2.[address] [place], [place] [id number] [phone] B-Type Natriuretic Peptide BNP 977 pg/mL High <=100 Inr/Protime 06/16/2018 [facility] Inr 1.16 High 0.82-1.[address] [place] [address] [phone] Laboratory test 06/16/2018 [facility] Partial 31.2 Normal 26.0 -36.[address] [place] [address] Time PTT [phone] Troponin-I (TnI) 0.03 ng/mL <0.04 8 Comp Metabolic 06/16/2018 [facility] Sodium 141 mmol/L Normal 135-145 Panel [address] [place] [address] [phone] Potassium 4.1 mmol/L Normal 3.5-5.0 Chloride 91 [...] Critical high 22-32 10 Urinalysis Profile 06/16/2018 [facility] Urine Color Yellow [address] [place] [address] [phone] Urine Appearance Clear Urine Specific [place] 1.018 Normal 1.010-1.030 Urine pH 6.0 Normal 5-9 Urine Urobilinogen Negative Negative Urine Ketones Negative Negative Urine Protein Negative Negative Urine Leukocytes Negative Negative Urine Blood Negative Negative Urine Nitrite Negative Negative Urine Bilirubin Negative Negative Urine Glucose Negative Negative Laboratory test 06/16/2018 [facility] Blood Culture SEE RESULT [address] [place] [address] [phone] Arterial Blood 06/16/2018 [facility] O2 Device 7 lpm Nebulizer Gas [address] [place] [address] [phone] PH Arterial 7.13 Critical low 7.35-7.45 12 [...] CO2:[address] RICHARD at: 19:36:20 by:[id number] Read back by :DR RICHARD 3 Verbal to [id number] by [id number] at 1740 on 06/16/18. Results read back accurately. 4 Reference ranges based on room air. 5 Verbal to [id number] by [id number] at 1740 on 06/16/18. Results read back accurately. 6 [place] Severe Sepsis and Septic Shock Management Bundle Measure requires all lactic acids initially measuring >2.0 mmol/L be repeated. 7 Standard intensity warfarin therapeutic range: 2.0-3.0 High intensity warfarin therapeutic range: 2.5-3.5 8 Troponin-I testing on Plasma Separator Tubes (PST) has a known false positive rate of 0.20-0.40%. All positive troponins reflex immediately to secondary confirmatory testing. Using the BUKAI 800 Access Immunoassay systems, the 99th percentile [...] dialysis) 10 Critical Result CO2:46 Called to [id number] at: 16:43:09 by:[id number] Read back by:[id number] 11 SEE RESULT BELOW Name: AYO CASTRO : [address]: Surindre Trejo MD Acct: [id number] Unit: [id number] AGE: 58 Location: ICU [id number] Re06/16/18 SEX: F Status: ADM IN SPEC: [id number] LORI: 06/16/18-[address] [facility] [address]: Seb Silverio MD REQ: [id number] RECD: 06/16/18152 STATUS: RES OTHR DR: Farooq Kessler MD _ SOURCE: BLOOD,VENO SPDESC: ORDERED: Blood Cult, MRSA/SA BC PCR COMMENTS: Patient is On Antibiotics? NO Verbal to [id number] by [id number] at 0857 on 06/17/18. Results read back accurately. Procedure Result Reported Site Aerobic Culture Bottle Preliminary 06/17/18- 1418 ML Aerobic Bottle Gram Stain Gram Positive Cocci resembling Staph Anaerobic Culture Bottle PENDING MRSA/S. aureus Blood Cult PCR Final 06/17/18- 1228 ML Organism 1 MRSA NEGATIVE Organism 2 S.AUREUS POSITIVE * ML - Main Lab . END OF REPORT DEPARTMENT OF PATHOLOGY, [address] [place] [address] Jj Boudreaux M.D. Director [facility] # [id number] 12 Verbal to [id number] by [id number] at 1530 on 06/16/18. Results read back accurately. 13 Verbal to [id number] by [id number] at 1530 on 06/16/18. Results read back accurately. 14 Analyzer was unable to calculate results due to insufficant data. 15 Analyzer was unable to calculate results due to insufficant data. Procedures Date Code Description Status 09/21/2018 18499 Arterial Line Completed 09/21/2018 84852 Insert Non-Tunneled Venous Catether Completed 06/20/2018 86355 ECHO Transthorasic Realtime 2D W Doppler & Color Flow Completed Hosp 12/16/2016 [id number] Mammogram Completed Medical Devices Description No Information Available Encounters Type Date Location Provider Dx Diagnosis Office Visit 08/11/2018 [facility] Internal Daniela Martinez J44.9 Chronic obstructive 11:40a Medicine - Ccmob AGENCY CASHIER pulmonary disease, unspecified R60.0 Localized edema Office Visit 07/09/2018 2:00p [facility] Internal Josee J44.9 Chronic Medicine - Linda hCavez obstructive Ccmob pulmonary disease, unspecified R60.0 Localized edema Office Visit 07/01/2018 10:45a [facility] J44.9 [facility] Mike obstructive Local Area Network Administrator pulmonary disease, unspecified J96.92 Respiratory failure, unspecified with hypercapnia J96.91 Respiratory failure, unspecified with hypoxia Office Visit 06/27/2018 9:34a [facility] Nena Wagner J96.22 Acute and chronic Assoc,salvador PICKETT respiratory [...] [facility] Services [facility] MD Mike obstructive Local Area Network Administrator pulmonary disease w (acute) exacerbation J96.92 Respiratory failure, unspecified with hypercapnia Z87.891 Personal history of nicotine dependence Office Visit 06/26/2018 9:33a [facility] [place] Nena Wagner J96.22 Acute and chronic Assoc,pc respiratory Hospitalists failure with hypercapnia J96.21 Acute and chronic respiratory failure with hypoxia J20.8 Acute bronchitis due to other specified organisms J44.1 Chronic obstructive pulmonary disease w (acute) exacerbation G47.33 Obstructive sleep apnea (adult) (pediatric) B95.61 Methicillin suscep staph infct causing dis classd elswhr Office Visit 06/25/2018 9:30a [facility] Jennifer J96.22 Acute and chronic Assoc,salvador Lobato M.D. respiratory Hospitalists failure with hypercapnia J96.21 Acute and chronic respiratory failure with hypoxia J20.8 Acute bronchitis due to other specified organisms J44.1 Chronic obstructive pulmonary disease w (acute) exacerbation B95.61 Methicillin suscep staph infct causing dis classd elswhr M62.81 Muscle weakness (generalized) Office Visit 06/24/2018 9:30a [facility] Jennifer J96.22 Acute and chronic Assoc,salvador Lobato M.D. respiratory Hospitalists failure with hypercapnia J96.21 Acute and chronic respiratory failure with hypoxia J20.8 Acute bronchitis due to other specified organisms J44.1 Chronic obstructive pulmonary disease w (acute) exacerbation B95.61 Methicillin suscep staph infct causing dis classd elswhr M62.81 Muscle weakness (generalized) Office Visit 06/23/2018 9:29a [facility] Jennifer J96.22 Acute and chronic [...] [facility] MD Mike obstructive Local Area Network Administrator pulmonary disease w (acute) exacerbation Z87.891 Personal history of nicotine dependence J96.92 Respiratory failure, unspecified with hypercapnia J96.91 Respiratory failure, unspecified with hypoxia A49.01 Methicillin suscep staph infection, [facility] Office Visit 06/22/2018 [facility] Farooq Marroquin J44.1 Chronic 9:25a Assoc,salvador Kessler M.D.,[facility] obstructive Hospitalists pulmonary disease w (acute) exacerbation J96.91 Respiratory failure, unspecified with hypoxia J96.92 Respiratory failure, unspecified with hypercapnia B95.61 Methicillin suscep staph infct causing dis classd elswhr Office Visit 06/22/2018 9:27a Palliative Care Conchita J44.1 Chronic Services Of Tiago Mansfield MD obstructive pulmonary disease w (acute) exacerbation R06.02 Shortness of breath G89.29 Other chronic pain Office Visit 06/21/2018 [facility] Farooq Marroquin J96.91 Respiratory 9:22a Assoc,salvador Kessler M.D.,FACP failure, Hospitalists unspecified with hypoxia J96.92 Respiratory failure, unspecified with hypercapnia B95.61 Methicillin suscep staph infct causing dis classd elswhr Office Visit 06/20/2018 9:20a Mauricio Emerson96.92 Respiratory Assoc,salvador Escobar M.D. failure, Hospitalists unspecified with hypercapnia J96.91 Respiratory failure, unspecified with hypoxia B95.61 Methicillin suscep staph infct causing dis classd elswhr G47.33 Obstructive sleep apnea (adult) (pediatric) Office Visit 06/19/2018 9:19a Mauricio Emerosn96.92 Respiratory Assoc,salvador Escobar M.D. failure, Hospitalists unspecified with hypercapnia J96.91 Respiratory failure, unspecified with hypoxia B95.61 Methicillin suscep staph infct causing dis classd elswhr G47.33 Obstructive sleep apnea (adult) (pediatric) Office Visit 06/18/2018 9:18a Mauricio Emerson96.Sandrine Respiratory Assoc,salvador Escobar M.D. failure, Hospitalists unspecified with hypercapnia J96.91 Respiratory failure, unspecified with hypoxia B95.61 Methicillin suscep staph infct causing dis classd elswhr G47.33 Obstructive sleep apnea (adult) (pediatric) Office Visit 06/17/2018 9:17a Intensivists Ki Babcock44.1 Chronic obstructive M.D. pulmonary disease w (acute) exacerbation Office Visit 06/16/2018 9:16a Intensivists Yvonne Babcock.9 Chronic obstructive M.D. pulmonary disease, unspecified J96.02 Acute respiratory failure with hypercapnia Office Visit 04/14/2018 1:00p Local Area Network Administrator Internal Ki Ford44.9 Chronic Medicine - Suite AGENCY CASHIER obstructive R pulmonary disease, unspecified F43.23 Adjustment disorder with mixed anxiety and depressed mood Z23 Encounter for immunization S29.001A Unsp injury of msl/tnd of front wall of thorax, init F17.210 Nicotine dependence, cigarettes, uncomplicated Assessments Date Code Description Provider 10/01/2018 J44.9 Chronic obstructive pulmonary Aliya Hung NP disease, unspecified 10/01/2018 J96.92 Respiratory failure, unspecified Aliya Anabell, FIELD SERVICES ANALYST with hypercapnia 10/01/2018 J96.91 Respiratory failure, unspecified Aliya Hung NP with hypoxia 09/21/2018 L89.022 Pressure ulcer of left elbow, Cynthia Gracia, FIELD SERVICES ANALYST stage 2 09/21/2018 Z78.9 Other specified health status Cynthia Arbne Garcia, FIELD SERVICES ANALYST 08/11/2018 J44.9 Chronic obstructive pulmonary Maryanaofia Juan, AGENCY CASHIER disease, unspecified 08/11/2018 R60.0 Localized edema MAE FordP 07/09/2018 J44.9 Chronic obstructive pulmonary Josee Chavez [...] with hypoxia 06/23/2018 A49.01 Methicillin suscep staph Treva Mckeon MD infection, unsp site 06/23/2018 J96.22 Acute and chronic respiratory [...] Kessler M.D., FACP causing dis classd elswhr 06/20/2018 J96.92 Respiratory failure, unspecified Timbo Escobar M.D. with hypercapnia 06/20/2018 R78.81 Bacteremia Riaz Skaggs M.D., [facility] 06/20/2018 J96.91 Respiratory failure, unspecified Timbo Escobar [...] respiratory failure with Surinder Trejo M.D. hypercapnia 04/14/2018 J44.9 Chronic obstructive pulmonary Zsofia Juan, AGENCY CASHIER disease, unspecified 04/14/2018 F43.23 Adjustment disorder with mixed Zsofia Juan, AGENCY CASHIER anxiety and depressed mood 04/14/2018 Z23 Encounter for immunization Zsofia Juan, AGENCY CASHIER 04/14/2018 S29.001A Unsp injury of msl/tnd of front Zsofia Juan, AGENCY CASHIER wall of thorax, init 04/14/2018 F17.210 Nicotine dependence, cigarettes, MONICA Ford uncomplicated Plan of Treatment Future Appointment(s):12/22/2018 10:30 am - Aliya Hung NP at [facility]11/10/2018 11:40 am - MON[facility] Ford [facility] Aliya Hung NPJ44.9 Chronic obstructive pulmonary disease, txalnwbhllaF59.92 Respiratory failure, unspecified with tbsvwbojpnyK40.91 Respiratory failure, unspecified with hypoxia Functional Status Description No Information Available Mental Status Description No Information Available Referrals Description No Information Available
[2018-11-21 22:26] LABS: ALT 18 U/L (7-52); AST 22 U/L (13-39); Albumin 3.4 g/dL (3.2-5.2); Albumin/Globulin Ratio 1.1 (1-3); Alkaline Phosphatase 72 U/L (34-104); BUN/Creatinine Ratio 17.1 (8-20); Blood Urea Nitrogen 7 mg/dL (6-24); C Reactive Protein < 1.00 mg/L (<8.01); Calcium 8.6 mg/dL (8.6-10.3); Chloride 88 mmol/L (101-111); EGFR African American 194.2 (>60); EGFR Non-African American 160.5 (>60); Globulin 3.2 g/dL (2-4); Glucose 156 mg/dL (70-100); Magnesium 1.5 mg/dL (1.9-2.7); Potassium 3.5 mmol/L (3.5-5.0); Sodium 141 mmol/L (135-145); Total Protein 6.6 g/dL (6.4-8.9)
[2018-11-21 22:42] LABS: Troponin I 0.04 ng/mL (<0.04)
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
[2018-11-21 23:35] LABS: CO2 Carbon Dioxide 52 mmol/L (22-32)
[2018-11-22] MEDS: Azithromycin 500 mg/250 ml NS 500 MG/250 ML BAG IVPB SCH (02:23)
[2018-11-22] MEDS: ALPRAZolam TAB* 0.25 MG PO PRN (02:36)
[2018-11-22] MEDS: Acetaminophen / Codeine* #3 (300 MG/30 MG) TAB PO PRN ×2 (02:36→20:01)
--- NOTE | 2018-11-22 02:39 | HP ---
CC: LEXA Ford; Dr. Mckeon * HISTORY AND PHYSICAL: DATE OF ADMISSION: 11/22/18 PRIMARY CARE PROVIDER: LEXA Ford TIP INSERTER: Dr. Mckeon. CHIEF COMPLAINT: Shortness of breath. HISTORY OF PRESENT ILLNESS: Shahla High is a 58-year-old female with end - stage COPD who is supposed to use Trelegy at home, but as per she had not been using it "if she can avoid it." She also is supposed to have nebulizer treatments at home. She has a nebulizer machine and treatments, but she prefers to use in her rescue inhaler. The patient had been coughing for a couple of days and more short of breath. She was living with her and she was noted to be ambulating and not in respiratory distress, but when her pCO2 was checked it was 122. The patient was noted to be lethargic and she was placed on BiPAP. Currently, she is on BiPAP and due to that, a limited historian. The patient is going to be placed in the intensive care unit with diagnoses of COPD exacerbation and acute respiratory failure. PAST MEDICAL HISTORY: 1. End-stage COPD, on home oxygen at 2 L and Trelegy. 2. History of chronic hypercapnia. 3. Anxiety disorder. 4. History of ORIF of the left patella in 1988. 4. History of tubal ligation. 5. Anterior cervical diskectomy in the past. MEDICATIONS: Medications at home include: 1. Recently increased from 10 mg to 15 mg per day prednisone. 2. Xanax 0.125 mg b.i.d. p.r.n. 3. Tylenol with Codeine 1 tablet at bedtime p.r.n. 4. Albuterol inhaler on a p.r.n. basis. 5. Albuterol nebulizer on a p.r.n. basis. 6. Vitamin D3 at 5000 units a day. 7. Furosemide 20 mg daily. 8. Zoloft 25 mg daily. 9. Sodium chloride 3% inhalation b.i.d. 10. Anoro Ellipta 1 puff daily. ALLERGIES: No known drug allergies. FAMILY HISTORY: Positive for mother who at age of 62 secondary to lung cancer and father of brain tumor. SOCIAL HISTORY: The patient has history of smoking a pack per day up to 3 months ago, that is approximately 40-pack year smoking. Her , Jaswinder High, with a phone number [phone], works as a SNOW RANGER at [employer]. He is also patient's surrogate. REVIEW OF SYSTEMS: Please see history of present illness. All the remaining 12 systems were reviewed with the patient and the patient's were otherwise negative. PHYSICAL EXAMINATION GENERAL: The patient is a very pleasant 58-year-old female, thin body habitus, who is in no acute distress. The patient is alert and oriented x3. Currently on BiPAP. VITAL SIGNS: Blood pressure of 118/67, heart rate of 79 and regular, respiratory rate 17, oxygen saturation 97% on BiPAP with FiO2 of 35%, temperature of 98.6. HEENT: Head: Atraumatic and normocephalic. Eyes: Pupils are equal, reactive to light and accommodation. Oropharynx clear. Mucosa moist. NECK: Supple. No JVD. No bruits bilaterally. RESPIRATORY: Breath sounds bilaterally, but grossly clear with lung obrien, barrel chest. CARDIOVASCULAR: Regular rate and rhythm. No murmurs. ABDOMEN: Soft, nontender. Bowel sounds present in all 4 quadrants. EXTREMITIES: There is trace bilateral ankle edema. Pulses are +2 bilaterally. No clubbing or cyanosis. NEUROLOGIC EVALUATION: Speech clear. Cranial nerves II through XII grossly intact. Motor strength is 5/5 bilaterally. PSYCHIATRIC EVALUATION: Oriented x3 with no evidence of anxiety or depression. DIAGNOSTIC STUDIES/LABORATORY DATA: Initial ABG showed pH of 7.29, pCO2 of 122 , pO2 of 65, bicarb of 44. Repeat ABG on BiPAP shows pH of 7.38, pCO2 of 101, pO2 of 67, bicarb of 46. CBC: White blood cell count of 12.5, hemoglobin of 13.4, hematocrit of 43, and platelets of 167. Sodium was 141, potassium 3.5, chloride was 88, carbon dioxide 52, BUN 7, creatinine 0.4. Liver function tests are unremarkable. Magnesium of 1.5. Troponin of 0.04. She had troponin of below 1. Portable chest x-ray showed mild vascular congestion, no infiltrates, normal cardiac silhouette. The patient's EKG showed sinus tachycardia with heart rate of 94 beats per minute, left posterior fascicular block, criteria of LVH, and minimal ST elevation in lead V3 and V4. Comparing with prior EKG from 09/21/18, those changes are similar. ASSESSMENT AND PLAN: 1. The patient is in acute chronic obstructive pulmonary disease exacerbation that caused acute hypoxemic and hypercapnic respiratory failure requiring BiPAP. The patient is going to be placed in the intensive care unit on steroid treatment intravenously. Nebulizers are going to be provided on a scheduled basis. 2. In regards to the patient's possibility of exacerbation of chronic bronchitis, the patient is going to be placed on azithromycin. Sputum cultures are going to be obtained. 3. For gastrointestinal prophylaxis while on BiPAP and n.p.o., Protonix is going to be provided. 4. For DVT prophylaxis, the patient is going to be placed on heparin subcutaneously. 5. Code status is full. Her surrogate is her . TIME SPENT: Approximately 65 minutes was spent on admission of this patient, more than half that time was spent [id number] with the patient during the interview and physical exam. [id number] #: [id number] MTDD
[2018-11-22 05:28] LABS: ABS Lymphocytes 0.4 10^3/ul (1.0-4.8); ABS Monocytes 0.1 10^3/ul (0-0.8); ABS Neutrophils 7.7 10^3/ul (1.5-7.7); Hematocrit 42 % (35-47); Lymphocyte % 4.8 %; Mean Corpuscular HGB Conc 31 g/dL (31-36); Mean Corpuscular Hemoglobin 31 pg (27-31); Mean Corpuscular Volume 100 fL (80-97); Mean Platelet Volume 7.9 fL (7.4-10.4); Platelet Count 137 10^3/uL (150-450); Red Blood Count 4.15 10^6 /uL (3.70-4.87); Red Cell Distribution Width 14 % (10-15); White Blood Count 8.2 10^3/uL (3.5-10.8)
[2018-11-22 05:43] LABS: BUN/Creatinine Ratio 17.1 (8-20); Blood Urea Nitrogen 7 mg/dL (6-24); Calcium 8.3 mg/dL (8.6-10.3); Chloride 90 mmol/L (101-111); EGFR African American 194.2 (>60); EGFR Non-African American 160.5 (>60); Glucose 145 mg/dL (70-100); Potassium 4.1 mmol/L (3.5-5.0); Sodium 139 mmol/L (135-145)
[2018-11-22 05:45] LABS: Troponin I 0.03 ng/mL (<0.04)
[2018-11-22] MEDS: Heparin VIAL(*) 5000 UNITS/ML VIAL (FIVE THOUSAND) SUBCUT SCH ×3 (05:52→20:02)
[2018-11-22] MEDS: methylPREDNISolone SOD 40 MG* 1 ML VIAL IV SCH ×3 (05:52→20:02)
[2018-11-22 05:57] LABS: CO2 Carbon Dioxide 47 mmol/L (22-32)
[2018-11-22] MEDS ORDERED: NS 0.9% 500 ML* 500 ML IV ONE (06:15)
--- NOTE | 2018-11-22 08:32 | PN ---
Subjective Date of Service: 11/22/18 Interval History: Pt has Bipap in place for approximately 45 minutes. She has been refusing it overnight and has subsequently become confused. She has bipap in place now, but states she is thirsty and would like to remove it. Discussed importance of keeping this in place, and she is agreeable. She c/o occasional cough, and constant shortness of breath, which has improved since bipap placement. She has no other complaints today. Objective Active Medications: Acetaminophen/Codeine Phosphate (Tylenol/Codeine 30 Mg Tab*) 1 tab PO BEDTIME PRN Albuterol/Ipratropium (Duoneb (Albuterol 2.5 Mg/Ipratropium 0.5 Mg)) 1 neb INH Q4H MARGO Alprazolam (Xanax Tab*) 0.125 mg PO BID PRN Furosemide (Lasix Tab*) 20 mg PO DAILY MARGO Heparin Sodium (Porcine) (Heparin Vial(*)) 5,000 units SUBCUT Q8HR MARGO Azithromycin (Zithromax 500 Mg/250 Ml) 500 mg in 250 mls @ 250 mls/hr IVPB Q24H MARGO Influenza Virus Vaccine (Fluarix Quad 8263-7305 Syr) 0.5 ml IM .ONCE ONE Methylprednisolone Sodium Succinate (Solu-Medrol 40 Mg) 40 mg IV Q8H MARGO Pantoprazole Sodium (Protonix Iv*) 40 mg IV DAILY MARGO Sertraline HCl (Zoloft*) 25 mg PO DAILY MARGO Vital Signs: Temp Pulse Resp BP Pulse Ox 97 F 75 18 76/47 94 11/22/18 07:38 11/22/18 07:39 11/22/18 07:39 11/22/18 06:00 11/22/18 07:39 Oxygen Devices in Use Now: High Flow Nasal Cannula Appearance: Pt is sitting up in bed, bipap in place. She appears older than stated age, frail, chronically ill. She has increased work of breathing, use of accessory muscles. Neck: NL Appearance and Movements; NL JVP, Trachea Midline Respiratory: - - Barrel chest. Digital clubbing, no cyanosis. Increased respiratory effort with use of accessory muscles; breath sounds with little to no air exchange; occasional rhonchi and faint wheezing thoughout anteriorly. Cardiovascular: NL Sounds; No Murmurs; No JVD, RRR, No Edema Abdominal: NL Sounds; No Tenderness; No Distention, No Hepatosplenomegaly Extremities: No Edema, No Clubbing, Cyanosis Neurological: Alert and Oriented x 3, NL Muscle Strength and Tone Result Diagrams: 11/22/18 05:13 11/22/18 05:13 Additional Lab and Data: Lab Results 11/21/18 11/21/18 11/21/18 Range/Units 21:44 21:44 21:44 WBC 12.5 H (3.5-10.8) 10^3/uL RBC 4.29 (3.70-4.87) 10^6 /uL Hgb 13.4 (12.0-16.0) g/dL Hct 43 (35-47) % MCV 100 H (80-97) fL MCH 31 (27-31) pg MCHC 31 (31-36) g/dL RDW 14 (10-15) % Plt Count 167 (150-450) 10^3/uL MPV 7.5 (7.4-10.4) fL Neut % (Auto) 82.1 % Lymph % (Auto) 8.2 % [place] % (Auto) 6.2 % Eos % (Auto) 2.7 % Baso % (Auto) 0.8 % Absolute Neuts (auto) 10.3 H (1.5-7.7) 10^3/ul Absolute Lymphs (auto) 1.0 (1.0-4.8) 10^3/ul Absolute Monos (auto) 0.8 (0-0.8) 10^3/ul Absolute Eos (auto) 0.3 (0-0.6) 10^3/ul Absolute Basos (auto) 0.1 (0-0.2) 10^3/ul Absolute Nucleated RBC 0.0 10^3/ul Nucleated RBC % 0.0 ABG pH (7.35-7.45) ABG pCO2 (35-45) mmHg ABG pO2 (80-100) mmHg ABG HCO3 (19-31) mmol/L ABG O2 Saturation (94.0-98.0) % ABG Base Excess (-2.0-2.0) mmol/L Sodium 141 (135-145) mmol/L Potassium 3.5 (3.5-5.0) mmol/L Chloride 88 L (101-111) mmol/L Carbon Dioxide Pending Anion Gap Pending BUN 7 (6-24) mg/dL Creatinine 0.41 L (0.51-0.95) mg/dL Est GFR ( Amer) 194.2 (>60) Est GFR (Non-Af Amer) 160.5 (>60) BUN/Creatinine Ratio 17.1 (8-20) Glucose 156 H (70-100) mg/dL Lactic Acid 0.9 (0.5-2.0) mmol/L Calcium 8.6 (8.6-10.3) mg/dL Magnesium 1.5 L (1.9-2.7) mg/dL Total Bilirubin 0.20 (0.2-1.0) mg/dL AST 22 (13-39) U/L ALT 18 (7-52) U/L Alkaline Phosphatase 72 (34-104) U/L Troponin I 0.04 H* (<0.04) ng/mL C-Reactive Protein < 1.00 (<8.01) mg/L B-Natriuretic Peptide (<=100) pg/mL Total Protein 6.6 (6.4-8.9) g/dL Albumin 3.4 (3.2-5.2) g/dL Globulin 3.2 (2-4) g/dL Albumin/Globulin Ratio 1.1 (1-3) 11/21/18 11/21/18 Range/Units 21:44 22:35 WBC (3.5-10.8) 10^3/uL RBC (3.70-4.87) 10^6 /uL Hgb (12.0-16.0) g/dL Hct (35-47) % MCV (80-97) fL MCH (27-31) pg MCHC (31-36) g/dL RDW (10-15) % Plt Count (150-450) 10^3/uL MPV (7.4-10.4) fL Neut % (Auto) % Lymph % (Auto) % [place] % (Auto) % Eos % (Auto) % Baso % (Auto) % Absolute Neuts (auto) (1.5-7.7) 10^3/ul Absolute Lymphs (auto) (1.0-4.8) 10^3/ul Absolute Monos (auto) (0-0.8) 10^3/ul Absolute Eos (auto) (0-0.6) 10^3/ul Absolute Basos (auto) (0-0.2) 10^3/ul Absolute Nucleated RBC 10^3/ul Nucleated RBC % ABG pH 7.29 L (7.35-7.45) ABG pCO2 122 H* (35-45) mmHg ABG pO2 65 L (80-100) mmHg ABG HCO3 44.3 H* (19-31) mmol/L ABG O2 Saturation 94.6 (94.0-98.0) % ABG Base Excess 25.0 H (-2.0-2.0) mmol/L Sodium (135-145) mmol/L Potassium (3.5-5.0) mmol/L Chloride (101-111) mmol/L Carbon Dioxide Anion Gap BUN (6-24) mg/dL Creatinine (0.51-0.95) mg/dL Est GFR ( Amer) (>60) Est GFR (Non-Af Amer) (>60) BUN/Creatinine Ratio (8-20) Glucose (70-100) mg/dL Lactic Acid (0.5-2.0) mmol/L Calcium (8.6-10.3) mg/dL Magnesium (1.9-2.7) mg/dL Total Bilirubin (0.2-1.0) mg/dL AST (13-39) U/L ALT (7-52) U/L Alkaline Phosphatase (34-104) U/L Troponin I (<0.04) ng/mL C-Reactive Protein (<8.01) mg/L B-Natriuretic Peptide 361 H (<=100) pg/mL Total Protein (6.4-8.9) g/dL Albumin (3.2-5.2) g/dL Globulin (2-4) g/dL Albumin/Globulin Ratio (1-3) Microbiology and Other Data: Microbiology 11/22/18 02:20 Nasal Screen MRSA (PCR) - Final Nasal Mrsa Detected Assess/Plan/Problems-Billing Assessment: Ms. High is a 58yof with PMHx end stage COPD requiring 2L O2 and Trelegy , chronic hypercapnia, 40-pack year smoking history who presents to [facility] [place] with COPD exacerbation and acute on chronic respiratory failure requiring bipap. - Patient Problems (1) COPD exacerbation Comment: -No evidence of pna on CXR -Continue IV solu-medrol with plans to transition to PO -Azithromycin -Continue bipap; wean to home O2 as tolerated -Nebulizers q4h -Continue home medications (2) Acute and chronic respiratory failure Comment: -Pt on trelegy, O2 2L at home -Requiring bipap to maintain sats > 90% -Continue bipap and monitoring for improvement -Continue nebulizers q4h scheduled (3) Depression with anxiety Comment: -Continue sertaline, alprazolam (4) DVT prophylaxis Comment: -Heparin sq (5) Full code status Status and Disposition: Inpatient ICU. Discharge when stable.
[2018-11-22] MEDS: Furosemide TAB* 20 MG PO SCH (08:52)
[2018-11-22] MEDS: Sertraline* 25 MG TAB PO SCH (08:52)
[2018-11-22] MEDS: Pantoprazole IV* 40 MG IV SCH (08:52)
[2018-11-22] MEDS ORDERED: Influenza VAC *QUAD* 2019-20* 0.5 ML SYRINGE IM ONE (09:00)
[2018-11-22] MEDS: Albuterol/Ipratropium NEB.SOL* Albuterol 2.5 MG/Ipratropium 0.5 MG 3 ML INH SCH ×5 (09:15→23:10)
[2018-11-22] MEDS ORDERED: Acetaminophen / Codeine* #3 (300 MG/30 MG) TAB PO ONE (12:49)
[2018-11-23] MEDS: Azithromycin 500 mg/250 ml NS 500 MG/250 ML BAG IVPB SCH (01:34)
[2018-11-23] MEDS: HYDROcodone/ACETAMIN 5-325 MG* 1 TAB PO PRN ×4 (02:44→20:32)
[2018-11-23] MEDS: Albuterol/Ipratropium NEB.SOL* Albuterol 2.5 MG/Ipratropium 0.5 MG 3 ML INH SCH ×4 (04:11→19:02)
[2018-11-23] MEDS: Heparin VIAL(*) 5000 UNITS/ML VIAL (FIVE THOUSAND) SUBCUT SCH ×3 (05:49→20:31)
[2018-11-23] MEDS: methylPREDNISolone SOD 40 MG* 1 ML VIAL IV SCH ×2 (05:49→20:32)
[2018-11-23 05:50] LABS: ABS Lymphocytes 0.8 10^3/ul (1.0-4.8); ABS Monocytes 0.7 10^3/ul (0-0.8); ABS Neutrophils 9.8 10^3/ul (1.5-7.7); Hematocrit 37 % (35-47); Hemoglobin 11.3 g/dL (12.0-16.0); Lymphocyte % 7.1 %; Mean Corpuscular HGB Conc 30 g/dL (31-36); Mean Corpuscular Hemoglobin 30 pg (27-31); Mean Corpuscular Volume 100 fL (80-97); Mean Platelet Volume 7.4 fL (7.4-10.4); Platelet Count 127 10^3/uL (150-450); Red Blood Count 3.71 10^6 /uL (3.70-4.87); Red Cell Distribution Width 14 % (10-15); White Blood Count 11.4 10^3/uL (3.5-10.8)
[2018-11-23 06:06] LABS: BUN/Creatinine Ratio 31.7 (8-20); Blood Urea Nitrogen 13 mg/dL (6-24); Calcium 8.7 mg/dL (8.6-10.3); Chloride 88 mmol/L (101-111); EGFR African American 194.2 (>60); EGFR Non-African American 160.5 (>60); Glucose 130 mg/dL (70-100); Potassium 4.6 mmol/L (3.5-5.0); Sodium 139 mmol/L (135-145)
[2018-11-23 06:28] LABS: CO2 Carbon Dioxide 50 mmol/L (22-32)
[2018-11-23] MEDS: Sertraline* 25 MG TAB PO SCH (09:01)
[2018-11-23] MEDS: Furosemide TAB* 20 MG PO SCH (09:01)
[2018-11-23] MEDS: Pantoprazole IV* 40 MG IV SCH (09:01)
--- NOTE | 2018-11-23 10:27 | PN ---
Subjective Date of Service: 11/23/18 Interval History: RN Shaneka tells me patient refused bipap overnight, only wearing it for a period of ~2 hours total. This is a frequent issue at night. Patient complained of disliking the facemask to me, and upon review of EMR, also complained of this to Dr. Mckeon in September 2018 visit. At that time, Dr. Mckeon ordered a different mouthpiece to increase adherence. The patient's tells me they have not gotten it yet. Patient tells me her breathing is more comfortable today. She tells me she typically uses her anoro ellipta everyday, but does admit she may have missed a few doses within the last week. She does continue to cough but tells me she hasn 't had sputum production yet today. Denies chest pain, abd pain, fever/chills. After evaluation, patient ambulated on 4L O2 via NC and maintained wnl respirations and O2 sat. Transferring to medical floor. Objective Active Medications: Hydrocodone Bitart/Acetaminophen ([place] 5-325 Tab*) 1 tab PO Q4H PRN PRN Reason: PAIN - MODERATE Last Admin: 11/23/18 06:58 Dose: 1 tab Albuterol/Ipratropium (Duoneb (Albuterol 2.5 Mg/Ipratropium 0.5 Mg)) 1 neb INH [id number] AWAKE [facility] Last Admin: 11/23/18 07:32 Dose: 1 neb Alprazolam (Xanax Tab*) 0.125 mg PO BID PRN PRN Reason: ANXIETY Last Admin: 11/22/18 02:36 Dose: 0.125 mg Furosemide (Lasix Tab*) 20 mg PO DAILY [facility] Last Admin: 11/23/18 09:01 Dose: 20 mg Heparin Sodium (Porcine) (Heparin Vial(*)) 5,000 units SUBCUT Q8HR [facility] Last Admin: 11/23/18 05:49 Dose: 5,000 units Azithromycin (Zithromax 500 Mg/250 Ml) 500 mg in 250 mls @ 250 mls/hr IVPB Q24H [facility] Last Admin: 11/23/18 01:34 Dose: 250 mls/hr Methylprednisolone Sodium Succinate (Solu-Medrol 40 Mg) 40 mg IV Q8H [facility] Last Admin: 11/23/18 05:49 Dose: 40 mg Pantoprazole Sodium (Protonix Iv*) 40 mg IV DAILY [facility] Last Admin: 11/23/18 09:01 Dose: 40 mg Sertraline HCl (Zoloft*) 25 mg PO DAILY [facility] Last Admin: 11/23/18 09:01 Dose: 25 mg Vital Signs - 8 hr 11/23/18 11/23/18 11/23/18 02:30 03:00 03:10 Temperature 97.9 F Pulse Rate 97 Respiratory 17 23 Rate Blood Pressure 101/70 97/63 (mmHg) O2 Sat by Pulse 99 Oximetry 11/23/18 11/23/18 11/23/18 03:30 04:00 04:30 Temperature Pulse Rate 87 90 77 Respiratory 16 22 17 Rate Blood Pressure 106/73 100/73 86/51 (mmHg) O2 Sat by Pulse 99 99 99 Oximetry 11/23/18 11/23/18 11/23/18 05:00 05:30 05:54 Temperature Pulse Rate 83 87 Respiratory 22 16 17 Rate Blood Pressure 92/59 90/57 (mmHg) O2 Sat by Pulse 100 99 Oximetry 11/23/18 11/23/18 11/23/18 06:00 06:30 07:00 Temperature Pulse Rate 85 81 75 Respiratory 20 20 15 Rate Blood Pressure 104/58 103/68 105/63 (mmHg) O2 Sat by Pulse 99 100 100 Oximetry 11/23/18 11/23/18 11/23/18 07:30 07:33 08:00 Temperature 99.6 F Pulse Rate 82 77 81 Respiratory 18 17 24 Rate Blood Pressure 100/60 98/60 (mmHg) O2 Sat by Pulse 99 98 98 Oximetry 11/23/18 11/23/18 11/23/18 08:30 09:00 09:30 Temperature Pulse Rate 77 81 86 Respiratory 16 21 24 Rate Blood Pressure 96/50 91/57 96/57 (mmHg) O2 Sat by Pulse 96 95 97 Oximetry Oxygen Devices in Use Now: High Flow Nasal Cannula Appearance: Thin female who appears older than stated age, sitting upright in bed, appearing in NAD Eyes: No Scleral Icterus, PERRLA Ears/Nose/Mouth/Throat: Mucous Membranes Moist Neck: NL Appearance and Movements; NL JVP Respiratory: Symmetrical Chest Expansion and Respiratory Effort, - - diminished breath sounds, faint wheeze in right mid lobe Cardiovascular: NL Sounds; No Murmurs; No JVD, RRR Abdominal: - - abd soft, nontender, nondistended Extremities: No Edema, No Clubbing, Cyanosis, - - no calf tenderness Skin: No Rash or Ulcers Neurological: Alert and Oriented x 3, NL Muscle Strength and Tone Result Diagrams: 11/23/18 05:40 11/23/18 05:40 Additional Lab and Data: Lab Results 11/21/18 11/21/18 11/21/18 Range/Units 21:44 21:44 21:44 WBC 12.5 H (3.5-10.8) 10^3/uL RBC 4.29 (3.70-4.87) 10^6 /uL Hgb 13.4 (12.0-16.0) g/dL Hct 43 (35-47) % MCV 100 H (80-97) fL MCH 31 (27-31) pg MCHC 31 (31-36) g/dL RDW 14 (10-15) % Plt Count 167 (150-450) 10^3/uL MPV 7.5 (7.4-10.4) fL Neut % (Auto) 82.1 % Lymph % (Auto) 8.2 % Rhea % (Auto) 6.2 % Eos % (Auto) 2.7 % Baso % (Auto) 0.8 % Absolute Neuts (auto) 10.3 H (1.5-7.7) 10^3/ul Absolute Lymphs (auto) 1.0 (1.0-4.8) 10^3/ul Absolute Monos (auto) 0.8 (0-0.8) 10^3/ul Absolute Eos (auto) 0.3 (0-0.6) 10^3/ul Absolute Basos (auto) 0.1 (0-0.2) 10^3/ul Absolute Nucleated RBC 0.0 10^3/ul Nucleated RBC % 0.0 ABG pH (7.35-7.45) ABG pCO2 (35-45) mmHg ABG pO2 (80-100) mmHg ABG HCO3 (19-31) mmol/L ABG O2 Saturation (94.0-98.0) % ABG Base Excess (-2.0-2.0) mmol/L Sodium 141 (135-145) mmol/L Potassium 3.5 (3.5-5.0) mmol/L Chloride 88 L (101-111) mmol/L Carbon Dioxide Pending Anion Gap Pending BUN 7 (6-24) mg/dL Creatinine 0.41 L (0.51-0.95) mg/dL Est GFR ( Amer) 194.2 (>60) Est GFR (Non-Af Amer) 160.5 (>60) BUN/Creatinine Ratio 17.1 (8-20) Glucose 156 H (70-100) mg/dL Lactic Acid 0.9 (0.5-2.0) mmol/L Calcium 8.6 (8.6-10.3) mg/dL Magnesium 1.5 L (1.9-2.7) mg/dL Total Bilirubin 0.20 (0.2-1.0) mg/dL AST 22 (13-39) U/L ALT 18 (7-52) U/L Alkaline Phosphatase 72 (34-104) U/L Troponin I 0.04 H* (<0.04) ng/mL C-Reactive Protein < 1.00 (<8.01) mg/L B-Natriuretic Peptide (<=100) pg/mL Total Protein 6.6 (6.4-8.9) g/dL Albumin 3.4 (3.2-5.2) g/dL Globulin 3.2 (2-4) g/dL Albumin/Globulin Ratio 1.1 (1-3) 11/21/18 11/21/18 Range/Units 21:44 22:35 WBC (3.5-10.8) 10^3/uL RBC (3.70-4.87) 10^6 /uL Hgb (12.0-16.0) g/dL Hct (35-47) % MCV (80-97) fL MCH (27-31) pg MCHC (31-36) g/dL RDW (10-15) % Plt Count (150-450) 10^3/uL MPV (7.4-10.4) fL Neut % (Auto) % Lymph % (Auto) % Rhea % (Auto) % Eos % (Auto) % Baso % (Auto) % Absolute Neuts (auto) (1.5-7.7) 10^3/ul Absolute Lymphs (auto) (1.0-4.8) 10^3/ul Absolute Monos (auto) (0-0.8) 10^3/ul Absolute Eos (auto) (0-0.6) 10^3/ul Absolute Basos (auto) (0-0.2) 10^3/ul Absolute Nucleated RBC 10^3/ul Nucleated RBC % ABG pH 7.29 L (7.35-7.45) ABG pCO2 122 H* (35-45) mmHg ABG pO2 65 L (80-100) mmHg ABG HCO3 44.3 H* (19-31) mmol/L ABG O2 Saturation 94.6 (94.0-98.0) % ABG Base Excess 25.0 H (-2.0-2.0) mmol/L Sodium (135-145) mmol/L Potassium (3.5-5.0) mmol/L Chloride (101-111) mmol/L Carbon Dioxide Anion Gap BUN (6-24) mg/dL Creatinine (0.51-0.95) mg/dL Est GFR ( Amer) (>60) Est GFR (Non-Af Amer) (>60) BUN/Creatinine Ratio (8-20) Glucose (70-100) mg/dL Lactic Acid (0.5-2.0) mmol/L Calcium (8.6-10.3) mg/dL Magnesium (1.9-2.7) mg/dL Total Bilirubin (0.2-1.0) mg/dL AST (13-39) U/L ALT (7-52) U/L Alkaline Phosphatase (34-104) U/L Troponin I (<0.04) ng/mL C-Reactive Protein (<8.01) mg/L B-Natriuretic Peptide 361 H (<=100) pg/mL Total Protein (6.4-8.9) g/dL Albumin (3.2-5.2) g/dL Globulin (2-4) g/dL Albumin/Globulin Ratio (1-3) Microbiology and Other Data: Microbiology 11/22/18 02:20 Nasal Screen MRSA (PCR) - Final Nasal Mrsa Detected Assess/Plan/Problems-Billing Assessment: Ms. High is a 58yof with PMHx end stage COPD requiring 2L O2 and Trilogy ventilator overnight, chronic hypercapnia, 40-pack year smoking history who presents to [facility] with COPD exacerbation and acute on chronic respiratory failure requiring BiPAP initially. - Patient Problems (1) Acute and chronic respiratory failure Current Visit: Yes Status: Acute Code(s): J96.20 - ACUTE AND CHR RESP FAILURE, UNSP W HYPOXIA OR HYPERCAPNIA SNOMED Code(s): 36443654 Comment: -Pt on Trilogy ventilator overnight, O2 2L during day at home -Previously requiring BiPAP during this hospitalization, now stable on 4L O2. Transferring to medical floor -Continue nebulizers q4h scheduled -Discussed finding Trilogy ventilator mouthpiece with case management (2) COPD exacerbation Current Visit: No Status: Acute Code(s): J44.1 - CHRONIC OBSTRUCTIVE PULMONARY DISEASE W (ACUTE) EXACERBATION SNOMED Code(s): 893465135 Comment: -No evidence of pna on CXR -Decrease IV solu-medrol to BID with goal of transitioning to po tomorrow -on 4L of oxygen with good saturations; wean to home O2 as tolerated. Patient's tells me she uses 3L at home, which at admission told the provider it was 2L -Nebulizers q4h -Continue home medications -Continue Azithromycin -Starting mucinex (3) Hypotension Current Visit: Yes Status: Acute Comment: -the patient has been hypotensive frequently during this admission -recent echo this year with normal EF and no evidence of diastolic dysfunction. Appears she was started on lasix in September 2018 hospitalization due to pulmonary edema, which was likely caused by high volume of IVF in setting of hypotension related to sepsis. -discontinuing lasix and monitoring BP (4) Depression with anxiety Current Visit: Yes Status: Acute Code(s): F41.8 - OTHER SPECIFIED ANXIETY DISORDERS SNOMED Code(s): 597889354 Comment: -Continue sertaline, alprazolam (5) DVT prophylaxis Current Visit: No Status: Acute Priority: Medium Code(s): REZ4538 - SNOMED Code(s): 843504031 Comment: -Heparin sq (6) Full code status Current Visit: No Status: Acute Priority: Medium Code(s): Z78.9 - OTHER SPECIFIED HEALTH STATUS SNOMED Code(s): 521645980 Status and Disposition: Inpatient. Discharge when stable.
--- NOTE | 2018-11-23 15:49 | CONSULT ---
Subjective Date of Service: 11/23/18 Interval History: Ms. High is a 58 yo female with PMH significant for COPD, chronic hypercapnea, anxiety, who presented to the emergency room for shortness of breath. She was admitted to the hospital of a COPD exacerbation and acute hypoxic and hypercarbic respiratory failure, requiring BiPAP. Presented to the hospital with a pressure injury to her left elbow. She states that this is from leaning on her elbows at home to help her breathing. She has been treating the wound with ABX ointment at home. This wound was present during her previous admission the end of August. Patient seen and examined at bedside. Family History: Unchanged from Admission Social History: Unchanged from Admission Past Medical History: Unchanged from Admission Review of Systems - Measurements Intake and Output: Intake and Output Last 24 Hours 11/21/18 11/22/18 11/23/18 11/24/18 06:59 06:59 06:59 06:59 Intake Total 353 846 0 Output Total 1050 1000 Balance 353 -204 -1000 Weight 96 lb 5.472 oz 96 lb 9.876 oz Intake: IV Fluids 75 84 NS (0.9%) 25 84 IVPB 278 317 ABX - AZITHROMYCIN 278 317 Oral 445 0 Output: Urine 1050 1000 Other: Estimated Void Small Medium Estimated Stool Amount Medium # Voids 1 - Review of Systems Constitutional Symptoms: Negative: Fever, Other - chills Dermatology: Positive: Other - Wound to left elbow Objective Active Medications: Hydrocodone Bitart/Acetaminophen ([place] 5-325 Tab*) 1 tab PO Q4H PRN Reason: PAIN - MODERATE Albuterol/Ipratropium (Duoneb (Albuterol 2.5 Mg/Ipratropium 0.5 Mg)) 1 neb INH [id number] AWAKE [facility] Alprazolam (Xanax Tab*) 0.125 mg PO BID PRN Reason: ANXIETY Guaifenesin (Mucinex*) 600 mg PO BID [facility] Heparin Sodium (Porcine) (Heparin Vial(*)) 5,000 units SUBCUT Q8HR [facility] Azithromycin (Zithromax 500 Mg/250 Ml) 500 mg in 250 mls @ 250 mls/hr IVPB Q24H [facility] Methylprednisolone Sodium Succinate (Solu-Medrol 40 Mg) 40 mg IV BID [facility] Sertraline HCl (Zoloft*) 25 mg PO DAILY [facility] Vital Signs 11/23/18 11/23/18 11/23/18 08:00 08:30 09:00 Temperature 99.6 F Pulse Rate 81 77 81 Respiratory 24 16 21 Rate Blood Pressure 98/60 96/50 91/57 (mmHg) O2 Sat by Pulse 98 96 95 Oximetry 11/23/18 11/23/18 15:00 15:01 Temperature Pulse Rate 86 89 Respiratory 22 17 Rate Blood Pressure 117/68 (mmHg) O2 Sat by Pulse 100 99 Oximetry Oxygen Devices in Use Now: High Flow Nasal Cannula Appearance: NAD, sitting up in a chair Ears/Nose/Mouth/Throat: Mucous Membranes Moist Respiratory: Symmetrical Chest Expansion and Respiratory Effort Skin: - - See skin note below Neurological: Alert and Oriented x 3 Result Diagrams: 11/23/18 05:40 11/24/18 05:50 Additional Lab and Data: Above BMP was pulled into the note when edited prior to signing, please see BMP from the day of consultation below. Laboratory Tests 11/21/18 11/23/18 21:44 05:40 Sodium 139 Potassium 4.6 Chloride 88 L Carbon Dioxide 50 H* BUN 13 Creatinine 0.41 L Glucose 130 H C-Reactive Protein < 1.00 Total Protein 6.6 Albumin 3.4 Skin Deviation Note - Skin Deviation Findings Left lateral elbow - There is a small wound, measures 0.7 cm x 1 cm x 0.1 cm. The wound base is a dry yellow eschar. There is no drainage. There is slight blanchable erythema surrounding the area. Wound Problem/Plan Assessment: Ms. High is a 58 yo female with PMH significant for COPD, chronic hypercapnea, anxiety, who presented to the emergency room for shortness of breath. She was admitted to the hospital of a COPD exacerbation and acute hypoxic and hypercarbic respiratory failure, requiring BiPAP. Presented to the hospital with a pressure injury to her left elbow. 1. Left lateral elbow stage 2 pressure injury, healing. Recommend applying abx ointment and placing a optifoam border foam gauze to provide protection from pressure. Use caution to make sure that there is not further pressure on the arm when sitting up in a chair or laying in bed. Consider checking a prealbumin level to assess nutrition status. 2. Diet. Regular diet. 3. Code Status. Full Code Status. 4. Disposition. Inpatient, disposition per primary medicine team. TIME SPENT: Time for this wound consultation was 20 minutes and 10 minutes was spent with the patient's discussing past medical history; assessing, measuring, and photographing the wound; and applying a dressing. Is Patient a Wound Clinic Patient: No Points of Discussion: TIME SPENT: Time for this wound consultation was 20 minutes and 10 minutes was spent with the patient discussing past medical history; assessing, measuring, and photographing the wound. Attending: Anitra Sharp
[2018-11-23] MEDS: ALPRAZolam TAB* 0.25 MG PO PRN (20:32)
[2018-11-23] MEDS: guaiFENesin ER TAB 600 MG PO SCH (20:35)
[2018-11-24] MEDS: Albuterol/Ipratropium NEB.SOL* Albuterol 2.5 MG/Ipratropium 0.5 MG 3 ML INH SCH ×4 (01:05→19:16)
[2018-11-24] MEDS: Azithromycin 500 mg/250 ml NS 500 MG/250 ML BAG IVPB SCH (02:34)
[2018-11-24] MEDS: HYDROcodone/ACETAMIN 5-325 MG* 1 TAB PO PRN ×4 (02:56→21:03)
[2018-11-24] MEDS: Heparin VIAL(*) 5000 UNITS/ML VIAL (FIVE THOUSAND) SUBCUT SCH ×3 (05:45→21:03)
[2018-11-24 06:21] LABS: BUN/Creatinine Ratio 38.5 (8-20); Blood Urea Nitrogen 15 mg/dL (6-24); Calcium 8.4 mg/dL (8.6-10.3); Chloride 89 mmol/L (101-111); EGFR African American 205.7 (>60); Glucose 179 mg/dL (70-100); Potassium 4.1 mmol/L (3.5-5.0); Sodium 139 mmol/L (135-145)
[2018-11-24 06:41] LABS: CO2 Carbon Dioxide 51 mmol/L (22-32)
[2018-11-24] MEDS: guaiFENesin ER TAB 600 MG PO SCH ×2 (09:50→21:03)
[2018-11-24] MEDS: Sertraline* 25 MG TAB PO SCH (09:50)
[2018-11-24] MEDS: methylPREDNISolone SOD 40 MG* 1 ML VIAL IV SCH (09:50)
[2018-11-24] MEDS ORDERED: busPIRone TAB* 5 MG PO PRN (16:38)
--- NOTE | 2018-11-24 19:51 | PN ---
Subjective Date of Service: 11/24/18 Interval History: Patient tells me her breathing feels to her baseline. Continues to have cough, but is less frequent and less productive. Denies fever/chills. Reportedly wore BiPAP for approx 5 hours overnight, which is an improvement. Denies chest pain, abd pain. For better patient adherence to her trilogy at home, ordered new face mask which will arrive tomorrow. Patient honestly tells me she will not use her current face mask tonight if she went home today Family History: Unchanged from Admission Social History: Unchanged from Admission Past Medical History: Unchanged from Admission Objective Active Medications: Hydrocodone Bitart/Acetaminophen ([place] 5-325 Tab*) 1 tab PO Q4H PRN PRN Reason: PAIN - MODERATE Last Admin: 11/24/18 14:19 Dose: 1 tab Albuterol/Ipratropium (Duoneb (Albuterol 2.5 Mg/Ipratropium 0.5 Mg)) 1 neb INH [id number] AWAKE [facility] Last Admin: 11/24/18 19:16 Dose: 1 neb Alprazolam (Xanax Tab*) 0.125 mg PO BID PRN PRN Reason: ANXIETY Last Admin: 11/23/18 20:32 Dose: 0.125 mg Buspirone HCl (Buspar Tab*) 5 mg PO TID PRN PRN Reason: ANXIETY Guaifenesin (Mucinex*) 600 mg PO BID [facility] Last Admin: 11/24/18 09:50 Dose: 600 mg Heparin Sodium (Porcine) (Heparin Vial(*)) 5,000 units SUBCUT Q8HR [facility] Last Admin: 11/24/18 14:19 Dose: 5,000 units Azithromycin (Zithromax 500 Mg/250 Ml) 500 mg in 250 mls @ 250 mls/hr IVPB Q24H [facility] Last Admin: 11/24/18 02:34 Dose: 250 mls/hr Methylprednisolone Sodium Succinate (Solu-Medrol 40 Mg) 40 mg IV BID [facility] Last Admin: 11/24/18 09:50 Dose: 40 mg Sertraline HCl (Zoloft*) 25 mg PO DAILY [facility] Last Admin: 11/24/18 09:50 Dose: 25 mg Vital Signs - 8 hr 11/24/18 11/24/18 11/24/18 12:33 13:02 19:16 Temperature Pulse Rate 78 90 Respiratory 17 16 Rate O2 Sat by Pulse 96 88 99 Oximetry 11/24/18 19:26 Temperature 100.2 F Pulse Rate Respiratory Rate O2 Sat by Pulse Oximetry Oxygen Devices in Use Now: Nasal Cannula Appearance: Thin, white female who appears older than stated age, sitting upright in bed, appearing in NAD Eyes: No Scleral Icterus, PERRLA Ears/Nose/Mouth/Throat: Mucous Membranes Moist Neck: NL Appearance and Movements; NL JVP Respiratory: Symmetrical Chest Expansion and Respiratory Effort, - - diminished breath sounds; no wheezing, rhonchi, or crackles Cardiovascular: NL Sounds; No Murmurs; No JVD, RRR Abdominal: - - abd soft, nontender, nondistended Extremities: No Edema, No Clubbing, Cyanosis Skin: No Rash or Ulcers Neurological: Alert and Oriented x 3, NL Muscle Strength and Tone Result Diagrams: 11/23/18 05:40 11/24/18 05:50 Additional Lab and Data: Lab Results 11/21/18 11/21/18 11/21/18 Range/Units 21:44 21:44 21:44 WBC 12.5 H (3.5-10.8) 10^3/uL RBC 4.29 (3.70-4.87) 10^6 /uL Hgb 13.4 (12.0-16.0) g/dL Hct 43 (35-47) % MCV 100 H (80-97) fL MCH 31 (27-31) pg MCHC 31 (31-36) g/dL RDW 14 (10-15) % Plt Count 167 (150-450) 10^3/uL MPV 7.5 (7.4-10.4) fL Neut % (Auto) 82.1 % Lymph % (Auto) 8.2 % [place] % (Auto) 6.2 % Eos % (Auto) 2.7 % Baso % (Auto) 0.8 % Absolute Neuts (auto) 10.3 H (1.5-7.7) 10^3/ul Absolute Lymphs (auto) 1.0 (1.0-4.8) 10^3/ul Absolute Monos (auto) 0.8 (0-0.8) 10^3/ul Absolute Eos (auto) 0.3 (0-0.6) 10^3/ul Absolute Basos (auto) 0.1 (0-0.2) 10^3/ul Absolute Nucleated RBC 0.0 10^3/ul Nucleated RBC % 0.0 ABG pH (7.35-7.45) ABG pCO2 (35-45) mmHg ABG pO2 (80-100) mmHg ABG HCO3 (19-31) mmol/L ABG O2 Saturation (94.0-98.0) % ABG Base Excess (-2.0-2.0) mmol/L Sodium 141 (135-145) mmol/L Potassium 3.5 (3.5-5.0) mmol/L Chloride 88 L (101-111) mmol/L Carbon Dioxide Pending Anion Gap Pending BUN 7 (6-24) mg/dL Creatinine 0.41 L (0.51-0.95) mg/dL Est GFR ( Amer) 194.2 (>60) Est GFR (Non-Af Amer) 160.5 (>60) BUN/Creatinine Ratio 17.1 (8-20) Glucose 156 H (70-100) mg/dL Lactic Acid 0.9 (0.5-2.0) mmol/L Calcium 8.6 (8.6-10.3) mg/dL Magnesium 1.5 L (1.9-2.7) mg/dL Total Bilirubin 0.20 (0.2-1.0) mg/dL AST 22 (13-39) U/L ALT 18 (7-52) U/L Alkaline Phosphatase 72 (34-104) U/L Troponin I 0.04 H* (<0.04) ng/mL C-Reactive Protein < 1.00 (<8.01) mg/L B-Natriuretic Peptide (<=100) pg/mL Total Protein 6.6 (6.4-8.9) g/dL Albumin 3.4 (3.2-5.2) g/dL Globulin 3.2 (2-4) g/dL Albumin/Globulin Ratio 1.1 (1-3) 11/21/18 11/21/18 Range/Units 21:44 22:35 WBC (3.5-10.8) 10^3/uL RBC (3.70-4.87) 10^6 /uL Hgb (12.0-16.0) g/dL Hct (35-47) % MCV (80-97) fL MCH (27-31) pg MCHC (31-36) g/dL RDW (10-15) % Plt Count (150-450) 10^3/uL MPV (7.4-10.4) fL Neut % (Auto) % Lymph % (Auto) % [place] % (Auto) % Eos % (Auto) % Baso % (Auto) % Absolute Neuts (auto) (1.5-7.7) 10^3/ul Absolute Lymphs (auto) (1.0-4.8) 10^3/ul Absolute Monos (auto) (0-0.8) 10^3/ul Absolute Eos (auto) (0-0.6) 10^3/ul Absolute Basos (auto) (0-0.2) 10^3/ul Absolute Nucleated RBC 10^3/ul Nucleated RBC % ABG pH 7.29 L (7.35-7.45) ABG pCO2 122 H* (35-45) mmHg ABG pO2 65 L (80-100) mmHg ABG HCO3 44.3 H* (19-31) mmol/L ABG O2 Saturation 94.6 (94.0-98.0) % ABG Base Excess 25.0 H (-2.0-2.0) mmol/L Sodium (135-145) mmol/L Potassium (3.5-5.0) mmol/L Chloride (101-111) mmol/L Carbon Dioxide Anion Gap BUN (6-24) mg/dL Creatinine (0.51-0.95) mg/dL Est GFR ( Amer) (>60) Est GFR (Non-Af Amer) (>60) BUN/Creatinine Ratio (8-20) Glucose (70-100) mg/dL Lactic Acid (0.5-2.0) mmol/L Calcium (8.6-10.3) mg/dL Magnesium (1.9-2.7) mg/dL Total Bilirubin (0.2-1.0) mg/dL AST (13-39) U/L ALT (7-52) U/L Alkaline Phosphatase (34-104) U/L Troponin I (<0.04) ng/mL C-Reactive Protein (<8.01) mg/L B-Natriuretic Peptide 361 H (<=100) pg/mL Total Protein (6.4-8.9) g/dL Albumin (3.2-5.2) g/dL Globulin (2-4) g/dL Albumin/Globulin Ratio (1-3) Microbiology and Other Data: Microbiology 11/22/18 02:20 Nasal Screen MRSA (PCR) - Final Nasal Mrsa Detected Assess/Plan/Problems-Billing Assessment: Ms. High is a 58yof with PMHx end stage COPD requiring 2L O2 and Trilogy ventilator overnight, chronic hypercapnia, 40-pack year smoking history who presents to [facility] with COPD exacerbation and acute on chronic respiratory failure requiring BiPAP initially. - Patient Problems (1) Acute and chronic respiratory failure Current Visit: Yes Status: Acute Code(s): J96.20 - ACUTE AND CHR RESP FAILURE, UNSP W HYPOXIA OR HYPERCAPNIA SNOMED Code(s): 56335794 Comment: -Pt on Trilogy ventilator overnight, O2 2L during day at home -Previously requiring BiPAP during this hospitalization, now stable on 3L O2. Transferring to medical floor (though this has not happened due to overflow issues). Able to maintain good saturations with ambulation on 3L, will discharge home on this flow rate -Continue nebulizers q4h scheduled -Discussed finding Trilogy ventilator mouthpiece with case management which will arrive tomorrow. Will keep patient in the hospital tonight due to poor trilogy adherence and will discharge her tomorrow when the mouthpiece will arrive at her house (2) COPD exacerbation Current Visit: No Status: Acute Code(s): J44.1 - CHRONIC OBSTRUCTIVE PULMONARY DISEASE W (ACUTE) EXACERBATION SNOMED Code(s): 080877907 Comment: -With chronic hypercapnia on trilogy ventilator overnight at home and previously on 2L oxygen during the day at home -No evidence of pna on CXR -transition to po prednisone -on 3L of oxygen with good saturations at rest and with ambulations -Nebulizers q4h -Continue home medications -Continue Azithromycin and mucinex (3) Hypotension Current Visit: Yes Status: Acute Comment: -the patient has been hypotensive frequently during this admission, resolved now that lasix has been discontinued -recent echo this year with normal EF and no evidence of diastolic dysfunction. Appears she was started on lasix in September 2018 hospitalization due to pulmonary edema, which was likely caused by high volume of IVF in setting of hypotension related to sepsis. (4) Depression with anxiety Current Visit: Yes Status: Acute Code(s): F41.8 - OTHER SPECIFIED ANXIETY DISORDERS SNOMED Code(s): 489005553 Comment: -Continue sertaline, alprazolam -started buspar because patient doesn't like to take alprazolam due to sedation -patient tells me she frequently awakens with panic while at home and this has not been happening in the hosptial. We discussed that this is likely because of respiratory distress related to poor trilogy ventilator adherence (5) DVT prophylaxis Current Visit: No Status: Acute Priority: Medium Code(s): DIL2504 - SNOMED Code(s): 328493549 Comment: -Heparin sq (6) Full code status Current Visit: No Status: Acute Priority: Medium Code(s): Z78.9 - OTHER SPECIFIED HEALTH STATUS SNOMED Code(s): 639656624 Status and Disposition: Inpatient. Will discharge tomorrow
[2018-11-24] MEDS: ALPRAZolam TAB* 0.25 MG PO PRN (21:03)
[2018-11-25] MEDS: Albuterol/Ipratropium NEB.SOL* Albuterol 2.5 MG/Ipratropium 0.5 MG 3 ML INH SCH ×2 (00:43→07:37)
[2018-11-25] MEDS: HYDROcodone/ACETAMIN 5-325 MG* 1 TAB PO PRN ×3 (01:38→10:51)
[2018-11-25] MEDS: Azithromycin 500 mg/250 ml NS 500 MG/250 ML BAG IVPB SCH (02:13)
[2018-11-25] MEDS: ALPRAZolam TAB* 0.25 MG PO PRN (03:02)
[2018-11-25] MEDS: Heparin VIAL(*) 5000 UNITS/ML VIAL (FIVE THOUSAND) SUBCUT SCH (05:45)
[2018-11-25 06:27] VITALS: BP 121/67
[2018-11-25] MEDS: Sertraline* 25 MG TAB PO SCH (08:18)
[2018-11-25] MEDS: guaiFENesin ER TAB 600 MG PO SCH (08:18)
[2018-11-25] MEDS ORDERED: predniSONE TAB* 50 MG PO SCH (09:00)
--- NOTE | 2018-11-26 00:10 | DS ---
DISCHARGE SUMMARY: DATE OF ADMISSION: 11/22/18 DATE OF DISCHARGE: 11/25/18 PROVIDER: CASPER Flores. ATTENDING PHYSICIAN WHILE IN THE HOSPITAL: Timbo Escobar MD * (dictated by CASPER Flores). PRIMARY DIAGNOSIS: Acute hypoxemic and hypercapnic respiratory failure. SECONDARY DIAGNOSES: 1. Chronic obstructive pulmonary disease, on 2 L of oxygen at home with chronic hypercapnia. 2. Anxiety. PERTINENT LAB DATA: ABG on 11/22/18, pH 7.38, pCO2 of 101, pO2 of 67, bicarb 46.5, O2 sat 96.2. HISTORY OF PRESENT ILLNESS/HOSPITAL COURSE: Shahla High is a 58-year-old white female with past medical history significant for severe COPD, on 2 L of oxygen at home as well as Trilogy ventilator overnight, who presented for admission on 11/22/18 due to shortness of breath. The patient admits to poor Trilogy ventilator adherence. In documentation with her software project lead, Dr. Mckeon, this has been an ongoing issue and in the past, Dr. Mckeon and her team have investigated getting the patient a different mask for her to wear to increase adherence. It appears based on efforts by the case management team that this has been due to the medical company not being able to get in touch with the patient or her . During the hospital stay, the patient initially required BiPAP and was admitted to the ICU. Afterwards, the patient was maintained on nasal cannula 4 L and was with good improvement and ultimately required 3 L to maintain good saturations including with ambulation to make her saturations over 89%. By the day prior to discharge, the patient was greatly improved. She was using BiPAP overnight. Her wheezing resolved and her productive cough is improving. Given that the new mouthpiece would not arrive until 11/25/18, I discussed safe discharge planning with the patient on 11/24/18. The patient openly admitted that she would likely not use her Trilogy at home on the night of 11/24/18 if she were to go home without the new mask and therefore, she was kept in the hospital for an additional night so that she would have a safe plan home and not have to return to the hospital again with severe hypercapnia and hypoxemia. Ultimately, the patient did become compensated as her pH returned to normal limits on her repeat ABG. She did remain hypercapnic, which is chronic for her; however, she was functional on 3 L including with exertion via nasal cannula. During her hospital stay, I thoroughly discussed the importance of her Trilogy ventilator adherence overnight. During her hospital stay, she was on IV Solu-Medrol and was ultimately changed to p.o. prednisone. She was additionally on azithromycin and scheduled DuoNebs. The patient additionally uses scheduled nebulizers at home. She was using Mucinex as well, which did help her productive cough. On the day of discharge, the plan was that the new Trilogy ventilator mask would be arriving to the hospital to the respiratory therapy department. Our respiratory therapist is going to personally deliver this mask to the patient's home on the day of discharge. Additionally, Wound Care will be meeting the patient at home to ensure that her portable concentrator and her home concentrator are functional. Additionally, during the hospital stay, the patient discussed that she does frequently have feelings of anxiety, especially awakening in the middle of the night. We did discuss that this may be related to the fact that, if she is not using her ventilator overnight, she likely is woken up by respiratory distress. The patient does note that this has not been happening since she has been at the hospital, and we discussed that this is likely because she has been adherent to BiPAP use overnight while she has been in the hospital. Additionally , in the outpatient setting, the patient has been prescribed Xanax for these sensations, though the patient tells me that she does not like using Xanax because it feels like it is too strong for her and I did notice that this was documented on outpatient office visits and in [facility]. I prescribed to the patient BuSpar, which was not needed during her hospital stay as she did not complain of anxiety. PHYSICAL EXAM ON DAY OF DISCHARGE: General: A thin, middle-aged white female who appears older than stated age, sitting on the chair, appearing comfortable, in no acute distress. Eyes: PERRL. Sclerae anicteric. ENT: Mucous membranes moist. Lungs: Diminished breath sounds throughout. She has equal respirations. No wheezing, rales, or crackles. Cardio: Regular rate and rhythm with no murmurs or gallops. Abdomen: Soft, nontender, nondistended. Extremities: No clubbing, cyanosis, or edema. Neuro: The patient is alert and oriented x3. No focal deficits. No tremors. Able to move all extremities. DISCHARGE PLAN: Diet: Regular unrestricted diet. Activity: The patient may return to normal activity as tolerated with 3 L of oxygen. The patient is advised to return to the emergency department if she experiences shortness of breath which is not relieved by DuoNebs or by her rescue inhaler, cyanosis, chest pain, fevers, or chills. As previously mentioned in the HPI, the plan regarding her new Trilogy mask and her oxygen equipment was thoroughly discussed. She is to follow up with Dr. Mckeon. She is to call Dr. Mckeon's office to arrange a followup appointment and is to follow up with her primary care provider within 1 week. DISCHARGE MEDICATIONS: New Discharge Medications: 1. Prednisone 50 mg p.o. daily x1 day, then return to her home 10 mg daily dose. 2. Azithromycin 250 mg p.o. x1 day. 3. Mucinex 600 mg p.o. b.i.d. x7 days. 4. BuSpar 5 mg p.o. t.i.d. p.r.n. for anxiety. Continued Home Medications: 1. Prednisone 10 mg p.o. daily. 2. Anoro Ellipta 1 puff inhaled daily. 3. Sodium chloride 3% inhaled b.i.d. 4. Zoloft 25 mg p.o. daily. 5. Vitamin D 5000 units p.o. daily. 6. Ventolin 2 puffs inhaled q.6 hours p.r.n. for shortness of breath. 7. Albuterol inhaler 2.5 inhaled q.4 hour schedule. 8. Tylenol/codeine 30 mg p.o. at bedtime p.r.n. for pain. 9. Xanax 0.125 mg p.o. b.i.d. p.r.n. for anxiety. CONDITION ON DISCHARGE: Fair. DISPOSITION: Home. TIME SPENT: Approximately 40 minutes were spent on this discharge, approximately half of this time was spent at the bedside discussing the plan of care with the patient and evaluating the patient. CASPER FLORES [id number]/[facility] #: [id number] [facility] CENTERDayo
== END 2018-11-25 10:30 | disposition home or self-care (01) | DRG 140 ==
LOC: ED 21:09 → ICU 11-22 00:42
PROVIDERS: ADMIT Internal Medicine; ATTEND Internal Medicine
PROC: 5A09357 Assistance with Respiratory Ventilation, Less than 24 Consecutive Hours, Continuous Positive Airway Pressure (ICD-10-PCS; principal; 2018-11-21)
DX: J44.1 Chronic obstructive pulmonary disease with (acute) exacerbation (principal); J96.21 Acute and chronic respiratory failure with hypoxia; J96.22 Acute and chronic respiratory failure with hypercapnia; J30.2 Other seasonal allergic rhinitis; M19.90 Unspecified osteoarthritis, unspecified site; M81.0 Age-related osteoporosis without current pathological fracture; K44.9 Diaphragmatic hernia without obstruction or gangrene; I44.5 Left posterior fascicular block; F41.8 Other specified anxiety disorders; I95.9 Hypotension, unspecified; L89.022 Pressure ulcer of left elbow, stage 2; Z98.1 Arthrodesis status; Z98.51 Tubal ligation status; Z99.81 Dependence on supplemental oxygen; Z86.14 Personal history of Methicillin resistant Staphylococcus aureus infection; Z87.891 Personal history of nicotine dependence; Z83.3 Family history of diabetes mellitus; Z80.1 Family history of malignant neoplasm of trachea, bronchus and lung; Z80.8 Family history of malignant neoplasm of other organs or systems; Z91.19 Patient's noncompliance with other medical treatment and regimen; Z79.52 Long term (current) use of systemic steroids
CPT/HCPCS: 36415; 71045; 80048; 80053; 82803; 83605; 83735; 83880; 84484; 85025; 86140; 87641; 90686; 93005; 94640; 94660; 96365; 96375; 99285; A9270-GY; J0456; J1644; J2920; J2930; J3475; J7512

== ENCOUNTER 2019-01-28 22:46 | Inpatient (IN) | payer OTHER ==
[~2019-01-28 22:46] MED LIST: Naloxone* 0.4 MG/ML 1 ML VIAL IV PUSH ONE
[2019-01-28] MEDS: NS 0.9% 1000 ML** 1,000 ML IV ONE (22:53)
[2019-01-28] MEDS ORDERED: Albuterol/Ipratropium NEB.SOL* Albuterol 2.5 MG/Ipratropium 0.5 MG 3 ML ONE (22:55)
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
[2019-01-28 23:06] LABS: Hematocrit 38 % (35-47); Hemoglobin 11.9 g/dL (12.0-16.0); Mean Corpuscular HGB Conc 31 g/dL (31-36); Mean Corpuscular Hemoglobin 32 pg (27-31); Mean Corpuscular Volume 101 fL (80-97); Mean Platelet Volume 7.6 fL (7.4-10.4); Platelet Count 233 10^3/uL (150-450); Red Blood Count 3.78 10^6 /uL (3.70-4.87); Red Cell Distribution Width 15 % (10-15); White Blood Count 14.6 10^3/uL (3.5-10.8)
--- OUTSIDE RECORDS SUMMARY | 2019-01-28 23:20 | XMS REPORT | Continuity of Care Document ---
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 Medicine Problems Active Problems Provider Date Neck [...] 40 years Pack Daily Smoking Status Reviewed: 12/01/18 Current Cigarette Smoker 1 40 years Pack Daily ETOH Use Denies alcohol use Recreational Drug Use Denies Drug Use Tobacco Use Start: Unknown End: Patient is a former smoker Unknown Exercise Type/Frequency Exercises sporadically Allergies, Adverse Reactions, Alerts Description No Known Drug Allergies Medications Active Medications SIG Qnty Indications Ordering Date Provider 1St Medx-Patch/ use 1 patch daily 10units M54.5 Daniela Martinez, 12/01/2018 Lidocaine on o low back for FILM AND VIDEO GRAPHICS DESIGNER 4-0.025-5-20% 12 hours on and Patches 12 hour off Swapna Allergy 1 by mouth every 30tabs J30.9 Daniela Martinez, 11/10/2018 60mg day FILM AND VIDEO GRAPHICS DESIGNER Tablets Prednisone 3 tab daily for 1 21tabs Aliya 11/10/2018 5mg Tablets week then resume MARIAMA Hung regular dose Hydroxyzine HCL take 1 tab by 30tabs Daniela Martinez, 10/08/2018 10mg mouth twice a day FILM AND VIDEO GRAPHICS DESIGNER Tablets as needed for anxiety Mouthpiece For Use To use prn with J44.9 Aliya 10/01/2018 With Trilogy Trilogy MARIAMA Hung Noninvaisive Ventilator Cholecalciferol 5000 1 by mouth every 30units Daniela Martinez, 09/29/2018 Units day FILM AND VIDEO GRAPHICS DESIGNER Amoxicillin/Clavulanat take one tablet q 20tabs Daniela Martinez, 09/29/2018 e Potassium 12 hours for 4 FILM AND VIDEO GRAPHICS DESIGNER 875-125mg days Tablets Prednisone take 2 tabs by 90tabs J44.9 Daniela Martinez, 08/11/2018 10mg Tablets mouth daily for 2 FILM AND VIDEO GRAPHICS DESIGNER days,then 10 mg daily Furosemide 1 by mouth 30tabs R60.0 Daniela Martinez, 07/09/2018 20mg Tablets mondays and FILM AND VIDEO GRAPHICS DESIGNER fridays Wheelchair wheelchair 1units J44.9 Josee 07/09/2018 [facility] [place] Chavez J96.22 Acetaminophen-Codeine #3 1 tab by mouth at 30tabs Daniela Martinez, 2018 300-30mg bedtime as needed FILM AND VIDEO GRAPHICS DESIGNER Tablets for pain Sertraline HCL take one tablet by 30tabs F43.23 Daniela Martinez, 04/14/2018 25mg Tablets mouth every day FILM AND VIDEO GRAPHICS DESIGNER Oxygen please use o2 at 1units J96.10 Treva Mckeon, 08/11/2017 [facility] [place] 2l/min during MD exertion, pls provide pt with portable o2 concentrator Nebusal 1 unit twice daily 240ml J44.9 Treva Mckeon, 04/30/2017 3% Nebulizer Acapelljonatan Use as directed J44.9 Treva Mckeon, 04/30/2017 [facility] [place] Pulse Oximeter use as instructed 1units J44.9 Treva Mckeon, 12/25/2016 [facility] [place] Ventolin HFA 2 puffs by mouth 8gm J44.1 Aliya 06/13/2016 108(90Base) mcg/Act four times a day MARIAMA Hung Aerosol as needed Albuterol Sulfate inhale the 270ml J44.1 Bell (2.5mg/3ML) 0.083% contents of one Kohli, INSTRUMENT REPAIRER Nebulizer vial via nebulizer every 4 hours while awak Anoro Ellipta 1 inhalation daily 1units Treva Mckeon, 62.5-25mcg/Inh Aerosol MD Immunizations CPT Code Status Date Vaccine Reaction Lot # [id number] Given 04/14/2018 Pneumonia Vaccine shot tolerated well, no [id number] immediate reaction. 96043 Given 03/10/2018 Influenza Virus Vaccine, [id number] Quadrivalent, Split, Preservative Free [id number] Given 12/24/2016 Pneumococcal Conjugate no immediate reaction, [id number] Vaccine 13 Valent For pt tolerated well Intramuscular Use 01437 Given 11/19/2016 Influenza Virus Vaccine, no immediate reaction, [id number] Quadrivalent, Split, pt tolerated well Preservative Free Vital Signs Date Vital Result Comment 12/01/2018 2:26pm Height 64 inches 5'4" Weight 93.12 lb Heart Rate 108 /min BP Systolic 128 mmHg BP Diastolic 72 mmHg Body Temperature 98.0 F O2 % BldC Oximetry 90 % 3 L via nc BMI (Body Mass Index) 16.0 kg/m2 11/10/2018 11:57am Height 64 inches 5'4" Weight 96.00 lb Heart Rate 103 /min BP Systolic 90 mmHg BP Diastolic 60 mmHg Body Temperature 98.1 F O2 % BldC Oximetry 74 % pt on 3 liters BMI (Body Mass Index) 16.5 kg/m2 Results Test Date Facility Test Result H/L Range Note Arterial Blood 11/22/2018 [facility] PH Arterial 7.38 Normal 7.35-7.45 [address] [place] [address] [phone] Pco2 Arterial 101 mmHg Critical high 35-45 Po2 Arterial 67 mmHg Low 80-100 O2 Saturation Arterial 96.2 % Normal 94.0-98.0 Base Excess Arterial 27.8 mmol/L High -2.0-2.0 2 Hco3 Arterial 46.5 mmol/L Critical high 19-31 Arterial Blood Gas 11/21/2018 [facility] PH Arterial 7.29 Low 7.35-7.[address] [place] [address] [phone] Pco2 Arterial 122 mmHg Critical high 35-45 3 Po2 Arterial 65 mmHg Low 80-100 O2 Saturation Arterial 94.6 % Normal 94.0-98.0 Base Excess Arterial 25.0 mmol/L High -2.0-2.0 4 Hco3 Arterial 44.3 mmol/L Critical high 19-31 5 CBC Auto 11/21/2018 [facility] White Blood 12.5 10^3/uL High 3.5-10.[address] [place] [address] [phone] Red Blood Count 4.29 10^6/uL Normal 3.70-4.87 Hemoglobin 13.4 g/dL Normal 12.0-16.0 Hematocrit 43 % Normal 35-47 Mean Corpuscular Volume 100 fL High 80-97 Mean Corpuscular Hemoglobin 31 pg Normal 27-31 Mean Corpuscular HGB Conc 31 g/dL Normal 31-36 Red Cell Distribution Width 14 % Normal 10-15 Platelet Count 167 10^3/uL Normal 150-450 Mean Platelet Volume 7.5 fL Normal 7.4-10.4 Abs Neutrophils 10.3 10^3/uL High 1.5-7.7 Abs Lymphocytes 1.0 10^3/uL Normal 1.0-4.8 Abs Monocytes 0.8 10^3/uL Normal 0-0.8 Abs Eosinophils 0.3 10^3/uL Normal 0-0.6 Abs Basophils 0.1 10^3/uL Normal 0-0.2 Abs Nucleated RBC 0.0 10^3/uL Granulocyte % 82.1 % Lymphocyte % 8.2 % Monocyte % 6.2 % Eosinophil % 2.7 % Basophil % 0.8 % Nucleated Red Blood Cells % 0.0 Laboratory test 11/21/2018 [facility] B-Type 361 pg/mL High <= [address] [address] Peptide BNP [phone] Lactic Acid 0.9 mmol/L Normal 0.5-2.0 6 Comp Metabolic 11/21/2018 [facility] Sodium 141 mmol/L Normal 135-[address] [place] [address] [phone] Potassium 3.5 mmol/L Normal 3.5-5.0 Chloride 88 mmol/L Low 101-111 Glucose 156 mg/dL High 70-100 Blood Urea Nitrogen 7 mg/dL Normal 6-24 Creatinine 0.41 mg/dL Low 0.51-0.95 BUN/Creatinine Ratio 17.1 Normal 8-20 Calcium 8.6 mg/dL Normal 8.6-10.3 Total Protein 6.6 g/dL Normal 6.4-8.9 Albumin 3.4 g/dL Normal 3.2-5.2 Globulin 3.2 g/dL Normal 2-4 Albumin/Globulin Ratio 1.1 Normal 1-3 Total Bilirubin 0.20 mg/dL Normal 0.2-1.0 Alkaline Phosphatase 72 U/L Normal 34-104 Alt 18 U/L Normal 7-52 Ast 22 U/L Normal 13-39 Egfr Non- 160.5 >60 Egfr 194.2 >60 7 Co2 Carbon Dioxide 52 mmol/L Critical high 22-32 8 Laboratory test 11/21/2018 [facility] Magnesium 1.5 mg/dL Low 1.9-2.7 finding [address] [place] [address] [phone] C Reactive Protein < 1.00 mg/L Normal <8.01 Troponin-I (TnI) 0.04 ng/mL Critical high <0.04 9 Basic Metabolic 07/09/2018 [facility] Sodium 140 mmol/L Normal 135-145 Panel [address] [place] [address] [phone] Potassium 4.7 mmol/L Normal 3.5-5.0 Chloride 90 mmol/L Low 101-111 Glucose 137 mg/dL High 70-100 Blood Urea Nitrogen 9 mg/dL Normal 6-24 Creatinine 0.46 mg/dL Low 0.51-0.95 BUN/Creatinine Ratio 19.6 Normal 8-20 Calcium 9.4 mg/dL Normal 8.6-10.3 Egfr Non- 140.5 >60 Egfr 170.0 >60 10 Co2 Carbon Dioxide 47 mmol/L Critical high 22-32 11 Arterial Blood Gas 06/16/2018 [facility] O2 Device Vent [address] [place] [address] [phone] Fio2 60 Vent Mode CMV Ventilator Volume 350 Resp Rate 20 Peep 5 Inspiratory Time 0.65 PH Arterial 7.43 Normal 7.35-7.45 Pco2 Arterial 74 mmHg Critical high 35-45 12 Po2 Arterial 242 mmHg High 80-100 O2 Saturation Arterial 100.0 % High 94.0-98.0 Base Excess Arterial 20.3 mmol/L High -2.0-2.0 13 Hco3 Arterial 40.7 mmol/L Critical high 19-31 14 CBC Auto 06/16/2018 [facility] White Blood 11.4 10^3/uL High 3.5-10.[address] [place] [address] [phone] Red Blood Count 4.46 10^6/uL Normal 3.70-4.87 [...] Center Lactic Acid 1.3 mmol/L Normal 0.5-2.0 [address] [place] [address] [phone] B-Type Natriuretic Peptide BNP 977 pg/mL High <=100 Inr/Protime 06/16/2018 [facility] Inr 1.16 High 0.82-1.[address] [place] [address] [phone] Laboratory test 06/16/2018 [facility] Partial 31.2 Normal 26.0 -36.[address] [place] [address] Time PTT [phone] Troponin-I (TnI) 0.03 ng/mL <0.04 17 Comp Metabolic 06/16/2018 [facility] Sodium 141 mmol/L Normal 135-145 Panel [address] [place] [address] [phone] Potassium 4.1 mmol/L Normal 3.5-5.0 Chloride 91 [...] Egfr Non- 137.1 >60 Egfr 165.9 >60 18 Co2 Carbon Dioxide 46 mmol/L Critical high 22-32 19 Urinalysis Profile 06/16/2018 [facility] Urine Color Yellow [address] [place] [address] [phone] Urine Appearance Clear Urine Specific Joanna 1.018 Normal 1.010-1.030 Urine pH 6.0 Normal 5-9 Urine Urobilinogen Negative Negative Urine Ketones Negative Negative Urine Protein Negative Negative Urine Leukocytes Negative Negative Urine Blood Negative Negative Urine Nitrite Negative Negative Urine Bilirubin Negative Negative Urine Glucose Negative Negative Laboratory test 06/16/2018 [facility] Blood Culture SEE RESULT [address] [place] [address] [phone] Arterial Blood 06/16/2018 [facility] O2 Device 7 lpm Nebulizer Gas [address] [place] [address] [phone] PH Arterial 7.13 Critical low 7.35-7.45 21 Pco2 Arterial > 125 mmHg Critical high 35-45 22 Po2 Arterial 167 mmHg High 80-100 O2 Saturation Arterial 100.0 % High 94.0-98.0 Base Excess Arterial TNP mmol/L -2.0-2.0 23 Hco3 Arterial TNP mmol/L 19- 24 1 Verbal to [id number] by [id number] at 0047 on 11/22/18. Results read back accurately. 2 Reference ranges based on room air. 3 Verbal to [id number] by [id number] at 2249 on 11/21/18. Results read back accurately. 4 Reference ranges based on room air. 5 Verbal to [id number] by [id number] at 2249 on 11/21/18. Results read back accurately. 6 [facility] Severe Sepsis and Septic Shock Management Bundle Measure requires all lactic acids initially measuring >2.0 mmol/L be repeated. 7 Because ethnic data is not always readily [...] 15-29 5 Kidney failure <15 (or dialysis) 8 Verbal to [id number] by [id number] at 2331 on 11/21/18. Results read back accurately 9 Result TnIDx:0.04 Called to [id number] at: 22:39:55 by:[id number] Read back by: [id number] Troponin-I testing on Plasma Separator Tubes (PST) has a known false positive rate of 0.20-0.40%. All positive troponins reflex immediately to secondary confirmatory testing. Using the ZenCardI 800 Access Immunoassay systems, the 99th percentile upper reference limit was demonstrated to be < 0.03 ng/mL. 10 Because ethnic data is not always readily [...] 15-29 5 Kidney failure <15 (or dialysis) 11 Consistent with Previous Results Reported on 06/27/18 Critical Result CO2:[address] RICHARD at: 19:36:20 by:[email or web address] Read back by :DR RICHARD 12 Verbal to [id number] by [id number] at 1740 on 06/16/18. Results read back accurately. 13 Reference ranges based on room air. 14 Verbal to [id number] by [id number] at 1740 on 06/16/18. Results read back accurately. 15 [facility] Severe Sepsis and Septic Shock Management Bundle Measure requires all lactic acids initially measuring >2.0 mmol/L be repeated. 16 Standard intensity warfarin therapeutic range: 2.0-3.0 High intensity warfarin therapeutic range: 2.5-3.5 17 Troponin-I testing on Plasma Separator Tubes (PST) has a known false positive rate of 0.20-0.40%. All positive troponins reflex immediately to secondary confirmatory testing. Using the [employer] DxI 800 Access Immunoassay systems, the 99th percentile upper reference limit was demonstrated to be < 0.03 ng/mL. 18 Because ethnic data is not always readily [...] 15-29 5 Kidney failure <15 (or dialysis) 19 Critical Result CO2:46 Called to [id number] at: 16:43:09 by:[id number] Read back by:[id number] 20 SEE RESULT BELOW Name: GLORIAAYO : [address]: Surinder Trejo MD Acct: [id number] Unit: [id number] AGE: 58 Location: ICU [id number] Re06/16/18 SEX: F Status: ADM IN SPEC: [id number] LORI: 06/16/18-15[address] [facility] DR: Seb Silverio MD REQ: [id number] RECD: 06/16/18 STATUS: RES OTHR DR: Farooq Kessler MD _ SOURCE: BLOOD,VENO SPDESC: ORDERED: Blood Cult, MRSA/SA BC PCR COMMENTS: Patient is On Antibiotics? NO Verbal to [id number]/PHARMACY by [email or web address] at 0857 on 06/17/18. Results read back accurately. Procedure Result Reported Site Aerobic Culture Bottle Preliminary 06/17/18- 1418 ML Aerobic Bottle Gram Stain Gram Positive Cocci resembling Stap Anaerobic Culture Bottle PENDING MRSA/S. aureus Blood Cult PCR Final 06/17/18- 1228 ML Organism 1 MRSA NEGATIVE Organism 2 S.AUREUS POSITIVE * ML - Main Lab . END OF REPORT DEPARTMENT OF PATHOLOGY, [address] [place] [address] Jj Boudreaux M.D. Director [facility] # [id number] 21 Verbal to [id number] by [id number] at 1530 on 06/16/18. Results read back accurately. 22 Verbal to [id number] by [id number] at 1530 on 06/16/18. Results read back accurately. 23 Analyzer was unable to calculate results due to insufficant data. 24 Analyzer was unable to calculate results due to insufficant data. Procedures Date Code Description Status 09/21/2018 61129 Arterial Line Completed 09/21/2018 60402 Insert Non-Tunneled Venous Catether Completed 06/20/2018 94838 ECHO Transthorasic Realtime 2D W Doppler & Color Flow Completed Hosp 12/16/2016 [id number] Mammogram Completed Medical Devices Description No Information Available Encounters Type Date Location Provider Dx Diagnosis Office Visit 11/10/2018 [facility] Internal Maryanaofijonatan Martinez, J44.9 Chronic obstructive 11:40a Medicine - [facility] FILM AND VIDEO GRAPHICS DESIGNER pulmonary disease, unspecified J30.9 Allergic rhinitis, unspecified I95.89 Other hypotension L89.029 Pressure ulcer of left elbow, unspecified stage Office Visit 10/01/2018 1:30p Pulmonology And Aliya J44.9 [facility] MARIAMA Hung obstructive Petroleum Laboratory Technician pulmonary disease, unspecified J96.92 Respiratory failure, unspecified with hypercapnia J96.91 Respiratory failure, unspecified with hypoxia F17.210 Nicotine dependence, cigarettes, uncomplicated Office Visit 09/28/2018 [facility] J96.20 Acute and chr 9:13a salvador Mckeon MD resp failure, Hospitalists unsp w hypoxia or hypercapnia J44.1 Chronic obstructive pulmonary disease w (acute) exacerbation I50.9 Heart failure, unspecified J15.211 Pneumonia due to methicillin suscep staph Office Visit 09/27/2018 [facility] J96.00 Acute respiratory 9:13a salvador Mckeon MD failure, unsp w Hospitalists hypoxia or hypercapnia J44.1 Chronic obstructive pulmonary disease w (acute) exacerbation A28.0 Pasteurellosis J18.9 Pneumonia, unspecified organism Office Visit 09/26/2018 [facility] J96.00 Acute 9:12a salvador Mckeon MD respiratory Hospitalists failure, unsp w hypoxia or hypercapnia A28.0 Pasteurellosis J44.1 Chronic obstructive pulmonary disease w (acute) exacerbation J18.9 Pneumonia, unspecified organism Office Visit 09/25/2018 [facility] J44.1 Chronic 9:12a salvador Mckeon MD obstructive Hospitalists pulmonary disease w (acute) exacerbation A28.0 Pasteurellosis J18.9 Pneumonia, unspecified organism Office Visit 09/24/2018 [facility] J44.1 Chronic 9:12a salvador Mckeon M.D. obstructive Hospitalists pulmonary disease w (acute) exacerbation J18.9 Pneumonia, unspecified organism Office Visit 09/23/2018 9:10a Intensivists Farnk Clifton, J96.21 Acute and chronic MD respiratory failure with [...] L89.022 Pressure ulcer of 8:15a Center [facility] Jose, MARIAMA left elbow, stage 2 Office Visit 08/11/2018 [facility] Ki Ford44.9 Chronic 11:40a Medicine - FILM AND VIDEO GRAPHICS DESIGNER obstructive Ccmob pulmonary disease, unspecified R60.0 Localized edema Office Visit 07/09/2018 2:00p [facility] Internal Josee Emerson44.9 Chronic Medicine - Linda Chavez obstructive Ccmob pulmonary disease, unspecified R60.0 Localized edema Office Visit 07/01/2018 10:45a Pulmonology And Treva J44.9 [facility] MD Mike obstructive Petroleum Laboratory Technician pulmonary disease, unspecified J96.92 Respiratory failure, unspecified with hypercapnia J96.91 Respiratory failure, unspecified with hypoxia Office Visit 06/27/2018 9:34a [facility] La Nena Wagner, J96.22 Acute and chronic Assoc,pc MD respiratory [...] [facility] Services Of MD Mike obstructive Petroleum Laboratory Technician pulmonary disease w (acute) exacerbation J96.92 Respiratory failure, unspecified with hypercapnia Z87.891 Personal history of nicotine dependence Office Visit 06/26/2018 9:33a [facility] La Nena Wagner, J96.22 Acute and chronic Assoc,salvador PICKETT respiratory Hospitalists failure with hypercapnia J96.21 Acute and chronic respiratory failure with hypoxia J20.8 Acute bronchitis due to other specified organisms J44.1 Chronic obstructive pulmonary disease w (acute) exacerbation G47.33 Obstructive sleep apnea (adult) (pediatric) B95.61 Methicillin suscep staph infct causing dis classd elswhr Office Visit 06/25/2018 9:30a [facility] Jennifer J96.22 Acute and chronic Assoc,salvador Lobato M.D. respiratory Hospitalists failure with hypercapnia J96.21 Acute and chronic respiratory failure with hypoxia J20.8 Acute bronchitis due to other specified organisms J44.1 Chronic obstructive pulmonary disease w (acute) exacerbation B95.61 Methicillin suscep staph infct causing dis classd elswhr M62.81 Muscle weakness (generalized) Office Visit 06/24/2018 9:30a [facility] Jennifer J96.22 Acute and chronic Assoc,salvador Lobato M.D. respiratory Hospitalists failure with hypercapnia J96.21 Acute and chronic respiratory failure with hypoxia J20.8 Acute bronchitis due to other specified organisms J44.1 Chronic obstructive pulmonary disease w (acute) exacerbation B95.61 Methicillin suscep staph infct causing dis classd elswhr M62.81 Muscle weakness (generalized) Office Visit 06/23/2018 9:29a [facility] Jennifer J96.22 Acute and chronic Assoc,salvador Lobato [...] [facility] MD Mike obstructive Petroleum Laboratory Technician pulmonary disease w (acute) exacerbation Z87.891 Personal history of nicotine dependence J96.92 Respiratory failure, unspecified with hypercapnia J96.91 Respiratory failure, unspecified with hypoxia A49.01 Methicillin suscep staph infection, unsp site Office Visit 06/22/2018 9:27a [facility] J44.1 Chronic Services Of Tiago Mansfield MD obstructive pulmonary disease w (acute) exacerbation R06.02 Shortness of breath G89.29 Other chronic pain Office Visit 06/22/2018 [facility] Farooq Marroquin J44.1 Chronic 9:25a Assocsalvador M.D.,FACP obstructive Hospitalists pulmonary disease w (acute) exacerbation J96.91 Respiratory failure, unspecified with hypoxia J96.92 Respiratory failure, unspecified with hypercapnia B95.61 Methicillin suscep staph infct causing dis classd elswhr Office Visit 06/21/2018 [facility] Farooq Marroquin J96.91 Respiratory 9:22a Assocsalvador M.D.,FACP failure, Hospitalists unspecified with hypoxia J96.92 Respiratory failure, unspecified with hypercapnia B95.61 Methicillin suscep staph infct causing dis classd elswhr Office Visit 06/20/2018 9:20a Sebastian Flip Emerson96.Sandrine Respiratory Assocsalvador M.D. failure, Hospitalists unspecified with hypercapnia J96.91 Respiratory failure, unspecified with hypoxia B95.61 Methicillin suscep staph infct causing dis classd elswhr G47.33 Obstructive sleep apnea (adult) (pediatric) Office Visit 06/19/2018 9:19a Mauricio Emerson96.Sandrine Respiratory Assocsalvador M.D. failure, Hospitalists unspecified with hypercapnia J96.91 Respiratory failure, unspecified with hypoxia B95.61 Methicillin suscep staph infct causing dis classd elswhr G47.33 Obstructive sleep apnea (adult) (pediatric) Office Visit 06/18/2018 9:18a Mauricio Rosa.Sandrine Respiratory Assocsalvador M.D. failure, Hospitalists unspecified with hypercapnia J96.91 Respiratory failure, unspecified with hypoxia B95.61 Methicillin suscep staph infct causing dis classd elswhr G47.33 Obstructive sleep apnea (adult) (pediatric) Office Visit 06/17/2018 9:17a Intensivists Surinder Trejo J44.1 Chronic obstructive M.D. pulmonary disease w (acute) exacerbation Office Visit 06/16/2018 9:16a Intensivists Ki Babcock44.9 Chronic obstructive M.D. pulmonary disease, unspecified J96.02 Acute respiratory failure with hypercapnia Assessments Date Code Description Provider 12/01/2018 J44.9 Chronic obstructive pulmonary Zsofia Juan, FILM AND VIDEO GRAPHICS DESIGNER disease, unspecified 12/01/2018 J96.92 Respiratory failure, unspecified Zsofia Juan, FILM AND VIDEO GRAPHICS DESIGNER with hypercapnia 12/01/2018 L89.022 Pressure ulcer of left elbow, stage Zsofia Juan, FILM AND VIDEO GRAPHICS DESIGNER 2 12/01/2018 M54.5 Low back pain Zsofia Juan, FILM AND VIDEO GRAPHICS DESIGNER 11/23/2018 L89.022 Pressure ulcer of left elbow, stage Cynthia Garcia INSTRUMENT REPAIRER 2 11/10/2018 J44.9 Chronic obstructive pulmonary Zsofia Juan, FILM AND VIDEO GRAPHICS DESIGNER disease, unspecified 11/10/2018 J30.9 Allergic rhinitis, unspecified Zsofia Juan, FILM AND VIDEO GRAPHICS DESIGNER 11/10/2018 I95.89 Other hypotension Zsofia Juan, FILM AND VIDEO GRAPHICS DESIGNER 11/10/2018 L89.029 Pressure ulcer of left elbow, Zsofia Juan, FILM AND VIDEO GRAPHICS DESIGNER unspecified stage 10/01/2018 J44.9 Chronic obstructive pulmonary Aliya Anabell, INSTRUMENT REPAIRER disease, unspecified 10/01/2018 J96.92 Respiratory failure, unspecified Aliya Hung INSTRUMENT REPAIRER with hypercapnia 10/01/2018 J96.91 Respiratory failure, unspecified Aliya Hung INSTRUMENT REPAIRER with hypoxia 10/01/2018 F17.210 Nicotine dependence, cigarettes, Aliya Hung INSTRUMENT REPAIRER uncomplicated 09/28/2018 J96.20 Acute and chronic respiratory [...] MD disease with (acute) exacerbation 09/27/2018 A28.0 Selene Lam MD 09/27/2018 J18.9 Pneumonia, unspecified organism Wendy Lam MD 09/26/2018 J96.00 Acute respiratory failure, Daphne Hurtado MD unspecified whether with hypoxia or hypercapnia 09/26/2018 A28.0 Selene Hurtado MD 09/26/2018 J44.1 Chronic obstructive pulmonary [...] 09/22/2018 R65.21 Severe sepsis with septic shock Frank Clifton MD 09/22/2018 E87.2 Acidosis Frank Clifton MD 09/21/2018 J96.21 Acute and chronic respiratory Frank Clifton MD failure with hypoxia 09/21/2018 I95.9 Hypotension, unspecified Frank Clifton MD 09/21/2018 L89.022 Pressure ulcer of left elbow, stage Cynthia Garcia, INSTRUMENT REPAIRER 2 09/21/2018 J96.22 Acute and chronic respiratory Frank Clifton MD failure with hypercapnia 09/21/2018 J44.1 Chronic obstructive pulmonary Frank Clifton MD disease with (acute) exacerbation 09/21/2018 A41.9 Sepsis, unspecified organism Frank Clifton MD 09/21/2018 R65.21 Severe sepsis with septic shock Frank Clifton MD 08/11/2018 J44.9 Chronic obstructive pulmonary MONICA Ford disease, unspecified 08/11/2018 R60.0 Localized edema MONICA Ford 07/09/2018 J44.9 Chronic obstructive pulmonary Josee Chavez M.D. disease, unspecified 07/09/2018 R60.0 Localized edema Josee Chavez M.D. 07/01/2018 J44.9 Chronic obstructive pulmonary Terva Mckeon MD disease, unspecified 07/01/2018 J96.92 Respiratory failure, unspecified Treva Mckeon MD with hypercapnia 07/01/2018 J96.91 Respiratory failure, unspecified Treva Mckeon MD with hypoxia 06/27/2018 J96.22 Acute and chronic respiratory La Nena Wagner MD failure with hypercapnia 06/27/2018 J96.21 Acute and chronic respiratory La Nena Wagner MD failure with hypoxia 06/27/2018 J20.8 Acute bronchitis due to other [place] aWgner MD specified organisms 06/27/2018 J44.1 Chronic obstructive [...] Methicillin suscep staph infection, Treva Mckeon MD unsp site 06/23/2018 J96.22 Acute and chronic [...] hypercapnia 06/20/2018 R78.81 Bacteremia Riaz Skaggs M.D., FACC, FASNC 06/20/2018 J96.91 Respiratory failure, unspecified Timbo [...] exacerbation 06/16/2018 J44.9 Chronic obstructive pulmonary Surinder Trejo, M.D. disease, unspecified 06/16/2018 J96.02 Acute respiratory failure with Surinder Trejo M.D. hypercapnia Plan of Treatment Future Appointment(s):01/12/2019 11:20 am - MNOICA Ford at [facility]12/22/2018 10:30 am - Aliya Hung NP at [facility]12/01/2018 - MONICA FordJ44.9 Chronic obstructive pulmonary disease, [id number] Respiratory failure, unspecified with [id number] Pressure ulcer of left elbow, stage 2Comments:Apply ABX ointment and Optifoam gauze to protect from further trauma. Make sure there is no pressureon the area from the arm of the chair you are sitting.Also recommend to increase proteins in your diet.M54.5 Low back painNew Medication:1St Medx- Patch/ Lidocaine 4-0.025-5-20 % - use 1 patch daily on o low back for 12 hours on and 12 hour off Functional Status Description No Information Available Mental Status Description No Information Available Referrals Refer to Reason for Referral Status Appt Date [facility] Clinic office has called her, no answer 11/29/[address] [place] [id number] [phone]
[2019-01-28] MEDS: Albuterol/Ipratropium NEB.SOL* Albuterol 2.5 MG/Ipratropium 0.5 MG 3 ML INH SCH (23:24)
[2019-01-28 23:26] LABS: Urine Appearance Cloudy; Urine Bilirubin Negative (Negative); Urine Blood 2+ (Negative); Urine Color Yellow; Urine Glucose 3+(>=500 mg/dL) (Negative); Urine Ketones Negative (Negative); Urine Nitrite Negative (Negative); Urine Protein 2+(100 mg/dL) (Negative); Urine Specific Gravity 1.013 (1.010-1.030); Urine Urobilinogen Negative (Negative)
[2019-01-28 23:27] LABS: Albumin 3.4 g/dL (3.2-5.2); Albumin/Globulin Ratio 0.9 (1-3); BUN/Creatinine Ratio 17.4 (8-20); C Reactive Protein 2.23 mg/L (<8.01); Calcium 9.1 mg/dL (8.6-10.3); EGFR African American 106.5 (>60); Potassium 3.1 mmol/L (3.5-5.0); Total Bilirubin 0.2 mg/dL (0.2-1.0); Total Protein 7.4 g/dL (6.4-8.9)
[2019-01-28 23:29] LABS: Troponin I 0.02 ng/mL (<0.03)
[2019-01-28 23:30] LABS: Urine Bacteria Absent (Absent); Urine Granular Casts Present (Absent); Urine Red Blood Cell 3+(>10/hpf) (Absent); Urine Squamous Epithelial Cell Present (Absent); Urine White Blood Cell 1+(6-10/hpf) (Absent)
[2019-01-28 23:51] LABS: ABS Basophils 0.1 10^3/ul (0-0.2); ABS Eosinophils 0.6 10^3/ul (0-0.6); ABS Lymphocytes 5.1 10^3/ul (1.0-4.8); ABS Monocytes 1.5 10^3/ul (0-0.8); ABS Neutrophils 7.3 10^3/ul (1.5-7.7); Eosinophil % 4.4 %; Lymphocyte % 34.6 %
[2019-01-29] MEDS: KCL 10 MEQ/50 ML IVPREMIX* 10 MEQ/50 ML BAG IV SCH ×2 (00:08→02:07)
[2019-01-29] MEDS ORDERED: Etomidate* 2 MG/ML 20 ML VIAL (40 MG) ONE (00:43)
[2019-01-29] MEDS ORDERED: Succinylcholine* 20 MG/ML 10 ML VIAL ONE (00:43)
[2019-01-29] MEDS ORDERED: LORazepam INJ* 2 MG/ML 1 ML VIAL IV PUSH ONE (00:46)
[2019-01-29] MEDS ORDERED: Lorazepam PYXIS KEY ONE ×2 (00:49→17:50)
[2019-01-29] MEDS ORDERED: LORazepam INJ* 2 MG/ML 1 ML VIAL ONE ×2 (00:49→17:50)
[2019-01-29] MEDS ORDERED: Piperacillin/Tazobac ADVAN(*) 3.375 GM in NS 0.9% 100 ML* 100 ML IVPB ONE ×2 (01:16→08:01)
[2019-01-29] MEDS ORDERED: Iohexol 350* (CONTRAST) 500 ML MDV IV ONE (01:25)
[2019-01-29] MEDS: NS 0.9% 1000 ML** 1,000 ML IV ONE ×2 (01:27→05:10)
[2019-01-29] MEDS: Albuterol/Ipratropium NEB.SOL* Albuterol 2.5 MG/Ipratropium 0.5 MG 3 ML INH SCH ×6 (02:01→19:49)
[2019-01-29] MEDS ORDERED: Propofol* 100 ML IV ONE (02:06)
[2019-01-29] MEDS ORDERED: Dextrose 50% VIAL 50 ml IV PUSH PRN (07:59)
[2019-01-29 08:43] LABS: Urine Appearance Clear; Urine Bilirubin Negative (Negative); Urine Blood 1+ (Negative); Urine Color Yellow; Urine Glucose Negative (Negative); Urine Ketones Negative (Negative); Urine Nitrite Negative (Negative); Urine Protein Negative (Negative); Urine Specific Gravity 1.043 (1.010-1.030); Urine Urobilinogen Negative (Negative)
[2019-01-29] MEDS: NS 0.9% 1000 ML** 1,000 ML IV SCH ×2 (08:44→23:20)
[2019-01-29] MEDS: KCL 20 MEQ/100 ML IVPREMIX* 20 MEQ/100 ML BAG IV SCH ×2 (08:46→10:46)
[2019-01-29 08:49] LABS: Urine Bacteria Absent (Absent); Urine Red Blood Cell 2+(6-10/hpf) (Absent); Urine Squamous Epithelial Cell Present (Absent); Urine White Blood Cell Trace(0-5/hpf) (Absent)
[2019-01-29] MEDS: Azithromycin 500 mg/250 ml NS 500 MG/250 ML BAG IVPB SCH (08:52)
[2019-01-29] MEDS ORDERED: Zosyn per Pharmacy* NOTE FOLLOW UP SCH (09:00)
[2019-01-29] MEDS: Enoxaparin(*) 40 MG/0.4 ML SYR SUBCUT SCH (09:03)
[2019-01-29] MEDS: methylPREDNISolone SOD 40 MG* 1 ML VIAL IM SCH ×3 (09:03→23:20)
[2019-01-29] MEDS: Chlorhexidine MOUTHWASH 0.12%* 15 ML UDC TOPICAL SCH ×5 (09:03→23:20)
[2019-01-29] MEDS: Furosemide TAB* 20 MG PO SCH (09:04)
[2019-01-29] MEDS: Insulin LISPRO* 1 UNITS UNIT SUBCUT SCH ×3 (09:18→18:45)
[2019-01-29] MEDS: ZOSYN 3.375 GM Q8H per EXTENDED INFUSION IVPB SCH ×4 (14:37→21:29)
[2019-01-29 15:22] LABS: BUN/Creatinine Ratio 31.8 (8-20); Calcium 7.9 mg/dL (8.6-10.3); EGFR Non-African American 147.9 (>60); Magnesium 1.1 mg/dL (1.9-2.7); Potassium 3.9 mmol/L (3.5-5.0)
[2019-01-29 15:26] LABS: Influenza A Molecular NEGATIVE (Negative); Influenza B Molecular NEGATIVE (Negative)
[2019-01-29] MEDS ORDERED: NS 0.9% 1000 ML** 1,000 ML IV ONE (15:28)
[2019-01-29] MEDS ORDERED: Magnesium Sulfate 2 GM IV* 2 GM/50 ML BAG IVPB ONE (15:29)
[2019-01-29] MEDS ORDERED: Acetaminophen TAB* 325 MG ONE (15:34)
[2019-01-29] MEDS ORDERED: Magnesium Sulfate 2 GM IV* 2 GM/50 ML BAG ONE (15:34)
[2019-01-29] MEDS: Acetaminophen TAB* 325 MG PO PRN (15:35)
[2019-01-29] MEDS: Propofol* 100 ML IV SCH (16:07)
[2019-01-29] MEDS ORDERED: fentaNYL* 50 MCG/ML 2 ML VIAL (100 MCG VIAL) ONE (17:49)
[2019-01-29] MEDS ORDERED: NS 0.9% 500 ML* 500 ML IV ONE (19:12)
--- NOTE | 2019-01-29 20:12 | HP ---
HISTORY AND PHYSICAL: DATE OF ADMISSION: 01/29/19 CHIEF COMPLAINT: Altered mental status. HISTORY OF PRESENT ILLNESS: The patient is a 58-year-old female with history of COPD, chronic respiratory failure, noncompliant with BiPAP with recurrent admissions for hypercapnic respiratory failure. The patient was brought in by EMS for unresponsiveness. The patient was found to be breathing sluggishly when EMS arrived with respiratory rate of 68 beats per minute and they have bagged her. She was noted to have a fasting blood glucose of 415, end-tidal CO2 of around 60. The patient arrived to ED last night at 10:44. The patient was also noted to have dilated right pupil. The patient is not able to provide any history. As her , she fell asleep around 5 or 6 that night and when he woke up he could not arouse her. He then called EMS. The patient was found to be in hypercapnic respiratory failure. The patient was given Narcan with no change. The patient was placed on BiPAP with no improvement and subsequently she was intubated early this morning. The patient was admitted to ICU for further management of hypercapnic respiratory failure. The patient was also noted to have elevated white count at 14.6. She has anemia of chronic disease, hemoglobin around 11.3. Her blood gas on arrival showed pH of 7.13, pCO2 of 124 , pO2 of 211, and O2 sat of 99% on 100% FiO2. The patient's blood gas after intubation showed resolution of acidosis with pH of 7.37, pCO2 of 67, pO2 of 85 while on 50% FiO2. The patient was also noted to have elevated bicarb at 43 on BMP. She was noted to have a low potassium. Her blood glucose was elevated at 374. The patient also was noted to have elevated lactate at 12.6 on arrival with repeat lactate of 2.8. Her BNP elevated at 152. Her UA showed trace wbc and 2+ rbc. The patient with evidence of glucose in urine on arrival. Sputum Gram stain showed 4 neutrophils, 2+ gram-negative bacilli, and 1+ gram-positive cocci. The patient had CT of the brain for evaluation of the dilated pupil, which did not reveal any acute abnormality. The patient had chest x-ray and CTA of the chest. I have personally reviewed chest x-ray and CTA of the chest. Chest x-ray showed evidence of opacity and left lateral aspect of her chest. Noted to have hyperinflation. CTA of the chest was also personally reviewed by me and with the patient's - the patient with significant emphysematous changes with progression from before. Significant hyperinflation noted. The patient also with evidence of bronchiectasis in lower lobes. The patient also with evidence of pleural thickening and nonspecific density peripherally on the left side that was not seen on the prior x-ray. Unclear if this is indicative of peripheral pneumonic consolidation versus pleural process. No filling defects noted in the pulmonary artery. PAST MEDICAL HISTORY: 1. Severe COPD with chronic hypoxemic and hypercapnic respiratory failure. 2. Anxiety disorder. 3. History of ORIF and left patella repair in 1988. 4. History of tubal ligation. 5. Anterior cervical diskectomy. 6. Depression. MEDICATIONS: At home: 1. Prednisone. 2. Xanax. 3. Tylenol with codeine. 4. Albuterol. 5. Vitamin D3. 6. Furosemide. 7. Zoloft. 8. Sodium chloride 3% inhalation b.i.d. 9. Anoro. ALLERGIES: No known drug allergies. FAMILY HISTORY: Mother at 62 secondary to lung cancer. Father of brain tumor. SOCIAL HISTORY: Smoker, a pack per day, quit recently with [id number] smoking history. The patient's [employer] [place]. REVIEW OF SYSTEMS: Unable to obtain secondary to intubated status. PHYSICAL EXAMINATION GENERAL: The patient is ill-appearing, thin female, in no apparent distress. VITAL SIGNS: Temperature 101.7, pulse 97 beats per minute, respiratory rate 18 per minute, O2 sat 100% on 40% FiO2, blood pressure 107/84, end-tidal CO2 around 35. HEENT: Pupils equal and reactive to light. Mucous membranes moist. LUNGS: Diminished air entry. Scattered wheeze present. CARDIOVASCULAR: S1, S2 present. ABDOMEN: Soft, nontender, nondistended. Bowel sounds present. EXTREMITIES: Normal range of motion. NEURO: Sedated on propofol. No focal deficits. Pupil on the right side is dilated but reactive to light. SKIN: No rash. Dry appearing. DIAGNOSTIC STUDIES/LAB DATA: WBC count 14.6, hemoglobin 11.9, hematocrit 38, platelet count of 233. Sodium 140, potassium 3.1, chloride 84, bicarb 43, BUN 13, creatinine 0.69. Lactate significantly elevated at 12.6. Repeat lactate of 2.8. BNP 152. CTA and chest x-ray as described above. Brain CT as described above. ASSESSMENT AND PLAN: 58-year-old female with terminal chronic obstructive pulmonary disease with recurrent hospitalizations for hypercapnic respiratory failure. The patient is noncompliant with Trilogy at home. 1. Acute on chronic hypercapnic respiratory failure. 2. Hypoxemic respiratory failure. 3. Acute chronic obstructive pulmonary disease exacerbation. 4. Sepsis secondary to pneumonia. 5. Leukocytosis. 6. Hypokalemia. 7. Elevated blood sugars and anion gap metabolic acidosis. 1. Neuro: The patient is sedated with propofol. The patient came in altered mental status secondary to hypercapnic respiratory failure. The patient with recurrent episodes recently. The patient on propofol will maintain RASS score 2 -2. Fentanyl p.r.n. for pain. Aspiration precautions keep the head of the bed elevated at 30 degree angle. Pupil dilated but reactive on the right side. CT brain did not reveal any acute changes. The patient is able to move extremities normally. Will monitor neuro status closely. 2. Respiratory: Hypercapnic respiratory failure secondary to COPD exacerbation in the setting of terminal COPD: The patient is not compliant with Trilogy at home. She quit smoking recently. CT shows worsening of emphysema changes. The patient also with nonspecific density peripherally on CT on the left side of unclear significance. She will need followup on this as outpatient. The patient will be treated for pneumonia. She was started on Zosyn and azithromycin given concern with healthcare-associated pneumonia with recent hospitalization. Adjust the vent settings to manage hypercapnic and hypoxemic respiratory failure. Vent bundle ordered. Pulmonary toilet. Sputum cultures to be followed. Continue with bronchodilators. Continue with steroids. 3. Cardiovascular: The patient is tachycardic secondary to fever. Blood pressure is stable, not requiring pressors. Continue with IV hydration. The patient is otherwise hemodynamically stable at this time. 4. Infectious Disease: The patient is febrile. Source is likely pneumonia. We will obtain flu swab. Elevated white count. Lactate was significantly elevated on arrival. Repeat lactate 2.8. We will repeat lactate to ensure it is normalized. Tylenol p.r.n. for fever. Follow up septic workup. 5. Gastrointestinal: We will start tube feeds. GI prophylaxis ordered. 6. Hematology: The patient with anemia macrocytic, stable. Leukocytosis is secondary to infection. Peripheral smear exam pending. 7. Endo: Elevated blood sugars. The patient is on chronic prednisone. The patient was started on insulin sliding scale. Blood glucose being monitored closely. 8. Renal: Monitor urine output closely. No evidence of renal failure. Electrolyte abnormalities are being addressed. Follow up BMP. 9. Musculoskeletal: No issues. Frequent turning and positioning to avoid decubiti. 10. Psychosocial: The patient's is healthcare proxy, will be updated when able to contact him. 11. The patient is full code for now. 12. DVT prophylaxis: Lovenox subcu. 13. Granados catheter to prevent skin breakdown given the patient's bedridden status. TIME SPENT: Total time spent on history and physical is 45 minutes. [id number]/CPS #: [id number]
[2019-01-30] MEDS: Insulin LISPRO* 1 UNITS UNIT SUBCUT SCH ×5 (02:25→22:42)
[2019-01-30] MEDS: Albuterol/Ipratropium NEB.SOL* Albuterol 2.5 MG/Ipratropium 0.5 MG 3 ML INH SCH ×7 (03:34→22:17)
[2019-01-30] MEDS: ZOSYN 3.375 GM Q8H per EXTENDED INFUSION IVPB SCH ×6 (04:24→20:17)
[2019-01-30] MEDS: Chlorhexidine MOUTHWASH 0.12%* 15 ML UDC TOPICAL SCH ×3 (04:24→12:14)
[2019-01-30 05:44] LABS: ABS Lymphocytes 0.5 10^3/ul (1.0-4.8); ABS Monocytes 0.2 10^3/ul (0-0.8); ABS Neutrophils 6.6 10^3/ul (1.5-7.7); Eosinophil % 0.1 %; Hematocrit 31 % (35-47); Hemoglobin 9.8 g/dL (12.0-16.0); Lymphocyte % 6.4 %; Mean Corpuscular HGB Conc 32 g/dL (31-36); Mean Corpuscular Hemoglobin 32 pg (27-31); Mean Corpuscular Volume 98 fL (80-97); Mean Platelet Volume 8.1 fL (7.4-10.4); Platelet Count 132 10^3/uL (150-450); Red Blood Count 3.12 10^6 /uL (3.70-4.87); Red Cell Distribution Width 15 % (10-15); White Blood Count 7.3 10^3/uL (3.5-10.8)
[2019-01-30 05:59] LABS: BUN/Creatinine Ratio 43.2 (8-20); Calcium 7.9 mg/dL (8.6-10.3); EGFR African American 218.6 (>60); EGFR Non-African American 180.7 (>60); Magnesium 1.8 mg/dL (1.9-2.7); Phosphorus 1.9 mg/dL (2.5-5.0); Potassium 3.2 mmol/L (3.5-5.0)
[2019-01-30] MEDS: Enoxaparin(*) 40 MG/0.4 ML SYR SUBCUT SCH (07:16)
[2019-01-30] MEDS: Furosemide TAB* 20 MG PO SCH (07:16)
[2019-01-30] MEDS: Azithromycin 500 mg/250 ml NS 500 MG/250 ML BAG IVPB SCH (07:16)
[2019-01-30] MEDS: methylPREDNISolone SOD 40 MG* 1 ML VIAL IM SCH ×3 (07:16→23:57)
[2019-01-30] MEDS: Propofol* 100 ML IV SCH (07:21)
--- NOTE | 2019-01-30 08:31 | PN ---
Date of Service: 01/30/19 - [facility] note Critical Care Services: Pt seen and examiend at bedside. No acute events o/n. Pt is more alert this am. Active Medications Generic Name Dose Route Start Last Admin Trade Name Freq PRN Reason Stop Dose Admin Acetaminophen 650 mg 01/29/19 15:29 01/29/19 15:35 Tylenol Tab* PO 650 mg Q4H PRN Administration TEMPERATURE > 100.4 Albuterol/Ipratropium 1 neb 01/29/19 08:00 01/30/19 07:29 Duoneb (Albuterol 2.5 Mg/Ipratropium 0.5 Mg) INH 1 neb Q4H MARGO Administration Chlorhexidine Gluconate 15 ml 01/29/19 08:00 01/30/19 07:16 Peridex Mouth Wash 0.12%* TOPICAL 15 ml Q4H [facility]GO Administration Dextrose 25 ml 01/29/19 07:59 Dextrose 50% Vial 50 Ml* IV PUSH .FOR FS < 60 - SS PRN FS < 60 Enoxaparin Sodium 40 mg 01/29/19 08:00 01/30/19 07:16 Lovenox(*) SUBCUT 40 mg Q24H MARGO Administration Furosemide 20 mg 01/29/19 09:00 01/30/19 07:16 Lasix Tab* PO 20 mg DAILY MARGO Administration Azithromycin 500 mg in 250 mls @ 250 mls/hr 01/29/19 09:00 01/30/19 07:16 Zithromax 500 Mg/250 Ml IVPB 01/31/19 23:59 250 mls/hr Q24H [facility] Administration Propofol 100 mls @ 5.334 mls/hr 01/29/19 09:00 01/30/19 07:21 Diprivan* IV 5.3 mls/hr .PER PROTOCOL MARGO Administration Protocol 20 MCG/KG/MIN Sodium Chloride 1,000 mls @ 100 mls/hr 01/29/19 08:15 01/29/19 23:20 Ns 0.9% 1000 Ml IV 100 mls/hr PER RATE MARGO Administration Piperacillin Sod/Tazobactam 100 mls @ 25 mls/hr 01/29/19 13:00 01/30/19 04:24 Sod 3.375 gm/ Sodium Chloride IVPB 25 mls/hr Q8H [facility]GO Administration Insulin Human Lispro 2 units 01/29/19 08:00 01/30/19 06:38 Humalog* SUBCUT 1 units Q6HR [facility] Administration Protocol Methylprednisolone Sodium Succinate 40 mg 01/29/19 08:00 01/30/19 07:16 Solu-Medrol 40 Mg IM 40 mg Q8H [facility] Administration Pharmacy Consult 1 note 01/29/19 09:00 Zosyn Per Pharmacy* FOLLOW UP .ZOSYN PER PHARMACY [facility] Vital Signs: Temp Pulse Resp BP SpO2 FiO2 99.3 F 79 18 130/85 100 25 01/30/19 07:30 01/30/19 07:30 01/30/19 07:00 01/30/19 07:30 01/30/19 07:30 01/30 04:00 Physical Exam: Gen: Pt in NAD HEENT: PERRLA, no JVD Lungs: Improved air entry, scaterred wheeze Cardiac: S1, S2+, tachycardic Abdomen: Soft, BS+ Extremities: Normal ROM Neuro: Alert, awake, follows commands Fluid Balance (Past 24 Hours): [id number] O= 1430 Net 3160 Intake & Output 01/28/19 01/29/19 01/30/19 01/31/19 06:59 06:59 06:59 06:59 Intake Total 3200 4590 50 Output Total 1430 30 Balance 3200 3160 20 Weight 98 lb 111 lb Intake: IV Fluids 3200 3426 KVO 72 NS 3354 IVPB 807 KCl 187 KVO 255 Zosyn 100 azithromycin 265 Medicated IV 154 CC - Propofol/Diprivan 154 Tube Feeding 153 Tube Feeding Flush Amount 50 50 Output: Granados 1430 30 Labs: Laboratory Results - last 24 hr 01/28/19 01/29/19 01/29/19 23:58 08:23 09:09 WBC RBC Hgb Hct MCV MCH MCHC RDW Plt Count MPV Neut % (Auto) Lymph % (Auto) Becker % (Auto) Eos % (Auto) Baso % (Auto) Absolute Neuts (auto) Absolute Lymphs (auto) Absolute Monos (auto) Absolute Eos (auto) Absolute Basos (auto) Absolute Nucleated RBC Nucleated RBC % ABG pCO2 > 125 H* Sodium Potassium Chloride Carbon Dioxide Anion Gap BUN Creatinine Est GFR ( Amer) Est GFR (Non-Af Amer) BUN/Creatinine Ratio Glucose POC Glucose (mg/dL) 150 H Lactic Acid Calcium Phosphorus Magnesium Urine Color Yellow Urine Appearance Clear Urine pH 5.0 Ur Specific [place] 1.043 H Urine Protein Negative Urine Ketones Negative Urine Blood 1+ A Urine Nitrate Negative Urine Bilirubin Negative Urine Urobilinogen Negative Ur Leukocyte Esterase Negative Urine WBC (Auto) Trace(0-5/hpf) Urine RBC (Auto) 2+(6-10/hpf) A Ur Squamous Epith Cells Present A Urine Bacteria Absent Urine Glucose Negative Influenza A (Rapid) Influenza B (Rapid) 01/29/19 01/29/19 01/29/19 11:46 14:40 14:40 WBC RBC Hgb Hct MCV MCH MCHC RDW Plt Count MPV Neut % (Auto) Lymph % (Auto) Becker % (Auto) Eos % (Auto) Baso % (Auto) Absolute Neuts (auto) Absolute Lymphs (auto) Absolute Monos (auto) Absolute Eos (auto) Absolute Basos (auto) Absolute Nucleated RBC Nucleated RBC % ABG pCO2 Sodium 142 Potassium 3.9 Chloride 102 Carbon Dioxide 34 H Anion Gap 6 BUN 14 Creatinine 0.44 L Est GFR ( Amer) 179.0 Est GFR (Non-Af Amer) 147.9 BUN/Creatinine Ratio 31.8 H Glucose 160 H POC Glucose (mg/dL) 143 H Lactic Acid 3.0 H* Calcium 7.9 L Phosphorus Magnesium 1.1 L Urine Color Urine Appearance Urine pH Ur Specific [place] Urine Protein Urine Ketones Urine Blood Urine Nitrate Urine Bilirubin Urine Urobilinogen Ur Leukocyte Esterase Urine WBC (Auto) Urine RBC (Auto) Ur Squamous Epith Cells Urine Bacteria Urine Glucose Influenza A (Rapid) Influenza B (Rapid) 01/29/19 01/29/19 01/29/19 14:40 18:33 23:39 WBC RBC Hgb Hct MCV MCH MCHC RDW Plt Count MPV Neut % (Auto) Lymph % (Auto) Becker % (Auto) Eos % (Auto) Baso % (Auto) Absolute Neuts (auto) Absolute Lymphs (auto) Absolute Monos (auto) Absolute Eos (auto) Absolute Basos (auto) Absolute Nucleated RBC Nucleated RBC % ABG pCO2 Sodium Potassium Chloride Carbon Dioxide Anion Gap BUN Creatinine Est GFR ( Amer) Est GFR (Non-Af Amer) BUN/Creatinine Ratio Glucose POC Glucose (mg/dL) 150 H Lactic Acid 3.4 H* Calcium Phosphorus Magnesium Urine Color Urine Appearance Urine pH Ur Specific [place] Urine Protein Urine Ketones Urine Blood Urine Nitrate Urine Bilirubin Urine Urobilinogen Ur Leukocyte Esterase Urine WBC (Auto) Urine RBC (Auto) Ur Squamous Epith Cells Urine Bacteria Urine Glucose Influenza A (Rapid) Negative Influenza B (Rapid) Negative 01/30/19 01/30/19 01/30/19 05:25 05:25 05:25 WBC 7.3 RBC 3.12 L Hgb 9.8 L Hct 31 L MCV 98 H MCH 32 H MCHC 32 RDW 15 Plt Count 132 L MPV 8.1 Neut % (Auto) 90.0 Lymph % (Auto) 6.4 Becker % (Auto) 3.3 Eos % (Auto) 0.1 Baso % (Auto) 0.2 Absolute Neuts (auto) 6.6 Absolute Lymphs (auto) 0.5 L Absolute Monos (auto) 0.2 Absolute Eos (auto) 0.0 Absolute Basos (auto) 0.0 Absolute Nucleated RBC 0.0 Nucleated RBC % 0.0 ABG pCO2 Sodium 140 Potassium 3.2 L Chloride 105 Carbon Dioxide 29 Anion Gap 6 BUN 16 Creatinine 0.37 L Est GFR ( Amer) 218.6 Est GFR (Non-Af Amer) 180.7 BUN/Creatinine Ratio 43.2 H Glucose 155 H POC Glucose (mg/dL) Lactic Acid 2.8 H* Calcium 7.9 L Phosphorus 1.9 L Magnesium 1.8 L Urine Color Urine Appearance Urine pH Ur Specific [place] Urine Protein Urine Ketones Urine Blood Urine Nitrate Urine Bilirubin Urine Urobilinogen Ur Leukocyte Esterase Urine WBC (Auto) Urine RBC (Auto) Ur Squamous Epith Cells Urine Bacteria Urine Glucose Influenza A (Rapid) Influenza B (Rapid) Studies: CTA- emphysema, peripheral, subpleural densit on left side and evidence of pleural thickening, needs f/u Nutrition: NPO for extubation Impression: 58-year-old female with terminal chronic obstructive pulmonary disease with recurrent hospitalizations for hypercapnic respiratory failure. The patient is noncompliant with Trilogy at home. 1. Acute on chronic hypercapnic respiratory failure, improving 2. Hypoxemic respiratory failure, resolved. 3. Acute chronic obstructive pulmonary disease exacerbation, improving 4. Sepsis secondary to pneumonia. Plan: 1. Neuro: Mental status is imrpoved, pt is more alert this am, able to follow commands. D/c Fentanyl and Propofol. Aspiration precautions keep the head of the bed elevated at [address] brain did not reveal any acute changes. The patient is able to move extremities normally and follows commands 2. Respiratory: Hypercapnic respiratory failure secondary to COPD exacerbation in the setting of terminal COPD and PNA. The patient is not compliant with Trilogy at home. She quit smoking recently. CT shows worsening of emphysema changes. The patient also with nonspecific density peripherally on CT on the left side of unclear significance. She will need followup on this as outpatient. The patient will be treated for pneumonia. She was started on Zosyn and azithromycin given concern with healthcare-associated pneumonia with recent hospitalization. SBT and possible extubation. Continue with bronchodilators. Continue with steroids. 3. Cardiovascular: The patient is tachycardic secondary to sepsis. Blood pressure is stable, not requiring pressors. Continue with IV hydration. 4. Infectious Disease: Sepsis sec to pneumonia. Flu swab is negative. Leucocytosis resolved. Lactate was significantly elevated on arrival, trending down. Repeat lactate 2.8 this am. Tylenol p.r.n. for fever. Follow up septic workup. 5. Gastrointestinal: Hold tube feeds for extuabtion. GI prophylaxis ordered. 6. Hematology: The patient with anemia macrocytic, stable. 7. Endo: Elevated blood sugars. The patient is on chronic prednisone. The patient was started on insulin sliding scale. Blood glucose being monitored closely. 8. Renal: Monitor urine output closely. No evidence of renal failure. Electrolyte abnormalities are being addressed. Follow up BMP. 9. Musculoskeletal: No issues. Frequent turning and positioning to avoid decubiti.OOB to chair after extubation 10. Psychosocial: The patient's is healthcare proxy, will be updated 11. The patient is full code for now. 12. DVT prophylaxis: Lovenox subcu. 13. Granados catheter to prevent skin breakdown given the patient's bedridden status. Will d/c post extubation Critical Care Time: 45 min
[2019-01-30] MEDS ORDERED: Albuterol HFA INHALER* 8 gm MDI INH PRN (09:39)
[2019-01-30] MEDS: NS 0.9% 1000 ML** 1,000 ML IV SCH ×2 (09:42→20:17)
[2019-01-30] MEDS ORDERED: Albuterol 2.5 MG/3 ML NEB.SOL* (0.083%) INH SCH ×2 (10:00→11:00)
[2019-01-30] MEDS: Cholecalciferol TAB* 1000 UNITS PO SCH (10:16)
[2019-01-30] MEDS: Sertraline* 25 MG TAB PO SCH (10:16)
[2019-01-30] MEDS: busPIRone TAB* 5 MG PO PRN ×2 (12:45→22:20)
[2019-01-30] MEDS ORDERED: Potassium Chlor TAB* 20 MEQ TAB.ER PO ONE (15:26)
[2019-01-30] MEDS ORDERED: Dextrose 50% VIAL 50 ml IV PUSH PRN (21:05)
[2019-01-31] MEDS: Albuterol/Ipratropium NEB.SOL* Albuterol 2.5 MG/Ipratropium 0.5 MG 3 ML INH SCH ×6 (03:40→23:25)
[2019-01-31] MEDS: ZOSYN 3.375 GM Q8H per EXTENDED INFUSION IVPB SCH ×6 (04:39→20:39)
[2019-01-31] MEDS: busPIRone TAB* 5 MG PO PRN ×3 (04:39→20:34)
[2019-01-31 05:11] LABS: Hematocrit 32 % (35-47); Hemoglobin 10.2 g/dL (12.0-16.0); Mean Corpuscular HGB Conc 32 g/dL (31-36); Mean Corpuscular Hemoglobin 32 pg (27-31); Mean Corpuscular Volume 99 fL (80-97); Platelet Count 141 10^3/uL (150-450); Red Blood Count 3.23 10^6 /uL (3.70-4.87); Red Cell Distribution Width 15 % (10-15); White Blood Count 11.8 10^3/uL (3.5-10.8)
[2019-01-31 05:18] LABS: Calcium 8.7 mg/dL (8.6-10.3); EGFR African American 278.4 (>60); EGFR Non-African American 230.1 (>60); Potassium 4.1 mmol/L (3.5-5.0)
[2019-01-31] MEDS: Tiotropium Brom/Olodaterol MDI INH SCH (07:45)
[2019-01-31] MEDS: Cholecalciferol TAB* 1000 UNITS PO SCH (08:32)
[2019-01-31] MEDS: Sertraline* 25 MG TAB PO SCH (08:32)
[2019-01-31] MEDS: Furosemide TAB* 20 MG PO SCH (08:33)
[2019-01-31] MEDS: methylPREDNISolone SOD 40 MG* 1 ML VIAL IM SCH ×3 (08:34→23:40)
[2019-01-31] MEDS: Insulin LISPRO* 1 UNITS UNIT SUBCUT SCH ×4 (08:35→20:09)
[2019-01-31] MEDS: Enoxaparin(*) 40 MG/0.4 ML SYR SUBCUT SCH (08:35)
[2019-01-31] MEDS: Azithromycin 500 mg/250 ml NS 500 MG/250 ML BAG IVPB SCH (09:38)
--- NOTE | 2019-01-31 16:05 | PN ---
Date of Service: 01/31/19 Critical Care Services: Patient is seen today, appears comfortable. Complaints of some SOB off bipap, but appears to not be in distress. She denies chest pain, no chills or fevers, no n/v, no further complaints. Vital Signs: Temp Pulse Resp BP SpO2 FiO2 99.3 F 99 20 103/64 98 3 01/31/19 15:01 01/31/19 15:01 01/31/19 15:20 01/31/19 15:00 01/31/19 15:01 01/31 11:21 Physical Exam: Gen: Alert, frail, NAD HEENT: PEERLA, nonicteric sclera Lungs: Poor air entry bilaterally, wheeze at right apex Cardiac: +S1S2, no murmurs or rubs, rate and rhythm regular Abdomen: Benign, soft, no masses, +[id number] Extremities: No clubbing or edema Neuro: A&Ox3, full ROM, no acute deficits Fluid Balance (Past 24 Hours): I= O= Net Intake & Output 01/29/19 01/30/19 01/31/19 02/01/19 06:59 06:59 06:59 06:59 Intake Total 3200 4590 3342 2180.6 Output Total 1430 3135 1650 Balance 3200 3160 207 530.6 Weight 98 lb 111 lb 110 lb 9 oz Intake: IV Fluids 3200 3426 1538 300.6 KVO 72 117 NS 3354 1421 Zosyn 50.6 azithromycin 250 IVPB 807 394 110 KCl 187 KVO 255 NS 140 Zosyn 100 4 110 azithromycin 265 250 Medicated IV 154 10 CC - Propofol/Diprivan 154 10 Oral 1350 1770 Tube Feeding 153 Tube Feeding Flush Amount 50 50 Output: Granados 1430 3135 1650 Labs: Laboratory Results - last 24 hr 01/28/19 01/29/19 01/29/19 22:54 18:35 18:39 WBC RBC Hgb Hct MCV MCH MCHC RDW Plt Count MPV Hem Pathologist Commnt Patient Temperature ABG pH ABG pCO2 ABG pO2 ABG HCO3 ABG O2 Saturation ABG Base Excess Respiration Rate Ventilator Type Vent Mode FiO2 Inspiratory Time PEEP Pressure Support Pressure Control EPAP IPAP BiPAP Sodium Potassium Chloride Carbon Dioxide Anion Gap BUN Creatinine Est GFR ( Amer) Est GFR (Non-Af Amer) BUN/Creatinine Ratio Glucose POC Glucose (mg/dL) 89 203 H Calcium 01/30/19 01/31/19 01/31/19 22:09 04:32 04:32 WBC 11.8 H RBC 3.23 L Hgb 10.2 L Hct 32 L MCV 99 H MCH 32 H MCHC 32 RDW 15 Plt Count 141 L MPV 8.0 Hem Pathologist Commnt Patient Temperature ABG pH ABG pCO2 ABG pO2 ABG HCO3 ABG O2 Saturation ABG Base Excess Respiration Rate Ventilator Type Vent Mode FiO2 Inspiratory Time PEEP Pressure Support Pressure Control EPAP IPAP BiPAP Sodium 145 Potassium 4.1 Chloride 100 L Carbon Dioxide 41 H* Anion Gap 4 BUN 9 Creatinine 0.30 L Est GFR ( Amer) 278.4 Est GFR (Non-Af Amer) 230.1 BUN/Creatinine Ratio 30.0 H Glucose 118 H POC Glucose (mg/dL) 181 H Calcium 8.7 01/31/19 01/31/19 01/31/19 07:45 08:40 11:50 WBC RBC Hgb Hct MCV MCH MCHC RDW Plt Count MPV Hem Pathologist Commnt Patient Temperature Not Reportable ABG pH 7.36 ABG pCO2 80 H* ABG pO2 124 H ABG HCO3 37.1 H ABG O2 Saturation 98.7 H ABG Base Excess 15.6 H Respiration Rate 16 Ventilator Type Not Reportable Vent Mode Not Reportable FiO2 50 Inspiratory Time 1 PEEP Not Reportable Pressure Support Not Reportable Pressure Control Not Reportable EPAP 5 IPAP 12 BiPAP Not Reportable Sodium Potassium Chloride Carbon Dioxide Anion Gap BUN Creatinine Est GFR ( Amer) Est GFR (Non-Af Amer) BUN/Creatinine Ratio Glucose POC Glucose (mg/dL) 140 H 192 H Calcium Studies: Patient Name: AYO CASTRO Medical Record#: [id number] Ordering Physician: Kandace Young MD Acct.#: [id number] : 1960 Age: 58 Sex: F Location: EMERGENCY DEPARTMENT Exam Date: 01/29/19 010 ADM Status: REG ER Order Information: CTA CHEST Accession Number: [id number] CPT: 50331 PROCEDURE INFORMATION: Exam: CT Angiography Chest With Contrast Exam date and time: 01/29/2019 1:46 AM Age: 58 years old Clinical history: Shortness of breath; Additional info: SOB TECHNIQUE: Imaging protocol: Computed tomographic angiography of the chest with intravenous contrast. 3D rendering: MIP reconstructed images were created and reviewed. Radiation optimization: All CT scans at this facility use at least one of these dose optimization techniques: automated exposure control; mA and/or kV adjustment per patient size (includes targeted exams where dose is matched to clinical indication); or iterative reconstruction. Contrast material: OMNI 350; Contrast volume: 51 ml; Contrast route: IV; COMPARISON: C/A/P W CT CHEST/ABD/P 12/22/2016 2:16 PM FINDINGS: Tubes, catheters and devices: NG tube located in the esophagus with the tip in the area the body of the stomach. Endotracheal tube in place with the tip located several centimeters from the [place]. Pulmonary arteries: No acute pulmonary embolic disease. Aorta: No aortic dissection or aneurysm. Lungs: Extensive central lobar emphysema with paraseptal emphysema. Bronchiectasis involving both lower lungs. No pulmonary consolidation. Linear infiltrates located in the lung bases consistent with areas of atelectasis and/or scarring. Patchy groundglass opacities scattered throughout the lungs. No pulmonary consolidation. Pleural space: No pleural effusion. No pneumothorax. Pleural thickening in the left anterior lateral aspect of the chest involving the upper lung. This measures about 5.5 cm in length with one component measuring 1.7 cm in width. This is not seen on the prior CT scan of 12/22/2016. Heart: Cardiac size is normal. No pericardial thickening or effusion. No significant coronary calcification. Lymph nodes: Unremarkable. No enlarged lymph nodes. Bones/joints: The thoracic cage is intact. Spondylotic changes thoracic spine. No fracture or pathologic subluxation. Soft tissues: Unremarkable. IMPRESSION: 1. Extensive centrilobular emphysema involving the upper lungs. This is associated with paraseptal emphysema. The right upper lung being more involved than the left. Extensive bronchiectasis involving the lower lungs. 2. Since prior CT study of 12/22/2016 there has been progression of the emphysematous changes in lung as well as the areas of bronchiectasis. 3. No acute pulmonary embolic disease. 4. No pulmonary consolidation. 5. Focal pleural thickening involving the anterior lateral aspect of the left upper lung. This was not seen on the prior CT scan. This may represent an inflammatory process. 6. Patchy ground glass opacities scattered throughout the lung. This could represent a bronchiolitis. 7. NG tube located in the esophagus with the tip located in the body of the stomach. 8. Endotracheal tube in place with the tip located several centimeters from the [place]. Patient Name: AYO CASTRO Medical Record#: [id number] Ordering Physician: Kandace Young MD Acct.#: [id number] : 1960 Age: 58 Sex: F Location: EMERGENCY DEPARTMENT Exam Date: 01/29/19534 ADM Status: REG ER Order Information: CT BRAIN WO Accession Number: [id number] CPT: 06283 PROCEDURE INFORMATION: Exam: CT Head Without Contrast Exam date and time: 01/29/2019 5:56 AM Age: 58 years old Clinical history: Altered mental status/memory loss; Additional info: Dialated right pupil TECHNIQUE: Imaging protocol: Computed tomography of the head without contrast. Radiation optimization: All CT scans at this facility use at least one of these dose optimization techniques: automated exposure control; mA and/or kV adjustment per patient size (includes targeted exams where dose is matched to clinical indication); or iterative reconstruction. COMPARISON: BRAIN WO CT BRAIN WO 01/29/2019 1:43 AM FINDINGS: Brain: No acute intracranial hemorrhage. No intracranial mass or mass effect. The shea matter is intact. No significant white matter pathology. The brainstem and cerebellum are not remarkable. Ventricles: No ventriculomegaly. Bones/joints: Unremarkable. No acute fracture. Sinuses: Mucoperiosteal thickening involving the sphenoid sinus and maxillary sinuses. Patchy ethmoid sinus disease. Mucoperiosteal thickening involving the left frontal sinus. Mastoid air cells: Visualized mastoid air cells are well aerated. Orbits: The globes, extraocular muscles and intraconal structures are intact. Soft tissues: Unremarkable. Vasculature: Cavernous sinus region appears intact. IMPRESSION: 1. No acute intracranial hemorrhage. No intracranial mass. No obstructive hydrocephalus. 2. Since prior head CT of 01/29/2019, no significant new findings. To contact [facility] with a general question: Operations Center - [phone] For direct physician to physician contact: Physician Hotline - [phone] [facility] [place] ([facility] Facility ID #[id number]) Nutrition: Consistent carb diet Impression: 58-year-old female with terminal chronic obstructive pulmonary disease with recurrent hospitalizations for hypercapnic respiratory failure. The patient is noncompliant with Trilogy at home. 1. Acute on chronic hypercapnic respiratory failure, improving 2. Hypoxemic respiratory failure, resolved. 3. Acute chronic obstructive pulmonary disease exacerbation, improving 4. Sepsis secondary to pneumonia. Plan: Plan: Neuro: - Mental status back to baseline Respiratory: - ABG showing compensation, still retaining CO2 off bipap but mentation is intact and showing continued improvement - Continue with bronchodilators. Continue with steroids. - Reinforce compliance with Triology at discharge and continued smoking cessation - Continue treating PNA with empiric zosyn and azithromycin - Plan to downgrade tomorrow if resp status stable through the night and she does not require rescue bipap, will recheck ABG again this evening and reassess CO2 retention Cardiovascular: - Previously tachycardic secondary to sepsis which is now improved - BP stable Infectious Disease: - Sepsis 2/2 pneumonia, lactic resolved - Flu negative Gastrointestinal: - Off tube feeds after extubation, - CC diet - PUD prophy Hematology: - macrocytic, stable, monitor labs Endocrine: - Elvated BG 2/2 chronic prednisone and acute infection - Continue lispro SS Renal: - UOP adequate, follow BMP, stable - DC leonarda Musculoskeletal: - OOB and ambulate as tolerated Psychosocial: - Family at bedside and updated on POC today FULL CODE DVT PROPHY: Roc subq Critical Care Time: 65 minutes
[2019-01-31] MEDS: Acetaminophen / Codeine* #3 (300 MG/30 MG) TAB PO PRN (19:48)
[2019-02-01] MEDS ORDERED: Loperamide CAP* 2 MG PO PRN (01:39)
[2019-02-01] MEDS: ALPRAZolam TAB* 0.5 MG PO PRN ×2 (01:48→11:01)
[2019-02-01] MEDS: Albuterol/Ipratropium NEB.SOL* Albuterol 2.5 MG/Ipratropium 0.5 MG 3 ML INH SCH ×5 (03:11→19:47)
[2019-02-01] MEDS: ZOSYN 3.375 GM Q8H per EXTENDED INFUSION IVPB SCH ×2 (04:07)
[2019-02-01 06:42] LABS: ABS Lymphocytes 0.6 10^3/ul (1.0-4.8); ABS Monocytes 0.4 10^3/ul (0-0.8); Hematocrit 31 % (35-47); Lymphocyte % 6.2 %; Mean Corpuscular HGB Conc 32 g/dL (31-36); Mean Corpuscular Hemoglobin 32 pg (27-31); Mean Corpuscular Volume 98 fL (80-97); Mean Platelet Volume 7.7 fL (7.4-10.4); Nucleated Red Blood Cells % 0.1; Platelet Count 143 10^3/uL (150-450); Red Blood Count 3.15 10^6 /uL (3.70-4.87); Red Cell Distribution Width 14 % (10-15); White Blood Count 8.9 10^3/uL (3.5-10.8)
[2019-02-01] MEDS: busPIRone TAB* 5 MG PO PRN ×2 (06:45→14:34)
[2019-02-01 07:00] LABS: BUN/Creatinine Ratio 37.5 (8-20); Blood Urea Nitrogen 12 mg/dL (6-24); Calcium 8.5 mg/dL (8.6-10.3); Chloride 89 mmol/L (101-111); EGFR African American 258.5 (>60); EGFR Non-African American 213.6 (>60); Glucose 147 mg/dL (70-100); Potassium 4.4 mmol/L (3.5-5.0); Sodium 142 mmol/L (135-145)
[2019-02-01 07:18] LABS: CO2 Carbon Dioxide 52 mmol/L (22-32)
[2019-02-01] MEDS: Tiotropium Brom/Olodaterol MDI INH SCH (08:27)
[2019-02-01] MEDS: methylPREDNISolone SOD 40 MG* 1 ML VIAL IM SCH ×2 (08:32→17:03)
[2019-02-01] MEDS: Furosemide TAB* 20 MG PO SCH (08:37)
[2019-02-01] MEDS: Sertraline* 25 MG TAB PO SCH (08:37)
[2019-02-01] MEDS: Enoxaparin(*) 40 MG/0.4 ML SYR SUBCUT SCH (08:37)
[2019-02-01] MEDS: Insulin LISPRO* 1 UNITS UNIT SUBCUT SCH ×4 (09:19→21:33)
[2019-02-01] MEDS: cefTRIAXone(*) 1 GM in NS 0.9% 50 ML* 50 ML IVPB SCH (10:19)
[2019-02-01] MEDS ORDERED: ALPRAZolam TAB* 0.5 MG ONE (10:59)
[2019-02-01] MEDS: Cholecalciferol TAB* 1000 UNITS PO SCH (11:43)
--- NOTE | 2019-02-01 13:59 | PN ---
Date of Service: 02/01/19 Critical Care Services: Patient seen and examined. Does seem to have periods of confusion this morning off bipap. CO2 is climbing, but patient consistently refuses to leave bipap on for too long. She denies any acute SOB, no chest pain, no fevers or chills. Nursing notes reviewed. No further events noted. Vital Signs: Temp Pulse Resp BP SpO2 FiO2 98.6 F 83 18 118/70 97 50 02/01/19 13:01 02/01/19 13:01 02/01/19 13:33 02/01/19 13:00 02/01/19 13:01 02/01 11:56 Physical Exam: Gen: alert, NAd HEENT: PEERLA, non-icteric sclera Lungs: poor aeration, bilateral expiratory wheezes Cardiac: +S1S2, regular, no murmur Abdomen: benign, soft, +BS x4quad Extremities: no clubbing edema or cyanosis Neuro: alert, periods of forgetfulness Fluid Balance (Past 24 Hours): I= O= Net Intake & Output 01/30/19 01/31/19 02/01/19 02/02/19 06:59 06:59 06:59 06:59 Intake Total 4590 3342 3743.3 1027 Output Total 1430 3135 2325 1175 Balance 3160 207 1418.3 -148 Weight 111 lb 110 lb 9 oz 114 lb 11.2 oz Intake: IV Fluids 3426 1538 578.3 137 ABX - CEFTRIAXONE 50 KVO 72 117 NS 3354 1421 73 87 Zosyn 255.3 azithromycin 250 IVPB 807 394 110 KCl 187 KVO 255 NS 140 Zosyn 100 4 110 azithromycin 265 250 Medicated IV 154 10 CC - Propofol/Diprivan 154 10 Oral 1350 3055 890 Tube Feeding 153 Tube Feeding Flush Amount 50 50 Output: Granados 1430 3135 2325 1175 Other: Date of Last Bowel 02/01/19 Movement # Bowel Movements 1 Estimated Stool Amount Large Labs: Laboratory Results - last 24 hr 01/28/19 01/31/19 01/31/19 22:54 16:42 19:50 WBC RBC Hgb Hct MCV MCH MCHC RDW Plt Count MPV Neut % (Auto) Lymph % (Auto) [place] % (Auto) Eos % (Auto) Baso % (Auto) Absolute Neuts (auto) Absolute Lymphs (auto) Absolute Monos (auto) Absolute Eos (auto) Absolute Basos (auto) Absolute Nucleated RBC Nucleated RBC % Hem Pathologist Commnt Patient Temperature ABG pH ABG pH (Temp Correct) ABG pCO2 ABG pCO2 (Temp Corrct ABG pO2 ABG pO2 (Temp Correct ABG HCO3 ABG O2 Saturation ABG Base Excess Respiration Rate O2 Delivery Device Ventilator Type Vent Mode FiO2 Inspiratory Time PEEP Pressure Support Pressure Control EPAP IPAP BiPAP Sodium Potassium Chloride Carbon Dioxide Anion Gap BUN Creatinine Est GFR ( Amer) Est GFR (Non-Af Amer) BUN/Creatinine Ratio Glucose POC Glucose (mg/dL) 219 H 128 H Calcium 01/31/19 02/01/19 02/01/19 20:05 05:29 05:29 WBC 8.9 RBC 3.15 L Hgb 10.0 L Hct 31 L MCV 98 H MCH 32 H MCHC 32 RDW 14 Plt Count 143 L MPV 7.7 Neut % (Auto) 89.4 Lymph % (Auto) 6.2 [place] % (Auto) 4.3 Eos % (Auto) 0.0 Baso % (Auto) 0.1 Absolute Neuts (auto) 8.0 H Absolute Lymphs (auto) 0.6 L Absolute Monos (auto) 0.4 Absolute Eos (auto) 0.0 Absolute Basos (auto) 0.0 Absolute Nucleated RBC 0.0 Nucleated RBC % 0.1 Hem Pathologist Commnt Patient Temperature Not Reportable ABG pH 7.35 ABG pH (Temp Correct) Not Reportable ABG pCO2 101 H* ABG pCO2 (Temp Corrct Not Reportable ABG pO2 114 H ABG pO2 (Temp Correct Not Reportable ABG HCO3 43.7 H* ABG O2 Saturation 98.8 H ABG Base Excess 24.0 H Respiration Rate Not Reportable O2 Delivery Device n/c Ventilator Type Not Reportable Vent Mode Not Reportable FiO2 41 Inspiratory Time Not Reportable PEEP Not Reportable Pressure Support Not Reportable Pressure Control Not Reportable EPAP Not Reportable IPAP Not Reportable BiPAP Not Reportable Sodium 142 Potassium 4.4 Chloride 89 L Carbon Dioxide 52 H* Anion Gap Not Reportable BUN 12 Creatinine 0.32 L Est GFR ( Amer) 258.5 Est GFR (Non-Af Amer) 213.6 BUN/Creatinine Ratio 37.5 H Glucose 147 H POC Glucose (mg/dL) Calcium 8.5 L 02/01/19 02/01/19 05:45 12:03 WBC RBC Hgb Hct MCV MCH MCHC RDW Plt Count MPV Neut % (Auto) Lymph % (Auto) [place] % (Auto) Eos % (Auto) Baso % (Auto) Absolute Neuts (auto) Absolute Lymphs (auto) Absolute Monos (auto) Absolute Eos (auto) Absolute Basos (auto) Absolute Nucleated RBC Nucleated RBC % Hem Pathologist Commnt Patient Temperature Not Reportable ABG pH 7.32 L ABG pH (Temp Correct) Not Reportable ABG pCO2 114 H* ABG pCO2 (Temp Corrct Not Reportable ABG pO2 103 H ABG pO2 (Temp Correct Not Reportable ABG HCO3 45.0 H* ABG O2 Saturation 98.6 H ABG Base Excess 25.7 H Respiration Rate Not Reportable O2 Delivery Device Nc Ventilator Type Not Reportable Vent Mode Not Reportable FiO2 33 Inspiratory Time Not Reportable PEEP Not Reportable Pressure Support Not Reportable Pressure Control Not Reportable EPAP Not Reportable IPAP Not Reportable BiPAP Not Reportable Sodium Potassium Chloride Carbon Dioxide Anion Gap BUN Creatinine Est GFR ( Amer) Est GFR (Non-Af Amer) BUN/Creatinine Ratio Glucose POC Glucose (mg/dL) 240 H Calcium Studies: Patient Name: AYO CASTRO Medical Record#: [id number] Ordering Physician: Kandace Young MD Acct.#: [id number] : 1960 Age: 58 Sex: F Location: EMERGENCY DEPARTMENT Exam Date: 01/29/19100 ADM Status: REG ER Order Information: CTA CHEST Accession Number: [id number] CPT: 98449 PROCEDURE INFORMATION: Exam: CT Angiography Chest With Contrast Exam date and time: 01/29/2019 1:46 AM Age: 58 years old Clinical history: Shortness of breath; Additional info: SOB TECHNIQUE: Imaging protocol: Computed tomographic angiography of the chest with intravenous contrast. 3D rendering: MIP reconstructed images were created and reviewed. Radiation optimization: All CT scans at this facility use at least one of these dose optimization techniques: automated exposure control; mA and/or kV adjustment per patient size (includes targeted exams where dose is matched to clinical indication); or iterative reconstruction. Contrast material: OMNI 350; Contrast volume: 51 ml; Contrast route: IV; COMPARISON: C/A/P W CT CHEST/ABD/P 12/22/2016 2:16 PM FINDINGS: Tubes, catheters and devices: NG tube located in the esophagus with the tip in the area the body of the stomach. Endotracheal tube in place with the tip located several centimeters from the [place]. Pulmonary arteries: No acute pulmonary embolic disease. Aorta: No aortic dissection or aneurysm. Lungs: Extensive central lobar emphysema with paraseptal emphysema. Bronchiectasis involving both lower lungs. No pulmonary consolidation. Linear infiltrates located in the lung bases consistent with areas of atelectasis and/or scarring. Patchy groundglass opacities scattered throughout the lungs. No pulmonary consolidation. Pleural space: No pleural effusion. No pneumothorax. Pleural thickening in the left anterior lateral aspect of the chest involving the upper lung. This measures about 5.5 cm in length with one component measuring 1.7 cm in width. This is not seen on the prior CT scan of 12/22/2016. Heart: Cardiac size is normal. No pericardial thickening or effusion. No significant coronary calcification. Lymph nodes: Unremarkable. No enlarged lymph nodes. Bones/joints: The thoracic cage is intact. Spondylotic changes thoracic spine. No fracture or pathologic subluxation. Soft tissues: Unremarkable. IMPRESSION: 1. Extensive centrilobular emphysema involving the upper lungs. This is associated with paraseptal emphysema. The right upper lung being more involved than the left. Extensive bronchiectasis involving the lower lungs. 2. Since prior CT study of 12/22/2016 there has been progression of the emphysematous changes in lung as well as the areas of bronchiectasis. 3. No acute pulmonary embolic disease. 4. No pulmonary consolidation. 5. Focal pleural thickening involving the anterior lateral aspect of the left upper lung. This was not seen on the prior CT scan. This may represent an inflammatory process. 6. Patchy ground glass opacities scattered throughout the lung. This could represent a bronchiolitis. 7. NG tube located in the esophagus with the tip located in the body of the stomach. 8. Endotracheal tube in place with the tip located several centimeters from the [place]. To contact [facility] with a general question: [facility] - [phone] For direct physician to physician contact: Physician Hotline - [phone] [facility] [place] ([facility] Facility ID #[id number]) Nutrition: Consistent Carb Impression: 58-year-old female with terminal chronic obstructive pulmonary disease with recurrent hospitalizations for hypercapnic respiratory failure. The patient is noncompliant with Trilogy at home. 1. Acute on chronic hypercapnic respiratory failure 2. Hypoxemic respiratory failure 3. Acute on chronic obstructive pulmonary disease exacerbation, improving 4. Sepsis secondary to pneumonia, resolved Plan: PLAN: Neuro: - Mental status waxing and waning, 2/2 hypercarbia Respiratory: - Initial ABG showed compensation, but still retaining CO2 off bipap and climbing - Patient also requesting to be off bipap after she feels "better" which is negating short term positive effects of bipap - Continue with bronchodilators and steroids for now, continue treating PNA with empiric zosyn and azithromycin - Reached out to Dr. Mckeon, as patient does not seem to tolerate any time off bipap, and we are reaching a point where goals of care should be discussed. Dr. Mckeon will come in and speak with the patient and family this afternoon, as the patient's end stage COPD combined with lack of Trilogy use at home has put the patient into a progressive hypoxic/hypercarbic respiratory failure that is not improving Cardiovascular: - Previously tachycardic secondary to sepsis which is now improved - BP stable Infectious Disease: - Sepsis 2/2 pneumonia, lactic resolved - Continue ceftriaxone, 5 days azithromycin completed - Flu negative Gastrointestinal: - Off tube feeds after extubation, - CC diet - PUD prophy Hematology: - macrocytic, stable, monitor labs Endocrine: - Elevated BG 2/2 chronic prednisone and acute infection - Continue lispro SS Renal: - UOP adequate, follow BMP, stable - Granados DCd Musculoskeletal: - OOB and ambulate as tolerated Psychosocial: - Family at bedside and updated on POC today FULL CODE DVT PROPHY: Lovenox subq Condition: Guarded Critical Care Time: 60 minutes
--- NOTE | 2019-02-01 15:42 | PN ---
Progress Note - Progress Note Date of Service: 02/01/19 - Pulm f/u note Note: Pt seen and examined at bedside. Interim events noted. Pt has been needing BiPAP for longer duration. Pt still with significant hypercapnia. Pt with worsening mental status from being briefly off BiPAP Active Medications Generic Name Dose Route Start Last Admin Trade Name Freq PRN Reason Stop Dose Admin Acetaminophen 650 mg 01/29/19 15:29 01/29/19 15:35 Tylenol Tab* PO 650 mg Q4H PRN Administration TEMPERATURE > 100.4 Acetaminophen/Codeine Phosphate 1 tab 01/30/19 09:39 01/31/19 19:48 Tylenol/Codeine 30 Mg Tab* PO 1 tab BEDTIME PRN Administration PAIN Acetazolamide 250 mg 02/01/19 21:00 Diamox Tab* PO 02/04/19 23:59 BID MARGO Albuterol 2 puff 01/30/19 09:39 Ventolin Hfa Inhaler* INH Q6H PRN SHORTNESS OF BREATH Albuterol/Ipratropium 1 neb 02/01/19 13:00 02/01/19 12:57 Duoneb (Albuterol 2.5 Mg/Ipratropium 0.5 Mg) INH 1 neb [id number] AWAKE MARGO Administration Alprazolam 0.5 mg 02/01/19 01:30 02/01/19 11:01 Xanax Tab* PO 02/02/19 01:29 0.5 mg ONCE PRN Administration ANXIETY Buspirone HCl 5 mg 01/30/19 09:39 02/01/19 14:34 Buspar Tab* PO 5 mg TID PRN Administration ANXIETY Cholecalciferol 5,000 units 01/30/19 10:00 02/01/19 11:43 Vitamin D Tab* PO 5,000 units DAILY MARGO Administration Dextrose 25 ml 01/30/19 21:05 Dextrose 50% Vial 50 Ml* IV PUSH .FOR FS < 60 - SS PRN FS < 60 Enoxaparin Sodium 40 mg 01/29/19 08:00 02/01/19 08:37 Lovenox(*) SUBCUT 40 mg Q24H MARGO Administration Furosemide 20 mg 01/29/19 09:00 02/01/19 08:37 Lasix Tab* PO 20 mg DAILY MARGO Administration Ceftriaxone Sodium 1 gm/ 50 mls @ 100 mls/hr 02/01/19 09:00 02/01/19 10:19 Sodium Chloride IVPB 100 mls/hr Q24H MARGO Administration Insulin Human Lispro 0 units 01/30/19 22:00 02/01/19 12:10 Humalog* SUBCUT 4 unit ACHS MARGO Administration Protocol Loperamide HCl 2 mg 02/01/19 01:39 02/01/19 01:49 Imodium Cap* PO 2 mg .SEE DIRECTIONS PRN Administration DIARRHEA Methylprednisolone Sodium Succinate 40 mg 01/29/19 08:00 02/01/19 08:32 Solu-Medrol 40 Mg IM 40 mg Q8H MARGO Administration Sertraline HCl 25 mg 01/30/19 10:00 02/01/19 08:37 Zoloft* PO 25 mg DAILY MARGO Administration Tiotropium [place]/Olodaterol 2 puff 01/31/19 09:00 02/01/19 08:27 Stiolto Respimat Inh [place] (60 Puff) INH Not Given DAILY [facility] Vital Signs Temp Pulse Resp BP Pulse Ox 98.4 F 89 18 104/67 100 02/01/19 14:01 02/01/19 15:00 02/01/19 15:00 02/01/19 15:00 02/01/19 15:00 O/E: Pt in NAD, thin frial appearing female HEENT: PERRLA Lungs: Diminished air entry b/l, slight wheeze CVS: S1, S2+ Abd: Soft, Bs+ Ext: Normal ROM Skin: No rash Neuro: Alert, awake, no focal deficits Laboratory Results - last 24 hr 01/31/19 01/31/19 01/31/19 16:42 19:50 20:05 WBC RBC Hgb Hct MCV MCH MCHC RDW Plt Count MPV Neut % (Auto) Lymph % (Auto) [place] % (Auto) Eos % (Auto) Baso % (Auto) Absolute Neuts (auto) Absolute Lymphs (auto) Absolute Monos (auto) Absolute Eos (auto) Absolute Basos (auto) Absolute Nucleated RBC Nucleated RBC % Patient Temperature Not Reportable ABG pH 7.35 ABG pH (Temp Correct) Not Reportable ABG pCO2 101 H* ABG pCO2 (Temp Corrct Not Reportable ABG pO2 114 H ABG pO2 (Temp Correct Not Reportable ABG HCO3 43.7 H* ABG O2 Saturation 98.8 H ABG Base Excess 24.0 H Respiration Rate Not Reportable O2 Delivery Device n/c Ventilator Type Not Reportable Vent Mode Not Reportable FiO2 41 Inspiratory Time Not Reportable PEEP Not Reportable Pressure Support Not Reportable Pressure Control Not Reportable EPAP Not Reportable IPAP Not Reportable BiPAP Not Reportable Sodium Potassium Chloride Carbon Dioxide Anion Gap BUN Creatinine Est GFR ( Amer) Est GFR (Non-Af Amer) BUN/Creatinine Ratio Glucose POC Glucose (mg/dL) 219 H 128 H Calcium 02/01/19 02/01/19 02/01/19 05:29 05:29 05:45 WBC 8.9 RBC 3.15 L Hgb 10.0 L Hct 31 L MCV 98 H MCH 32 H MCHC 32 RDW 14 Plt Count 143 L MPV 7.7 Neut % (Auto) 89.4 Lymph % (Auto) 6.2 [place] % (Auto) 4.3 Eos % (Auto) 0.0 Baso % (Auto) 0.1 Absolute Neuts (auto) 8.0 H Absolute Lymphs (auto) 0.6 L Absolute Monos (auto) 0.4 Absolute Eos (auto) 0.0 Absolute Basos (auto) 0.0 Absolute Nucleated RBC 0.0 Nucleated RBC % 0.1 Patient Temperature Not Reportable ABG pH 7.32 L ABG pH (Temp Correct) Not Reportable ABG pCO2 114 H* ABG pCO2 (Temp Corrct Not Reportable ABG pO2 103 H ABG pO2 (Temp Correct Not Reportable ABG HCO3 45.0 H* ABG O2 Saturation 98.6 H ABG Base Excess 25.7 H Respiration Rate Not Reportable O2 Delivery Device Nc Ventilator Type Not Reportable Vent Mode Not Reportable FiO2 33 Inspiratory Time Not Reportable PEEP Not Reportable Pressure Support Not Reportable Pressure Control Not Reportable EPAP Not Reportable IPAP Not Reportable BiPAP Not Reportable Sodium 142 Potassium 4.4 Chloride 89 L Carbon Dioxide 52 H* Anion Gap Not Reportable BUN 12 Creatinine 0.32 L Est GFR ( Amer) 258.5 Est GFR (Non-Af Amer) 213.6 BUN/Creatinine Ratio 37.5 H Glucose 147 H POC Glucose (mg/dL) Calcium 8.5 L 02/01/19 12:03 WBC RBC Hgb Hct MCV MCH MCHC RDW Plt Count MPV Neut % (Auto) Lymph % (Auto) [place] % (Auto) Eos % (Auto) Baso % (Auto) Absolute Neuts (auto) Absolute Lymphs (auto) Absolute Monos (auto) Absolute Eos (auto) Absolute Basos (auto) Absolute Nucleated RBC Nucleated RBC % Patient Temperature ABG pH ABG pH (Temp Correct) ABG pCO2 ABG pCO2 (Temp Corrct ABG pO2 ABG pO2 (Temp Correct ABG HCO3 ABG O2 Saturation ABG Base Excess Respiration Rate O2 Delivery Device Ventilator Type Vent Mode FiO2 Inspiratory Time PEEP Pressure Support Pressure Control EPAP IPAP BiPAP Sodium Potassium Chloride Carbon Dioxide Anion Gap BUN Creatinine Est GFR ( Amer) Est GFR (Non-Af Amer) BUN/Creatinine Ratio Glucose POC Glucose (mg/dL) 240 H Calcium Microbiology 01/29/19 09:20 Gram Stain - Final Sputum Sputum Culture - Final MRSA Strep Agalactiae - (Group B) Haemophilus Influenzae Escherichia Coli 01/29/19 00:22 Aerobic Blood Culture - Preliminary Blood Venous No Growth Day 3 Anaerobic Blood Culture - Preliminary No Growth Day 3 01/29/19 00:22 Aerobic Blood Culture - Preliminary Blood Venous No Growth Day 3 Anaerobic Blood Culture - Preliminary No Growth Day 3 01/28/19 23:06 Urine Culture - Final Urine No Growth (<1,000 CFU/mL) 01/29/19 08:23 Nasal Screen MRSA (PCR) - Final Nasal Mrsa Detected I/R: 58-year-old female with terminal chronic obstructive pulmonary disease with recurrent hospitalizations for hypercapnic respiratory failure, noncompliant with Trilogy at home. Pt admitted with AMS 2/2 hypercapnic resp failure Pt was extubated, is on NIPPV Pt still with significant hypercapnia even though she is compensated She is [facility] and she keeps refusing Concern with recurrent hpospitalizations and intubations was discussed Trachesostomy would be option if she would not tolerate BiPAP as she needs Discussed palliative care option Given her terminal disease and accelarated decline, pallaitive care/hospice is best option for her She also mentions that her has significant medical issues himself and is needing help, family has been supportive c/w current management D/w Ese Norton NP
[2019-02-01] MEDS: LORazepam TAB(*) 0.5 MG PO PRN (17:10)
[2019-02-01] MEDS: Acetaminophen / Codeine* #3 (300 MG/30 MG) TAB PO PRN (17:42)
[2019-02-01] MEDS ORDERED: methylPREDNISolone SOD 40 MG* 1 ML VIAL IV SCH ×2 (21:04)
[2019-02-01] MEDS ORDERED: Calcium Carbonate CHEW TAB* 500 MG (TUMS) PO ONE (21:10)
[2019-02-01] MEDS: acetaZOLAMIDE TAB* 250 MG PO SCH (21:34)
[2019-02-01] MEDS: Acetaminophen TAB* 325 MG PO PRN (23:33)
[2019-02-01] MEDS: methylPREDNISolone SOD 40 MG* 1 ML VIAL IV SCH (23:33)
[2019-02-02] MEDS: Albuterol/Ipratropium NEB.SOL* Albuterol 2.5 MG/Ipratropium 0.5 MG 3 ML INH SCH ×4 (00:37→19:38)
[2019-02-02] MEDS: LORazepam TAB(*) 0.5 MG PO PRN ×3 (06:04→21:18)
[2019-02-02] MEDS: Tiotropium Brom/Olodaterol MDI INH SCH (07:40)
[2019-02-02] MEDS: Insulin LISPRO* 1 UNITS UNIT SUBCUT SCH ×4 (08:26→20:39)
[2019-02-02] MEDS: acetaZOLAMIDE TAB* 250 MG PO SCH ×2 (08:27→20:40)
[2019-02-02] MEDS: busPIRone TAB* 5 MG PO PRN ×2 (08:27→18:01)
[2019-02-02] MEDS: cefTRIAXone(*) 1 GM in NS 0.9% 50 ML* 50 ML IVPB SCH (08:27)
[2019-02-02] MEDS: methylPREDNISolone SOD 40 MG* 1 ML VIAL IV SCH ×2 (08:27→17:53)
[2019-02-02] MEDS: Sertraline* 25 MG TAB PO SCH (08:28)
[2019-02-02] MEDS: Cholecalciferol TAB* 1000 UNITS PO SCH (08:28)
[2019-02-02] MEDS: Furosemide TAB* 20 MG PO SCH (08:28)
[2019-02-02] MEDS: Enoxaparin(*) 40 MG/0.4 ML SYR SUBCUT SCH (08:29)
--- NOTE | 2019-02-02 16:24 | PN ---
Progress Note - Progress Note Date of Service: 02/02/19 - Pulm f/u note Note: Pt seen and examined at bedside. Pt reports having cough, phlegm is loose now. Still requiring BiPAP a lot Active Medications Generic Name Dose Route Start Last Admin Trade Name Freq PRN Reason Stop Dose Admin Acetaminophen 650 mg 01/29/19 15:29 02/01/19 23:33 Tylenol Tab* PO 650 mg Q4H PRN Administration TEMP > 100.4 OR MILD PAIN Acetaminophen/Codeine Phosphate 1 tab 01/30/19 09:39 02/01/19 17:42 Tylenol/Codeine 30 Mg Tab* PO 1 tab BEDTIME PRN Administration PAIN Acetazolamide 250 mg 02/01/19 21:00 02/02/19 08:27 Diamox Tab* PO 02/04/19 23:59 250 mg BID MARGO Administration Albuterol 2 puff 01/30/19 09:39 Ventolin Hfa Inhaler* INH Q6H PRN SHORTNESS OF BREATH Albuterol/Ipratropium 1 neb 02/01/19 13:00 02/02/19 13:20 Duoneb (Albuterol 2.5 Mg/Ipratropium 0.5 Mg) INH 1 neb [id number] AWAKE MARGO Administration Buspirone HCl 5 mg 01/30/19 09:39 02/02/19 08:27 Buspar Tab* PO 5 mg TID PRN Administration ANXIETY Cholecalciferol 5,000 units 01/30/19 10:00 02/02/19 08:28 Vitamin D Tab* PO 5,000 units DAILY MARGO Administration Dextrose 25 ml 01/30/19 21:05 Dextrose 50% Vial 50 Ml* IV PUSH .FOR FS < 60 - SS PRN FS < 60 Enoxaparin Sodium 40 mg 01/29/19 08:00 02/02/19 08:29 Lovenox(*) SUBCUT 40 mg Q24H MARGO Administration Furosemide 20 mg 01/29/19 09:00 02/02/19 08:28 Lasix Tab* PO 20 mg DAILY MARGO Administration Ceftriaxone Sodium 1 gm/ 50 mls @ 100 mls/hr 02/01/19 09:00 02/02/19 08:27 Sodium Chloride IVPB 100 mls/hr Q24H MARGO Administration Insulin Human Lispro 0 units 01/30/19 22:00 02/02/19 12:19 Humalog* SUBCUT 2 unit ACHS MARGO Administration Protocol Loperamide HCl 2 mg 02/01/19 01:39 02/01/19 01:49 Imodium Cap* PO 2 mg .SEE DIRECTIONS PRN Administration DIARRHEA Lorazepam 0.5 mg 02/01/19 16:48 02/02/19 15:14 Ativan Tab(*) PO 0.5 mg Q6H PRN Administration ANXIETY Methylprednisolone Sodium Succinate 40 mg 02/02/19 00:00 02/02/19 08:27 Solu-Medrol 40 Mg IV 40 mg Q8H MARGO Administration Sertraline HCl 25 mg 01/30/19 10:00 02/02/19 08:28 Zoloft* PO 25 mg DAILY MARGO Administration Tiotropium [place]/Olodaterol 2 puff 01/31/19 09:00 02/02/19 07:40 Stiolto Respimat Inh [place] (60 Puff) INH 2 puff DAILY MARGO Administration Vital Signs Temp Pulse Resp BP Pulse Ox 98.7 F 88 19 105/64 99 02/02/19 08:00 02/02/19 14:00 02/02/19 15:14 02/02/19 14:00 02/02/19 14:00 O/E: Pt in NAD, coughing intermittently HEENT: PERRLA Lungs: Diminished air entry b/l, slight wheeze CVS: S1, S2+ Abd: Soft, Bs+ Ext: Normal ROM Skin: No rash Neuro: Alert, awake, no focal deficits Laboratory Results - last 24 hr 02/01/19 02/01/19 02/01/19 08:32 17:02 21:15 POC Glucose (mg/dL) 141 H 230 H 181 H 02/02/19 08:14 POC Glucose (mg/dL) 129 H I/R: 58-year-old female with terminal chronic obstructive pulmonary disease with recurrent hospitalizations for hypercapnic respiratory failure, noncompliant with Trilogy at home. Pt admitted with AMS 2/2 hypercapnic resp failure Pt was extubated, is on NIPPV Pt still with significant hypercapnia even though she is compensated She is needing BiPAP most of day and at night Having moist cough now, able to expectorate phlegm Had family meeting with and pt to discuss goals of care Concern with recurrent hospitalizations and intubations was discussed Discussed palliative care option Given her terminal disease and accelerated decline, pallaitive care/hospice is best option for her She also mentions that her has significant medical issues himself and is needing help, family has been supportive Pt and family to have discussion regarding futue course c/w current management D/w Ese Norton NP
[2019-02-02] MEDS: Acetaminophen / Codeine* #3 (300 MG/30 MG) TAB PO PRN ×2 (18:01→22:37)
--- NOTE | 2019-02-02 18:43 | PN ---
Subjective Date of Service: 02/02/19 Interval History: Patient seen and examined with at bedside for family meeting. PAtient has not wanted to use bipap and has expressed the wish for comfort. Has been using vapotherm since yesterday, but is ready to make decisions regarding future care and potential for palliation. She denies chest pain, she is dyspneic at rest, no fever or chills. She endorsed general fatigue. Jaswinder at bedside. Objective Active Medications: Acetaminophen (Tylenol Tab*) 650 mg PO Q4H PRN PRN Reason: TEMP > 100.4 OR MILD PAIN Last Admin: 02/01/19 23:33 Dose: 650 mg Acetaminophen/Codeine Phosphate (Tylenol/Codeine 30 Mg Tab*) 1 tab PO BEDTIME PRN PRN Reason: PAIN Last Admin: 02/02/19 18:01 Dose: 1 tab Acetazolamide (Diamox Tab*) 250 mg PO BID [facility] Stop: 02/04/19 23:59 Last Admin: 02/02/19 08:27 Dose: 250 mg Albuterol (Ventolin Hfa Inhaler*) 2 puff INH Q6H PRN PRN Reason: SHORTNESS OF BREATH Albuterol/Ipratropium (Duoneb (Albuterol 2.5 Mg/Ipratropium 0.5 Mg)) 1 neb INH [id number] AWAKE [facility] Last Admin: 02/02/19 13:20 Dose: 1 neb Buspirone HCl (Buspar Tab*) 5 mg PO TID PRN PRN Reason: ANXIETY Last Admin: 02/02/19 18:01 Dose: 5 mg Cholecalciferol (Vitamin D Tab*) 5,000 units PO DAILY [facility] Last Admin: 02/02/19 08:28 Dose: 5,000 units Dextrose (Dextrose 50% Vial 50 Ml*) 25 ml IV PUSH .FOR FS < 60 - SS PRN PRN Reason: FS < 60 Enoxaparin Sodium (Lovenox(*)) 40 mg SUBCUT Q24H [facility] Last Admin: 02/02/19 08:29 Dose: 40 mg Furosemide (Lasix Tab*) 20 mg PO DAILY [facility] Last Admin: 02/02/19 08:28 Dose: 20 mg Ceftriaxone Sodium 1 gm/ (Sodium Chloride) 50 mls @ 100 mls/hr IVPB Q24H [facility] Last Admin: 12/11/19 08:27 Dose: 100 mls/hr Insulin Human Lispro (Humalog*) 0 units SUBCUT ACHS [facility]; Protocol Last Admin: 02/02/19 17:53 Dose: 2 unit Loperamide HCl (Imodium Cap*) 2 mg PO .SEE DIRECTIONS PRN PRN Reason: DIARRHEA Last Admin: 02/01/19 01:49 Dose: 2 mg Lorazepam (Ativan Tab(*)) 0.5 mg PO Q6H PRN PRN Reason: ANXIETY Last Admin: 02/02/19 15:14 Dose: 0.5 mg Methylprednisolone Sodium Succinate (Solu-Medrol 40 Mg) 40 mg IV Q8H [facility] Last Admin: 02/02/19 17:53 Dose: 40 mg Sertraline HCl (Zoloft*) 25 mg PO DAILY [facility] Last Admin: 02/02/19 08:28 Dose: 25 mg Tiotropium [place]/Olodaterol (Stiolto Respimat Inh [place] (60 Puff)) 2 puff INH DAILY [facility] Last Admin: 02/02/19 07:40 Dose: 2 puff Vital Signs - 8 hr 02/02/19 02/02/19 02/02/19 10:51 11:00 12:00 Temperature 98.9 F Pulse Rate 85 85 Respiratory 18 18 20 Rate Blood Pressure 104/69 103/61 (mmHg) O2 Sat by Pulse 100 89 Oximetry 02/02/19 02/02/19 02/02/19 13:00 13:01 13:20 Temperature Pulse Rate 86 91 87 Respiratory 19 18 18 Rate Blood Pressure 102/55 (mmHg) O2 Sat by Pulse 97 100 99 Oximetry 02/02/19 02/02/19 02/02/19 14:00 14:40 15:00 Temperature Pulse Rate 88 89 Respiratory 19 12 19 Rate Blood Pressure 105/64 114/69 (mmHg) O2 Sat by Pulse 99 84 Oximetry 02/02/19 02/02/19 02/02/19 15:14 16:00 17:00 Temperature 98.8 F Pulse Rate 91 Respiratory 19 18 19 Rate Blood Pressure 103/73 112/76 (mmHg) O2 Sat by Pulse 100 Oximetry 02/02/19 02/02/19 18:00 18:01 Temperature Pulse Rate 90 88 Respiratory 19 19 Rate Blood Pressure 100/59 (mmHg) O2 Sat by Pulse 95 100 Oximetry Oxygen Devices in Use Now: High Flow Heated Nasal Cannula Appearance: alert, ill appearing Eyes: PERRLA Ears/Nose/Mouth/Throat: Mucous Membranes Moist Neck: NL Appearance and Movements; NL JVP Respiratory: - - poor inspiratory effort, poor air entry, no wheeze Abdominal: NL Sounds; No Tenderness; No Distention Extremities: No Edema Skin: No Rash or Ulcers Neurological: Alert and Oriented x 3 Nutrition: Taking PO's Result Diagrams: 02/01/19 05:29 02/01/19 05:29 Microbiology and Other Data: Microbiology 01/29/19 00:22 Aerobic Blood Culture - Preliminary Blood Venous No Growth Day 4 Anaerobic Blood Culture - Preliminary No Growth Day 4 01/29/19 00:22 Aerobic Blood Culture - Preliminary Blood Venous No Growth Day 4 Anaerobic Blood Culture - Preliminary No Growth Day 4 01/29/19 09:20 Gram Stain - Final Sputum Sputum Culture - Final MRSA Strep Agalactiae - (Group B) Haemophilus Influenzae Escherichia Coli 01/28/19 23:06 Urine Culture - Final Urine No Growth (<1,000 CFU/mL) 01/29/19 08:23 Nasal Screen MRSA (PCR) - Final Nasal Mrsa Detected Assess/Plan/Problems-Billing Assessment: This is a 58 year old female with end stage COPD and multiple admissions for acute on chronic respiratory failure admitted for being unresponsive, intubated and extubated; and now having difficulty complying with bipap. - Patient Problems (1) Acute and chronic respiratory failure Current Visit: No Status: Acute Code(s): J96.20 - ACUTE AND CHR RESP FAILURE , UNSP W HYPOXIA OR HYPERCAPNIA SNOMED Code(s): 64867930 Comment: - Failure of bipap and vapotherm during this admission - Patient has had consistent non-compliance with Trilogy at home and does not want to wear bipap while in the hospital - Dr. Mckeon at bedside to discuss palliative care with patient and her - Continue supportive care with vapotherm until decisions can be made, likely tomorrow for referral to Dr. Mansfield for palliative/hospice (2) End stage COPD Code(s): J44.9 - CHRONIC OBSTRUCTIVE PULMONARY DISEASE, UNSPECIFIED SNOMED Code(s): 566192420 Comment: - Remains hypercarbic without bipap and still refusing to use consistently - Patient has stated she is tired and wants to be comfortable - Palliative referral as above - Will discuss updating MOLST after patient has had time to discuss with and family and will address updating MOLST to DNR/DNI in the morning (3) Depression with anxiety Code(s): F41.8 - OTHER SPECIFIED ANXIETY DISORDERS SNOMED Code(s): 248595296 Comment: - continue zolft and buspar (4) Full code status Code(s): Z78.9 - OTHER SPECIFIED HEALTH STATUS SNOMED Code(s): 090471770 Comment: - Plan for MOLST discussion in the morning (5) DVT prophylaxis Code(s): [id number] - SNOMED Code(s): 558894476 Comment: - lovenox Status and Disposition: Inpatient for vapotherm. Likely transition to palliative care tomorrow. Critical care time: 60 minutes.
[2019-02-03] MEDS: methylPREDNISolone SOD 40 MG* 1 ML VIAL IV SCH ×3 (00:18→15:49)
[2019-02-03] MEDS: Albuterol/Ipratropium NEB.SOL* Albuterol 2.5 MG/Ipratropium 0.5 MG 3 ML INH SCH ×4 (00:31→19:19)
[2019-02-03] MEDS: Acetaminophen TAB* 325 MG PO PRN ×2 (03:29→08:13)
[2019-02-03] MEDS: LORazepam TAB(*) 0.5 MG PO PRN ×4 (04:53→20:42)
[2019-02-03] MEDS: Tiotropium Brom/Olodaterol MDI INH SCH (07:20)
[2019-02-03] MEDS: Sertraline* 25 MG TAB PO SCH (08:13)
[2019-02-03] MEDS: busPIRone TAB* 5 MG PO PRN (08:13)
[2019-02-03] MEDS: acetaZOLAMIDE TAB* 250 MG PO SCH ×2 (08:13→20:42)
[2019-02-03] MEDS: Cholecalciferol TAB* 1000 UNITS PO SCH (08:13)
[2019-02-03] MEDS: Furosemide TAB* 20 MG PO SCH (08:13)
[2019-02-03] MEDS: Enoxaparin(*) 40 MG/0.4 ML SYR SUBCUT SCH (08:18)
[2019-02-03] MEDS: cefTRIAXone(*) 1 GM in NS 0.9% 50 ML* 50 ML IVPB SCH (08:23)
[2019-02-03] MEDS: Insulin LISPRO* 1 UNITS UNIT SUBCUT SCH ×4 (09:13→21:43)
--- NOTE | 2019-02-03 14:44 | CONSULT ---
Palliative / Hospice Consult Ordering Provider: Alisa Norton - PCP-MARIAMA Martinez Referal Reason: Goals of care/no bowel med/MS prn - Subjective Code Status: Full Code Advance Directives Location: No Advance Directives - History or Present Illness History or Present Illness: 58yo female with COPD brought via ambulance for unresponsiveness. PMH is significant for severe COPD on Trilogy at home but noncompliant, recurrent admissions for hypercapnic respiratory failure, chronic respiratory failure and noncompliant with BIPAP, anxiety, depression, anemia of chronic disease. PSHx ex tob, no etoh, no drugs, retired [employer] at [employer], . Studies ekg-nsr , CXR-emphysematous lungs, abnormal L lateral pleuroparenchymal opacification, CTA pleural thickening ? infectious process, extensive emphysema, no PE, EKG#2 afib, brain CT neg, brain CT #2 neg, H/H 12/23, BUN/Cr 12/.32, egfr 213, alb 3.4 , BC neg, BNP 152. Pt admitted to ICU with acute on chronic hypercapnic respiratory failure, sepsis secondary to pneumonia, intubated and extubated following day maintained on BIPAP and high flow oxygen. Pt has been admitted for respiratory failure 06/16-06/27/2018, 09/21-09/28/2018 and 11/22-11/25/2018. All history is from pt and medical record. Lab Values: Laboratory Last Values WBC 8.9 10^3/uL (3.5-10.8) 02/01/19 05:29 RBC 3.15 10^6 /uL (3.70-4.87) L 02/01/19 05:29 Hgb 10.0 g/dL (12.0-16.0) L 02/01/19 05:29 Hct 31 % (35-47) L 02/01/19 05:29 MCV 98 fL (80-97) H 02/01/19 05:29 MCH 32 pg (27-31) H 02/01/19 05:29 MCHC 32 g/dL (31-36) 02/01/19 05:29 RDW 14 % (10-15) 02/01/19 05:29 Plt Count 143 10^3/uL (150-450) L 02/01/19 05:29 MPV 7.7 fL (7.4-10.4) 02/01/19 05:29 Neut % (Auto) 89.4 % 02/01/19 05:29 Lymph % (Auto) 6.2 % 02/01/19 05:29 [place] % (Auto) 4.3 % 02/01/19 05:29 Eos % (Auto) 0.0 % 02/01/19 05:29 Baso % (Auto) 0.1 % 02/01/19 05:29 Absolute Neuts (auto) 8.0 10^3/ul (1.5-7.7) H 02/01/19 05:29 Absolute Lymphs (auto) 0.6 10^3/ul (1.0-4.8) L 02/01/19 05:29 Absolute Monos (auto) 0.4 10^3/ul (0-0.8) 02/01/19 05:29 Absolute Eos (auto) 0.0 10^3/ul (0-0.6) 02/01/19 05:29 Absolute Basos (auto) 0.0 10^3/ul (0-0.2) 02/01/19 05:29 Absolute Nucleated RBC 0.0 10^3/ul 02/01/19 05:29 Nucleated RBC % 0.1 02/01/19 05:29 Hem Pathologist Commnt 01/28/19 22:54 D-Dimer, Quantitative 343 ng/mL (Less Than 230) H 01/28/19 22:54 Patient Temperature Not Reportable 02/01/19 05:45 ABG pH 7.32 (7.35-7.45) L 02/01/19 05:45 ABG pH (Temp Correct) Not Reportable 02/01/19 05:45 ABG pCO2 114 mmHg (35-45) H* 02/01/19 05:45 ABG pCO2 (Temp Corrct Not Reportable 02/01/19 05:45 ABG pO2 103 mmHg (80-100) H 02/01/19 05:45 ABG pO2 (Temp Correct Not Reportable 02/01/19 05:45 ABG HCO3 45.0 mmol/L (19-31) H* 02/01/19 05:45 ABG O2 Saturation 98.6 % (94.0-98.0) H 02/01/19 05:45 ABG Base Excess 25.7 mmol/L (-2.0-2.0) H 02/01/19 05:45 Respiration Rate Not Reportable 02/01/19 05:45 O2 Delivery Device Nc 02/01/19 05:45 Ventilator Type Not Reportable 02/01/19 05:45 Vent Mode Not Reportable 02/01/19 05:45 FiO2 33 02/01/19 05:45 Inspiratory Time Not Reportable 02/01/19 05:45 PEEP Not Reportable 02/01/19 05:45 Pressure Support Not Reportable 02/01/19 05:45 Pressure Control Not Reportable 02/01/19 05:45 EPAP Not Reportable 02/01/19 05:45 IPAP Not Reportable 02/01/19 05:45 BiPAP Not Reportable 02/01/19 05:45 Sodium 142 mmol/L (135-145) 02/01/19 05:29 Potassium 4.4 mmol/L (3.5-5.0) 02/01/19 05:29 Chloride 89 mmol/L (101-111) L 02/01/19 05:29 Carbon Dioxide 52 mmol/L (22-32) H* 02/01/19 05:29 Anion Gap Not Reportable 02/01/19 05:29 BUN 12 mg/dL (6-24) 02/01/19 05:29 Creatinine 0.32 mg/dL (0.51-0.95) L 02/01/19 05:29 Est GFR ( Amer) 258.5 (>60) 02/01/19 05:29 Est GFR (Non-Af Amer) 213.6 (>60) 02/01/19 05:29 BUN/Creatinine Ratio 37.5 (8-20) H 02/01/19 05:29 Glucose 147 mg/dL (70-100) H 02/01/19 05:29 POC Glucose (mg/dL) 129 mg/dL (70-100) H 02/02/19 08:14 Lactic Acid 2.8 mmol/L (0.5-2.0) H* 01/30/19 05:25 Calcium 8.5 mg/dL (8.6-10.3) L 02/01/19 05:29 Phosphorus 1.9 mg/dL (2.5-5.0) L 01/30/19 05:25 Magnesium 1.8 mg/dL (1.9-2.7) L 01/30/19 05:25 Total Bilirubin 0.20 mg/dL (0.2-1.0) 01/28/19 22:54 AST 32 U/L (13-39) 01/28/19 22:54 ALT 16 U/L (7-52) 01/28/19 22:54 Alkaline Phosphatase 87 U/L (34-104) 01/28/19 22:54 Troponin I 0.02 ng/mL (<0.03) 01/28/19 22:54 C-Reactive Protein 2.23 mg/L (<8.01) 01/28/19 22:54 B-Natriuretic Peptide 152 pg/mL (<=100) H 01/28/19 22:54 Total Protein 7.4 g/dL (6.4-8.9) 01/28/19 22:54 Albumin 3.4 g/dL (3.2-5.2) 01/28/19 22:54 Globulin 4.0 g/dL (2-4) 01/28/19 22:54 Albumin/Globulin Ratio 0.9 (1-3) L 01/28/19 22:54 Urine Color Yellow 01/29/19 08:23 Urine Appearance Clear 01/29/19 08:23 Urine pH 5.0 (5-9) 01/29/19 08:23 Ur Specific [place] 1.043 (1.010-1.030) H 01/29/19 08:23 Urine Protein Negative (Negative) 01/29/19 08:23 Urine Ketones Negative (Negative) 01/29/19 08:23 Urine Blood 1+ (Negative) A 01/29/19 08:23 Urine Nitrate Negative (Negative) 01/29/19 08:23 Urine Bilirubin Negative (Negative) 01/29/19 08:23 Urine Urobilinogen Negative (Negative) 01/29/19 08:23 Ur Leukocyte Esterase Negative (Negative) 01/29/19 08:23 Urine WBC (Auto) Trace(0-5/hpf) (Absent) 01/29/19 08:23 Urine RBC (Auto) 2+(6-10/hpf) (Absent) A 01/29/19 08:23 Ur Squamous Epith Cells Present (Absent) A 01/29/19 08:23 Urine Bacteria Absent (Absent) 01/29/19 08:23 Hyaline Casts Present (Absent) A 01/28/19 23:06 Granular Casts Present (Absent) A 01/28/19 23:06 Urine Glucose Negative (Negative) 01/29/19 08:23 Influenza A (Rapid) Negative (Negative) 01/29/19 14:40 Influenza B (Rapid) Negative (Negative) 01/29/19 14:40 - Objective Active Medications: Acetaminophen (Tylenol Tab*) 650 mg PO Q4H PRN PRN Reason: TEMP > 100.4 OR MILD PAIN Last Admin: 02/03/19 08:13 Dose: 650 mg Acetaminophen/Codeine Phosphate (Tylenol/Codeine 30 Mg Tab*) 1 tab PO BEDTIME PRN PRN Reason: PAIN Last Admin: 02/02/19 22:37 Dose: 1 tab Acetazolamide (Diamox Tab*) 250 mg PO BID [facility] Stop: 02/04/19 23:59 Last Admin: 02/03/19 08:13 Dose: 250 mg Albuterol (Ventolin Hfa Inhaler*) 2 puff INH Q6H PRN PRN Reason: SHORTNESS OF BREATH Albuterol/Ipratropium (Duoneb (Albuterol 2.5 Mg/Ipratropium 0.5 Mg)) 1 neb INH [id number] AWAKE [facility] Last Admin: 02/03/19 13:03 Dose: 1 neb Buspirone HCl (Buspar Tab*) 5 mg PO TID PRN PRN Reason: ANXIETY Last Admin: 02/03/19 08:13 Dose: 5 mg Cholecalciferol (Vitamin D Tab*) 5,000 units PO DAILY [facility] Last Admin: 02/03/19 08:13 Dose: 5,000 units Dextrose (Dextrose 50% Vial 50 Ml*) 25 ml IV PUSH .FOR FS < 60 - SS PRN PRN Reason: FS < 60 Enoxaparin Sodium (Lovenox(*)) 40 mg SUBCUT Q24H [facility] Last Admin: 02/03/19 08:18 Dose: 40 mg Furosemide (Lasix Tab*) 20 mg PO DAILY [facility] Last Admin: 02/03/19 08:13 Dose: 20 mg Ceftriaxone Sodium 1 gm/ (Sodium Chloride) 50 mls @ 100 mls/hr IVPB Q24H [facility] Last Admin: 02/03/19 08:23 Dose: 100 mls/hr Insulin Human Lispro (Humalog*) 0 units SUBCUT ACHS [facility]; Protocol Last Admin: 02/03/19 11:52 Dose: 2 unit Loperamide HCl (Imodium Cap*) 2 mg PO .SEE DIRECTIONS PRN PRN Reason: DIARRHEA Last Admin: 02/01/19 01:49 Dose: 2 mg Lorazepam (Ativan Tab(*)) 0.5 mg PO Q6H PRN PRN Reason: ANXIETY Last Admin: 02/03/19 11:36 Dose: 0.5 mg Methylprednisolone Sodium Succinate (Solu-Medrol 40 Mg) 40 mg IV Q8H [facility] Last Admin: 02/03/19 08:17 Dose: 40 mg Sertraline HCl (Zoloft*) 25 mg PO DAILY [facility] Last Admin: 02/03/19 08:13 Dose: 25 mg Tiotropium [place]/Olodaterol (Stiolto Respimat Inh [facility] (60 Puff)) 2 puff INH DAILY [facility] Last Admin: 02/03/19 07:20 Dose: 2 puff Vital Signs: Vital Signs: Temp Pulse Resp BP Pulse Ox 99.6 F 90 18 114/67 94 02/03/19 11:28 02/03/19 13:11 02/03/19 13:11 02/03/19 13:00 02/03/19 13:11 Patient Weight: Weight 48.398 kg Intake and Output: Intake & Output 02/01/19 02/02/19 02/03/19 02/04/19 06:59 06:59 06:59 06:59 Intake Total 3743.3 1082 1140 1100 Output Total 2325 2035 350 Balance 1418.3 -953 1140 750 Weight 52.027 kg 51.256 kg 48.398 kg Intake: IV Fluids 578.3 137 50 ABX - CEFTRIAXONE 50 50 NS 73 87 Zosyn 255.3 azithromycin 250 IVPB 110 Zosyn 110 Oral 3055 945 1090 1100 Output: Urine 500 350 [place] 2325 1535 Other: Estimated Void Medium Large Large Date of Last Bowel 02/01/19 02/01/19 02/03/19 Movement # Bowel Movements 1 1 1 1 Estimated Stool Amount Large Medium Large Medium # Voids 1 1 ADLs: Meal Record Start: 01/29/19 08: 19 Freq: Status: Active Protocol: Created 01/29/19 08:19 System (Rec: 01/29/19 08:19 System ICU-M27) Document 01/29/19 09:00 [id number] (Rec: 01/29/19 09:18 RHI8840 ICU-M27) Document 01/31/19 09:00 MTO5406 (Rec: 01/31/19 12:49 XED1323 ICU-C18) Intake and Output Start: 01/28/19 23: 00 Freq: Status: Active Protocol: Created 01/28/19 23:00 [id number] (Rec: 01/28/19 23:00 FKH3491 ED-L02) Document 01/30/19 06:00 ZLC0685 (Rec: 01/30/19 06:54 CYU4688 ICU-C07) Intake and Output Start: 01/29/19 08: 19 Freq: Q1HR Status: Active Protocol: Created 01/29/19 08:19 System (Rec: 01/29/19 08:19 System ICU-M27) Document 01/29/19 08:26 XVA8975 (Rec: 01/29/19 08:26 KRU8749 ICU-M27) Document 01/29/19 09:00 VRJ3166 (Rec: 01/29/19 09:18 PPT1617 ICU-M27) Document 01/29/19 09:31 WDT8803 (Rec: 01/29/19 09:31 INA7991 ICU-M27) Document 01/29/19 10:10 MCG8782 (Rec: 01/29/19 10:11 LBE0944 ICU-C07) Document 01/29/19 10:47 NTD4915 (Rec: 01/29/19 10:47 VYB6925 ICU-M27) Document 01/29/19 12:02 ZKH1190 (Rec: 01/29/19 12:02 RCE7268 ICU-C07) Document 01/29/19 14:24 FDQ9567 (Rec: 01/29/19 14:25 YWE4263 ICU-M27) Document 01/29/19 15:00 FAI3879 (Rec: 01/29/19 15:01 UUV1300 ICU-C07) Document 01/29/19 16:08 FTW8099 (Rec: 01/29/19 16:08 ZDS5530 ICU-C07) Document 01/29/19 17:00 KND2941 (Rec: 01/29/19 18:38 PPT7803 ICU-M27) Document 01/29/19 18:00 MXN0327 (Rec: 01/29/19 18:38 QMQ1494 ICU-M27) Document 01/30/19 02:00 JRR9229 (Rec: 01/30/19 02:24 XDF1454 ICU-M27) Document 01/30/19 02:00 GQA2663 (Rec: 01/30/19 03:38 IIY4267 ICU-C07) Document 01/30/19 02:00 HES9313 (Rec: 01/30/19 03:49 ECI0965 ICU-C07) Document 01/30/19 03:00 YXP1089 (Rec: 01/30/19 03:50 XXJ6975 ICU-C07) Document 01/30/19 07:00 FDL5968 (Rec: 01/30/19 07:35 SXU3505 ICU-C07) Document 01/30/19 08:00 WXU0439 (Rec: 01/30/19 09:26 OFO3840 ICU-C07) Document 01/30/19 09:00 SQR2127 (Rec: 01/30/19 09:26 BWI2510 ICU-C07) Document 01/30/19 10:56 DFI5337 (Rec: 01/30/19 10:56 BZM3617 ICU-C07) Document 01/30/19 11:59 BZW1495 (Rec: 01/30/19 12:05 VLK2908 ICU-C07) Document 01/30/19 13:31 BVT9758 (Rec: 01/30/19 13:31 XSR6367 ICU-C07) Document 01/30/19 13:39 MTG9993 (Rec: 01/30/19 13:39 POD8679 ICU-C07) Document 01/30/19 18:10 PSM1842 (Rec: 01/30/19 18:10 VGI0055 ICU-C07) Document 01/30/19 19:00 HIN2962 (Rec: 01/30/19 20:40 QAA9160 ICU-C07) Document 01/30/19 20:00 RUF0085 (Rec: 01/30/19 20:59 TDD9862 ICU-C07) Document 01/30/19 21:00 FGU8605 (Rec: 01/30/19 23:14 DOP3582 ICU-C06) Document 01/30/19 22:00 BXO2138 (Rec: 01/30/19 23:16 NKV3687 ICU-C06) Document 01/30/19 23:00 OLE7715 (Rec: 01/30/19 23:19 KKK8006 ICU-C19) Document 01/30/19 23:19 PWD0589 (Rec: 01/31/19 00:14 YIU8580 ICU-C19) Document 01/31/19 01:00 HBY0495 (Rec: 01/31/19 01:30 VJY9808 ICU-C07) Document 01/31/19 02:00 KOJ8672 (Rec: 01/31/19 04:18 FIY6749 ICU-C07) Document 01/31/19 03:00 XDU5317 (Rec: 01/31/19 04:19 YVY5892 ICU-C07) Document 01/31/19 04:00 WYP2874 (Rec: 01/31/19 05:46 SEG1170 ICU-C07) Document 01/31/19 07:00 INP6221 (Rec: 01/31/19 07:39 RSJ6388 ICU-C18) Document 01/31/19 07:55 WRS6327 (Rec: 01/31/19 07:55 ZYH2817 ICU-C18) Document 01/31/19 08:48 LRE0332 (Rec: 01/31/19 08:49 VST4629 ICU-C18) Document 01/31/19 10:55 RAO8832 (Rec: 01/31/19 10:56 KCA9212 ICU-C18) Document 01/31/19 11:45 OEZ6580 (Rec: 01/31/19 11:45 LOE8049 ICU-C18) Document 01/31/19 12:47 SHX8980 (Rec: 01/31/19 12:47 YUG9629 ICU-C18) Document 01/31/19 14:18 SVC1551 (Rec: 01/31/19 14:19 ARH4936 ICU-C18) Document 01/31/19 15:00 WXH2429 (Rec: 01/31/19 15:14 KBL7813 ICU-C18) Document 01/31/19 15:32 IWF9873 (Rec: 01/31/19 15:32 MRJ1596 ICU-C18) Document 01/31/19 17:00 TNL2235 (Rec: 01/31/19 17:01 IRY5799 ICU-C18) Document 01/31/19 17:56 GXL3810 (Rec: 01/31/19 17:56 NMG4113 ICU-C18) Document 01/31/19 19:00 FOH1388 (Rec: 01/31/19 19:30 XLF0171 ICU-C06) Document 01/31/19 19:30 UPZ2966 (Rec: 01/31/19 20:06 COB8329 ICU-C06) Document 01/31/19 21:00 ZJC2159 (Rec: 01/31/19 21:42 FTR0620 ICU-C06) Document 01/31/19 22:00 CZB5809 (Rec: 01/31/19 22:06 CCU9814 ICU-C06) Document 01/31/19 23:00 SGK2921 (Rec: 01/31/19 23:05 QRC8627 ICU-C06) Document 01/31/19 23:59 MLM6876 (Rec: 02/01/19 00:19 AXD7756 ICU-C06) Document 02/01/19 01:00 KZY2548 (Rec: 02/01/19 01:19 NWG0109 ICU-C06) Document 02/01/19 01:54 QST6446 (Rec: 02/01/19 01:55 DUF6927 ICU-C06) Document 02/01/19 03:00 MFF4651 (Rec: 02/01/19 04:15 VST7157 ICU-C06) Document 02/01/19 04:00 UXU7120 (Rec: 02/01/19 04:26 VMD9453 ICU-C06) Document 02/01/19 05:00 GZR6604 (Rec: 02/01/19 05:06 UYM2379 ICU-C06) Document 02/01/19 06:00 QTP4021 (Rec: 02/01/19 06:34 TGV7669 ICU-C06) Document 02/01/19 07:00 DGR9501 (Rec: 02/01/19 07:04 NIS8779 ICU-C06) Document 02/01/19 08:00 RSI8358 (Rec: 02/01/19 08:13 EVA7817 ICU-M19) Document 02/01/19 09:00 TNY8710 (Rec: 02/01/19 10:29 IBV2485 ICU-M34) Document 02/01/19 10:00 ZJR4749 (Rec: 02/01/19 10:30 QUC3259 ICU-M34) Document 02/01/19 11:00 IGY6378 (Rec: 02/01/19 11:28 MHD6212 ICU-M34) Document 02/01/19 11:57 CXT5773 (Rec: 02/01/19 11:59 UXS9628 ICU-M34) Document 02/01/19 13:00 YTZ4180 (Rec: 02/01/19 13:27 LIJ3063 ICU-M34) Document 02/01/19 13:33 IXI7833 (Rec: 02/01/19 13:35 JFE7457 ICU-M34) Document 02/01/19 14:47 DCJ4620 (Rec: 02/01/19 14:47 QJQ0083 ICU-C25) Document 02/01/19 16:00 PHQ5706 (Rec: 02/01/19 17:28 NKF3355 ICU-M34) Document 02/01/19 17:00 ETZ5031 (Rec: 02/01/19 17:29 RIR8897 ICU-M34) Document 02/01/19 18:00 KSX8121 (Rec: 02/01/19 18:04 BIC4495 ICU-M34) Document 02/01/19 20:00 SQW6713 (Rec: 02/01/19 20:15 IMY9196 ICU-C07) Document 02/01/19 21:00 BNZ0342 (Rec: 02/01/19 21:18 BDS4896 ICU-C07) Document 02/01/19 22:00 PTG6674 (Rec: 02/01/19 22:26 ZFS4157 ICU-C07) Document 02/01/19 23:00 QHF1110 (Rec: 02/01/19 23:26 VFK4353 ICU-C07) Document 02/02/19 00:00 SAN7554 (Rec: 02/02/19 00:36 MFC9957 ICU-C07) Document 02/02/19 00:58 ESS8210 (Rec: 02/02/19 00:58 MAS7237 ICU-C07) Document 02/02/19 03:00 GXH7978 (Rec: 02/02/19 04:12 VCE4915 ICU-C07) Document 02/02/19 05:00 DNF7404 (Rec: 02/02/19 06:24 WTO3834 ICU-C07) Document 02/02/19 06:00 HTP2063 (Rec: 02/02/19 06:24 GOQ4241 ICU-C07) Document 02/02/19 07:00 ISO0795 (Rec: 02/02/19 07:56 MIN9408 ICU-C06) Document 02/02/19 08:00 QWZ4363 (Rec: 02/02/19 10:18 JSP0578 ICU-C06) Document 02/02/19 09:00 XNZ0031 (Rec: 02/02/19 10:19 AKJ3432 ICU-C06) Document 02/02/19 10:00 YQJ0904 (Rec: 02/02/19 10:30 XRC6179 ICU-C06) Document 02/02/19 10:51 TXC8823 (Rec: 02/02/19 10:56 DLS9314 ICU-C06) Document 02/02/19 10:54 PHU9014 (Rec: 02/02/19 10:54 MDO1290 ICU-C25) Document 02/02/19 12:00 TYB6700 (Rec: 02/02/19 14:36 MGP7895 ICU-C06) Document 02/02/19 13:00 DLQ2296 (Rec: 02/02/19 14:39 YFP6250 ICU-C06) Document 02/02/19 14:00 CFP1567 (Rec: 02/02/19 14:39 ARQ7501 ICU-C06) Document 02/02/19 14:40 EEB1918 (Rec: 02/02/19 14:41 HCM3177 ICU-C06) Document 02/02/19 16:00 WNG0998 (Rec: 02/02/19 17:29 EPI1627 ICU-C06) Document 02/02/19 17:00 EPJ7085 (Rec: 02/02/19 17:43 WSX7867 ICU-C06) Document 02/02/19 18:00 DOE0428 (Rec: 02/02/19 18:15 MQI5699 ICU-C06) Document 02/02/19 21:00 EFG5246 (Rec: 02/02/19 22:09 XUD1299 ICU-C07) Document 02/02/19 22:00 QFC0362 (Rec: 02/02/19 22:33 JOJ9246 ICU-C07) Document 02/02/19 23:00 XXZ4833 (Rec: 02/02/19 23:12 HUL3238 ICU-C07) Document 02/03/19 00:00 BQI0638 (Rec: 02/03/19 00:37 QNE7977 ICU-C07) Document 02/03/19 01:00 RQY1246 (Rec: 02/03/19 01:22 GDW0181 ICU-C07) Document 02/03/19 03:00 VIR2628 (Rec: 02/03/19 03:20 DJQ1571 ICU-C25) Document 02/03/19 04:00 ZRQ6988 (Rec: 02/03/19 04:20 NKI9488 ICU-C07) Document 02/03/19 05:00 QSJ3008 (Rec: 02/03/19 05:35 XIQ3865 ICU-C07) Document 02/03/19 06:00 YRX2357 (Rec: 02/03/19 06:26 UMB9345 ICU-C07) Document 02/03/19 07:00 ZEO1985 (Rec: 02/03/19 07:49 NHK6394 ICU-M27) Document 02/03/19 11:41 PUN9857 (Rec: 02/03/19 11:42 ZCW4002 ICU-M27) Document 02/03/19 13:00 TOV3668 (Rec: 02/03/19 13:36 XRY6938 ICU-M27) Eyes: PERRLA Ears/Nose/Mouth/Throat: Mucous Membranes Moist Neck: NL Appearance and Movements; NL JVP Cardiovascular: NL Sounds; No Murmurs; No JVD Respiratory: Symmetrical Chest Expansion and Respiratory Effort Abdominal: NL Sounds; No Tenderness; No Distention Extremities: No Edema Neurological: Alert and Oriented x 3 - Assessment Assessment: 58yo female with endstage COPD and hypercapnic respiratory failure and pneumonia - Plan Consult Plan (MU): Hospice Plan: Spoke with pt about goals of care. Pt would prefer to stay at home as long as possible and feels she has help at home. She also has a pet which provides comfort. Hospice information/brochure given. Pt has an old coworker who is working at [employer]. Pt has Triolgy machine at home but doesn't use it and doesn't like using BiPAP at the hospital. Pt is known to me from previous visit in May when she expressed concern about dying before her . I also reviewed MOLST with pt but she wants to wait to discuss it with her along with hospice. Called , no answer and stopped by in afternoon but he had not come to visit her yet. Please add bowel meds if using narcotics senna or miralax. Pt would be hospice eligible with diagnosis of end stage COPD. KPS 50%, PPS 50%. - Time On Unit Date of Evaluation: 02/03/19 Hospice Consult Time in: 12:30 Hospice Consult Time Out: 13:30 Hospice Consult Time Total: 60 > 50% of Time Spend In Counseling or Coordinating Care: Yes
[2019-02-03] MEDS: Morphine ORAL CONCENTRATE* 5 MG/0.25 ML ORAL.SYRIN SL PRN ×2 (14:57→20:42)
--- NOTE | 2019-02-03 18:04 | PN ---
Subjective Date of Service: 02/03/19 Interval History: PAtient seen and examined. She states her breathing feels "good" after having oral morphine today, less heaviness in her chest. We had a long discussion about palliative care today. She states to me she does not want to in the hospital and would rather be home. She is agreeable to home hospice and we updated her MOLST form today. Objective Active Medications: Acetaminophen (Tylenol Tab*) 650 mg PO Q4H PRN PRN Reason: TEMP > 100.4 OR MILD PAIN Last Admin: 02/03/19 08:13 Dose: 650 mg Acetaminophen/Codeine Phosphate (Tylenol/Codeine 30 Mg Tab*) 1 tab PO BEDTIME PRN PRN Reason: PAIN Last Admin: 02/02/19 22:37 Dose: 1 tab Acetazolamide (Diamox Tab*) 250 mg PO BID [facility] Stop: 02/04/19 23:59 Last Admin: 02/03/19 08:13 Dose: 250 mg Albuterol (Ventolin Hfa Inhaler*) 2 puff INH Q6H PRN PRN Reason: SHORTNESS OF BREATH Albuterol/Ipratropium (Duoneb (Albuterol 2.5 Mg/Ipratropium 0.5 Mg)) 1 neb INH [id number] AWAKE [facility] Last Admin: 02/03/19 13:03 Dose: 1 neb Buspirone HCl (Buspar Tab*) 5 mg PO TID PRN PRN Reason: ANXIETY Last Admin: 02/03/19 08:13 Dose: 5 mg Cholecalciferol (Vitamin D Tab*) 5,000 units PO DAILY [facility] Last Admin: 02/03/19 08:13 Dose: 5,000 units Dextrose (Dextrose 50% Vial 50 Ml*) 25 ml IV PUSH .FOR FS < 60 - SS PRN PRN Reason: FS < 60 Enoxaparin Sodium (Lovenox(*)) 40 mg SUBCUT Q24H [facility] Last Admin: 02/03/19 08:18 Dose: 40 mg Furosemide (Lasix Tab*) 20 mg PO DAILY [facility] Last Admin: 02/03/19 08:13 Dose: 20 mg Ceftriaxone Sodium 1 gm/ (Sodium Chloride) 50 mls @ 100 mls/hr IVPB Q24H [facility] Last Admin: 02/03/19 08:23 Dose: 100 mls/hr Insulin Human Lispro (Humalog*) 0 units SUBCUT ACHS [facility]; Protocol Last Admin: 02/03/19 17:05 Dose: 2 unit Loperamide HCl (Imodium Cap*) 2 mg PO .SEE DIRECTIONS PRN PRN Reason: DIARRHEA Last Admin: 02/01/19 01:49 Dose: 2 mg Lorazepam (Ativan Tab(*)) 0.5 mg PO Q4H PRN PRN Reason: ANXIETY Last Admin: 02/03/19 14:57 Dose: 0.5 mg Methylprednisolone Sodium Succinate (Solu-Medrol 40 Mg) 40 mg IV Q8H [facility] Last Admin: 02/03/19 15:49 Dose: 40 mg Morphine Sulfate (Morphine Oral Concentrate*) 5 mg SL Q2H PRN PRN Reason: air hunger or discomfort Last Admin: 02/03/19 14:57 Dose: 5 mg Sertraline HCl (Zoloft*) 25 mg PO DAILY [facility] Last Admin: 02/03/19 08:13 Dose: 25 mg Tiotropium [place]/Olodaterol (Stiolto Respimat Inh [place] (60 Puff)) 2 puff INH DAILY [facility] Last Admin: 02/03/19 07:20 Dose: 2 puff Vital Signs - 8 hr 02/03/19 02/03/19 02/03/19 10:00 11:00 11:24 Temperature Pulse Rate 86 84 84 Respiratory 20 17 16 Rate Blood Pressure 100/57 (mmHg) O2 Sat by Pulse 97 95 96 Oximetry 02/03/19 02/03/19 02/03/19 11:28 11:36 11:40 Temperature 99.6 F Pulse Rate Respiratory 20 20 Rate Blood Pressure (mmHg) O2 Sat by Pulse Oximetry 02/03/19 02/03/19 02/03/19 12:00 12:01 13:00 Temperature Pulse Rate 89 86 92 Respiratory 19 19 20 Rate Blood Pressure 107/68 114/67 (mmHg) O2 Sat by Pulse 96 95 94 Oximetry 02/03/19 02/03/19 02/03/19 13:01 13:11 14:00 Temperature Pulse Rate 92 90 100 Respiratory 19 18 16 Rate Blood Pressure 115/73 (mmHg) O2 Sat by Pulse 94 94 91 Oximetry 02/03/19 02/03/19 02/03/19 14:09 14:57 15:00 Temperature Pulse Rate 94 91 Respiratory 20 18 24 Rate Blood Pressure 115/73 (mmHg) O2 Sat by Pulse 91 95 Oximetry 02/03/19 02/03/19 02/03/19 15:44 15:46 16:00 Temperature 99 F Pulse Rate 91 Respiratory 20 20 Rate Blood Pressure 107/68 (mmHg) O2 Sat by Pulse 96 Oximetry 02/03/19 02/03/19 02/03/19 16:01 16:56 17:00 Temperature Pulse Rate 94 88 Respiratory 22 21 19 Rate Blood Pressure 108/62 (mmHg) O2 Sat by Pulse 96 97 Oximetry Oxygen Devices in Use Now: High Flow Nasal Cannula Appearance: alert, NAD Eyes: PERRLA Ears/Nose/Mouth/Throat: Mucous Membranes Moist Neck: NL Appearance and Movements; NL JVP Respiratory: Symmetrical Chest Expansion and Respiratory Effort, - - poor air entry, diminished throughout, no wheeze Cardiovascular: NL Sounds; No Murmurs; No JVD Abdominal: NL Sounds; No Tenderness; No Distention Extremities: No Edema, No Clubbing, Cyanosis Skin: No Rash or Ulcers Neurological: Alert and Oriented x 3, - - general weakness Nutrition: Taking PO's Result Diagrams: 02/01/19 05:29 02/01/19 05:29 Microbiology and Other Data: Microbiology 01/29/19 00:22 Aerobic Blood Culture - Preliminary Blood Venous No Growth Day 4 Anaerobic Blood Culture - Preliminary No Growth Day 4 01/29/19 00:22 Aerobic Blood Culture - Preliminary Blood Venous No Growth Day 4 Anaerobic Blood Culture - Preliminary No Growth Day 4 01/29/19 09:20 Gram Stain - Final Sputum Sputum Culture - Final MRSA Strep Agalactiae - (Group B) Haemophilus Influenzae Escherichia Coli 01/28/19 23:06 Urine Culture - Final Urine No Growth (<1,000 CFU/mL) 01/29/19 08:23 Nasal Screen MRSA (PCR) - Final Nasal Mrsa Detected Assess/Plan/Problems-Billing Assessment: This is a 58 year old female with end stage COPD and multiple admissions for acute on chronic respiratory failure admitted for being unresponsive, intubated and extubated; and now having difficulty complying with bipap. - Patient Problems (1) Acute and chronic respiratory failure Current Visit: No Status: Acute Code(s): J96.20 - ACUTE AND CHR RESP FAILURE , UNSP W HYPOXIA OR HYPERCAPNIA SNOMED Code(s): 58713682 Comment: - Failure of bipap and vapotherm during this admission - Patient has had consistent non-compliance with Trilogy at home and does not want to wear bipap while in the hospital - Patient was weaned off vapotherm today and spent most of the day on salter and tolerating - Dr. Mckeon has had multiple discussions with the patient and her regarding chronic failure and futile measures at this time, patient is agreeable to home hospice (2) End stage COPD Code(s): J44.9 - CHRONIC OBSTRUCTIVE PULMONARY DISEASE, UNSPECIFIED SNOMED Code(s): 962163410 Comment: - Seems to be tolerating salter today and mentation is intact - Palliative referral as above, patient is electing hospice - Patient signed MOLST updated today to reflect DNR/DNI per her wishes in light of referral for home hospice at discharge - Continue oral morphine Q2h PRN air hunger or discomfort, atropine for secretions (3) Depression with anxiety Code(s): F41.8 - OTHER SPECIFIED ANXIETY DISORDERS SNOMED Code(s): 313372011 Comment: - continue zolft and buspar with PRN ativan (4) DVT prophylaxis Code(s): OYR6409 - SNOMED Code(s): 758048291 Comment: - lovenox (5) DNR (do not resuscitate) discussion Code(s): Z71.89 - OTHER SPECIFIED COUNSELING SNOMED Code(s): 918784880 Comment: - Family meeting this evening; DNR/DNI signed by patient today with and son at bedside and witnessed change in status - Patient and her family are in agreement with comfort plan, Dr. Mansfield made aware of change and she will make referral for home hospice sign on Status and Disposition: Inpatient, downgrade to medical. Plan for discharge to home hospice when plan for sign on is in place Critical care time: 45 minutes.
--- NOTE | 2019-02-03 18:18 | PN ---
Progress Note - Progress Note Date of Service: 02/03/19 - Pulm f/u note Note: Pt seen and examined at bedside. Pt in better spirit today. Remains on high flow Active Medications Generic Name Dose Route Start Last Admin Trade Name Freq PRN Reason Stop Dose Admin Acetaminophen 650 mg 01/29/19 15:29 02/03/19 08:13 Tylenol Tab* PO 650 mg Q4H PRN Administration TEMP > 100.4 OR MILD PAIN Acetaminophen/Codeine Phosphate 1 tab 01/30/19 09:39 02/02/19 22:37 Tylenol/Codeine 30 Mg Tab* PO 1 tab BEDTIME PRN Administration PAIN Acetazolamide 250 mg 02/01/19 21:00 02/03/19 08:13 Diamox Tab* PO 02/04/19 23:59 250 mg BID [facility] Administration Albuterol 2 puff 01/30/19 09:39 Ventolin Hfa Inhaler* INH Q6H PRN SHORTNESS OF BREATH Albuterol/Ipratropium 1 neb 02/01/19 13:00 02/03/19 13:03 Duoneb (Albuterol 2.5 Mg/Ipratropium 0.5 Mg) INH 1 neb [id number] AWAKE [facility] Administration Buspirone HCl 5 mg 01/30/19 09:39 02/03/19 08:13 Buspar Tab* PO 5 mg TID PRN Administration ANXIETY Cholecalciferol 5,000 units 01/30/19 10:00 02/03/19 08:13 Vitamin D Tab* PO 5,000 units DAILY [facility] Administration Dextrose 25 ml 01/30/19 21:05 Dextrose 50% Vial 50 Ml* IV PUSH .FOR FS < 60 - SS PRN FS < 60 Enoxaparin Sodium 40 mg 01/29/19 08:00 02/03/19 08:18 Lovenox(*) SUBCUT 40 mg Q24H [facility] Administration Furosemide 20 mg 01/29/19 09:00 02/03/19 08:13 Lasix Tab* PO 20 mg DAILY [facility] Administration Ceftriaxone Sodium 1 gm/ 50 mls @ 100 mls/hr 02/01/19 09:00 02/03/19 08:23 Sodium Chloride IVPB 100 mls/hr Q24H [facility] Administration Insulin Human Lispro 0 units 01/30/19 22:00 02/03/19 17:05 Humalog* SUBCUT 2 unit ACHS [facility] Administration Protocol Loperamide HCl 2 mg 02/01/19 01:39 02/01/19 01:49 Imodium Cap* PO 2 mg .SEE DIRECTIONS PRN Administration DIARRHEA Lorazepam 0.5 mg 02/03/19 14:45 02/03/19 14:57 Ativan Tab(*) PO 0.5 mg Q4H PRN Administration ANXIETY Methylprednisolone Sodium Succinate 40 mg 02/02/19 00:00 02/03/19 15:49 Solu-Medrol 40 Mg IV 40 mg Q8H [facility] Administration Morphine Sulfate 5 mg 02/03/19 14:45 02/03/19 14:57 Morphine Oral Concentrate* SL 5 mg Q2H PRN Administration air hunger or discomfort Sertraline HCl 25 mg 01/30/19 10:00 02/03/19 08:13 Zoloft* PO 25 mg DAILY [facility] Administration Tiotropium [place]/Olodaterol 2 puff 01/31/19 09:00 02/03/19 07:20 Stiolto Respimat Inh [place] (60 Puff) INH 2 puff DAILY [facility] Administration Vital Signs Temp Pulse Resp BP Pulse Ox 99 F 93 21 108/62 95 02/03/19 15:46 02/03/19 18:00 02/03/19 18:00 02/03/19 17:00 02/03/19 18:00 O/E: Pt in NAD, sitting up in bed HEENT: PERRLA Lungs: Diminished air entry b/l, slight wheeze CVS: S1, S2+ Abd: Soft, BS+ Ext: Normal ROM Skin: No rash Neuro: Alert, awake, no focal deficits Labs: No new labs I/R: 58-year-old female with terminal chronic obstructive pulmonary disease with recurrent hospitalizations for hypercapnic respiratory failure, noncompliant with Trilogy at home. Pt admitted with AMS 2/2 hypercapnic resp failure Pt was extubated, required NIPPV with hypercapnia with being off BiPAP just for few min Pt still with significant hypercapnia even though she is compensated She is needing high flow She is not comfortable on NIPPV Had family meeting with and pt to discuss goals of care yesterday, not available today Pt would not want to actively if she has chance to survive, would like to see her 3rd grand child in Feb Pt however agreed for high flow to be lowered to see if she can tolerate nasal cannula which would transition her to home She is not looking forward to use NIPPV Discussed palliative care option, Dr Gallagher to see pt today Further recommendations pending discussion with pt and her D/w Ese Norton [employer]
[2019-02-04] MEDS: methylPREDNISolone SOD 40 MG* 1 ML VIAL IV SCH ×4 (00:20→18:26)
[2019-02-04] MEDS: LORazepam TAB(*) 0.5 MG PO PRN ×4 (00:58→22:45)
[2019-02-04] MEDS: Morphine ORAL CONCENTRATE* 5 MG/0.25 ML ORAL.SYRIN SL PRN ×6 (00:58→20:31)
[2019-02-04] MEDS: Albuterol/Ipratropium NEB.SOL* Albuterol 2.5 MG/Ipratropium 0.5 MG 3 ML INH SCH ×4 (01:10→19:55)
[2019-02-04] MEDS: Tiotropium Brom/Olodaterol MDI INH SCH (07:54)
[2019-02-04] MEDS: Furosemide TAB* 20 MG PO SCH (09:59)
[2019-02-04] MEDS: acetaZOLAMIDE TAB* 250 MG PO SCH ×2 (09:59→20:31)
[2019-02-04] MEDS: Sertraline* 25 MG TAB PO SCH (09:59)
[2019-02-04] MEDS: Cholecalciferol TAB* 1000 UNITS PO SCH (09:59)
[2019-02-04] MEDS: Enoxaparin(*) 40 MG/0.4 ML SYR SUBCUT SCH (10:02)
[2019-02-04] MEDS: cefTRIAXone(*) 1 GM in NS 0.9% 50 ML* 50 ML IVPB SCH (10:03)
[2019-02-04] MEDS: Insulin LISPRO* 1 UNITS UNIT SUBCUT SCH ×3 (10:15→18:26)
--- NOTE | 2019-02-04 19:06 | PN ---
Subjective Date of Service: 02/04/19 Interval History: Patient seen and examined. Feeling much improved on the morphine oral concentrate. Denies pain. Looking forward to going home. No further complaints or questions. Objective Active Medications: Acetaminophen (Tylenol Tab*) 650 mg PO Q4H PRN PRN Reason: TEMP > 100.4 OR MILD PAIN Last Admin: 02/03/19 08:13 Dose: 650 mg Acetazolamide (Diamox Tab*) 250 mg PO BID [facility] Stop: 02/04/19 23:59 Last Admin: 02/04/19 09:59 Dose: 250 mg Albuterol (Ventolin Hfa Inhaler*) 2 puff INH Q6H PRN PRN Reason: SHORTNESS OF BREATH Albuterol/Ipratropium (Duoneb (Albuterol 2.5 Mg/Ipratropium 0.5 Mg)) 1 neb INH [id number] AWAKE [facility] Last Admin: 02/04/19 12:35 Dose: 1 neb Buspirone HCl (Buspar Tab*) 5 mg PO TID PRN PRN Reason: ANXIETY Last Admin: 02/03/19 08:13 Dose: 5 mg Cholecalciferol (Vitamin D Tab*) 5,000 units PO DAILY [facility] Last Admin: 02/04/19 09:59 Dose: 5,000 units Dextrose (Dextrose 50% Vial 50 Ml*) 25 ml IV PUSH .FOR FS < 60 - SS PRN PRN Reason: FS < 60 Enoxaparin Sodium (Lovenox(*)) 40 mg SUBCUT Q24H [facility] Last Admin: 02/04/19 10:02 Dose: 40 mg Furosemide (Lasix Tab*) 20 mg PO DAILY [facility] Last Admin: 02/04/19 09:59 Dose: 20 mg Loperamide HCl (Imodium Cap*) 2 mg PO .SEE DIRECTIONS PRN PRN Reason: DIARRHEA Last Admin: 02/01/19 01:49 Dose: 2 mg Lorazepam (Ativan Tab(*)) 0.5 mg PO Q4H PRN PRN Reason: ANXIETY Last Admin: 02/04/19 15:07 Dose: 0.5 mg Methylprednisolone Sodium Succinate (Solu-Medrol 40 Mg) 40 mg IV Q8H [facility] Last Admin: 02/04/19 18:26 Dose: Not Given Morphine Sulfate (Morphine Oral Concentrate*) 5 mg SL Q2H PRN PRN Reason: air hunger or discomfort Last Admin: 02/04/19 15:13 Dose: 5 mg Sertraline HCl (Zoloft*) 25 mg PO DAILY [facility] Last Admin: 02/04/19 09:59 Dose: 25 mg Tiotropium [place]/Olodaterol (Stiolto Respimat Inh [place] (60 Puff)) 2 puff INH DAILY [facility] Last Admin: 02/04/19 07:54 Dose: 2 puff Vital Signs - 8 hr 02/04/19 02/04/19 02/04/19 11:00 11:01 11:47 Temperature 99.7 F Pulse Rate 90 89 Respiratory 20 15 Rate Blood Pressure 95/59 (mmHg) O2 Sat by Pulse 97 97 Oximetry 02/04/19 02/04/19 02/04/19 12:00 12:01 12:36 Temperature Pulse Rate 84 89 Respiratory 18 21 16 Rate Blood Pressure 106/68 (mmHg) O2 Sat by Pulse 96 97 Oximetry 02/04/19 02/04/19 02/04/19 13:00 14:00 14:01 Temperature Pulse Rate 92 100 99 Respiratory 16 17 22 Rate Blood Pressure 98/60 115/68 (mmHg) O2 Sat by Pulse 97 93 92 Oximetry 02/04/19 02/04/19 02/04/19 15:00 15:01 15:07 Temperature Pulse Rate 95 96 Respiratory 19 19 17 Rate Blood Pressure 108/77 (mmHg) O2 Sat by Pulse 90 94 Oximetry 02/04/19 16:36 Temperature 99.5 F Pulse Rate Respiratory Rate Blood Pressure (mmHg) O2 Sat by Pulse Oximetry Oxygen Devices in Use Now: Nasal Cannula Appearance: alert, frail, NAD Eyes: No Scleral Icterus, PERRLA Ears/Nose/Mouth/Throat: Mucous Membranes Moist Neck: NL Appearance and Movements; NL JVP Respiratory: - - shallow respirations, poor air entry, no wheeze Abdominal: NL Sounds; No Tenderness; No Distention Extremities: No Edema, No Clubbing, Cyanosis Skin: No Rash or Ulcers Neurological: Alert and Oriented x 3, - - general weakness Nutrition: Taking PO's Result Diagrams: 02/01/19 05:29 02/01/19 05:29 Microbiology and Other Data: Microbiology 01/29/19 00:22 Aerobic Blood Culture - Preliminary Blood Venous No Growth Day 4 Anaerobic Blood Culture - Preliminary No Growth Day 4 12/07/19 00:22 Aerobic Blood Culture - Preliminary Blood Venous No Growth Day 4 Anaerobic Blood Culture - Preliminary No Growth Day 4 01/29/19 09:20 Gram Stain - Final Sputum Sputum Culture - Final MRSA Strep Agalactiae - (Group B) Haemophilus Influenzae Escherichia Coli 01/28/19 23:06 Urine Culture - Final Urine No Growth (<1,000 CFU/mL) 01/29/19 08:23 Nasal Screen MRSA (PCR) - Final Nasal Mrsa Detected Assess/Plan/Problems-Billing Assessment: This is a 58 year old female with end stage COPD and multiple admissions for acute on chronic respiratory failure admitted for being unresponsive, intubated and extubated; and now having difficulty complying with bipap. - Patient Problems (1) Acute and chronic respiratory failure Current Visit: No Status: Acute Code(s): J96.20 - ACUTE AND CHR RESP FAILURE , UNSP W HYPOXIA OR HYPERCAPNIA SNOMED Code(s): [id number] Comment: - Failure of bipap and vapotherm during this admission - Patient has had consistent non-compliance with Trilogy at home and does not want to wear bipap while in the hospital - Patient was weaned off vapotherm, on salter last 24h - Dr. Mckeon has had multiple discussions with the patient and her regarding chronic failure and futile measures at this time, patient is agreeable to home hospice (2) End stage COPD Code(s): J44.9 - CHRONIC OBSTRUCTIVE PULMONARY DISEASE, UNSPECIFIED SNOMED Code(s): 961913784 Comment: - Seems to be tolerating salter today and mentation is intact - Palliative referral as above, patient is electing hospice - Patient signed MOLST updated today to reflect DNR/DNI per her wishes in light of referral for home hospice at discharge - Continue oral morphine Q2h PRN air hunger or discomfort, atropine for secretions (3) Depression with anxiety Code(s): F41.8 - OTHER SPECIFIED ANXIETY DISORDERS SNOMED Code(s): 885256039 Comment: - continue zolft and buspar with PRN ativan (4) DVT prophylaxis Code(s): OXE9641 - SNOMED Code(s): 558975943 Comment: - Change to SCDs for comfort (5) DNR (do not resuscitate) discussion Code(s): Z71.89 - OTHER SPECIFIED COUNSELING SNOMED Code(s): 007907606 Comment: - Family meeting 02/03/19; DNR/DNI signed by patient with and son at bedside and witnessed change in status - Patient and her family are in agreement with comfort plan, Dr. Mansfield made aware of change and she will make referral for home hospice sign on likely Thursday, SW to coordinate Status and Disposition: Inpatient, downgrade to medical. Plan for discharge to home hospice when plan for sign on is in place.
[2019-02-04] MEDS ORDERED: Atropine 1% (ORAL/SL)* 15 ML BTL SL PRN (19:23)
[2019-02-05] MEDS: Morphine ORAL CONCENTRATE* 5 MG/0.25 ML ORAL.SYRIN SL PRN ×7 (01:10→22:38)
[2019-02-05] MEDS: Albuterol/Ipratropium NEB.SOL* Albuterol 2.5 MG/Ipratropium 0.5 MG 3 ML INH SCH ×4 (01:10→20:26)
[2019-02-05] MEDS: LORazepam TAB(*) 0.5 MG PO PRN ×3 (03:16→22:38)
[2019-02-05] MEDS: Tiotropium Brom/Olodaterol MDI INH SCH (07:13)
[2019-02-05] MEDS: Sertraline* 25 MG TAB PO SCH (09:32)
[2019-02-05] MEDS: Furosemide TAB* 20 MG PO SCH (09:32)
[2019-02-05] MEDS: Cholecalciferol TAB* 1000 UNITS PO SCH (11:20)
[2019-02-05] MEDS: busPIRone TAB* 5 MG PO PRN (11:24)
--- NOTE | 2019-02-05 12:45 | PN ---
Progress Note - Progress Note Date of Service: 02/05/19 - Pulm f/u Note: Pt seen and examined at bedside. Pt reports feeling sleepy and tired. Has intermittent cough. Has been on nasal cannula Active Medications Generic Name Dose Route Start Last Admin Trade Name Freq PRN Reason Stop Dose Admin Acetaminophen 650 mg 01/29/19 15:29 02/03/19 08:13 Tylenol Tab* PO 650 mg Q4H PRN Administration TEMP > 100.4 OR MILD PAIN Albuterol 2 puff 01/30/19 09:39 Ventolin Hfa Inhaler* INH Q6H PRN SHORTNESS OF BREATH Albuterol/Ipratropium 1 neb 02/01/19 13:00 02/05/19 07:13 Duoneb (Albuterol 2.5 Mg/Ipratropium 0.5 Mg) INH Not Given [id number] AWAKE [facility] Atropine Sulfate 2 drop 02/04/19 19:23 Atropine 1% (Oral/Sl)* SL Q2H PRN secretions Buspirone HCl 5 mg 01/30/19 09:39 02/05/19 11:24 Buspar Tab* PO 5 mg TID PRN Administration ANXIETY Cholecalciferol 5,000 units 01/30/19 10:00 02/05/19 11:20 Vitamin D Tab* PO 5,000 units DAILY [facility] Administration Dextrose 25 ml 01/30/19 21:05 Dextrose 50% Vial 50 Ml* IV PUSH .FOR FS < 60 - SS PRN FS < 60 Furosemide 20 mg 01/29/19 09:00 02/05/19 09:32 Lasix Tab* PO 20 mg DAILY [facility] Administration Loperamide HCl 2 mg 02/01/19 01:39 02/01/19 01:49 Imodium Cap* PO 2 mg .SEE DIRECTIONS PRN Administration DIARRHEA Lorazepam 0.5 mg 02/03/19 14:45 02/05/19 03:16 Ativan Tab(*) PO 0.5 mg Q4H PRN Administration ANXIETY Morphine Sulfate 5 mg 02/03/19 14:45 02/05/19 09:30 Morphine Oral Concentrate* SL 5 mg Q2H PRN Administration air hunger or discomfort Prednisone 40 mg 02/05/19 09:00 02/05/19 09:32 Deltasone Tab* PO 40 mg DAILY [facility] Administration Sertraline HCl 25 mg 01/30/19 10:00 02/05/19 09:32 Zoloft* PO 25 mg DAILY [facility] Administration Tiotropium [place]/Olodaterol 2 puff 01/31/19 09:00 02/05/19 07:13 Stiolto Respimat Inh [place] (60 Puff) INH Not Given DAILY [facility] Vital Signs Temp Pulse Resp BP Pulse Ox 97.6 F 92 17 92/38 93 02/05/19 11:06 02/05/19 11:06 02/05/19 11:06 02/05/19 11:06 02/05/19 11:06 O/E: Pt in NAD, sitting up in chair HEENT: PERRLA, O2 cannula in place, no accessory muscle usage Lungs: Diminished air entry b/l, slight wheeze CVS: S1, S2+ Abd: Soft, BS+ Ext: Normal ROM Skin: No rash Neuro: Alert, awake, no focal deficits Laboratory Results - last 24 hr 02/02/19 02/02/19 02/02/19 11:59 17:33 20:30 POC Glucose (mg/dL) 161 H 161 H 171 H 02/03/19 02/03/19 02/03/19 09:03 11:27 16:53 POC Glucose (mg/dL) 164 H 182 H 189 H 02/04/19 12:29 POC Glucose (mg/dL) 120 H I/R: 58-year-old female with terminal chronic obstructive pulmonary disease with recurrent hospitalizations for hypercapnic respiratory failure, noncompliant with Trilogy at home. Pt admitted with AMS 2/2 hypercapnic resp failure Pt with severe COPD with chronic hypercapnic resp failure Pt with recurrent hospitalizations recently with deteriorating course Pt opted for hospice She is awaiting home hospice placmeent Pt is comfortable with morphine c/w O2 supplementation, neb treatments
[2019-02-06] MEDS: busPIRone TAB* 5 MG PO PRN ×2 (00:43→20:16)
[2019-02-06] MEDS: Morphine ORAL CONCENTRATE* 5 MG/0.25 ML ORAL.SYRIN SL PRN ×8 (00:43→23:59)
[2019-02-06] MEDS: Albuterol/Ipratropium NEB.SOL* Albuterol 2.5 MG/Ipratropium 0.5 MG 3 ML INH SCH ×4 (01:10→19:58)
[2019-02-06] MEDS: LORazepam TAB(*) 0.5 MG PO PRN ×5 (04:00→23:58)
[2019-02-06 04:23] VITALS: BP 96/50
[2019-02-06] MEDS: Furosemide TAB* 20 MG PO SCH (07:12)
[2019-02-06] MEDS: Sertraline* 25 MG TAB PO SCH (07:12)
[2019-02-06] MEDS: Cholecalciferol TAB* 1000 UNITS PO SCH (07:12)
[2019-02-06] MEDS: Tiotropium Brom/Olodaterol MDI INH SCH (07:22)
[2019-02-07] MEDS: Albuterol/Ipratropium NEB.SOL* Albuterol 2.5 MG/Ipratropium 0.5 MG 3 ML INH SCH ×4 (02:41→19:41)
[2019-02-07] MEDS: LORazepam TAB(*) 0.5 MG PO PRN ×4 (03:59→21:19)
[2019-02-07] MEDS: Morphine ORAL CONCENTRATE* 5 MG/0.25 ML ORAL.SYRIN SL PRN ×6 (04:00→23:06)
[2019-02-07] MEDS: Sertraline* 25 MG TAB PO SCH (08:01)
[2019-02-07] MEDS: Furosemide TAB* 20 MG PO SCH (08:01)
[2019-02-07] MEDS: Cholecalciferol TAB* 1000 UNITS PO SCH (08:01)
[2019-02-07] MEDS: Tiotropium Brom/Olodaterol MDI INH SCH (08:06)
--- NOTE | 2019-02-07 15:39 | PN ---
Subjective Interval History: Patient is still coughing and bringing up small amounts of non-bloody sputum. Patient has back pain which is well controlled on the morphine. Patient has intermittent dyspnea which is also controlled with morphine. Family History: Unchanged from Admission Social History: Unchanged from Admission Past Medical History: Unchanged from Admission Objective Active Medications: Acetaminophen (Tylenol Tab*) 650 mg PO Q4H PRN PRN Reason: TEMP > 100.4 OR MILD PAIN Last Admin: 02/03/19 08:13 Dose: 650 mg Albuterol (Ventolin Hfa Inhaler*) 2 puff INH Q6H PRN PRN Reason: SHORTNESS OF BREATH Albuterol/Ipratropium (Duoneb (Albuterol 2.5 Mg/Ipratropium 0.5 Mg)) 1 neb INH [id number] AWAKE [facility] Last Admin: 02/07/19 13:10 Dose: 1 neb Atropine Sulfate (Atropine 1% (Oral/Sl)*) 2 drop SL Q2H PRN PRN Reason: secretions Buspirone HCl (Buspar Tab*) 5 mg PO TID PRN PRN Reason: ANXIETY Last Admin: 02/06/19 20:16 Dose: 5 mg Dextrose (Dextrose 50% Vial 50 Ml*) 25 ml IV PUSH .FOR FS < 60 - SS PRN PRN Reason: FS < 60 Furosemide (Lasix Tab*) 20 mg PO DAILY [facility] Last Admin: 02/07/19 08:01 Dose: 20 mg Loperamide HCl (Imodium Cap*) 2 mg PO .SEE DIRECTIONS PRN PRN Reason: DIARRHEA Last Admin: 02/01/19 01:49 Dose: 2 mg Lorazepam (Ativan Tab(*)) 0.5 mg PO Q4H PRN PRN Reason: ANXIETY Last Admin: 02/07/19 12:29 Dose: 0.5 mg Morphine Sulfate (Morphine Oral Concentrate*) 5 mg SL Q2H PRN PRN Reason: air hunger or discomfort Last Admin: 02/07/19 15:16 Dose: 5 mg Prednisone (Deltasone Tab*) 40 mg PO DAILY [facility] Last Admin: 02/07/19 08:01 Dose: 40 mg Sertraline HCl (Zoloft*) 25 mg PO DAILY [facility] Last Admin: 02/07/19 08:01 Dose: 25 mg Tiotropium [place]/Olodaterol (Stiolto Respimat Inh [place] (60 Puff)) 2 puff INH DAILY [facility] Last Admin: 02/07/19 08:06 Dose: 2 puff Vital Signs - 8 hr 02/07/19 02/07/19 02/07/19 08:00 08:01 12:29 Respiratory 18 15 16 Rate 02/07/19 02/07/19 02/07/19 13:02 14:29 15:16 Respiratory 16 17 16 Rate Oxygen Devices in Use Now: Nasal Cannula Appearance: Patient is a 58yo emaciated female who appears much older than stated age and is sitting in the bed in NAD. Eyes: No Scleral Icterus, PERRLA Ears/Nose/Mouth/Throat: NL Teeth, Lips, Gums, Clear Oropharnyx, Mucous Membranes Moist Neck: NL Appearance and Movements; NL JVP, Trachea Midline Respiratory: Symmetrical Chest Expansion and Respiratory Effort, - - Rhonchi present in all lobes. Cardiovascular: NL Sounds; No Murmurs; No JVD, RRR, No Edema Abdominal: NL Sounds; No Tenderness; No Distention, No Hepatosplenomegaly Lymphatic: No Cervical Adenopathy Extremities: No Edema, No Clubbing, Cyanosis Skin: No Rash or Ulcers, No Nodules or Sclerosis Neurological: NL Sensation, NL Muscle Strength and Tone, - - Alert, oriented. Delayed responses and intermittent episodes of staring. Result Diagrams: 02/01/19 05:29 02/01/19 05:29 Microbiology and Other Data: Microbiology 01/29/19 00:22 Aerobic Blood Culture - Preliminary Blood Venous No Growth Day 4 Anaerobic Blood Culture - Preliminary No Growth Day 4 01/29/19 00:22 Aerobic Blood Culture - Preliminary Blood Venous No Growth Day 4 Anaerobic Blood Culture - Preliminary No Growth Day 4 01/29/19 09:20 Gram Stain - Final Sputum Sputum Culture - Final MRSA Strep Agalactiae - (Group B) Haemophilus Influenzae Escherichia Coli 01/28/19 23:06 Urine Culture - Final Urine No Growth (<1,000 CFU/mL) 01/29/19 08:23 Nasal Screen MRSA (PCR) - Final Nasal Mrsa Detected Assess/Plan/Problems-Billing Assessment: This is a 58 year old female with end stage COPD and multiple admissions for acute on chronic respiratory failure admitted for being unresponsive, intubated and extubated; and now having difficulty complying with bipap. Patient has opted for comfort care and hospice. - Patient Problems (1) End stage COPD Current Visit: Yes Status: Acute Code(s): J44.9 - CHRONIC OBSTRUCTIVE PULMONARY DISEASE, UNSPECIFIED SNOMED Code(s): 489614839 Comment: - Seems to be tolerating salter today, mentation worsening likely due to CO2. - Palliative referral as above, patient is electing hospice - Continue oral morphine Q2h PRN air hunger or discomfort, atropine for secretions (2) Pneumonia Current Visit: No Status: Acute Code(s): J18.9 - PNEUMONIA, UNSPECIFIED ORGANISM SNOMED Code(s): 448438661 Comment: - Polymicrobial - S/P incomplete treatment with zosyn and azithromycin - Comfort care. (3) Acute and chronic respiratory failure Current Visit: No Status: Acute Code(s): J96.20 - ACUTE AND CHR RESP FAILURE , UNSP W HYPOXIA OR HYPERCAPNIA SNOMED Code(s): 26016522 Comment: - Failure of bipap and vapotherm during this admission - Patient has had consistent non-compliance with Trilogy at home and does not want to wear bipap while in the hospital - Patient was weaned off vapotherm, on salter - Dr. Mckeon has had multiple discussions with the patient and her regarding chronic failure and futile measures at this time, patient is agreeable to home hospice - Patient has trilogy at home, but is disinclined to use it. - Continue Steroids. (4) SHIRA (obstructive sleep apnea) Current Visit: No Status: Acute Code(s): G47.33 - OBSTRUCTIVE SLEEP APNEA ( ADULT) (PEDIATRIC) SNOMED Code(s): 69598408 Comment: - Non-compliant with BiPAP (5) DNR (do not resuscitate) discussion Current Visit: Yes Status: Acute Code(s): Z71.89 - OTHER SPECIFIED COUNSELING SNOMED Code(s): 426495947 Comment: - Family meeting 02/03/19; DNR/DNI signed by patient with and son at bedside and witnessed change in status - Patient and her family are in agreement with comfort plan. - Reaffirmed on 02/07/19, plan for hospice sign-on on 02/08/19 (6) DVT prophylaxis Current Visit: No Status: Acute Priority: Medium Code(s): LJY6951 - SNOMED Code(s): 560498958 Comment: - SCDs for comfort Status and Disposition: Inpatient, Plan for discharge to home hospice tomorrow.
[2019-02-08] MEDS: Albuterol/Ipratropium NEB.SOL* Albuterol 2.5 MG/Ipratropium 0.5 MG 3 ML INH SCH ×2 (01:10→08:30)
[2019-02-08] MEDS: LORazepam TAB(*) 0.5 MG PO PRN ×3 (01:14→09:38)
[2019-02-08] MEDS: Morphine ORAL CONCENTRATE* 5 MG/0.25 ML ORAL.SYRIN SL PRN ×3 (01:14→09:38)
--- NOTE | 2019-02-08 02:32 | DS ---
CC: MONICA Ford * DISCHARGE SUMMARY: DATE OF ADMISSION: 01/29/19 DATE OF DISCHARGE: 02/07/19 PRIMARY CARE PROVIDER: MONICA Ford MY ATTENDING WHILE IN THE HOSPITAL: Dr. Ginny Argueta.* (DICTATED BY CASPER DAILY) PRIMARY DISCHARGE DIAGNOSES: 1. Acute on chronic hypoxic respiratory failure due to pneumonia and chronic obstructive pulmonary disease exacerbation. 2. Acute on chronic hypercapnic respiratory failure due to chronic obstructive pulmonary disease, likely obstructive sleep apnea. Unable to tolerate trilogy therapy. SECONDARY DISCHARGE DIAGNOSES: 1. Diabetes mellitus type 2. 2. End-stage chronic obstructive pulmonary disease. 3. Anxiety. 4. Depression. STUDIES DONE WHILE IN THE HOSPITAL: Chest x-ray from 01/28/19 read as emphysematous lungs; abnormal nonspecific left lateral pleural parenchymal opacification, new from October 2018. Chest x-ray from 01/29/19 read as emphysematous lungs, endotracheal tube terminates 4 cm above the [place], abnormal nonspecific bilateral opacification. Chest, thorax CTA from 01/29/19 read as centrilobular emphysema involving the upper lung associated with paraseptal emphysema right lower lung, it is more involved than the left. Extensive bronchiectasis involving the lower lungs. Since prior CT study of 12/22/16 there has been progression of emphysematous changes with airways bronchiectasis. No acute pulmonary embolic disease, no pulmonary consolidation. Focal pleural thickening involving the anterior lateral aspects of the left upper lung, this was not seen on prior CT. This represented inflammatory process. Patchy ground-glass opacities spread out throughout the lung, this could represent bronchiectasis. Brain CT repeat from 01/29/19 read as no acute intracranial hemorrhage, no intracranial mass, no obstructive hydrocephalus. Since prior CT of 01/29/19 no significant changes. MEDICATIONS: At discharge: 1. Albuterol inhaler 2.5 mg q.4 hours as needed. 2. Albuterol inhaler 2 puffs inhalation q.6 hours as needed. 3. Sodium chloride inhaler 3% inhalation b.i.d. 4. Cholecalciferol 5000 mg p.o. daily. 5. Sertraline 25 mg p.o. daily. 6. Tylenol with codeine 1 p.o. at bedtime. 7. Anoro 1 puff inhalation daily. 8. Buspirone 5 mg p.o. t.i.d. as needed. 9. Prednisone 10 mg p.o. daily. 10. Furosemide 1 mg p.o. daily. 11. Tylenol 650 mg p.o. q.4 hours as needed. 12. Atropine 2 drops sublingually q.2 hours as needed. 13. Lorazepam 0.5 mg p.o. q.4 hours as needed. 14. Morphine sulfate 5 mg sublingually q.2 hours as needed for shortness of breath or pain. 15. Prednisone 4 mg p.o. daily and taper to home dose of 10 mg daily starting after prednisone taper. New medications on discharge: 1. Tylenol. 2. Atropine. 3. Ativan. 4. Morphine. 5. Prednisone. Medications discontinued on discharge: None. HOSPITAL COURSE: This is a brief summary of the patient's presentation for more details please see the history and physical from Dr. Treva Mckeon on 09/10. In brief, the patient is a 58-year-old female with the past medical history significant for the above, who presented to the emergency department for unresponsiveness at home and found by EMS with severe hyperglycemia, severe hypercarbia. The patient was placed on BiPAP with no improvement and then had to be intubated due to lack of improvement. The patient was initially markedly acidotic and elevated bicarb on BMP. There was some concern from Dr. Mckeon about pneumonia on CT chest x-ray and CTA. The patient had previously been admitted to this institution for severe respiratory failure and recently discharged with a trilogy machine which she had not been using at home. The patient had elevated lactic acidosis at 12.6 after fluids went down to 2.8 and remained elevated throughout her hospitalization. The patient was found to have severely low mag which was replaced. The patient's glucose was able to be controlled after she was intubated. The patient was able to be weaned off of sedation and extubated and was transitioned to BiPAP; however, is not tolerating BiPAP well despite BiPAP usage. The patient was on empiric Zosyn and azithromycin. The patient was able to be extubated on 01/30/19. The patient was treated with initially IV steroids and was able to be transitioned to oral steroids. Several discussions both by the ICU providers and Dr. Conchita Mansfield were undertaken about the patient's goals of care. Due to her advanced lung disease, lack of compliance with treatment, and hypercarbic respiratory failure refractory to treatment, the patient stated that she would want to go home and would not want to come back to the hospital to be reintubated if needed. The patient opted at that time to go on to comfort care. Uncomfortable treatments were discontinued such as heparin subcu. Vital signs were not taken. The patient was able to be weaned down to a Salter mask from her Vapotherm which she was transitioned from BiPAP to and she was transferred out of the ICU. The patient's most recent known carbon dioxide level on her BMP on 02/01/19 was 52. The patient was briefly treated with Diamox while in the hospital, but this was discontinued when she opted for comfort care. The patient remained in the hospital awaiting hospital sign on which was able to be scheduled for 02/08/19 at 2 p.m. The patient was stable and amenable for discharge with anticipated discharge date 02/08/19. DISCHARGE PLAN BY PROBLEM: 1. End-stage chronic obstructive pulmonary disease, severe. Continue the patient's chronic and acute inhalers. 2. Acute on chronic hypoxic and hypercarbic respiratory failure. 3. Intolerance of BiPAP therapy. The patient has opted for hospice care. The patient states that she would try to use her trilogy at home but has not been tolerant of it in the past and it is not expected that she will be able to use it. The patient wants to go home as her primary goal is to be with her dog and to be with her family. The patient will be signed on to Hospice at 4 p.m. on as above. The patient has been prescribed Morphine, Ativan, and atropine for control of her respiratory symptoms given her end-stage symptoms. The patient will be monitored by the hospice team. If the patient changes her mind and wants to come back to the hospital, it has been explained that this is entirely her choice but at this time she did reaffirm her desire to stay at home despite knowing that at some point her carbon-dioxide will get to a point that she cannot compensate and without being intubated she might . 4. Diabetes mellitus type 2. The patient will not be treated for this. The patient's blood sugars have been relatively well controlled. The patient noticed there is little to be gained from treating the patient's blood sugars at this time. 5. Anxiety, depression. Continue the patient's BuSpar and sertraline. CONDITION AT THE TIME OF DISCHARGE: Guarded, comfort care. DISPOSITION: Home. TIME SPENT: Approximately 60 minutes was spent on this discharge of this patient, 30 of which was spent [id number] with the patient obtaining history and physical and discussing treatment plan. CASPER DAILY [id number]/CPS #: [id number] MTDD
[2019-02-08] MEDS: Tiotropium Brom/Olodaterol MDI INH SCH (08:31)
[2019-02-08] MEDS: Furosemide TAB* 20 MG PO SCH (09:38)
[2019-02-08] MEDS: Sertraline* 25 MG TAB PO SCH (09:38)
== END 2019-02-08 10:00 | disposition home or self-care (01) | DRG 720 ==
LOC: ED 22:46 → ICU 01-29 07:48 → MED 02-04 15:56
PROVIDERS: ADMIT Internal Medicine; ATTEND Hospitalist
PROC: 5A1945Z Respiratory Ventilation, 24-96 Consecutive Hours (ICD-10-PCS; principal; 2019-01-29)
PROC: 0BH17EZ Insertion of Endotracheal Airway into Trachea, Via Natural or Artificial Opening (ICD-10-PCS; 2019-01-29)
PROC: 5A09357 Assistance with Respiratory Ventilation, Less than 24 Consecutive Hours, Continuous Positive Airway Pressure (ICD-10-PCS; 2019-01-29)
DX: A41.9 Sepsis, unspecified organism (principal); J96.22 Acute and chronic respiratory failure with hypercapnia; J18.9 Pneumonia, unspecified organism; J96.21 Acute and chronic respiratory failure with hypoxia; J44.0 Chronic obstructive pulmonary disease with (acute) lower respiratory infection; J44.1 Chronic obstructive pulmonary disease with (acute) exacerbation; E87.2 Acidosis; Z51.5 Encounter for palliative care; Z66 Do not resuscitate; M81.0 Age-related osteoporosis without current pathological fracture; M19.90 Unspecified osteoarthritis, unspecified site; E87.6 Hypokalemia; F41.8 Other specified anxiety disorders; G47.33 Obstructive sleep apnea (adult) (pediatric); E11.9 Type 2 diabetes mellitus without complications; Z79.899 Other long term (current) drug therapy; Z87.891 Personal history of nicotine dependence; Z91.19 Patient's noncompliance with other medical treatment and regimen
CPT/HCPCS: 36415; 36600; 70450; 71045; 71275; 80048; 80053; 81003; 81015; 82803; 83605; 83735; 83880; 84100; 84484; 85025; 85027; 85060; 85379; 86140; 87040; 87070; 87077; 87086; 87184; 87186; 87205; 87641; 93005; 94002; 94640; 94660; 99285; A9270-GY; J0330; J0456; J0696; J1650; J2060; J2310; J2543; J2704; J2920; J3010; J3475; J3480; J3535; J7512; Q9967

== ENCOUNTER 2019-05-04 14:18 | Inpatient (IN) | payer OTHER ==
[2019-05-04] MEDS ORDERED: methylPREDNISolone 125 MG* 2 ML VIAL IV ONE (14:25)
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
[2019-05-04] MEDS ORDERED: Piperacillin/Tazobac ADVAN(*) 3.375 GM in NS 0.9% 100 ML* 100 ML IVPB ONE (14:27)
[2019-05-04] MEDS ORDERED: Piperacillin/Tazobac (*) 3.375 GM BAG ONE (14:35)
[2019-05-04] MEDS: Albuterol/Ipratropium NEB.SOL* Albuterol 2.5 MG/Ipratropium 0.5 MG 3 ML INH SCH ×3 (14:54→16:05)
[2019-05-04 15:37] LABS: CKMB ng/mL 5.3 ng/mL (0.6-6.3)
[2019-05-04 15:45] LABS: Troponin I 0.03 ng/mL (<0.03)
[2019-05-04 15:48] LABS: Albumin 2.8 g/dL (3.2-5.2); Chloride 82 mmol/L (101-111); Sodium 140 mmol/L (135-145)
[2019-05-04 15:54] LABS: ALT 12 U/L (7-52); Albumin/Globulin Ratio 0.6 (1-3); Alkaline Phosphatase 78 U/L (34-104); BUN/Creatinine Ratio 22.9 (8-20); Blood Urea Nitrogen 8 mg/dL (6-24); C Reactive Protein 2.63 mg/L (<8.01); Creatine Kinase 31 U/L (10-223); EGFR African American 232.2 (>60); EGFR Non-African American 191.9 (>60); Globulin 4.4 g/dL (2-4); Glucose 170 mg/dL (70-100); Total Protein 7.2 g/dL (6.4-8.9)
[2019-05-04 16:09] LABS: CO2 Carbon Dioxide 49 mmol/L (22-32)
[2019-05-04] MEDS ORDERED: Azithromycin TAB* 250 MG PO ONE (16:22)
[2019-05-04 16:28] LABS: ABS Basophils 0.1 10^3/ul (0-0.2); ABS Eosinophils 0.1 10^3/ul (0-0.6); ABS Lymphocytes 0.4 10^3/ul (1.0-4.8); ABS Monocytes 0.4 10^3/ul (0-0.8); ABS Neutrophils 11.3 10^3/ul (1.5-7.7); Activated Partial Thrombo Time 40.3 seconds (26.0-38.0); Eosinophil % 0.5 %; Hematocrit 39 % (35-47); Hemoglobin 12.2 g/dL (12.0-16.0); INR 1.31 (0.82-1.09); Lymphocyte % 3.1 %; Mean Corpuscular HGB Conc 32 g/dL (31-36); Mean Corpuscular Hemoglobin 31 pg (27-31); Mean Corpuscular Volume 99 fL (80-97); Mean Platelet Volume 8.1 fL (7.4-10.4); Platelet Count 156 10^3/uL (150-450); Red Blood Count 3.89 10^6 /uL (3.70-4.87); Red Cell Distribution Width 14 % (10-15); White Blood Count 12.2 10^3/uL (3.5-10.8)
[2019-05-04 17:34] LABS: Potassium Redraw 4.2 mmol/L (3.5-5.0)
[2019-05-04 17:38] LABS: INR 1.31 (0.82-1.09)
[2019-05-04 17:47] LABS: ALT 13 U/L (7-52); AST 21 U/L (13-39); Albumin 2.9 g/dL (3.2-5.2); Albumin/Globulin Ratio 0.6 (1-3); Alkaline Phosphatase 79 U/L (34-104); Blood Urea Nitrogen 9 mg/dL (6-24); Calcium 9.4 mg/dL (8.6-10.3); Chloride 82 mmol/L (101-111); EGFR African American 224.8 (>60); EGFR Non-African American 185.8 (>60); Globulin 4.6 g/dL (2-4); Glucose 173 mg/dL (70-100); Potassium 3.8 mmol/L (3.5-5.0); Sodium 142 mmol/L (135-145); Total Protein 7.5 g/dL (6.4-8.9)
[2019-05-04 18:07] LABS: CO2 Carbon Dioxide 55 mmol/L (22-32)
[2019-05-04] MEDS ORDERED: Albuterol HFA INHALER* 8 gm MDI INH PRN (18:29)
[2019-05-04] MEDS ORDERED: hydrOXYzine HCL TAB* 10 MG PO PRN (18:29)
[2019-05-04] MEDS ORDERED: Acetaminophen TAB* 325 MG PO PRN (18:29)
[2019-05-04 18:59] LABS: Influenza A Molecular Negative (Negative); Influenza B Molecular Negative (Negative)
[2019-05-04] MEDS ORDERED: Albuterol 2.5 MG/3 ML NEB.SOL* (0.083%) INH SCH (19:00)
[2019-05-04] MEDS ORDERED: Albuterol 2.5 MG/3 ML NEB.SOL* (0.083%) INH ONE (19:02)
--- NOTE | 2019-05-04 21:46 | CONSULT ---
Palliative / Hospice Consult Ordering Provider: Alisa Norton Referal Reason: Goals of care/no bowel/MS - Subjective Code Status: Full Code Advance Directives Location: No Advance Directives - History or Present Illness History or Present Illness: 59yo female with end stage COPD presents to ER via ambulance with hypoxia and unresponsiveness. PMH is significant for end stage COPD on trilogy, anxiety, depression and anemia of chronic disease. 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 Studies CXR increase density ABRAHAM, EKG NSR, H/H 12.2/39, BUN/Cr 9/.36, egfr 185.8, alb 2.9, INR 1.21 and PCO2 125. Pt on vapotherm in ER and admited to ICU. Pt was offered comfort care/hospice on the floor but declined. Pt has 4 admissions in last year for COPD/resp failure. All history is from pt, family and medical record. Lab Values: Abnormal Lab Results 05/04/19 05/04/19 05/04/19 14:39 14:55 15:38 WBC RBC Hgb Hct MCV MCH MCHC RDW Plt Count MPV Neut % (Auto) Lymph % (Auto) [place] % (Auto) Eos % (Auto) Baso % (Auto) Absolute Neuts (auto) Absolute Lymphs (auto) Absolute Monos (auto) Absolute Eos (auto) Absolute Basos (auto) Absolute Nucleated RBC Nucleated RBC % INR (Anticoag Therapy) APTT Patient Temperature Not Reportable ABG pH 7.30 L ABG pH (Temp Correct) Not Reportable ABG pCO2 > 125 H* ABG pCO2 (Temp Corrct Not Reportable ABG pO2 73 L ABG pO2 (Temp Correct Not Reportable ABG HCO3 TNP ABG O2 Saturation 96.7 ABG Base Excess TNP Respiration Rate Not Reportable O2 Delivery Device 3lnc Ventilator Type Not Reportable Vent Mode Not Reportable FiO2 Not Reportable Inspiratory Time Not Reportable PEEP Not Reportable Pressure Support Not Reportable Pressure Control Not Reportable EPAP Not Reportable IPAP Not Reportable BiPAP Not Reportable Sodium 140 Potassium TNP 4.2 Chloride 82 L Carbon Dioxide 49 H* Anion Gap Not Reportable BUN 8 Creatinine 0.35 L Est GFR ( Amer) 232.2 Est GFR (Non-Af Amer) 191.9 BUN/Creatinine Ratio 22.9 H Glucose 170 H Lactic Acid Calcium 9.0 Total Bilirubin 0.40 AST TNP 23 ALT 12 Alkaline Phosphatase 78 Total Creatine Kinase 31 CK-MB (CK-2) 5.3 Troponin I 0.03 H* C-Reactive Protein 2.63 B-Natriuretic Peptide Total Protein 7.2 Albumin 2.8 L Globulin 4.4 H Albumin/Globulin Ratio 0.6 L Influenza A (Rapid) Influenza B (Rapid) 05/04/19 05/04/19 05/04/19 15:45 16:02 16:02 WBC 12.2 H RBC 3.89 Hgb 12.2 Hct 39 MCV 99 H MCH 31 MCHC 32 RDW 14 Plt Count 156 MPV 8.1 Neut % (Auto) 92.2 Lymph % (Auto) 3.1 [place] % (Auto) 3.4 Eos % (Auto) 0.5 Baso % (Auto) 0.8 Absolute Neuts (auto) 11.3 H Absolute Lymphs (auto) 0.4 L Absolute Monos (auto) 0.4 Absolute Eos (auto) 0.1 Absolute Basos (auto) 0.1 Absolute Nucleated RBC 0.0 Nucleated RBC % 0.0 INR (Anticoag Therapy) 1.31 H APTT 40.3 H Patient Temperature Not Reportable ABG pH 7.42 ABG pH (Temp Correct) Not Reportable ABG pCO2 105 H* ABG pCO2 (Temp Corrct Not Reportable ABG pO2 133 H ABG pO2 (Temp Correct Not Reportable ABG HCO3 52.6 H* ABG O2 Saturation 99.3 H ABG Base Excess 35.5 H Respiration Rate Not Reportable O2 Delivery Device Ventilator Type Not Reportable Vent Mode Not Reportable FiO2 100 Inspiratory Time Not Reportable PEEP Not Reportable Pressure Support Not Reportable Pressure Control Not Reportable EPAP Not Reportable IPAP Not Reportable BiPAP Not Reportable Sodium Potassium Chloride Carbon Dioxide Anion Gap BUN Creatinine Est GFR ( Amer) Est GFR (Non-Af Amer) BUN/Creatinine Ratio Glucose Lactic Acid Calcium Total Bilirubin AST ALT Alkaline Phosphatase Total Creatine Kinase CK-MB (CK-2) Troponin I C-Reactive Protein B-Natriuretic Peptide Total Protein Albumin Globulin Albumin/Globulin Ratio Influenza A (Rapid) Influenza B (Rapid) 05/04/19 05/04/19 05/04/19 16:02 16:02 17:00 WBC RBC Hgb Hct MCV MCH MCHC RDW Plt Count MPV Neut % (Auto) Lymph % (Auto) [place] % (Auto) Eos % (Auto) Baso % (Auto) Absolute Neuts (auto) Absolute Lymphs (auto) Absolute Monos (auto) Absolute Eos (auto) Absolute Basos (auto) Absolute Nucleated RBC Nucleated RBC % INR (Anticoag Therapy) 1.31 H APTT Patient Temperature ABG pH ABG pH (Temp Correct) ABG pCO2 ABG pCO2 (Temp Corrct ABG pO2 ABG pO2 (Temp Correct ABG HCO3 ABG O2 Saturation ABG Base Excess Respiration Rate O2 Delivery Device Ventilator Type Vent Mode FiO2 Inspiratory Time PEEP Pressure Support Pressure Control EPAP IPAP BiPAP Sodium Potassium Chloride Carbon Dioxide Anion Gap BUN Creatinine Est GFR ( Amer) Est GFR (Non-Af Amer) BUN/Creatinine Ratio Glucose Lactic Acid 1.7 Calcium Total Bilirubin AST ALT Alkaline Phosphatase Total Creatine Kinase CK-MB (CK-2) Troponin I C-Reactive Protein B-Natriuretic Peptide 82 Total Protein Albumin Globulin Albumin/Globulin Ratio Influenza A (Rapid) Influenza B (Rapid) 05/04/19 05/04/19 05/04/19 17:00 18:33 19:15 WBC RBC Hgb Hct MCV MCH MCHC RDW Plt Count MPV Neut % (Auto) Lymph % (Auto) [place] % (Auto) Eos % (Auto) Baso % (Auto) Absolute Neuts (auto) Absolute Lymphs (auto) Absolute Monos (auto) Absolute Eos (auto) Absolute Basos (auto) Absolute Nucleated RBC Nucleated RBC % INR (Anticoag Therapy) APTT Patient Temperature ABG pH 7.37 ABG pH (Temp Correct) ABG pCO2 113 H* ABG pCO2 (Temp Corrct ABG pO2 74 L ABG pO2 (Temp Correct ABG HCO3 49.9 H* ABG O2 Saturation 96.9 ABG Base Excess 32.1 H Respiration Rate O2 Delivery Device Ventilator Type Vent Mode FiO2 Inspiratory Time PEEP Pressure Support Pressure Control EPAP IPAP BiPAP Sodium 142 Potassium 3.8 Chloride 82 L Carbon Dioxide 55 H* Anion Gap Not Reportable BUN 9 Creatinine 0.36 L Est GFR ( Amer) 224.8 Est GFR (Non-Af Amer) 185.8 BUN/Creatinine Ratio 25.0 H Glucose 173 H Lactic Acid Calcium 9.4 Total Bilirubin 0.30 AST 21 ALT 13 Alkaline Phosphatase 79 Total Creatine Kinase CK-MB (CK-2) Troponin I C-Reactive Protein B-Natriuretic Peptide Total Protein 7.5 Albumin 2.9 L Globulin 4.6 H Albumin/Globulin Ratio 0.6 L Influenza A (Rapid) Negative Influenza B (Rapid) Negative Laboratory Last Values WBC 12.2 10^3/uL (3.5-10.8) H 05/04/19 16:02 RBC 3.89 10^6 /uL (3.70-4.87) 05/04/19 16:02 Hgb 12.2 g/dL (12.0-16.0) 05/04/19 16:02 Hct 39 % (35-47) 05/04/19 16:02 MCV 99 fL (80-97) H 05/04/19 16:02 MCH 31 pg (27-31) 05/04/19 16:02 MCHC 32 g/dL (31-36) 05/04/19 16:02 RDW 14 % (10-15) 05/04/19 16:02 Plt Count 156 10^3/uL (150-450) 05/04/19 16:02 MPV 8.1 fL (7.4-10.4) 05/04/19 16:02 Neut % (Auto) 92.2 % 05/04/19 16:02 Lymph % (Auto) 3.1 % 05/04/19 16:02 [place] % (Auto) 3.4 % 05/04/19 16:02 Eos % (Auto) 0.5 % 05/04/19 16:02 Baso % (Auto) 0.8 % 05/04/19 16:02 Absolute Neuts (auto) 11.3 10^3/ul (1.5-7.7) H 05/04/19 16:02 Absolute Lymphs (auto) 0.4 10^3/ul (1.0-4.8) L 05/04/19 16:02 Absolute Monos (auto) 0.4 10^3/ul (0-0.8) 05/04/19 16:02 Absolute Eos (auto) 0.1 10^3/ul (0-0.6) 05/04/19 16:02 Absolute Basos (auto) 0.1 10^3/ul (0-0.2) 05/04/19 16:02 Absolute Nucleated RBC 0.0 10^3/ul 05/04/19 16:02 Nucleated RBC % 0.0 05/04/19 16:02 INR (Anticoag Therapy) 1.31 (0.82-1.09) H 05/04/19 17:00 APTT 40.3 seconds (26.0-38.0) H 05/04/19 16:02 Patient Temperature Not Reportable 05/04/19 15:45 ABG pH 7.37 (7.35-7.45) 05/04/19 19:15 ABG pH (Temp Correct) Not Reportable 05/04/19 15:45 ABG pCO2 113 mmHg (35-45) H* 05/04/19 19:15 ABG pCO2 (Temp Corrct Not Reportable 05/04/19 15:45 ABG pO2 74 mmHg (80-100) L 05/04/19 19:15 ABG pO2 (Temp Correct Not Reportable 05/04/19 15:45 ABG HCO3 49.9 mmol/L (19-31) H* 05/04/19 19:15 ABG O2 Saturation 96.9 % (94.0-98.0) 05/04/19 19:15 ABG Base Excess 32.1 mmol/L (-2.0-2.0) H 05/04/19 19:15 Respiration Rate Not Reportable 05/04/19 15:45 O2 Delivery Device 3lnc 05/04/19 14:39 Ventilator Type Not Reportable 05/04/19 15:45 Vent Mode Not Reportable 05/04/19 15:45 FiO2 100 05/04/19 15:45 Inspiratory Time Not Reportable 05/04/19 15:45 PEEP Not Reportable 05/04/19 15:45 Pressure Support Not Reportable 05/04/19 15:45 Pressure Control Not Reportable 05/04/19 15:45 EPAP Not Reportable 05/04/19 15:45 IPAP Not Reportable 05/04/19 15:45 BiPAP Not Reportable 05/04/19 15:45 Sodium 142 mmol/L (135-145) 05/04/19 17:00 Potassium 3.8 mmol/L (3.5-5.0) 05/04/19 17:00 Chloride 82 mmol/L (101-111) L 05/04/19 17:00 Carbon Dioxide 55 mmol/L (22-32) H* 05/04/19 17:00 Anion Gap Not Reportable 05/04/19 17:00 BUN 9 mg/dL (6-24) 05/04/19 17:00 Creatinine 0.36 mg/dL (0.51-0.95) L 05/04/19 17:00 Est GFR ( Amer) 224.8 (>60) 05/04/19 17:00 Est GFR (Non-Af Amer) 185.8 (>60) 05/04/19 17:00 BUN/Creatinine Ratio 25.0 (8-20) H 05/04/19 17:00 Glucose 173 mg/dL (70-100) H 05/04/19 17:00 Lactic Acid 1.7 mmol/L (0.5-2.0) 05/04/19 16:02 Calcium 9.4 mg/dL (8.6-10.3) 05/04/19 17:00 Total Bilirubin 0.30 mg/dL (0.2-1.0) 05/04/19 17:00 AST 21 U/L (13-39) 05/04/19 17:00 ALT 13 U/L (7-52) 05/04/19 17:00 Alkaline Phosphatase 79 U/L (34-104) 05/04/19 17:00 Total Creatine Kinase 31 U/L (10-223) 05/04/19 14:55 CK-MB (CK-2) 5.3 ng/mL (0.6-6.3) 05/04/19 14:55 Troponin I 0.03 ng/mL (<0.03) H* 05/04/19 14:55 C-Reactive Protein 2.63 mg/L (<8.01) 05/04/19 14:55 B-Natriuretic Peptide 82 pg/mL (<=100) 05/04/19 16:02 Total Protein 7.5 g/dL (6.4-8.9) 05/04/19 17:00 Albumin 2.9 g/dL (3.2-5.2) L 05/04/19 17:00 Globulin 4.6 g/dL (2-4) H 05/04/19 17:00 Albumin/Globulin Ratio 0.6 (1-3) L 05/04/19 17:00 Influenza A (Rapid) Negative (Negative) 05/04/19 18:33 Influenza B (Rapid) Negative (Negative) 05/04/19 18:33 - Objective Active Medications: Acetaminophen (Tylenol Tab*) 650 mg PO TID PRN PRN Reason: MILD PAIN or TEMP > 100.4 Albuterol (Ventolin Hfa Inhaler*) 2 puff INH QID PRN PRN Reason: SOB/WHEEZING Albuterol (Ventolin 2.5 Mg/3 Ml Neb.Anaid*) 2.5 mg INH [id number] AWAKE MARGO Buspirone HCl (Buspar Tab*) 7.5 mg PO BID [facility] Cholecalciferol (Vitamin D3 Cap/Tab (Nf)) cap PO DAILY MARGO Cholecalciferol (Vitamin D Tab*) 5,000 units PO DAILY MARGO Heparin Sodium (Porcine) (Heparin Vial(*)) 5,000 units SUBCUT Q12HR MARGO Hydroxyzine HCl (Atarax Tab*) 10 mg PO BID PRN PRN Reason: ANXIETY Lidocaine (Lidoderm 5% Patch*) 1 patch TRANSDERM DAILY MARGO Lorazepam (Ativan Tab(*)) 0.5 mg PO Q4H PRN PRN Reason: ANXIETY Morphine Sulfate (Morphine Oral Concentrate*) 5 mg SL Q2H PRN PRN Reason: SHORTNESS OF BREATH Prednisone (Deltasone 10 Mg Tab) 10 mg PO DAILY MARGO Sertraline HCl (Zoloft*) 25 mg PO DAILY [facility] Tiotropium [place]/Olodaterol (Stiolto Respimat Inh Winger (60 Puff)) 2 puff INH DAILY MARGO Vital Signs: Vital Signs: Temp Pulse Resp BP Pulse Ox 97.8 F 110 26 112/65 99 05/04/19 21:02 05/04/19 21:02 05/04/19 21:02 05/04/19 21:02 05/04/19 21:02 Patient Weight: Weight 36.287 kg Intake and Output: Intake & Output 05/02/19 05/03/19 05/04/19 05/05/19 06:59 06:59 06:59 06:59 Intake Total 100 Balance 100 Weight 36.287 kg Intake: IV Fluids 100 ADLs: Meal Record Start: 05/04/19 20: 27 Freq: 09,13,18 Status: Active Protocol: Created 05/04/19 20:27 System (Rec: 05/04/19 20:27 System [id number]) Intake and Output Start: 05/04/19 14: 24 Freq: Status: Active Protocol: Created 05/04/19 14:24 System (Rec: 05/04/19 14:24 System [id number]) Intake and Output Start: 05/04/19: Freq: Q1HR Status: Active Protocol: Created 05/04/19 20:27 System (Rec: 05/04/19 20:27 System [id number]) Head: Normal Eyes: No Scleral Icterus Ears/Nose/Mouth/Throat: NL Teeth, Lips, Gums Neck: NL Appearance and Movements; NL JVP Cardiovascular: NL Sounds; No Murmurs; No JVD Respiratory: Clear to Auscultation Abdominal: NL Sounds; No Tenderness; No Distention Neurological: Alert and Oriented x 3 - Assessment Assessment: 59yo female with end stage COPD presents with unresponsiveness and hypoxia. - Plan Consult Plan (MU): Palliative Plan: Long discussion with pt in ER about goals of care. Pt answered questions appropriately but avoids answering if it's not something she wants to talk about. about 1 month ago. Offered pt comfort care/symptom management with hospice sign on several times but she wouldn't answer. Asked about vapotherm and the ICU. She doesn't like being in the ICU but said she wanted to live and was ok with vapotherm. Conversation was witnesses by ER staff. Pt did not agree to change in MOLST and was still DNR/DNI in ER. She is worried about her dog and cats. Spoke with son Eleazar who cares for her and said when she doesn't want to talk about something she doesn't. He was on his way into hospital. Pt and son are aware that vapotherm is a temporary measure and either pt will improve, need to be intubated or terminally weaned, both seem to understand. Will address HCP with pt tomorrow and have discussion about home hospice and encourage poacher wringer operator visit. Support given. Pt is eligible for hospice with diagnosis of end stage COPD and 4 admissions for respiratory failure. KPS 50%, PPS 50% - Time On Unit Date of Evaluation: 05/04/19 Hospice Consult Time in: 17:30 Hospice Consult Time Out: 18:30 Hospice Consult Time Total: 60 > 50% of Time Spend In Counseling or Coordinating Care: Yes
[2019-05-04] MEDS: busPIRone TAB* 5 MG PO SCH (22:22)
[2019-05-04] MEDS: Heparin VIAL(*) 5000 UNITS/ML VIAL (FIVE THOUSAND) SUBCUT SCH (22:22)
[2019-05-04] MEDS: Albuterol 2.5 MG/3 ML NEB.SOL* (0.083%) INH SCH (23:29)
[2019-05-05] MEDS: Morphine ORAL CONCENTRATE* 5 MG/0.25 ML ORAL.SYRIN SL PRN (02:21)
[2019-05-05] MEDS: Albuterol 2.5 MG/3 ML NEB.SOL* (0.083%) INH SCH ×5 (03:08→19:21)
[2019-05-05 04:36] LABS: Hematocrit 35 % (35-47); Hemoglobin 11.4 g/dL (12.0-16.0); Mean Corpuscular HGB Conc 32 g/dL (31-36); Mean Corpuscular Hemoglobin 32 pg (27-31); Mean Corpuscular Volume 98 fL (80-97); Mean Platelet Volume 8.2 fL (7.4-10.4); Platelet Count 154 10^3/uL (150-450); Red Blood Count 3.58 10^6 /uL (3.70-4.87); Red Cell Distribution Width 14 % (10-15); White Blood Count 6.5 10^3/uL (3.5-10.8)
[2019-05-05 05:13] LABS: Blood Urea Nitrogen 10 mg/dL (6-24); Calcium 8.8 mg/dL (8.6-10.3); Chloride 81 mmol/L (101-111); EGFR African American 277.5 (>60); EGFR Non-African American 229.3 (>60); Glucose 116 mg/dL (70-100); Potassium 4.9 mmol/L (3.5-5.0); Sodium 137 mmol/L (135-145)
[2019-05-05 05:36] LABS: CO2 Carbon Dioxide 52 mmol/L (22-32)
[2019-05-05] MEDS: Tiotropium Brom/Olodaterol MDI INH SCH ×2 (06:16→10:21)
[2019-05-05] MEDS ORDERED: Cholecalciferol CAP/TAB(NF) ** ENTER STRENGTH IN LABEL DIRECTIONS PO SCH (09:00)
[2019-05-05] MEDS: cefTRIAXone(*) 1 GM in NS 0.9% 50 ML* 50 ML IVPB SCH (09:33)
[2019-05-05] MEDS: Cholecalciferol TAB* 1000 UNITS PO SCH (09:36)
[2019-05-05] MEDS: busPIRone TAB* 5 MG PO SCH ×2 (09:37→20:37)
[2019-05-05] MEDS: Lidocaine PATCH 5%* 1 PATCH TRANSDERM SCH (09:38)
[2019-05-05] MEDS: Heparin VIAL(*) 5000 UNITS/ML VIAL (FIVE THOUSAND) SUBCUT SCH ×2 (09:39→20:38)
[2019-05-05] MEDS: Sertraline* 25 MG TAB PO SCH (09:46)
--- NOTE | 2019-05-05 09:58 | HP ---
CC: Dr. Conchita Mansfield of Palliative Care * ADMISSION HISTORY AND PHYSICAL: DATE OF ADMISSION: 05/04/19 ATTENDING FOR THIS ADMISSION: Dr. Frank Clifton, ICU.* (DICTATED BY IRMA SHAH, MARIAMA) CHIEF COMPLAINT: Altered mental status and hypoxia. HISTORY OF PRESENT ILLNESS: Ms. High is a 59-year-old female who arrived in the emergency department via EMS service after her son called for an ambulance when he found her unresponsive in her home. The patient does have end -stage COPD and was found off her oxygen and not responding to her family. The patient's past medical history is complex. Per the record, she was discharged from the hospital on 02/10/19 and was supposed to sign on for hospice at that time. The patient's course then was very complicated. She failed Vapotherm and BiPAP. She was supposed to be using Trelegy at home, but is noncompliant with that modality. She did agree to DNR/DNI at that point and was meeting with Dr. Conchita Mansfield from [facility]; however, it appears that she did not officially sign on to hospice after being discharged to home. In any case, she did continue to use her oxygen at home but not her BiPAP, but apparently was not using her oxygen or somehow was off her oxygen when her son found her. It is unclear what her course has been over the last 3 months, but per her family she is not very ambulatory at this time. Her son does take care of her by providing her needs in the home, sets her up with food and drinks in the morning before he leaves for work. She does not get outside and is essentially housebound. It should also be noted that her recently suddenly, I believe of heart attack, and there had been some changes in family dynamics recently. In the emergency department, per the ED report, it was unclear to them if the patient was full code or not, so she was placed on Vapotherm and they request admission to ICU. Dr. Mansfield was alerted to the case and did go and see the patient to discuss with the patient and her family the wishes for this admission, because the patient was supposed to be on hospice and it was our understanding that the patient was supposed to be DNR/ DNI and do not hospitalize. However, the patient at this time does wish to be on Vapotherm and requests to be admitted to ICU for rescue vapotherm. However, Dr. Mansfield will have further discussion with the patient in the morning regarding her ultimate wishes given the end-stage nature of her disease. PAST MEDICAL HISTORY: As stated above, end-stage COPD, on chronic oxygen with hypoxemic and hypercapnic respiratory failure; anxiety disorder, chronic pain. PAST SURGICAL HISTORY: Tubal ligation, anterior cervical diskectomy, and history of ORIF of left patellar. HOME MEDICATIONS: Include: 1. Anoro Ellipta 1 puff inhaled daily. 2. Albuterol 2.5 mg inhaled via nebulizer q.4 hours. 3. BuSpar 7.5 mg p.o. b.i.d. 4. Ventolin 2 puffs inhaled 4 times daily as needed. 5. Zoloft 25 mg daily. 6. Lasix 1 tab p.o. Mondays and Fridays. 7. Vitamin D of 5000 units p.o. daily. 8. Cholecalciferol vitamin 2000 units p.o. daily. 9. Hydroxyzine 10 mg p.o. b.i.d. as needed. 10. Diclofenac sodium 50 mg p.o. b.i.d. 11. Lidocaine patch 1 patch transdermal daily. 12. Prednisone 10 mg p.o. daily. 13. Swapna 60 mg p.o. daily. 14. Acetaminophen 650 mg p.o. 3 times a day as needed. 15. Asper cream 4% topically every 12 hours as needed. 16. Morphine oral concentrate 5 mg sublingual q.2 hours as needed. 17. Lorazepam 0.5 mg p.o. q.4 hours as needed. ALLERGIES: She has no known drug allergies. FAMILY HISTORY: Mother of lung cancer at age 62. Father of a brain tumor. No further family history is noted. SOCIAL HISTORY: The patient up until her admission in January was still an active everyday smoker with a 40-pack year history. She is recently . She has 2 grown sons. REVIEW OF SYSTEMS: Unable to obtain secondary to altered mental status. PHYSICAL EXAMINATION GENERAL: The patient is pale, frail, and ill-appearing. Somewhat disheveled. VITAL SIGNS: Temperature 99.7, blood pressure 97/62, heart rate 98, respiratory rate 10, O2 saturation 95% on high-flow heated nasal cannula. HEENT: The patient is atraumatic and normocephalic, PERRLA, nonicteric sclerae. Oral mucosa is dry. Tongue is midline. NECK: Supple and nontender. No JVD noted. No carotid bruits auscultated. LUNGS: Air entry is extremely poor bilaterally with poor air movement and poor aeration of the lungs. No rhonchi or rales noted. CARDIOVASCULAR: S1 and S2 present. Rate and rhythm are regular to mildly tachycardic. No murmurs, gallops, or rubs noted. ABDOMEN: Soft, nontender, and nondistended. Positive bowel sounds noted. MUSCULOSKELETAL: There is no clubbing, no cyanosis, no edema. Overall limbs are very frail and thin. Body habitus in general is thin. Is somewhat emaciated. Peripheral pulses are palpable +2. She does have full range of motion. NEUROLOGIC: She is answering questions somewhat appropriately. She is obviously confused. She does require great deal of reorientation. She does recognize her family members who are at the bedside, however, she does answer some other questions very inappropriately. DIAGNOSTIC STUDIES/LAB DATA: WBC 12.2, RBC is 3.89, hemoglobin 12.2, hematocrit 39, MCV 99, MCH 31, platelet count 156. Sodium 140, potassium 4.2, chloride 82, CO2 of 49, anion gap non-reportable, BUN 8, creatinine 0.35, GFR 191.9, glucose 170, calcium 9.0. Bilirubin 0.40, AST 23, ALT 12, alk phos 78. Troponin 0.03. CRP 2.63. BNP 82. Albumin 2.8, globulin 4.4, albumin/globulin ratio 0.6. ABG pH of 7.30, CO2 is greater than 125, pO2 73, bicarb was unable to report, O2 saturation 96.7. Repeat ABG after Vapotherm being placed, pH of 7.42, CO2 of 105, pO2 of 133, bicarb 52.6, O2 saturation 99.3. Imaging: Chest x-ray shows increased parenchymal density involving the mid level and left upper lung, could be due to pulmonary edema, viral pneumonia, or pneumonitis. IMPRESSION: Ms. High is a 59-year-old female with end-stage chronic obstructive pulmonary disease, which is very severe, who presents in acute on chronic hypoxic hypercapnic respiratory failure. PLAN: At this point, the patient has been admitted to ICU for Vapotherm for a diagnosis of acute on chronic hypercapnic respiratory failure with likely chronic obstructive pulmonary disease exacerbation. She does not appear septic or toxic. She does have a definitive metabolic acidosis secondary to the above. From a neurologic perspective, the patient does have a CO2 narcosis, which seems to be resolving with Vapotherm; however, back in January when the patient was admitted under similar circumstances at that time she was intubated , failed BiPAP and Vapotherm. My fear at this time is the patient is also going to run into trouble in terms of weaning off of Vapotherm. Dr. Mansfield will be discussing goals of care with the patient tomorrow as her condition does seem quite serious again this time. I am going to put her on neuro checks q.4 hours. We will continue to titrate her Vapotherm. Continue her on her home nebulizer treatments and albuterol as needed. Continue pulmonary toilet. Morphine sublingual for any air hunger or pain. I will continue her on her daily prednisone. She did have blood cultures drawn in the ED, although she does not look febrile and does not again appear toxic. That left upper lobe may or may not be infected. She did receive azithromycin and Zosyn in the ED. I will trial her on ceftriaxone starting tomorrow to cover her for any acute community acquired bacteria, although this does seem to be lower on the differential at this time. It should also be noted that the patient does not have a lactic acidemia, lactic acid is only 1.7 and again not febrile. Her white count is only 12.2 and she is on chronic prednisone. At this point, her respiratory failure is likely secondary to noncompliance with her Trelegy at home, also she was off her oxygen when she was found and she is oxygen dependent while being end- stage COPD. We will continue to monitor cultures and adjust her respiratory interventions as needed. For her diagnosis of anxiety, we will continue her on her regular medications of BuSpar and sertraline and also hydroxyzine as needed. She also takes lorazepam as needed, this will also be continued. DVT prophylaxis. We will place her on heparin q.8 hours. Diet. Regular as tolerated. CODE STATUS: DNR/DNI: To be confirmed and clarified in the morning by Palliative Care. TOTAL CRITICAL CARE TIME: 45 minutes on admission planning. DISPOSITION: Admitted to ICU with palliative care consultation. This plan of care has been discussed with Dr. Frank Clifton, ICU attending. He is in agreement with this plan of care. IRMA SHAH, SPORTS NUTRITIONIST [id number]/CPS #: [id number] JOAO
--- NOTE | 2019-05-05 15:07 | PN ---
<Maame Lu - Last Filed: 05/05/19 15:15> Date of Service: 05/05/19 Critical Care Services: Patient is alert this morning, but confused- likely baseline. She stated she fell down yesterday when her was in the yard. But actually her in the past few months. She didn't answer questions appropriately. But she is not in any respiratory distress, she was changed to nasal cannula by respiratory therapist earlier. Vital Signs: Temp Pulse Resp BP SpO2 FiO2 98.7 F 84 16 102/63 95 40 05/05/19 12:00 05/05/19 13:02 05/05/19 13:02 05/05/19 06:30 05/05/19 13:02 05/04 08:00 Physical Exam: Constitutional: awake, alert, no distress, no diaphoresis Head: normocephalic, atraumatic Eyes: no pallor, no icterus ENT: moist mucous membranes Neck: soft, supple, no jvd, no stridor CVS: normal rate, regular, no murmur Chest/Resp: diminished bilateral lung sound Abdomen/GI: soft, nontender, nondistended, BS+ Ext/Msk: warm, pulses+, no edema Skin: intact, warm Neuro: awake, alert, not oriented, moving all extremities, no gross focal deficit Psych: confused though comfortable Fluid Balance (Past 24 Hours): Intake & Output 05/03/19 05/04/19 05/05/19 05/06/19 06:59 06:59 06:59 06:59 Intake Total 430 Balance 430 Weight 33.1 kg Intake: IV Fluids 100 Oral 330 Other: Estimated Void Large # Voids 1 Labs: Laboratory Results - last 24 hr 05/04/19 05/04/19 05/04/19 14:39 14:55 15:38 WBC RBC Hgb Hct MCV MCH MCHC RDW Plt Count MPV Neut % (Auto) Lymph % (Auto) [place] % (Auto) Eos % (Auto) Baso % (Auto) Absolute Neuts (auto) Absolute Lymphs (auto) Absolute Monos (auto) Absolute Eos (auto) Absolute Basos (auto) Absolute Nucleated RBC Nucleated RBC % INR (Anticoag Therapy) APTT Patient Temperature ABG pH 7.30 L ABG pH (Temp Correct) Not Reportable ABG pCO2 > 125 H* ABG pCO2 (Temp Corrct Not Reportable ABG pO2 73 L ABG pO2 (Temp Correct Not Reportable ABG HCO3 TNP ABG O2 Saturation 96.7 ABG Base Excess TNP Respiration Rate Ventilator Type Vent Mode FiO2 Inspiratory Time PEEP Pressure Support Pressure Control EPAP IPAP BiPAP Sodium 140 Potassium TNP 4.2 Chloride 82 L Carbon Dioxide 49 H* Anion Gap Not Reportable BUN 8 Creatinine 0.35 L Est GFR ( Amer) 232.2 Est GFR (Non-Af Amer) 191.9 BUN/Creatinine Ratio 22.9 H Glucose 170 H Lactic Acid Calcium 9.0 Total Bilirubin 0.40 AST TNP 23 ALT 12 Alkaline Phosphatase 78 Total Creatine Kinase 31 CK-MB (CK-2) 5.3 Troponin I 0.03 H* C-Reactive Protein 2.63 B-Natriuretic Peptide Total Protein 7.2 Albumin 2.8 L Globulin 4.4 H Albumin/Globulin Ratio 0.6 L Influenza A (Rapid) Influenza B (Rapid) 05/04/19 05/04/19 05/04/19 15:45 16:02 16:02 WBC 12.2 H RBC 3.89 Hgb 12.2 Hct 39 MCV 99 H MCH 31 MCHC 32 RDW 14 Plt Count 156 MPV 8.1 Neut % (Auto) 92.2 Lymph % (Auto) 3.1 [place] % (Auto) 3.4 Eos % (Auto) 0.5 Baso % (Auto) 0.8 Absolute Neuts (auto) 11.3 H Absolute Lymphs (auto) 0.4 L Absolute Monos (auto) 0.4 Absolute Eos (auto) 0.1 Absolute Basos (auto) 0.1 Absolute Nucleated RBC 0.0 Nucleated RBC % 0.0 INR (Anticoag Therapy) 1.31 H APTT 40.3 H Patient Temperature Not Reportable ABG pH 7.42 ABG pH (Temp Correct) Not Reportable ABG pCO2 105 H* ABG pCO2 (Temp Corrct Not Reportable ABG pO2 133 H ABG pO2 (Temp Correct Not Reportable ABG HCO3 52.6 H* ABG O2 Saturation 99.3 H ABG Base Excess 35.5 H Respiration Rate Not Reportable Ventilator Type Not Reportable Vent Mode Not Reportable FiO2 100 Inspiratory Time Not Reportable PEEP Not Reportable Pressure Support Not Reportable Pressure Control Not Reportable EPAP Not Reportable IPAP Not Reportable BiPAP Not Reportable Sodium Potassium Chloride Carbon Dioxide Anion Gap BUN Creatinine Est GFR ( Amer) Est GFR (Non-Af Amer) BUN/Creatinine Ratio Glucose Lactic Acid Calcium Total Bilirubin AST ALT Alkaline Phosphatase Total Creatine Kinase CK-MB (CK-2) Troponin I C-Reactive Protein B-Natriuretic Peptide Total Protein Albumin Globulin Albumin/Globulin Ratio Influenza A (Rapid) Influenza B (Rapid) 05/04/19 05/04/19 05/04/19 16:02 16:02 17:00 WBC RBC Hgb Hct MCV MCH MCHC RDW Plt Count MPV Neut % (Auto) Lymph % (Auto) [place] % (Auto) Eos % (Auto) Baso % (Auto) Absolute Neuts (auto) Absolute Lymphs (auto) Absolute Monos (auto) Absolute Eos (auto) Absolute Basos (auto) Absolute Nucleated RBC Nucleated RBC % INR (Anticoag Therapy) 1.31 H APTT Patient Temperature ABG pH ABG pH (Temp Correct) ABG pCO2 ABG pCO2 (Temp Corrct ABG pO2 ABG pO2 (Temp Correct ABG HCO3 ABG O2 Saturation ABG Base Excess Respiration Rate Ventilator Type Vent Mode FiO2 Inspiratory Time PEEP Pressure Support Pressure Control EPAP IPAP BiPAP Sodium Potassium Chloride Carbon Dioxide Anion Gap BUN Creatinine Est GFR ( Amer) Est GFR (Non-Af Amer) BUN/Creatinine Ratio Glucose Lactic Acid 1.7 Calcium Total Bilirubin AST ALT Alkaline Phosphatase Total Creatine Kinase CK-MB (CK-2) Troponin I C-Reactive Protein B-Natriuretic Peptide 82 Total Protein Albumin Globulin Albumin/Globulin Ratio Influenza A (Rapid) Influenza B (Rapid) 05/04/19 05/04/19 05/04/19 17:00 18:33 19:15 WBC RBC Hgb Hct MCV MCH MCHC RDW Plt Count MPV Neut % (Auto) Lymph % (Auto) [place] % (Auto) Eos % (Auto) Baso % (Auto) Absolute Neuts (auto) Absolute Lymphs (auto) Absolute Monos (auto) Absolute Eos (auto) Absolute Basos (auto) Absolute Nucleated RBC Nucleated RBC % INR (Anticoag Therapy) APTT Patient Temperature ABG pH 7.37 ABG pH (Temp Correct) ABG pCO2 113 H* ABG pCO2 (Temp Corrct ABG pO2 74 L ABG pO2 (Temp Correct ABG HCO3 49.9 H* ABG O2 Saturation 96.9 ABG Base Excess 32.1 H Respiration Rate Ventilator Type Vent Mode FiO2 Inspiratory Time PEEP Pressure Support Pressure Control EPAP IPAP BiPAP Sodium 142 Potassium 3.8 Chloride 82 L Carbon Dioxide 55 H* Anion Gap Not Reportable BUN 9 Creatinine 0.36 L Est GFR ( Amer) 224.8 Est GFR (Non-Af Amer) 185.8 BUN/Creatinine Ratio 25.0 H Glucose 173 H Lactic Acid Calcium 9.4 Total Bilirubin 0.30 AST 21 ALT 13 Alkaline Phosphatase 79 Total Creatine Kinase CK-MB (CK-2) Troponin I C-Reactive Protein B-Natriuretic Peptide Total Protein 7.5 Albumin 2.9 L Globulin 4.6 H Albumin/Globulin Ratio 0.6 L Influenza A (Rapid) Negative Influenza B (Rapid) Negative 05/05/19 05/05/19 04:18 04:18 WBC 6.5 RBC 3.58 L Hgb 11.4 L Hct 35 MCV 98 H MCH 32 H MCHC 32 RDW 14 Plt Count 154 MPV 8.2 Neut % (Auto) Lymph % (Auto) [place] % (Auto) Eos % (Auto) Baso % (Auto) Absolute Neuts (auto) Absolute Lymphs (auto) Absolute Monos (auto) Absolute Eos (auto) Absolute Basos (auto) Absolute Nucleated RBC Nucleated RBC % INR (Anticoag Therapy) APTT Patient Temperature ABG pH ABG pH (Temp Correct) ABG pCO2 ABG pCO2 (Temp Corrct ABG pO2 ABG pO2 (Temp Correct ABG HCO3 ABG O2 Saturation ABG Base Excess Respiration Rate Ventilator Type Vent Mode FiO2 Inspiratory Time PEEP Pressure Support Pressure Control EPAP IPAP BiPAP Sodium 137 Potassium 4.9 Chloride 81 L Carbon Dioxide 52 H* Anion Gap Not Reportable BUN 10 Creatinine < 0.30 L Est GFR ( Amer) 277.5 Est GFR (Non-Af Amer) 229.3 BUN/Creatinine Ratio 33.0 H Glucose 116 H Lactic Acid Calcium 8.8 Total Bilirubin AST ALT Alkaline Phosphatase Total Creatine Kinase CK-MB (CK-2) Troponin I C-Reactive Protein B-Natriuretic Peptide Total Protein Albumin Globulin Albumin/Globulin Ratio Influenza A (Rapid) Influenza B (Rapid) Nutrition: Regular unrestricted diet Impression: 59 y/o female with 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 1. Acute on chronic respiratory failure 2. Possible left side pneumonia Plan: Neuro-currently at baseline mental status -Delirium prec; avoid BDZ CVS- BP borderline at 90-100/50-60mmhg, no tachycardia, baseline probably Resp- -Wean Fio2 to keep sat>92%, currently on [place] 4L -was given one dose 125mg iv solu-medru in ED, now on home dose pred -nebulizer Q6h scheduled -Palliative consult for hospice planning ID- possible left side pneumonia, cover with iv ceftriaxone - one dose azithromycin given - afebrile. leukocytosis improving GI- -Nutrition: malnutrition, significant weight loss recently, -GI prophylaxis Renal- -strict I/O, replete to keep K>4, Mg>2 Heme- stable Endo-Maintain BG<200, insulin protocol as needed Musculsk- pressure ulcer prophylaxis. Bedrest. Wounds- none Nutrition- regular unrestricted diet DVT prophylaxis: sc heparin GI prophylaxis: no, on home dose steroid Central Line: no Arterial Line: no Granados Cathetor: no Disposition: Patient can transfer to medical floor if she remains stable by the end of afternoon Patient clinical status: stable Code Status: DNR Total Critical Care time is 30 minutes <Frank Clifton - Last Filed: 05/05/19 15:54> Vital Signs: Temp Pulse Resp BP SpO2 FiO2 98.7 F 84 16 102/63 95 40 05/05/19 12:00 05/05/19 13:02 05/05/19 13:02 05/05/19 06:30 05/05/19 13:02 05/04 08:00 Physical Exam: Gen: HEENT: Lungs: Cardiac: Abdomen: Extremities: Neuro: Fluid Balance (Past 24 Hours): I= O= Net Intake & Output 05/03/19 05/04/19 05/05/19 05/06/19 06:59 06:59 06:59 06:59 Intake Total 430 240 Balance 430 240 Weight 33.1 kg Intake: IV Fluids 100 Oral 330 240 Other: Estimated Void Large # Voids 1 Labs: Laboratory Results - last 24 hr 05/04/19 05/04/19 05/04/19 14:55 15:38 15:45 WBC RBC Hgb Hct MCV MCH MCHC RDW Plt Count MPV Neut % (Auto) Lymph % (Auto) [place] % (Auto) Eos % (Auto) Baso % (Auto) Absolute Neuts (auto) Absolute Lymphs (auto) Absolute Monos (auto) Absolute Eos (auto) Absolute Basos (auto) Absolute Nucleated RBC Nucleated RBC % INR (Anticoag Therapy) APTT Patient Temperature Not Reportable ABG pH 7.42 ABG pH (Temp Correct) Not Reportable ABG pCO2 105 H* ABG pCO2 (Temp Corrct Not Reportable ABG pO2 133 H ABG pO2 (Temp Correct Not Reportable ABG HCO3 52.6 H* ABG O2 Saturation 99.3 H ABG Base Excess 35.5 H Respiration Rate Not Reportable Ventilator Type Not Reportable Vent Mode Not Reportable FiO2 100 Inspiratory Time Not Reportable PEEP Not Reportable Pressure Support Not Reportable Pressure Control Not Reportable EPAP Not Reportable IPAP Not Reportable BiPAP Not Reportable Sodium 140 Potassium TNP 4.2 Chloride 82 L Carbon Dioxide 49 H* Anion Gap Not Reportable BUN 8 Creatinine 0.35 L Est GFR ( Amer) 232.2 Est GFR (Non-Af Amer) 191.9 BUN/Creatinine Ratio 22.9 H Glucose 170 H Lactic Acid Calcium 9.0 Total Bilirubin 0.40 AST TNP 23 ALT 12 Alkaline Phosphatase 78 Total Creatine Kinase 31 C-Reactive Protein 2.63 B-Natriuretic Peptide Total Protein 7.2 Albumin 2.8 L Globulin 4.4 H Albumin/Globulin Ratio 0.6 L Influenza A (Rapid) Influenza B (Rapid) 05/04/19 05/04/19 05/04/19 16:02 16:02 16:02 WBC 12.2 H RBC 3.89 Hgb 12.2 Hct 39 MCV 99 H MCH 31 MCHC 32 RDW 14 Plt Count 156 MPV 8.1 Neut % (Auto) 92.2 Lymph % (Auto) 3.1 [place] % (Auto) 3.4 Eos % (Auto) 0.5 Baso % (Auto) 0.8 Absolute Neuts (auto) 11.3 H Absolute Lymphs (auto) 0.4 L Absolute Monos (auto) 0.4 Absolute Eos (auto) 0.1 Absolute Basos (auto) 0.1 Absolute Nucleated RBC 0.0 Nucleated RBC % 0.0 INR (Anticoag Therapy) 1.31 H APTT 40.3 H Patient Temperature ABG pH ABG pH (Temp Correct) ABG pCO2 ABG pCO2 (Temp Corrct ABG pO2 ABG pO2 (Temp Correct ABG HCO3 ABG O2 Saturation ABG Base Excess Respiration Rate Ventilator Type Vent Mode FiO2 Inspiratory Time PEEP Pressure Support Pressure Control EPAP IPAP BiPAP Sodium Potassium Chloride Carbon Dioxide Anion Gap BUN Creatinine Est GFR ( Amer) Est GFR (Non-Af Amer) BUN/Creatinine Ratio Glucose Lactic Acid 1.7 Calcium Total Bilirubin AST ALT Alkaline Phosphatase Total Creatine Kinase C-Reactive Protein B-Natriuretic Peptide Total Protein Albumin Globulin Albumin/Globulin Ratio Influenza A (Rapid) Influenza B (Rapid) 05/04/19 05/04/19 05/04/19 16:02 17:00 17:00 WBC RBC Hgb Hct MCV MCH MCHC RDW Plt Count MPV Neut % (Auto) Lymph % (Auto) [place] % (Auto) Eos % (Auto) Baso % (Auto) Absolute Neuts (auto) Absolute Lymphs (auto) Absolute Monos (auto) Absolute Eos (auto) Absolute Basos (auto) Absolute Nucleated RBC Nucleated RBC % INR (Anticoag Therapy) 1.31 H APTT Patient Temperature ABG pH ABG pH (Temp Correct) ABG pCO2 ABG pCO2 (Temp Corrct ABG pO2 ABG pO2 (Temp Correct ABG HCO3 ABG O2 Saturation ABG Base Excess Respiration Rate Ventilator Type Vent Mode FiO2 Inspiratory Time PEEP Pressure Support Pressure Control EPAP IPAP BiPAP Sodium 142 Potassium 3.8 Chloride 82 L Carbon Dioxide 55 H* Anion Gap Not Reportable BUN 9 Creatinine 0.36 L Est GFR ( Amer) 224.8 Est GFR (Non-Af Amer) 185.8 BUN/Creatinine Ratio 25.0 H Glucose 173 H Lactic Acid Calcium 9.4 Total Bilirubin 0.30 AST 21 ALT 13 Alkaline Phosphatase 79 Total Creatine Kinase C-Reactive Protein B-Natriuretic Peptide 82 Total Protein 7.5 Albumin 2.9 L Globulin 4.6 H Albumin/Globulin Ratio 0.6 L Influenza A (Rapid) Influenza B (Rapid) 05/04/19 05/04/19 05/05/19 18:33 19:15 04:18 WBC RBC Hgb Hct MCV MCH MCHC RDW Plt Count MPV Neut % (Auto) Lymph % (Auto) [place] % (Auto) Eos % (Auto) Baso % (Auto) Absolute Neuts (auto) Absolute Lymphs (auto) Absolute Monos (auto) Absolute Eos (auto) Absolute Basos (auto) Absolute Nucleated RBC Nucleated RBC % INR (Anticoag Therapy) APTT Patient Temperature ABG pH 7.37 ABG pH (Temp Correct) ABG pCO2 113 H* ABG pCO2 (Temp Corrct ABG pO2 74 L ABG pO2 (Temp Correct ABG HCO3 49.9 H* ABG O2 Saturation 96.9 ABG Base Excess 32.1 H Respiration Rate Ventilator Type Vent Mode FiO2 Inspiratory Time PEEP Pressure Support Pressure Control EPAP IPAP BiPAP Sodium 137 Potassium 4.9 Chloride 81 L Carbon Dioxide 52 H* Anion Gap Not Reportable BUN 10 Creatinine < 0.30 L Est GFR ( Amer) 277.5 Est GFR (Non-Af Amer) 229.3 BUN/Creatinine Ratio 33.0 H Glucose 116 H Lactic Acid Calcium 8.8 Total Bilirubin AST ALT Alkaline Phosphatase Total Creatine Kinase C-Reactive Protein B-Natriuretic Peptide Total Protein Albumin Globulin Albumin/Globulin Ratio Influenza A (Rapid) Negative Influenza B (Rapid) Negative 05/05/19 04:18 WBC 6.5 RBC 3.58 L Hgb 11.4 L Hct 35 MCV 98 H MCH 32 H MCHC 32 RDW 14 Plt Count 154 MPV 8.2 Neut % (Auto) Lymph % (Auto) [place] % (Auto) Eos % (Auto) Baso % (Auto) Absolute Neuts (auto) Absolute Lymphs (auto) Absolute Monos (auto) Absolute Eos (auto) Absolute Basos (auto) Absolute Nucleated RBC Nucleated RBC % INR (Anticoag Therapy) APTT Patient Temperature ABG pH ABG pH (Temp Correct) ABG pCO2 ABG pCO2 (Temp Corrct ABG pO2 ABG pO2 (Temp Correct ABG HCO3 ABG O2 Saturation ABG Base Excess Respiration Rate Ventilator Type Vent Mode FiO2 Inspiratory Time PEEP Pressure Support Pressure Control EPAP IPAP BiPAP Sodium Potassium Chloride Carbon Dioxide Anion Gap BUN Creatinine Est GFR ( Amer) Est GFR (Non-Af Amer) BUN/Creatinine Ratio Glucose Lactic Acid Calcium Total Bilirubin AST ALT Alkaline Phosphatase Total Creatine Kinase C-Reactive Protein B-Natriuretic Peptide Total Protein Albumin Globulin Albumin/Globulin Ratio Influenza A (Rapid) Influenza B (Rapid) Plan: 59y F w/pmhx of end-stage COPD, home O2 and nocturnal CPAP/NIV; admitted 3 after she was found unresponsive at home. brought to ER, found to be hypoxic, ABG demonstating acute on chronic hypercapnea, placed on HFNC iniitally and showed some improvement. CXR showed some new left sided infiltrates compared to prior imaging. She had an elevated wbc but no fevers/LA. she was given steroids. She is a DNR/DNI. A question of possible hospice in ER and so a palliative care consult was called and patient/family not aware of hospice so she was to be discussed this later. she is now admitted to ICU overnight on HFNC, this morning weaned down to 10L and then switched to regular NC, currently on 4 L, sats intact. she is more awake, alert. BP and HR stable, afebrile. no cough, sputum/cp/sob. no abd pain/n/v. no diarrhea. no sick contacts noted Exam demonstrates no wheezing, distant breath sounds; cachetic appearance+. no edema peripherally. no murmurs. labs reviewed cxr 05/03 - left side mild infiltrates on mid/upper lobe noted. assessment - acute on chronic hypoxic/hypercapnic respiratory failure acute copd exaccerbation protein calorie malnutrition givne 35+lb wieght loss plan - add solumedrol 40mg iv daily nebulizers q4h prn wean fio2, on NC now, less distress cont CTX IV abx (day#2), d/c azithro palliative care consult ongoing for comfort measures. patient is end-stage and knows severity of disease. does not like NIV at all, refuses. unclear what goals will be if she is on hfnc and unable to leave. would keep morphine PRN for resp distress. cont cpap at night status - guarded dispo - maintain ICU, hopefully she maintain NC and be on medical floor in next 24-48 hours. Teaching Attestation This service has been performed in part by a resident under the direction of a teaching physician.I, Dr Frank Clifton, performed the service, or was physically present during the critical, or montez portions of the service, furnished by the resident. I participated in the management of the patient. Total CC time 30 min not including procedures/teaching
[2019-05-05] MEDS ORDERED: methylPREDNISolone SOD 40 MG* 1 ML VIAL IV SCH (16:00)
[2019-05-05] MEDS ORDERED: Morphine INJ* 2 MG/ML 1 ML SYRINGE (TWO MG - NEW SYRINGE VERSION) IV ONE (23:30)
[2019-05-06] MEDS: Albuterol 2.5 MG/3 ML NEB.SOL* (0.083%) INH SCH ×2 (01:17→07:49)
[2019-05-06 04:42] LABS: Hematocrit 31 % (35-47); Mean Corpuscular HGB Conc 32 g/dL (31-36); Mean Corpuscular Hemoglobin 32 pg (27-31); Mean Corpuscular Volume 97 fL (80-97); Mean Platelet Volume 8.3 fL (7.4-10.4); Platelet Count 140 10^3/uL (150-450); Red Blood Count 3.17 10^6 /uL (3.70-4.87); Red Cell Distribution Width 13 % (10-15); White Blood Count 7.4 10^3/uL (3.5-10.8)
[2019-05-06 05:02] LABS: Blood Urea Nitrogen 10 mg/dL (6-24); Calcium 8.4 mg/dL (8.6-10.3); Chloride 86 mmol/L (101-111); EGFR African American 277.5 (>60); EGFR Non-African American 229.3 (>60); Glucose 92 mg/dL (70-100); Potassium 3.7 mmol/L (3.5-5.0); Sodium 139 mmol/L (135-145)
[2019-05-06 05:18] LABS: CO2 Carbon Dioxide 54 mmol/L (22-32)
[2019-05-06] MEDS: busPIRone TAB* 5 MG PO SCH ×2 (09:15→19:45)
[2019-05-06] MEDS: Cholecalciferol TAB* 1000 UNITS PO SCH (09:19)
[2019-05-06] MEDS: methylPREDNISolone SOD 40 MG* 1 ML VIAL IV SCH (09:20)
[2019-05-06] MEDS: Tiotropium Brom/Olodaterol MDI INH SCH (09:20)
[2019-05-06] MEDS: cefTRIAXone(*) 1 GM in NS 0.9% 50 ML* 50 ML IVPB SCH (09:20)
[2019-05-06] MEDS: Heparin VIAL(*) 5000 UNITS/ML VIAL (FIVE THOUSAND) SUBCUT SCH ×2 (09:20→19:45)
[2019-05-06] MEDS: Lidocaine PATCH 5%* 1 PATCH TRANSDERM SCH (09:24)
[2019-05-06] MEDS: Sertraline* 25 MG TAB PO SCH (09:24)
--- NOTE | 2019-05-06 11:35 | PN ---
<Maame Lu - Last Filed: 05/06/19 11:30> Date of Service: 05/06/19 Critical Care Services: Patient feels "great" today, enjoy her breakfast. Managed to wean down to nasal cannula 4L overnight. I brought up the discussion regarding her further plan regarding her end stage lung disease, she refused to talk about it now. Vital Signs: Temp Pulse Resp BP SpO2 FiO2 98.3 F 81 17 103/61 93 40 05/06/19 08:00 05/06/19 10:00 05/06/19 10:15 05/06/19 10:00 05/06/19 10:00 05/04 08:00 Physical Exam: Constitutional: awake, alert, no distress, no diaphoresis, fragile looking Head: normocephalic, atraumatic Eyes: no pallor, no icterus ENT: moist mucous membranes Neck: soft, supple, no jvd, no stridor CVS: normal rate, regular, no murmur Chest/Resp: diminished bilateral lung sound Abdomen/GI: soft, nontender, nondistended, BS+ Ext/Msk: warm, pulses+, no edema Skin: intact, warm Neuro: awake, alert, not oriented, moving all extremities, no gross focal deficit Psych: alert, oriented but confused. She was looking for her bag she brought in first day, but apparently she was altered when EMS brought in. Fluid Balance (Past 24 Hours): I= O= Net Intake & Output 05/04/19 05/05/19 05/06/19 05/07/19 06:59 06:59 06:59 06:59 Intake Total 430 2406 Output Total 200 Balance 430 2406 -200 Weight 33.1 kg Intake: IV Fluids 100 8 NS 8 IVPB 60 Ceftriaxone 60 Oral 330 2338 Output: Urine 200 Other: Estimated Void Large # Voids 1 Labs: Laboratory Results - last 24 hr 05/06/19 05/06/19 04:29 04:29 WBC 7.4 RBC 3.17 L Hgb 10.0 L Hct 31 L MCV 97 MCH 32 H MCHC 32 RDW 13 Plt Count 140 L MPV 8.3 Sodium 139 Potassium 3.7 Chloride 86 L Carbon Dioxide 54 H* Anion Gap Not Reportable BUN 10 Creatinine < 0.30 L Est GFR ( Amer) 277.5 Est GFR (Non-Af Amer) 229.3 BUN/Creatinine Ratio 33.0 H Glucose 92 Calcium 8.4 L Nutrition: Regular unrestricted diet Ensure. Impression: 59 y/o female with 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 1. Acute on chronic respiratory failure 2. Possible left side pneumonia 3. Goal of care discussion: patient was supposed to be on hospice based on discussion last admission in Jan, however she refused to sign hospice paper after discharge, and refused to discuss at this moment. Plan: Neuro-currently at baseline mental status -psy consult for mental capacity assessment of decision making for hospice CVS- Bp stable, no tachycardia Resp- -Wean Fio2 to keep sat 89-92%, currently on [place] 4L -was given one dose 125mg iv solu-medru in ED, now on iv solu-medru 20mg daily -nebulizer Q6h prn -morphine prn for SOB -Palliative consult for hospice planning ID- possible left side pneumonia, cover with iv ceftriaxone - one dose azithromycin given - afebrile. leukocytosis resolved GI- -Nutrition: malnutrition, significant weight loss recently, -GI prophylaxis Renal- -strict I/O, replete to keep K>4, Mg>2 Heme- stable Endo-Maintain BG<200, insulin protocol as needed Musculsk- sit out of bed Wounds- none Nutrition- regular unrestricted diet DVT prophylaxis: sc heparin GI prophylaxis: no, low dose steroid Central Line: no Arterial Line: no Granados Cathetor: no Disposition: transfer to medical floor today Patient clinical status: stable Code Status: DNR Total Critical Care time is 30 minutes <Frank Clifton - Last Filed: 05/06/19 11:55> Vital Signs: Temp Pulse Resp BP SpO2 FiO2 98.3 F 81 17 103/61 93 40 05/06/19 08:00 05/06/19 10:00 05/06/19 10:15 05/06/19 10:00 05/06/19 10:00 05/04 08:00 Physical Exam: Gen: HEENT: Lungs: Cardiac: Abdomen: Extremities: Neuro: Fluid Balance (Past 24 Hours): I= O= Net Intake & Output 0305/05/19 05/06/19 05/07/19 06:59 06:59 06:59 06:59 Intake Total 430 2406 Output Total 200 Balance 430 2406 -200 Weight 33.1 kg Intake: IV Fluids 100 8 NS 8 IVPB 60 Ceftriaxone 60 Oral 330 2338 Output: Urine 200 Other: Estimated Void Large # Voids 1 Labs: Laboratory Results - last 24 hr 05/06/19 05/06/19 04:29 04:29 WBC 7.4 RBC 3.17 L Hgb 10.0 L Hct 31 L MCV 97 MCH 32 H MCHC 32 RDW 13 Plt Count 140 L MPV 8.3 Sodium 139 Potassium 3.7 Chloride 86 L Carbon Dioxide 54 H* Anion Gap Not Reportable BUN 10 Creatinine < 0.30 L Est GFR ( Amer) 277.5 Est GFR (Non-Af Amer) 229.3 BUN/Creatinine Ratio 33.0 H Glucose 92 Calcium 8.4 L Plan: 59y F w/pmhx of end-stage COPD, home O2 and nocturnal CPAP/NIV; admitted 05/04 after she was found unresponsive at home. brought to ER, found to be hypoxic, ABG demonstating acute on chronic hypercapnea, placed on HFNC iniitally and showed some improvement. CXR showed some new left sided infiltrates compared to prior imaging. She had an elevated wbc but no fevers/LA. she was given steroids. She is a DNR/DNI. A question of possible hospice in ER and so a palliative care consult was called and patient/family not aware of hospice so she was to be discussed this later. she is now in ICU. overnight/yesterday transitioned to [place], off HFNC. stable, no distress, no cough/sob now. afebrile. BP and HR stable feels better today labs reviewed imaging reviewed assessment - acute on chronic hypoxic/hypercapnic respiratory failure acute copd exaccerbation protein calorie malnutrition givne 35+lb wieght loss plan - cont solumedrol 20mg iv daily (decreased yesterday) nebulizers q4h prn wean fio2, on NC now cont CTX IV abx (day#3), d/c azithro palliative care consult ongoing for comfort measures. patient refusing to go hospice. maintain DNR/DNI though. Doesnt like NIV which would help her at home. Improved with HFNC though. would keep morphine PRN for resp distress. cont cpap at night status - guarded dispo - stable for downgrade to medical floor. overall poor prognosis, end-stage COPD with recurrent failure, malnutrition. Teaching Attestation This service has been performed in part by a resident under the direction of a teaching physician.I, Dr Frank Clifton, performed the service, or was physically present during the critical, or montez portions of the service, furnished by the resident. I participated in the management of the patient.
[2019-05-06] MEDS ORDERED: Albuterol 2.5 MG/3 ML NEB.SOL* (0.083%) INH PRN (11:41)
[2019-05-06] MEDS: Morphine ORAL CONCENTRATE* 5 MG/0.25 ML ORAL.SYRIN SL PRN ×3 (12:37→19:45)
--- NOTE | 2019-05-06 17:35 | CONSULT ---
Consult Consult: Consult for Medical Decision Making Capacity S: Psychiatry is asked to evaluate capacity in this recently 59 y.o. white female with a history of chronic respiratory failure, CO2 narcosis and end stage COPD. The patient was readmitted to the hospital several days ago with respiratory distress in the setting of non-adherence with at-home BIPAP. She has had recurrent admissions for this problem and is now DNR/DNI with a recommendation for home hospice services. The patient is apparently declining these services and the primary team wonders if she has capacity to do so. On exam the patient is a gaunt, unwell appearing middle aged white female who appears to be much older than her stated age. She accepts my visit and is able to accurately identify COPD as her diagnosis. "My just and I feel like the world is just flying right at me." Shahla was able to say that Hospice services would give some support not only to her, but also to her son Eleazar, who lives with her and is her chief remaining source of support. "I told them that I would think about it, but I really need to talk to Eleazar. I don't know where I would be without him. He's just like his father." Ms. High is completely alert and oriented to time, place and situation. O: middle aged female appearing gaunt and somewhat vazquez; calm and cooperative ; speech is fluent; mood is euthymic with a somewhat anxious affect; thought process is linear and goal-directed; she denies SI or HI; insight and judgment are intact given willingness to consider Hospicare and discuss it with her son; cognitively awake, alert and fully oriented. A/P: Capacity: The patient is able to describe services related to Hospicare in the home setting. She is able to articulate a choice, which in this case is to wait and discuss it with her son. She appears cognitively intact and able to synthesize information about her healthcare needs at this time. In my judgment she has capacity to accept or decline hospicare services. Capacity is subject to change and Psychiatry can be re-consulted in the event of any significant changes in the patient's presentation. I have shared my opinion with the patient, -[facility] staff and Dr. Lu.
[2019-05-07] MEDS: Morphine ORAL CONCENTRATE* 5 MG/0.25 ML ORAL.SYRIN SL PRN ×5 (02:45→21:14)
[2019-05-07 04:50] LABS: Hematocrit 30 % (35-47); Hemoglobin 9.7 g/dL (12.0-16.0); Mean Corpuscular HGB Conc 32 g/dL (31-36); Mean Corpuscular Hemoglobin 32 pg (27-31); Mean Corpuscular Volume 98 fL (80-97); Mean Platelet Volume 7.5 fL (7.4-10.4); Platelet Count 134 10^3/uL (150-450); Red Blood Count 3.08 10^6 /uL (3.70-4.87); Red Cell Distribution Width 14 % (10-15); White Blood Count 6.5 10^3/uL (3.5-10.8)
[2019-05-07 05:05] LABS: BUN/Creatinine Ratio 31.3 (8-20); Blood Urea Nitrogen 10 mg/dL (6-24); Calcium 8.6 mg/dL (8.6-10.3); Chloride 88 mmol/L (101-111); EGFR African American 257.5 (>60); EGFR Non-African American 212.8 (>60); Glucose 136 mg/dL (70-100); Sodium 139 mmol/L (135-145)
[2019-05-07 05:32] LABS: CO2 Carbon Dioxide 50 mmol/L (22-32)
[2019-05-07] MEDS: Cholecalciferol TAB* 1000 UNITS PO SCH (08:11)
[2019-05-07] MEDS: busPIRone TAB* 5 MG PO SCH ×2 (08:11→21:08)
[2019-05-07] MEDS: Sertraline* 25 MG TAB PO SCH (08:12)
[2019-05-07] MEDS: Lidocaine PATCH 5%* 1 PATCH TRANSDERM SCH (08:22)
[2019-05-07] MEDS: Heparin VIAL(*) 5000 UNITS/ML VIAL (FIVE THOUSAND) SUBCUT SCH ×2 (08:22→21:09)
--- NOTE | 2019-05-07 08:29 | PN ---
Subjective Date of Service: 05/07/19 Interval History: Shahla is feeling okay today; she is sitting up in the chair eating eggs and perry when I come in to the room and she greets me. She has no complaints, feels she is getting better. We discussed the loss of her , which has been understandingly devastating to her. Objective Active Medications: Acetaminophen (Tylenol Tab*) 650 mg PO TID PRN PRN Reason: MILD PAIN or TEMP > 100.4 Last Admin: 05/05/19 20:37 Dose: 650 mg Albuterol (Ventolin Hfa Inhaler*) 2 puff INH QID PRN PRN Reason: SOB/WHEEZING Albuterol (Ventolin 2.5 Mg/3 Ml Neb.Anaid*) 2.5 mg INH [id number] AWAKE PRN PRN Reason: SOB/WHEEZING Buspirone HCl (Buspar Tab*) 7.5 mg PO BID [facility] Last Admin: 05/07/19 08:11 Dose: 7.5 mg Cholecalciferol (Vitamin D Tab*) 5,000 units PO DAILY [facility] Last Admin: 05/07/19 08:11 Dose: 5,000 units Heparin Sodium (Porcine) (Heparin Vial(*)) 5,000 units SUBCUT Q12HR [facility] Last Admin: 05/07/19 08:22 Dose: 5,000 units Hydroxyzine HCl (Atarax Tab*) 10 mg PO BID PRN PRN Reason: ANXIETY Ceftriaxone Sodium 1 gm/ (Sodium Chloride) 50 mls @ 100 mls/hr IVPB Q24H [facility] Last Admin: 05/06/19 09:20 Dose: 100 mls/hr Lidocaine (Lidoderm 5% Patch*) 1 patch TRANSDERM DAILY [facility] Last Admin: 05/07/19 08:22 Dose: Not Given Lorazepam (Ativan Tab(*)) 0.5 mg PO Q4H PRN PRN Reason: ANXIETY Methylprednisolone Sodium Succinate (Solu-Medrol 40 Mg) 20 mg IV DAILY [facility] Last Admin: 05/06/19 09:20 Dose: 20 mg Morphine Sulfate (Morphine Oral Concentrate*) 5 mg SL Q2H PRN PRN Reason: SHORTNESS OF BREATH Last Admin: 05/07/19 08:10 Dose: 5 mg Morphine Sulfate (Morphine Inj (Syringe))*) 2 mg IV Q4H PRN PRN Reason: PAIN - SEVERE Sertraline HCl (Zoloft*) 25 mg PO DAILY [facility] Last Admin: 05/07/19 08:12 Dose: 25 mg Tiotropium [place]/Olodaterol (Stiolto Respimat Inh [place] (60 Puff)) 2 puff INH DAILY [facility] Last Admin: 05/06/19 09:20 Dose: 2 puff Vital Signs - 8 hr 05/07/19 05/07/19 05/07/19 02:45 03:15 06:25 Temperature 98.6 F Pulse Rate 82 Respiratory 16 18 20 Rate Blood Pressure 106/49 (mmHg) O2 Sat by Pulse 97 Oximetry 05/07/19 08:10 Temperature Pulse Rate Respiratory 18 Rate Blood Pressure (mmHg) O2 Sat by Pulse Oximetry Oxygen Devices in Use Now: High Flow Nasal Cannula Appearance: alert, sitting up in chair, breathing comfortably, no accessory muscles, chronically ill appearing, appears older than stated age Eyes: No Scleral Icterus Ears/Nose/Mouth/Throat: - - dentures Neck: NL Appearance and Movements; NL JVP Respiratory: - - shallow breaths, barrel chested, no wheezes or rhonchi Cardiovascular: NL Sounds; No Murmurs; No JVD, RRR Lymphatic: No Cervical Adenopathy Extremities: No Edema Skin: No Rash or Ulcers Neurological: Alert and Oriented x 3 - Nutrition: Malnutrition Diagnosis/Plan Malnutrition Assessment by Registered Dietitian: Malnutrition Assessment Clinical Characteristics Chronic,Severe Malnutrition Assessment: severe wt loss x 3mos: 31% Criteria < or = 75% EEE x > or = 1 mo moderate temporal wasting; sunken eye orbits Malnutrition Assessment: Ensure Enlive @ BLD: 350 kcals, 20 g pro per Interventions serving Grapes @ 3pm daily: ~ 60 kcals Malnutrition Assessment: Goals 1. Intake will improve to at least 50% of meals 2. Intake will support wt gain and preserve lean body mass 3. Adequate glycmic control in setting of steroid tx Result Diagrams: 05/07/19 04:38 05/07/19 04:38 Microbiology and Other Data: Microbiology 05/04/19 16:02 Aerobic Blood Culture - Preliminary Blood Venous No Growth Day 2 Anaerobic Blood Culture - Preliminary No Growth Day 2 Assess/Plan/Problems-Billing Assessment: This is a 59 year old woman with history of severe COPD who was admitted on after being found unresponsive and was noted to be hypoxic and hypercapneic. She was admitted to the ICU on vapotherm and has been able to be weaned to 4L O2 and was transferred to on 05/05. Dr. Mansfield and Dr. Jackman have both been consulted--hospice discussions are under way, and she does have capacity to make these decisions based on these two consultations - Patient Problems (1) Acute and chronic respiratory failure Current Visit: No Status: Acute Code(s): J96.20 - ACUTE AND CHR RESP FAILURE , UNSP W HYPOXIA OR HYPERCAPNIA SNOMED Code(s): 45721612 Comment: with hypercapnia and hypoxia initially requiring vapotherm, now 4L O2 (home O2 requirement is 3L round the clock) she has not been able to tolerate trilogy at home (2) COPD exacerbation Current Visit: No Status: Acute Code(s): J44.1 - CHRONIC OBSTRUCTIVE PULMONARY DISEASE W (ACUTE) EXACERBATION SNOMED Code(s): 279565297 Comment: continue steroids, nebs, ceftriaxone (?pneumonia on CXR ) (3) End stage COPD Current Visit: No Status: Acute Code(s): J44.9 - CHRONIC OBSTRUCTIVE PULMONARY DISEASE, UNSPECIFIED SNOMED Code(s): 987166139 Comment: continue prn morphine qualifies for hospice based on Dr. Mansfield's consultation will come back to discuss with her and her son when he arrives (4) Physical deconditioning Current Visit: No Status: Resolved Code(s): R53.81 - OTHER MALAISE SNOMED Code(s): 55135750318491 Comment: with malnutrition
[2019-05-07] MEDS: Tiotropium Brom/Olodaterol MDI INH SCH (10:09)
[2019-05-07] MEDS: methylPREDNISolone SOD 40 MG* 1 ML VIAL IV SCH (11:06)
[2019-05-07] MEDS: cefTRIAXone(*) 1 GM in NS 0.9% 50 ML* 50 ML IVPB SCH (11:07)
[2019-05-07] MEDS: guaiFENesin 100 mg/5 ml LIQ unit dose cup PO PRN (13:48)
[2019-05-07] MEDS: Morphine INJ* 2 MG/ML 1 ML SYRINGE (TWO MG - NEW SYRINGE VERSION) IV PRN (19:29)
[2019-05-08] MEDS: Morphine ORAL CONCENTRATE* 5 MG/0.25 ML ORAL.SYRIN SL PRN ×7 (01:35→23:18)
[2019-05-08] MEDS: Tiotropium Brom/Olodaterol MDI INH SCH (08:56)
[2019-05-08] MEDS: busPIRone TAB* 5 MG PO SCH ×2 (09:17→20:21)
[2019-05-08] MEDS: Cholecalciferol TAB* 1000 UNITS PO SCH (09:19)
[2019-05-08] MEDS: Sertraline* 25 MG TAB PO SCH (09:20)
[2019-05-08] MEDS: Heparin VIAL(*) 5000 UNITS/ML VIAL (FIVE THOUSAND) SUBCUT SCH ×2 (09:21→20:21)
[2019-05-08] MEDS: methylPREDNISolone SOD 40 MG* 1 ML VIAL IV SCH (09:21)
[2019-05-08] MEDS: Lidocaine PATCH 5%* 1 PATCH TRANSDERM SCH (09:27)
[2019-05-08] MEDS: cefTRIAXone(*) 1 GM in NS 0.9% 50 ML* 50 ML IVPB SCH (09:33)
--- NOTE | 2019-05-08 12:13 | PN ---
Subjective Date of Service: 05/08/19 Interval History: No overnight events. She feels "about the same" as she did yesterday. No pain , slight dry cough which isn't bothersome. Objective Active Medications: Acetaminophen (Tylenol Tab*) 650 mg PO TID PRN PRN Reason: MILD PAIN or TEMP > 100.4 Last Admin: 05/05/19 20:37 Dose: 650 mg Albuterol (Ventolin Hfa Inhaler*) 2 puff INH QID PRN PRN Reason: SOB/WHEEZING Albuterol (Ventolin 2.5 Mg/3 Ml Neb.Anaid*) 2.5 mg INH [id number] AWAKE PRN PRN Reason: SOB/WHEEZING Azithromycin (Zithromax Tab*) 250 mg PO DAILY [facility] Buspirone HCl (Buspar Tab*) 7.5 mg PO BID [facility] Last Admin: 05/08/19 09:17 Dose: 7.5 mg Cholecalciferol (Vitamin D Tab*) 5,000 units PO DAILY [facility] Last Admin: 05/08/19 09:19 Dose: 5,000 units Guaifenesin (Robitussin 100 Mg/5ml Liq) 5 ml PO Q4H PRN PRN Reason: COUGH Last Admin: 05/07/19 13:48 Dose: 5 ml Heparin Sodium (Porcine) (Heparin Vial(*)) 5,000 units SUBCUT Q12HR [facility] Last Admin: 05/08/19 09:21 Dose: 5,000 units Hydroxyzine HCl (Atarax Tab*) 10 mg PO BID PRN PRN Reason: ANXIETY Ceftriaxone Sodium 1 gm/ (Sodium Chloride) 50 mls @ 100 mls/hr IVPB Q24H [facility] Last Admin: 05/08/19 09:33 Dose: 100 mls/hr Lidocaine (Lidoderm 5% Patch*) 1 patch TRANSDERM DAILY [facility] Last Admin: 05/08/19 09:27 Dose: Not Given Lorazepam (Ativan Tab(*)) 0.5 mg PO Q4H PRN PRN Reason: ANXIETY Methylprednisolone Sodium Succinate (Solu-Medrol 40 Mg) 20 mg IV DAILY [facility] Last Admin: 05/08/19 09:21 Dose: 20 mg Morphine Sulfate (Morphine Oral Concentrate*) 5 mg SL Q2H PRN PRN Reason: SHORTNESS OF BREATH Last Admin: 05/08/19 09:22 Dose: 5 mg Morphine Sulfate (Morphine Inj (Syringe))*) 2 mg IV Q4H PRN PRN Reason: PAIN - SEVERE Last Admin: 05/07/19 19:29 Dose: 2 mg Sertraline HCl (Zoloft*) 25 mg PO DAILY [facility] Last Admin: 05/08/19 09:20 Dose: 25 mg Tiotropium [place]/Olodaterol (Stiolto Respimat Inh [place] (60 Puff)) 2 puff INH DAILY [facility] Last Admin: 05/08/19 08:56 Dose: 2 puff Vital Signs - 8 hr 05/08/19 05/08/19 05/08/19 05:47 08:17 09:22 Temperature 97.5 F Pulse Rate 73 Respiratory 18 14 18 Rate Blood Pressure 105/50 (mmHg) O2 Sat by Pulse 100 Oximetry 05/08/19 11:23 Temperature 97.7 F Pulse Rate 78 Respiratory 14 Rate Blood Pressure 88/54 (mmHg) O2 Sat by Pulse 100 Oximetry Oxygen Devices in Use Now: High Flow Nasal Cannula Appearance: alert, chronically ill appearing Eyes: No Scleral Icterus Ears/Nose/Mouth/Throat: NL Teeth, Lips, Gums Neck: NL Appearance and Movements; NL JVP Respiratory: - - distant breath sounds, poor air movement with prolonged expiratory phase Cardiovascular: NL Sounds; No Murmurs; No JVD, RRR Abdominal: NL Sounds; No Tenderness; No Distention Lymphatic: No Cervical Adenopathy Extremities: No Edema Skin: No Rash or Ulcers - Nutrition: Malnutrition Diagnosis/Plan Malnutrition Assessment by Registered Dietitian: Malnutrition Assessment Clinical Characteristics Chronic,Severe Malnutrition Assessment: severe wt loss x 3mos: 31% Criteria < or = 75% EEE x > or = 1 mo moderate temporal wasting; sunken eye orbits Malnutrition Assessment: Ensure Enlive @ BLD: 350 kcals, 20 g pro per Interventions serving Grapes @ 3pm daily: ~ 60 kcals Malnutrition Assessment: Goals 1. Intake will improve to at least 50% of meals 2. Intake will support wt gain and preserve lean body mass 3. Adequate glycmic control in setting of steroid tx Result Diagrams: 05/07/19 04:38 05/07/19 04:38 Microbiology and Other Data: Microbiology 05/04/19 16:02 Aerobic Blood Culture - Preliminary Blood Venous No Growth Day 2 Anaerobic Blood Culture - Preliminary No Growth Day 2 Assess/Plan/Problems-Billing Assessment: This is a 59 year old woman with history of severe COPD who was admitted on after being found unresponsive and was noted to be hypoxic and hypercapneic. She was admitted to the ICU on vapotherm and has been able to be weaned to 4L O2 and was transferred to on 05/05. Dr. Mansfield and Dr. Jackman have both been consulted--hospice discussions are under way, and she does have capacity to make these decisions based on these two consultations - Patient Problems (1) Acute and chronic respiratory failure Current Visit: No Status: Acute Code(s): J96.20 - ACUTE AND CHR RESP FAILURE , UNSP W HYPOXIA OR HYPERCAPNIA SNOMED Code(s): 86479690 Comment: with hypercapnia and hypoxia initially requiring vapotherm, now 4L O2 (home O2 requirement is 3L round the clock) she has not been able to tolerate trilogy at home (2) COPD exacerbation Current Visit: No Status: Acute Code(s): J44.1 - CHRONIC OBSTRUCTIVE PULMONARY DISEASE W (ACUTE) EXACERBATION SNOMED Code(s): 727132674 Comment: continue steroids, nebs, ceftriaxone (?pneumonia on CXR ) add azithro today (3) End stage COPD Current Visit: No Status: Acute Code(s): J44.9 - CHRONIC OBSTRUCTIVE PULMONARY DISEASE, UNSPECIFIED SNOMED Code(s): 670351273 Comment: continue prn morphine qualifies for hospice based on Dr. Mansfield's consultation I will continue this conversation--she wants to wait until her son is here
[2019-05-08] MEDS: Azithromycin TAB* 250 MG PO SCH (13:16)
[2019-05-08] MEDS: Morphine INJ* 2 MG/ML 1 ML SYRINGE (TWO MG - NEW SYRINGE VERSION) IV PRN ×2 (15:06→23:57)
[2019-05-08] MEDS: guaiFENesin 100 mg/5 ml LIQ unit dose cup PO PRN (20:20)
[2019-05-09] MEDS: Morphine INJ* 2 MG/ML 1 ML SYRINGE (TWO MG - NEW SYRINGE VERSION) IV PRN (04:41)
[2019-05-09] MEDS: Tiotropium Brom/Olodaterol MDI INH SCH (07:40)
--- NOTE | 2019-05-09 08:24 | PN ---
Subjective Date of Service: 05/09/19 Interval History: No overnight events, she feels okay this morning but just woke up. Her breathing feels comfortable. She thinks she is getting a little better. Objective Active Medications: Acetaminophen (Tylenol Tab*) 650 mg PO TID PRN PRN Reason: MILD PAIN or TEMP > 100.4 Last Admin: 05/05/19 20:37 Dose: 650 mg Albuterol (Ventolin Hfa Inhaler*) 2 puff INH QID PRN PRN Reason: SOB/WHEEZING Albuterol (Ventolin 2.5 Mg/3 Ml Neb.Anaid*) 2.5 mg INH [id number] AWAKE PRN PRN Reason: SOB/WHEEZING Azithromycin (Zithromax Tab*) 250 mg PO DAILY [facility] Last Admin: 05/08/19 13:16 Dose: 250 mg Buspirone HCl (Buspar Tab*) 7.5 mg PO BID [facility] Last Admin: 05/08/19 20:21 Dose: 7.5 mg Cholecalciferol (Vitamin D Tab*) 5,000 units PO DAILY [facility] Last Admin: 05/08/19 09:19 Dose: 5,000 units Guaifenesin (Robitussin 100 Mg/5ml Liq) 5 ml PO Q4H PRN PRN Reason: COUGH Last Admin: 05/08/19 20:20 Dose: 5 ml Heparin Sodium (Porcine) (Heparin Vial(*)) 5,000 units SUBCUT Q12HR [facility] Last Admin: 05/08/19 20:21 Dose: 5,000 units Hydroxyzine HCl (Atarax Tab*) 10 mg PO BID PRN PRN Reason: ANXIETY Ceftriaxone Sodium 1 gm/ (Sodium Chloride) 50 mls @ 100 mls/hr IVPB Q24H [facility] Last Admin: 05/08/19 09:33 Dose: 100 mls/hr Lidocaine (Lidoderm 5% Patch*) 1 patch TRANSDERM DAILY [facility] Last Admin: 05/08/19 09:27 Dose: Not Given Lorazepam (Ativan Tab(*)) 0.5 mg PO Q4H PRN PRN Reason: ANXIETY Morphine Sulfate (Morphine Oral Concentrate*) 5 mg SL Q2H PRN PRN Reason: SHORTNESS OF BREATH Last Admin: 05/08/19 23:18 Dose: 5 mg Morphine Sulfate (Morphine Inj (Syringe))*) 2 mg IV Q4H PRN PRN Reason: PAIN - SEVERE Last Admin: 05/09/19 04:41 Dose: 2 mg Prednisone (Deltasone 50 Mg Tab) 50 mg PO DAILY [facility] Sertraline HCl (Zoloft*) 25 mg PO DAILY [facility] Last Admin: 05/08/19 09:20 Dose: 25 mg Tiotropium [place]/Olodaterol (Stiolto Respimat Inh [place] (60 Puff)) 2 puff INH DAILY [facility] Last Admin: 05/09/19 07:40 Dose: 2 puff Vital Signs - 8 hr 05/09/19 05/09/19 05/09/19 01:18 02:34 04:41 Temperature 97.9 F Pulse Rate 91 Respiratory 16 19 16 Rate Blood Pressure 113/54 (mmHg) O2 Sat by Pulse Oximetry 05/09/19 05/09/19 05:35 07:15 Temperature 98.0 F Pulse Rate 87 Respiratory 16 16 Rate Blood Pressure 92/48 (mmHg) O2 Sat by Pulse 94 Oximetry Oxygen Devices in Use Now: Nasal Cannula Appearance: alert, thin, ill appearing, appears older than stated age, breathing comfortably with no accessory muscles Eyes: No Scleral Icterus Ears/Nose/Mouth/Throat: - - dry mucosa Neck: NL Appearance and Movements; NL JVP Respiratory: - - diminished breath sounds diffusely, rhonchi b/l Cardiovascular: NL Sounds; No Murmurs; No JVD, RRR Abdominal: NL Sounds; No Tenderness; No Distention Lymphatic: No Cervical Adenopathy Extremities: No Edema Skin: No Rash or Ulcers - Nutrition: Malnutrition Diagnosis/Plan Malnutrition Assessment by Registered Dietitian: Malnutrition Assessment Clinical Characteristics Chronic,Severe Malnutrition Assessment: severe wt loss x 3mos: 31% Criteria < or = 75% EEE x > or = 1 mo moderate temporal wasting; sunken eye orbits Malnutrition Assessment: Ensure Enlive @ BLD: 350 kcals, 20 g pro per Interventions serving Grapes @ 3pm daily: ~ 60 kcals Malnutrition Assessment: Goals 1. Intake will improve to at least 50% of meals 2. Intake will support wt gain and preserve lean body mass 3. Adequate glycmic control in setting of steroid tx Result Diagrams: 05/07/19 04:38 05/07/19 04:38 Microbiology and Other Data: Microbiology 03/11/20 16:02 Aerobic Blood Culture - Preliminary Blood Venous No Growth Day 2 Anaerobic Blood Culture - Preliminary No Growth Day 2 Assess/Plan/Problems-Billing Assessment: This is a 59 year old woman with history of severe COPD who was admitted on after being found unresponsive and was noted to be hypoxic and hypercapneic. She was admitted to the ICU on vapotherm and has been able to be weaned to 4L O2 and was transferred to on 05/05. Dr. Mansfield and Dr. Jackman have both been consulted--hospice discussions are under way, and she does have capacity to make these decisions based on these two consultations - Patient Problems (1) Acute and chronic respiratory failure Current Visit: No Status: Acute Code(s): J96.20 - ACUTE AND CHR RESP FAILURE , UNSP W HYPOXIA OR HYPERCAPNIA SNOMED Code(s): 05380716 Comment: with hypercapnia and hypoxia initially requiring vapotherm, now 4L O2 (home O2 requirement is 3L round the clock) she has not been able to tolerate trilogy at home (2) COPD exacerbation Current Visit: No Status: Acute Code(s): J44.1 - CHRONIC OBSTRUCTIVE PULMONARY DISEASE W (ACUTE) EXACERBATION SNOMED Code(s): 655280992 Comment: continue steroids, nebs, ceftriaxone (?pneumonia on CXR ), and azithro (3) End stage COPD Current Visit: No Status: Acute Code(s): J44.9 - CHRONIC OBSTRUCTIVE PULMONARY DISEASE, UNSPECIFIED SNOMED Code(s): 351519380 Comment: continue prn morphine qualifies for hospice based on Dr. Mansfield's consultation she avoids this conversation when I try to discuss hospice will come back to try to discuss again later today
[2019-05-09] MEDS: Lidocaine PATCH 5%* 1 PATCH TRANSDERM SCH (09:03)
[2019-05-09] MEDS: Sertraline* 25 MG TAB PO SCH (09:28)
[2019-05-09] MEDS: busPIRone TAB* 5 MG PO SCH ×2 (09:28→20:02)
[2019-05-09] MEDS: Azithromycin TAB* 250 MG PO SCH (09:28)
[2019-05-09] MEDS: Cholecalciferol TAB* 1000 UNITS PO SCH (09:28)
[2019-05-09] MEDS: Heparin VIAL(*) 5000 UNITS/ML VIAL (FIVE THOUSAND) SUBCUT SCH ×2 (09:29→20:03)
[2019-05-09] MEDS: Morphine ORAL CONCENTRATE* 5 MG/0.25 ML ORAL.SYRIN SL PRN ×4 (09:29→20:02)
[2019-05-09] MEDS: cefTRIAXone(*) 1 GM in NS 0.9% 50 ML* 50 ML IVPB SCH (09:59)
[2019-05-09] MEDS ORDERED: Morphine ORAL CONCENTRATE* 5 MG/0.25 ML ORAL.SYRIN PO ONE (16:19)
[2019-05-09] MEDS: guaiFENesin 100 mg/5 ml LIQ unit dose cup PO PRN (20:12)
[2019-05-10] MEDS: Morphine ORAL CONCENTRATE* 5 MG/0.25 ML ORAL.SYRIN SL PRN ×7 (00:28→23:42)
[2019-05-10] MEDS: Cholecalciferol TAB* 1000 UNITS PO SCH (07:56)
[2019-05-10] MEDS: Heparin VIAL(*) 5000 UNITS/ML VIAL (FIVE THOUSAND) SUBCUT SCH ×2 (07:57→20:54)
[2019-05-10] MEDS: busPIRone TAB* 5 MG PO SCH ×2 (07:57→20:54)
[2019-05-10] MEDS: Azithromycin TAB* 250 MG PO SCH (07:57)
[2019-05-10] MEDS: Sertraline* 25 MG TAB PO SCH (07:57)
[2019-05-10] MEDS: Lidocaine PATCH 5%* 1 PATCH TRANSDERM SCH (07:58)
[2019-05-10] MEDS: Tiotropium Brom/Olodaterol MDI INH SCH (09:41)
--- NOTE | 2019-05-10 09:52 | PN ---
Subjective Date of Service: 05/10/19 Interval History: No overnight events, feeling a little better but not back to baseline. Has not been out of bed except to the commode. Objective Active Medications: Acetaminophen (Tylenol Tab*) 650 mg PO TID PRN PRN Reason: MILD PAIN or TEMP > 100.4 Last Admin: 05/05/19 20:37 Dose: 650 mg Albuterol (Ventolin Hfa Inhaler*) 2 puff INH QID PRN PRN Reason: SOB/WHEEZING Albuterol (Ventolin 2.5 Mg/3 Ml Neb.Anaid*) 2.5 mg INH [id number] AWAKE PRN PRN Reason: SOB/WHEEZING Azithromycin (Zithromax Tab*) 250 mg PO DAILY [facility] [place] Last Admin: 05/10/19 07:57 Dose: 250 mg Buspirone HCl (Buspar Tab*) 7.5 mg PO BID [facility] [place] Last Admin: 05/10/19 07:57 Dose: 7.5 mg Cholecalciferol (Vitamin D Tab*) 5,000 units PO DAILY [facility] [place] Last Admin: 05/10/19 07:56 Dose: 5,000 units Guaifenesin (Robitussin 100 Mg/5ml Liq) 5 ml PO Q4H PRN PRN Reason: COUGH Last Admin: 05/09/19 20:12 Dose: 5 ml Heparin Sodium (Porcine) (Heparin Vial(*)) 5,000 units SUBCUT Q12HR [facility] [place] Last Admin: 05/10/19 07:57 Dose: 5,000 units Hydroxyzine HCl (Atarax Tab*) 10 mg PO BID PRN PRN Reason: ANXIETY Ceftriaxone Sodium 1 gm/ (Sodium Chloride) 50 mls @ 100 mls/hr IVPB Q24H [facility] [place] Last Admin: 05/09/19 09:59 Dose: 100 mls/hr Lidocaine (Lidoderm 5% Patch*) 1 patch TRANSDERM DAILY [facility] [place] Last Admin: 05/10/19 07:58 Dose: Not Given Lorazepam (Ativan Tab(*)) 0.5 mg PO Q4H PRN PRN Reason: ANXIETY Morphine Sulfate (Morphine Oral Concentrate*) 5 mg SL Q2H PRN PRN Reason: SHORTNESS OF BREATH Last Admin: 05/10/19 07:56 Dose: 5 mg Prednisone (Deltasone 50 Mg Tab) 50 mg PO DAILY [facility] [place] Last Admin: 05/10/19 07:57 Dose: 50 mg Sertraline HCl (Zoloft*) 25 mg PO DAILY [facility] [place] Last Admin: 05/10/19 07:57 Dose: 25 mg Tiotropium [place]/Olodaterol (Stiolto Respimat Inh [place] (60 Puff)) 2 puff INH DAILY [facility] [place] Last Admin: 05/10/19 09:41 Dose: 2 puff Vital Signs - 8 hr 05/10/19 05/10/19 05/10/19 02:57 03:04 05:00 Temperature Pulse Rate 90 Respiratory 18 19 18 Rate Blood Pressure 103/55 (mmHg) O2 Sat by Pulse 99 Oximetry 05/10/19 05/10/19 05/10/19 07:39 07:56 08:00 Temperature 98.0 F Pulse Rate 75 Respiratory 18 17 18 Rate Blood Pressure 110/58 (mmHg) O2 Sat by Pulse 100 Oximetry 05/10/19 09:45 Temperature Pulse Rate 95 Respiratory 18 Rate Blood Pressure (mmHg) O2 Sat by Pulse 93 Oximetry Oxygen Devices in Use Now: Nasal Cannula Appearance: alert, frail, no distress, breathing comfortably Eyes: No Scleral Icterus Ears/Nose/Mouth/Throat: NL Teeth, Lips, Gums, - Neck: NL Appearance and Movements; NL JVP Respiratory: - - dimished breath sounds Cardiovascular: NL Sounds; No Murmurs; No JVD, RRR Abdominal: NL Sounds; No Tenderness; No Distention Lymphatic: No Cervical Adenopathy Extremities: No Edema Skin: No Rash or Ulcers - Nutrition: Malnutrition Diagnosis/Plan Malnutrition Assessment by Registered Dietitian: Malnutrition Assessment Clinical Characteristics Chronic,Severe Malnutrition Assessment: severe wt loss x 3mos: 31% Criteria < or = 75% EEE x > or = 1 mo moderate temporal wasting; sunken eye orbits Malnutrition Assessment: Ensure Enlive @ BLD: 350 kcals, 20 g pro per Interventions serving Grapes @ 3pm daily: ~ 60 kcals Malnutrition Assessment: Goals 1. Intake will improve to at least 50% of meals 2. Intake will support wt gain and preserve lean body mass 3. Adequate glycmic control in setting of steroid tx Result Diagrams: 05/07/19 04:38 05/07/19 04:38 Microbiology and Other Data: Microbiology 05/04/19 16:02 Aerobic Blood Culture - Preliminary Blood Venous No Growth Day 2 Anaerobic Blood Culture - Preliminary No Growth Day 2 Assess/Plan/Problems-Billing Assessment: This is a 59 year old woman with history of severe COPD who was admitted on after being found unresponsive and was noted to be hypoxic and hypercapneic. She was admitted to the ICU on vapotherm and has been able to be weaned to 4L O2 and was transferred to on 05/05. Dr. Mansfield and Dr. Jackman have both been consulted--hospice discussions are under way, and she does have capacity to make these decisions based on these two consultations - Patient Problems (1) Acute and chronic respiratory failure Current Visit: No Status: Acute Code(s): J96.20 - ACUTE AND CHR RESP FAILURE , UNSP W HYPOXIA OR HYPERCAPNIA SNOMED Code(s): 33835606 Comment: with hypercapnia and hypoxia initially requiring vapotherm, now 4L O2 (home O2 requirement is 3L round the clock) she has not been able to tolerate trilogy at home (2) COPD exacerbation Current Visit: No Status: Acute Code(s): J44.1 - CHRONIC OBSTRUCTIVE PULMONARY DISEASE W (ACUTE) EXACERBATION SNOMED Code(s): 186181319 Comment: continue steroids, nebs, ceftriaxone (?pneumonia on CXR ), and azithro (3) End stage COPD Current Visit: No Status: Acute Code(s): J44.9 - CHRONIC OBSTRUCTIVE PULMONARY DISEASE, UNSPECIFIED SNOMED Code(s): 064204555 Comment: continue prn morphine plan for home with hospice; awaiting case management discussions with hospice re : when she can be signed on Status and Disposition: needs to ambulate today, plan for likely home tomorrow
[2019-05-10] MEDS: cefTRIAXone(*) 1 GM in NS 0.9% 50 ML* 50 ML IVPB SCH (11:04)
[2019-05-10] MEDS: LORazepam TAB(*) 0.5 MG PO PRN (19:35)
[2019-05-10] MEDS ORDERED: NS 0.9% 500 ML* 500 ML IV ONE (21:16)
[2019-05-11] MEDS: Morphine ORAL CONCENTRATE* 5 MG/0.25 ML ORAL.SYRIN SL PRN ×5 (02:00→20:07)
[2019-05-11] MEDS: LORazepam TAB(*) 0.5 MG PO PRN ×2 (03:05→21:30)
[2019-05-11] MEDS: busPIRone TAB* 5 MG PO SCH ×2 (08:56→21:30)
[2019-05-11] MEDS: Sertraline* 25 MG TAB PO SCH (08:57)
[2019-05-11] MEDS: Azithromycin TAB* 250 MG PO SCH (08:57)
[2019-05-11] MEDS: Lidocaine PATCH 5%* 1 PATCH TRANSDERM SCH (08:58)
[2019-05-11] MEDS: Heparin VIAL(*) 5000 UNITS/ML VIAL (FIVE THOUSAND) SUBCUT SCH ×2 (08:58→21:31)
[2019-05-11] MEDS: Tiotropium Brom/Olodaterol MDI INH SCH (09:02)
[2019-05-11] MEDS: Cholecalciferol TAB* 1000 UNITS PO SCH (09:33)
[2019-05-12] MEDS: Morphine ORAL CONCENTRATE* 5 MG/0.25 ML ORAL.SYRIN SL PRN ×4 (03:02→15:07)
[2019-05-12] MEDS: LORazepam TAB(*) 0.5 MG PO PRN (03:06)
[2019-05-12] MEDS: Cholecalciferol TAB* 1000 UNITS PO SCH (07:56)
[2019-05-12] MEDS: Sertraline* 25 MG TAB PO SCH (07:56)
[2019-05-12] MEDS: Azithromycin TAB* 250 MG PO SCH (07:56)
[2019-05-12] MEDS: busPIRone TAB* 5 MG PO SCH (07:57)
[2019-05-12] MEDS: Heparin VIAL(*) 5000 UNITS/ML VIAL (FIVE THOUSAND) SUBCUT SCH (07:59)
[2019-05-12] MEDS: Lidocaine PATCH 5%* 1 PATCH TRANSDERM SCH (08:01)
[2019-05-12] MEDS: Tiotropium Brom/Olodaterol MDI INH SCH (08:21)
--- NOTE | 2019-05-12 09:53 | DS ---
CC: Daniela Martinez NP * DISCHARGE SUMMARY: DATE OF ADMISSION: 05/05/19 DATE OF DISCHARGE: 05/12/19 PRINCIPAL DISCHARGE DIAGNOSES: 1. Chronic hypoxic respiratory failure. 2. End-stage chronic obstructive pulmonary disease. 3. Hospice and palliative care. 4. Chronic pain syndrome. 5. Anxiety. MEDICATIONS FOR DISCHARGE: 1. Ventolin 2.5 mg inhaled q.4 hours. 2. Albuterol HFA 2 puffs inhaled 4 times a day p.r.n. wheezing. 3. Cholecalciferol 5000 units daily. 4. Zoloft 25 mg daily. 5. Anoro Ellipta 1 puff inhaled daily. 6. Prednisone 10 mg daily. 7. Furosemide 20 mg Thursday and Thursday. 8. Lorazepam 0.5 mg q.4 hours p.r.n. anxiety. 9. Hydroxyzine 10 mg b.i.d. p.r.n. anxiety. 10. Diclofenac 50 mg b.i.d. 11. Lidocaine patch 5% transdermally daily. 12. Swapna 60 mg daily. 13. Cholecalciferol 2000 units daily. 14. Tylenol 650 t.i.d. p.r.n. pain. 15. Morphine oral concentrate 5 mg/0.25 mL oral syringe 5 mg sublingual q.2 hours p.r.n. pain or work of breathing. 16. Buspirone 7.5 mg b.i.d. I also gave her a 5-day course of azithromycin 250 mg daily and prednisone 50 mg daily as needed to be used the next time she feels that her COPD is flaring. PHYSICAL EXAM AT DISCHARGE: Temp 97.5, heart rate 92, respiratory rate 20, pulse ox 92% on 4 L, blood pressure 109/36. General: Alert, chronically ill- appearing woman, in no distress, resting in bed. She appears older than her stated age. She is breathing comfortably with no accessory respiratory muscle use. HEENT: Pupils equal, round, and reactive to light. Oral mucosa is dry. Neck: No JVP or adenopathy. Chest: She is in a regular rate and rhythm. Her lung sounds are diminished. She has a barrel chest with prolonged expiratory phase. Abdomen: Soft, nontender, nondistended. Extremities: No edema, rashes , or ulcers. CONSULTATIONS DURING THIS ADMISSION: 1. Dr. Mansfield from Palliative Care. 2. Dr. Jackman from Psychiatry. 3. Dr. Clifton from Critical Care. HOSPITAL COURSE BY PROBLEM: 1. Acute on chronic hypoxic and hypercapnic respiratory failure. She was found unresponsive at home and then was admitted to the ICU with hypercapnic respiratory failure. She was started on Vapotherm. On admission, Dr. Mansfield evaluated her to discuss goals of care and updated her MOLST to be DNR/DNI. Of note on the last discharge, Shahla was discharged with a referral to home hospice ; however, when hospice arrived to her home, she turned them away. She was able to be weaned from Vapotherm and transferred to the floor and she was able to wean back to her home O2 requirement of about 3 to 4 L [id number]. She did have a question of an infiltrate on her chest x-ray, so she was treated with ceftriaxone and azithromycin for 5 days. 2. Hospice/palliative care. As mentioned, Shahla has turned down hospice in the past; however, again, we recommended hospice services for her at home. She does not want to go to short-term rehab or the hospice residence, but prefers to go home. Unfortunately, she has limited support there, and while she has a very supportive son, he does not live with her; however, they do have daily help and we recommended that the addition of hospice nurse may be beneficial to them and both Shahla and her son Eleazar agree. Sign-on date is pending at the time of discharge, but we are hopeful that they will be able to sign her on tomorrow and she is anxious to get home to her cats. Eleazar is in agreement with this plan and he has arranged for someone to be with her at all times when she gets home. She has nebulizers, oxygen, and CPAP, though she does not wear it at home. She is unable to get out of her house to get to doctors' appointments , so I also emphasized that the addition of hospice will be helpful to get her care without having to go to her doctors. Please do not hesitate to contact me with any questions or concerns about this admission. [id number]/[facility] #: [id number] MTDD
[2019-05-12 16:08] VITALS: BP 97/45
== END 2019-05-12 18:00 | disposition hospice, home (50) | DRG 140 ==
LOC: ED 14:18 → ICU 18:22 → MED 05-06 09:00
PROVIDERS: ADMIT Internal Medicine Critical Care Medicine; ATTEND Internal Medicine
DX: J44.1 Chronic obstructive pulmonary disease with (acute) exacerbation (principal); J96.21 Acute and chronic respiratory failure with hypoxia; J96.22 Acute and chronic respiratory failure with hypercapnia; E43 Unspecified severe protein-calorie malnutrition; J18.9 Pneumonia, unspecified organism; E87.2 Acidosis; Z68.1 Body mass index [BMI] 19.9 or less, adult; Z99.81 Dependence on supplemental oxygen; G89.4 Chronic pain syndrome; F41.9 Anxiety disorder, unspecified; Z66 Do not resuscitate; Z79.51 Long term (current) use of inhaled steroids; Z79.899 Other long term (current) drug therapy; Z80.1 Family history of malignant neoplasm of trachea, bronchus and lung; Z87.891 Personal history of nicotine dependence
CPT/HCPCS: 36415; 71045; 80048; 80053; 80156; 82550; 82553; 82803; 83605; 83880; 84484; 85025; 85027; 85610; 85730; 86140; 87040; 93005; 94640; 96365; 96375; 99285; A9270-GY; J0696; J1644; J2270; J2543; J2920; J2930; J3535; J7512